=== PATIENT | female | born 1950 | race Caucasian/White ===

== ENCOUNTER 2024-12-11 17:52 | Emergency (ER) | payer MEDICARE, SELFPAY ==
[2024-12-11] VITALS (12 sets, daily range): BP systolic 97–115; BP diastolic 60–71; PULSE 67–96; RESP 18–25; TEMP 36.7–36.9; O2SAT 90–97
--- NOTE | ~2024-12-11 | CT_ITS ---
EXAMINATION: CT abdomen pelvis w con DATE: 12/11/2024 19:49 INDICATION: ABDOMINAL PAIN TECHNIQUE: Computed tomography (CT) of the abdomen and pelvis was performed with 100 mL Omnipaque-350 intravenous contrast. Automated exposure control and iterative reconstruction technique were employe d. The dose-length product was 772.03 mGy-cm. COMPARISON: None. FINDINGS: Significant limitation from metal streak artifact from bracelets or other jewelry on the upper extrem ities throughout the upper abdomen. Lower thorax: Marked cardiomegaly. Left ventricular wall thickening. Scattered air cysts. Dependent a telectasis/interstitial change. Liver: Normal. Biliary/Gallbladder: Gallbladder is normal. No bile duct dilation. Pancreas: No mass or duct dilation. Spleen: Normal. Adrenals:No mass. Kidneys: No suspicious mass, obstructing stone, or hydronephrosis subcentimeter right midpole hypoden sity, too small to characterize but most likely represents a cyst. GI tract: Moderate hiatal hernia. No small or large bowel dilation. Multiple loops of dilated small b owel, with intervening normal caliber portions, with variable degrees of wall hyperemia and wall thic kening. Marked diverticulosis. Large volume of colonic feces, particularly in the sigmoid. Rectosigmo id and rectal wall thickening. Wall breakdown with extension of fecal material into the right lateral pelvis at the level of the distal sigmoid (axial image 144/218). Mesentery/Peritoneum: Small volume ascites with small volume pneumoperitoneum. Diffuse mesenteric inf lammation/edema Retroperitoneum: No mass. Atherosclerotic calcifications of intra-abdominal arterial vessels. Pelvis: Normal urinary bladder and bilateral ovaries. Absent uterus. Soft Tissues: Soft tissues and body wall unremarkable. Bones: No acute osseous finding. IMPRESSION: Significant artifact in the upper abdomen. Multifocal segments of infectious, inflammatory, or ischemic enteritis. Findings concerning for sigmoid bowel rupture, with feculent peritonitis. Reviewed, dictated and finalized at location K.
--- NOTE | 2024-12-11 18:19 | ED.ABDPAIN ---
HPI - Abdominal Pain General Chief Complaint: Abdominal Pain Stated Complaint: abd pain Time Seen by Provider: 12/11/24 18:12 Source: patient Mode of arrival: ambulatory Limitations: no limitations History of Present Illness HPI narrative: 74 YEARS OLD WHITE FEMALE CAME FROM HOME BY AMBULANCE COMPLAINING OF LOWER ABDOMINAL PAIN STARTED AT 5:00 A.M. THIS MORNING, CURRENTLY LOCALIZED AT THE RIGHT LOWER QUADRANT WORSE WITH MOVEMENT, BETTER LAYING STILL, ASSOCIATED WITH NAUSEA. PATIENT DENIES ANY FEVER OR CHILLS OR VOMITING. HISTORY OF HYSTERECTOMY, HYPERTENSION, HYPER LIPID, CONGESTIVE HEART FAILURE, STATUS POST ICD PLACEMENT 4 DAYS AGO AT [place]. HISTORY OF OPEN HEART SURGERY, CVA WITH RIGHT HEMIPARESIS. Related Data Allergies Allergy/AdvReac Type Severity Reaction Status Date / Time latex Allergy Intermediate Unknown Verified 12/11/24 18:34 morphine Allergy Unknown Verified 12/11/24 18:34 Review of Systems Review of Systems: All systems reviewed & are unremarkable except as noted in HPI and below Exam Narrative: GENERAL APPEARANCE: WELL-DEVELOPED, WELL-NOURISHED SKIN: NORMAL COLOR HEAD: NORMOCEPHALIC, NONTRAUMATIC EYES: CLEAR CONJUNCTIVA ENT: OROPHARYNX NORMAL, EARS NORMAL, NOSE NORMAL NECK: SUPPLE, NONTENDER CHEST AND RESPIRATORY: AIRWAY PATENT, NO RESPIRATORY DISTRESS, NO ACCESSORY MUSCLE USE HEART: REGULAR RATE/RHYTHM ABDOMEN: SOFT, SEVERE TENDERNESS LOWER ABDOMEN, BILATERALLY MAINLY ON THE RIGHT LOWER QUADRANT VASCULAR: NORMAL PERIPHERAL PULSES, NORMAL CAPILLARY REFILL. MUSCULOSKELETAL: NORMAL RANGE OF MOTION, NONTENDER BACK NEUROLOGIC: ALERT AND ORIENTED ?3, CONSTRUCTION ACCOUNTANT IS NORMAL TESTED, NO GROSS MOTOR DEFICIT Course Consultations Consultation #1: DR. GLOVER TRANSFERRED TO [facility] Date: 12/11/24 Time: 20:37 Consultation #2: DR STREET, THE SURGEON ON-CALL AT [facility], REQUESTED TO TRANSFER PATIENT TO THE ED Date: 12/11/24 Consultation #3: DR. GROSS, ED PHYSICIAN AT [facility] WHO ACCEPTED PATIENT TRANSFER Date: 12/11/24 Time: 21:16 Vital Signs Vital signs: Vital Signs Temperature 36.9 C 12/11/24 17:51 Pulse Rate 74 12/11/24 17:51 Respiratory Rate 18 12/11/24 17:51 Blood Pressure 115/71 12/11/24 17:51 Pulse Oximetry 96 12/11/24 17:51 Oxygen Delivery Room Air 12/11/24 17:51 Temperature 36.9 C 12/11/24 18:07 Pulse Rate 81 12/11/24 20:20 Respiratory Rate 23 H 12/11/24 20:20 Blood Pressure 97/60 L 12/11/24 20:20 Pulse Oximetry 93 12/11/24 20:20 Oxygen Delivery Room Air 12/11/24 17:51 MDM - Abdominal Pain MDM Narrative Medical decision making narrative: PATIENT PRESENTS WITH LOWER ABDOMINAL PAIN MAINLY RIGHT LOWER QUADRANT VITAL SIGNS ARE STABLE PHYSICAL EXAMINATION CONSISTENT WITH RIGHT LOWER ABDOMEN TENDERNESS DIFFERENTIAL DIAGNOSIS INCLUDE APPENDICITIS, DIVERTICULITIS, COLITIS, URINARY TRACT INFECTION, CONSTIPATION BLOOD WORKUP TODAY INCLUDES CBC, CMP, LIPASE SHOWED INSIGNIFICANT ABNORMALITIES URINALYSIS SHOWED CT ABDOMEN AND PELVIS WITH IV CONTRAST SHOWED MULTIFOCAL SEGMENTS OF INFECTIOUS, INFLAMMATORY OR ISCHEMIC ENTERITIS, FINDING CONCERNING FOR SIGMOID BOWEL RUPTURE WITH FECULENT PERITONITIS DR. GLOVER REQUESTED TO TRANSFER PATIENT TO [facility] PATIENT ACCEPTED FOR TRANSFER FROM ED TO ED, DISCUSSED WITH DR. STREET, THE SURGEON ON-CALL AND DR. GROSS THE ED PHYSICIAN AT [facility] Differential Diagnosis Differential diagnosis: Likely other ( ABOVE) Medical Records Attestation: I reviewed the patient's medical records. Lab Data Attestation: I reviewed the patient's lab results. 12/11/24 18:49 12/11/24 18:49 Labs: Lab Results 12/11/24 Range/Units 18:49 WBC 4.5 (4.5-10.0) K/mm3 RBC 4.32 (4.2-5.4) M/mm3 Hgb 13.1 (12.0-15.0) g/dL Hct 41.4 (37.0-47.0) % MCV 95.8 (80-100) fl MCH 30.3 (26-34) pg MCHC 31.6 L (32-36) g/dl RDW 12.8 (11.5-14.5) % Plt Count 149 L (150-375) k/mm3 MPV 9.6 (7.4-10.4) fl Immature Gran % (Auto) 0.2 (0-0.5) % Neut % (Auto) 70.0 (45.5-73.1) % Lymph % (Auto) 25.2 (18.3-44.2) % Weakley % (Auto) 3.3 (2.6-8.5) % Eos % (Auto) 0.9 (0-4.4) % Baso % (Auto) 0.4 (0.2-1.2) % Lymph # (Auto) 1.14 (0.9-3.2) K/mm3 Weakley # (Auto) 0.2 (0.1-0.6) K/mm3 Eos # (Auto) 0.0 (0-0.3) K/mm3 Baso # (Auto) 0.0 (0.0-0.1) K/mm3 Abs Immat Gran (auto) 0.01 (0.00-0.031) K/mm3 Absolute Neuts (auto) 3.2 (1.3-6.7) K/mm3 Absolute Nucleated RBC 0.000 (0.0-0.012) K/mm3 Nucleated RBC % 0.0 (0.0-0.2) % Sodium 138 (137-145) mmol/L Potassium 3.9 (3.4-5.0) mmol/L Chloride 104 (98-107) mmol/L Carbon Dioxide 29 (22-30) mmol/L Anion Gap 5 (4-12) mmol/L BUN 26 H (7-17) mg/dL Creatinine 0.70 (0.7-1.0) mg/dL Estim Creat Clear Calc 63 ml/min Estimated GFR > 60 (59 - ) Glucose 143 H (65-110) mg/dL Calcium 8.9 (8.4-10.2) mg/dL Total Bilirubin 0.5 (0.2-1.3) mg/dL AST 33 (14-36) U/L ALT 22 (6-35) U/L Alkaline Phosphatase 76 (38-126) U/L Total Protein 7.0 (6.3-8.2) g/dL Albumin 3.7 (3.5-5.1) g/dL Lipase 50 (23-300) U/L Imaging Data Radiologist's impression: ITS Impressions Abdomen/Pelvis CT 12/11/24 19:55 IMPRESSION: Significant artifact in the upper abdomen. Multifocal segments of infectious, inflammatory, or ischemic enteritis. Findings concerning for sigmoid bowel rupture, with feculent peritonitis. Impressions Abdomen/Pelvis CT 12/11/24 19:55 IMPRESSION: Significant artifact in the upper abdomen. Multifocal segments of infectious, inflammatory, or ischemic enteritis. Findings concerning for sigmoid bowel rupture, with feculent peritonitis. Critical Care Time Critical Care Time Critical Care Time: Yes Total Critical Care Time: 40 Discharge Plan Discharge Clinical Impression: Abdominal pain, Acute ischemic colitis, Rupture of colon Patient Disposition: Acute Care Hospital Condition: Critical Patient Language: Luxembourgish
[2024-12-11] MEDS: SODIUM CHLORIDE 0.9% IV 1,000 ML 999 ML IV CONT (18:41)
[2024-12-11] MEDS: ONDANSETRON INJ 4 MG/2 ML VIAL IV PUSH ×2 (18:41→20:27)
[2024-12-11 18:56] LABS: Basophils Percent Auto 0.4 % (0.2-1.2); Eosinophils Percent Auto 0.9 % (0-4.4); Hematocrit 41.4 % (37.0-47.0); Hemoglobin 13.1 g/dL (12.0-15.0); Immature Granulocyte Absolute 0.01 K/mm3 (0.00-0.031); Immature Granulocyte Percent A 0.2 % (0-0.5); Lymphocytes Absolute Auto 1.14 K/mm3 (0.9-3.2); Lymphocytes Percent Auto 25.2 % (18.3-44.2); Mean Corpuscular HGB Conc 31.6 g/dl (32-36); Mean Corpuscular Hemoglobin 30.3 pg (26-34); Mean Corpuscular Volume 95.8 fl (80-100); Mean Platelet Volume 9.6 fl (7.4-10.4); Monocytes Absolute Auto 0.2 K/mm3 (0.1-0.6); Monocytes Percent Auto 3.3 % (2.6-8.5); Neutrophils Absolute Auto 3.2 K/mm3 (1.3-6.7); Platelet Count Result 149 k/mm3 (150-375); Red Blood Count 4.32 M/mm3 (4.2-5.4); Red Cell Distribution Width 12.8 % (11.5-14.5); White Blood Count 4.5 K/mm3 (4.5-10.0)
--- OUTSIDE RECORDS SUMMARY | 2024-12-11 18:59 | XMS_ITS ---
Author Organization [facility] Address [address] [facility] [address] [place] [address] Care Team Providers Care Street Light Mechanic Name Role Phone Rae Aguillon MD Primary Care Provider Tiny Barnes Unavailable [phone] REASON FOR VISIT HFWB COLON/PERS HX POLYPS PCP RAE AGUILLON PP Problems Problem Type SNOMED Code ICD Code Onset Dates Problem Status W/U Status Risk Notes Problem History of polyp of colon (situation) (234103508) Hx of colonic polyps (Z86.010) Active confirmed Encounters Encounter Location Date Provider Diagnosis [facility] [address] [place] [address] 10/22/2023 Tiny Moralez Plan Of Treatment No Information Progress Notes * Yelena LINDSEYBoomOB:1950 (74 yo F)Acc No.[id number]:10/22/2023 Patient: Mary Kay AGUIAR Provider: Rhonda Moralez M.D. :1950 A ge:73 Y S ex:Female Date:10/22/2023 Address:[address] [place], [place] [id number] Pcp:Rae Aguillon MD * Billing Information: * Visit Code: * Procedure Codes: * The named appointment provid er may or may not be the originator of this progress note, and it is not deemed complete until electronically signed by the appointment provider. Sign off status: Pending * Provider: Rhonda Moralez M.D. Date: 0 10/22/2023 Generated for Gelyi ng/Kindra/eTransmitting on: 0 12/11/2024 07:59 PM EDT
--- OUTSIDE RECORDS SUMMARY | 2024-12-11 18:59 | XMS_ITS | Clinical Summary ---
Author Organization [facility] Address [address] [place] [address] Care Team Providers Care Per Diem Registered Nurse Name Role Phone Rae Aguillon Primary Care Provider [phone] Allergies Active Allergy Reactions Criticality Noted Date Comments Latex Hives 10/09/2023 Lisinopril Other (See Comments) 10/09/2023 cough Morphine Other (See Comments) 10/09/2023 Severe back pain Medications ascorbic acid, vitamin C, (VITAMIN C) 1000 MG tablet Take 1,000 mg by mouth. Active melatonin 10 mg Cap Take 1 capsule by mouth daily as needed. Active venlafaxine (EFFEXOR-XR) 37.5 MG 24 hr capsule Take 37.5 mg by mouth. Active losartan (COZAAR) 25 MG tablet Take 25 mg by mouth daily. Active carvediloL (COREG) 6.25 MG tablet Take 6.25 mg by mouth 2 (two) times daily with meals. Active levothyroxine (SYNTHROID) 100 MCG tablet Take 100 mcg by mouth every morning on empty stomach. Active multivitamin (TAB A AMY) tablet Take 1 tablet by mouth daily. Active clopidogreL (PLAVIX) 75 mg tablet Take 75 mg by mouth daily. Active atorvaSTATin (LIPITOR) 80 MG tablet Take 80 mg by mouth daily. Active Social History Tobacco Use Types Packs/Day Years Used Date Smoking Tobacco: Never Passive Smoke Exposure: Past Smokeless Tobacco: Never Alcohol Use Standard Drinks/Week Comments Not Currently 0 (1 standard drink = 0.6 oz pur e alcohol) Safety Answer Date Recorded Are you afraid you might be hurt in your living environment? No 10/22/2023 Comments No Sex and Gender Information Value Date Recorded Sex Assigned at Not on file Legal Sex Female 1:12 PM EDT Gender Identity Not on file Sexual Orientation Not on file Last Filed Vital Signs Vital Sign Reading Time Taken Comments Blood Pressure 103/59 10/22/2023 1:54 PM EST Pulse 66 10/22/2023 1:54 PM EST Temperature 36.2 C (97.1 F) 10/22/2023 1:28 PM EST Respiratory Rate 66 10/22/2023 1:54 PM EST Oxygen Saturation 97% 10/22/2023 1:54 PM EST Inhaled Oxygen Concentration - - Weight 56.7 kg (125 lb) 10/09/2023 11:12 AM EST Height 175.3 cm (5' 9 ) 10/09/2023 11:12 AM EST Body Mass Index 18.46 10/09/2023 11:12 AM EST Plan of Treatment Health Maintenance Due Date Last Done Comments CT Colonography 1950 FIT-DNA (Cologuard) 1950 Fecal Immunochemical Test (FIT) 1950 HEPATITIS C SCREENING 1950 Sigmoidoscopy 1950 TSH LEVEL 1950 SDOH FOOD 1950 Social Determinants of Health 1951 BMI/BMI PERCENTILE ANNUAL MEASUREMENT 1953 Adult Tdap/Td Vaccine 1969 Breast Cancer Screening 1990 Pneumococcal Vaccine Age 50+ (1 of 1 - PCV) 02/07/2000 SHINGRIX VACCINE SERIES (1 of 2) 02/07/2000 DXA SCAN 2015 FALL RISK SCREENING 2015 SENIOR WELL VISIT (65+) 2015 COVID- 19 Vaccine ( season) 2024, 11/13/2020 INFLUENZA VACCINE (#1) 2024 Depression Screening 09/08/2024 Adult RSV (Respiratory Syncy tial Virus) Vaccine (1 - 1-dose 75+ series) 2025 Colonoscopy 10/22/2033 10/22/2023 Colorectal Cancer Screening 10/22/2033 Procedures Procedure Name Priority Date/Time Associated Diagnosis Comments GASTRO COLONOSCOPY 10/22/2023 12 :39 PM EST from Last 3 Months or Most Recently Relevant to Health Maintenance Results * GASTRO COLONOSCOPY (10/22/2023 12:39 PM EST) Anatomical Region Laterality Modality Other 10/22/2023 12:3 9 PM EST Narrative Procedure Note Tiny Moralez MD - 10/22/2023 12:39 PM EST [facility] Patient Name: Mary Kay Mahan Procedure Date: 10/22/2023 12:39 PM Attending MD: Tiny Moralez , , Date of : 1950 Gender: Female Age: 73 Procedure: Colonoscopy Indications: High risk colon cancer surveillance: Personalhistory of colonic polyps, Last colonoscopy: August2018 Providers: Tiny Moralez Referring MD: Rae Aguillon Medicines: Monitored Anesthesia Care Complications: No immediate complications. Procedure: Pre-Anesthesia Assessment: - Prior to the procedure, a History and Physicalwas performed, and patient medications and allergieswere reviewed. The patient is competent. The risks and benefits of the procedure and the sedation optionsand risks were discussed with the patient. Allquestions were answered and informed consent was obtained. Patient identification and proposed procedure were verified by the physician. Mental StatusExamination: alert and oriented. Airway Examination: normal oropharyngeal airway and neck mobility. Respiratory Examination: clear to auscultation. CV Examination: normal. Prophylactic Antibiotics: The patient doesnot require prophylactic antibiotics. Prior Anticoagulants: The patient has taken Plavix (clopidogrel), last dose was 7 days prior to procedure. ASA Grade Assessment: III - A patientwith severe systemic disease. After reviewing the risksand benefits, the patient was deemed in satisfactory condition to undergo the procedure. The anesthesia plan was to use monitored anesthesia care (MAC). Immediately prior to administration of medications, the patient was re-assessed for adequacy to receive sedatives. The heart rate, respiratory rate, oxygen saturations, blood pressure, adequacy of pulmonary ventilation, and response to care were monitored throughout the procedure. The physical status ofthe patient was re-assessed after the procedure. After I obtained informed consent, the scope was passed under direct vision. Throughout theprocedure, the patient's blood pressure, pulse, and oxygen saturations were monitored continuously. The was introduced through the anus and advanced to the terminal ileum, with identification of theappendiceal orifice and IC valve. The colonoscopy was performed without difficulty. The patient tolerated the procedure well. The quality of the bowelpreparation was good. The terminal ileum, ileocecal valve, appendiceal orifice, and rectum werephotographed. Estimated Blood Loss: Estimated blood loss was minimal. Findings: The perianal and digital rectal examinations were normal. Pertinent negatives include no palpable rectal lesions. The terminal ileum appeared normal. A 5 mm polyp was found in the rectum. The polyp was sessile. Thepolyp was removed with a cold snare. Resection and retrieval werecomplete. Two sessile polyps were found in the hepatic flexure. The polyps were6 to 7 mm in size. These polyps were removed with a cold snare.Resection and retrieval were complete. Two sessile polyps were found in the proximal ascending colon and mid ascending colon. The polyps were 6 to 8 mm in size. These polyps were removed with a cold snare. Resection and retrieval were complete. Internal hemorrhoids were found during retroflexion. The hemorrhoids were large. Multiple diverticula were found in the left colon. The exam was otherwise without abnormality. Impression: - The examined portion of the ileum was normal. - One 5 mm polyp in the rectum, removed with a cold snare. Resected and retrieved. - Two 6 to 7 mm polyps at the hepatic flexure,removed with a cold snare. Resected and retrieved. - Two 6 to 8 mm polyps in the proximal ascendingcolon and in the mid ascending colon, removed with a cold snare. Resected and retrieved. - Internal hemorrhoids. - Diverticulosis in the left colon. - The examination was otherwise normal. Recommendation: - Await pathology results. - Repeat colonoscopy in 3 years. - Patient has a contact number available for emergencies. The signs and symptoms of potential delayed complications were discussed with thepatient. Return to normal activities tomorrow. Written discharge instructions were provided to thepatient. - Resume previous diet. - Continue present medications. - Resume Plavix (clopidogrel) at prior dosetomorrow. - Discharge patient to home (with escort). - Return to referring physician as previously scheduled. Procedure Code(s): --- Professional --- 78609, Colonoscopy, flexible; with removal of tumor(s), polyp(s), or other lesion(s) by snare technique Diagnosis Code(s): --- Professional --- Z86.010, Personal history of colonic polyps D12.8, Benign neoplasm of rectum D12.3, Benign neoplasm of transverse colon (hepatic flexure orsplenic flexure) D12.2, Benign neoplasm of ascending colon K57.30, Diverticulosis of large intestine without perforation orabscess without bleeding K64.8, Other hemorrhoids CPT copyright 2020 [employer]. All rights reserved. The codes documented in this report are preliminary and upon motor scooter repairer reviewmay be revised to meet current compliance requirements. Tiny Moralez, 10/22/2023 1:29:04 PM Number of Addenda: 0 Note Initiated On: 10/22/2023 12:39 PM Scope In: 1:00:34 PM Scope Withdrawal Time 0 hours 4 minutes 16 seconds Total Procedure Duration Time 0 hours 10 minutes 36 seconds Scope Out: 1:11:10 PM us Tiny Moralez MD ENDOSCOPY ORDERABLES Final Re sult from Last 3 Months or Most Recently Relevant to Health Maintenance Insurance [facility] PPO MED ADV Advance Directives * Full Code (Latest Code Status on File) Date Activated Date Inactivated Comments 10/22/2023 12:12 PM 10/26/2023 2:29 AM Care Teams Per Diem Registered Nurse Relationship Specialty Start Date End Date Rae Aguillon [address] [facility] [address] [place] [address] PCP - General Internal Medicine 09/19/23
--- OUTSIDE RECORDS SUMMARY | 2024-12-11 18:59 | XMS_ITS ---
Author Organization [facility] Address [address] [address] [facility] [place] [address] Care Team Providers Care Building Maintenance Supervisor Name Role Phone Rae Aguillon Primary Care Provider Pal NEVAREZ, Rae Unavailable Unavailable Encounters Encounter Location Date Provider Diagnosis [facility] [address] [facility] [address] [place] [address] 09/22/2024 Rae Aguillon Plan Of Treatment No Information Progress Notes * SHERRY GARCIA MDOB: [birth year] (74 yo F)Acc No.[id number]:09/22/2024 Patient: Hortencia MCBRIDESHERRY :1950 A ge:74 Y S ex:Female Address:[address] [place] [address], [address] * true * Date: Generated for Christin daniel/Kindra/eTransmitting on: 0 12/11/2024 07:58 PM EDT
--- OUTSIDE RECORDS SUMMARY | 2024-12-11 18:59 | XMS_ITS | Encounter Summary ---
Author Organization [facility] Address [address] [place] [address] Care Team Providers Care Electrical Technology Instructor Name Role Phone Rae Aguillon MD Primary Care Provider [phone] Encounter Details Date Type Department Care Team (Late st Contact Info) Description 09/09/2024 Lab Requisition [facility] [address] [place] [address] Genoveva Lynch MD [address] [place] [address] Coagulation defect, unspecified (HCC) Social History Tobacco Use Types Packs/Day Years Used Date Smoking Tobacco: Former Cigarettes Q uit: 09/08/1992 Smokeless Tobacco: Never Alcohol Use Standard Drinks/Week Comments No 0 (1 standard drink = 0.6 oz pur e alcohol) [facility] Utilities Answer Date Recorded In the past 12 months has [facility] [place], gas, oil, or water [employer] threatened to shut off services in your home? No 07/27/2024 Humiliation, Afraid, Rape, and Kick questionnair e Answer Date Recorded Within the last year, have y ou been afraid of your partner or ex-partner? No 07/23/2024 Within the last year, have y ou been humiliated or emotionally abused in other ways by your partner or ex-partner? No Within the last year, have y ou been kicked, hit, slapped, or otherwise physically hurt by your partner or ex-partner? No 07/23/2024 Within the last year, have y ou been raped or forced to have any kind of sexual activity by your partner or ex-partner? No 07/23/2024 AUDIT-C Answer Date Recorded Q1: How often do you have a drink containing alcohol? Never 07/23/2024 Q2: How many drinks containi ng alcohol do you have on a typical day when you are drinking? Patient does not drink Q3: How often do you have si x or more drinks on one occasion? Never 07/23/2024 Overall Financial Resource Strain (CARDIA) Answe r Date Recorded How hard is it for you to pa y for the very basics like food, housing, medical care, and heating? Not very hard 07/27/2024 PHQ-2 Answer Date Recorded PHQ-2 Depression Score - If > 2, have the patient complete remainder of PHQ-9 4 07/26/2024 Hunger Vital Sign Answer Date Recorded Within the past 12 months, y ou worried that your food would run out before you got the money to buy more. Never true 07/27/20 24 Within the past 12 months, t he food you bought just didn't last and you didn't have money to get more. Never true 07/27/2024 PRAPARE - Transportation Answer Date Re corded In the past 12 months, has l ack of transportation kept you from medical appointments or from getting medications? No 07/09 In the past 12 months, has l ack of transportation kept you from meetings, work, or from getting things needed for daily living? No 07/27/2024 Housing Stability Vital Sign Answer Amari e Recorded In the last 12 months, was t here a time when you were not able to pay the mortgage or rent on time? No 07/27/2024 In the last 12 months, how many places have you lived? 1 07/27/2024 In the last 12 months, was t here a time when you did not have a steady place to sleep or slept in a alf (including now)? No 07/27/2024 Housing Stability Vital Sign Answer Amari e Recorded In the last 12 months, was t here a time when you were not able to pay the mortgage or rent on time? Patient unable to answer 07/29/2024 In the past 12 months, how m any times have you moved where you were living? 1 07/29/2024 At any time in the past 12 m [facility], were you homeless or living in a alf (including now)? Patient unable to answer 07/29/2024 Comments No Sex and Gender Information Value Date Recorded Sex Assigned at Not on file Legal Sex Female 6:47 PM EDT Gender Identity Not on file Sexual Orientation Not on file documented as of this encounter Plan of Treatment Upcoming Encounters Date Type Department Care Team (Latest Contact Info) Description 01/13/2025 9:00 AM EDT Hospital Encounter [facility] [address] [place] [address] Britt Vinson MD [address] [place] [address] 01/13/2025 9:00 AM EDT - 01/13/2025 10:30 AM EDT Surgery [facility] [address] [place] [address] Britt Vinson MD [address] [place] [address] CYSTOSCOPY TRANSURETHRAL RESECTION OF BLADDER TUMOR, Scheduled Procedures Name Priority Associated Diagnoses Date/Ti me TURBT (TRANSURETHRAL RESECTION OF BLADDER TUMOR) Neoplasm of uncertain behavior of bladder 01/13/2025 9:00 AM EDT CYSTOURETEROSCOPY, WITH RETROGRADE PYELOGRAM OR STENT INSERTION Neoplasm of uncertain behavior of bladder 01/13/2025 9:00 AM EDT documented as of this encounter Procedures Procedure Name Priority Date/Time Associated Diagnosis Comments IMMUNOGLOBULINS (IGG, IGA, IGM) STAT 09/09/2024 3:08 PM EST Coagulation defect, unspecified (HCC) URINALYSIS WITH MICROSCOPIC IF IND STAT 09/09/2024 3:08 PM EST Coagulation defect, unspecified (HCC) EXTRA TUBE/BLUE Routine 09/09/2024 3:08 PM EST Coagulation defect, unspecified (HCC) PROTEIN S ACTIVITY STAT 09/09/2024 3: 08 PM EST Coagulation defect, unspecified (HCC) PROTEIN C ACTIVITY STAT 09/09/2024 3: 08 PM EST Coagulation defect, unspecified (HCC) ANTITHROMBIN III STAT 09/09/2024 3:08 PM EST Coagulation defect, unspecified (HCC) documented in this encounter Results * Extra Tube/Blue (09/09/2024 3:08 PM EST) Blood VENOUS BLOOD SPECIMEN / Unknown 09/09/2024 3:08 PM EST 09/09/2024 5:42 PM EST Genoveva Lynch MD LAB BLOOD ORDERABLES Final R esult [facility] [address] [place] [address] * (ABNORMAL) Urinalysis with Microscopic if Indicated ( [facility] Only ) (09/09/2024 3:08 PMEST) Urine Color Yellow 09/09/2024 6:25 PM [facility] Urine Clarity Cloudy(A) Clear 09/09/2024 6:25 PM [facility] Urine Glucose Negative Negative mg/dL 09/09/2024 6:25 PM EST [facility] Urine Bilirubin Negative Negative 6:25 PM [facility] Urine Ketones 5(A) Negative mg/dL 09/09/2024 6:25 PM EST [facility] Urine Specific [place] 1.021 1.005 - 1.030 09/09/2024 6:25 PM [facility] Urine Blood Trace(A) Negative 09/09/2024 6:25 PM [facility] U pH 5.0 5.0 - 8.0 09/09/2024 6:25 PM [facility] Urine Protein Trace(A) Negative mg/dL 09/09/2024 6:25 PM EST [facility] Urine Urobilinogen 0.2 <2.0 mg/dL 09/09/2024 6:25 PM EST [facility] Urine Nitrite Positive(A) Negative 09/09/2024 6:25 PM EST [facility] Urine Leukocyte Esterase 3+(A) Negative 09/09/2024 6:25 PM EST [facility] Urine RBC 0-2 0-2 Negative /HPF 09/09/2024 6:25 PM EST [facility] Urine WBC 51-100(A) 0-5 Negative /HPF 09/09/2024 6:25 PM EST [facility] Urine Squamous Epithelial Cells >20(A) 0 - 5 /HPF 09/09/2024 6:25 PM EST [facility] Comment:Epithelial cell coun t may include squamous, transitional and renal tubular epithelial cells Urine Hyaline Casts 3 - 5(A) 0-2 Negative /LPF 09/09/2024 6:25 PM EST [facility] Comment: Total cast count will include hyaline casts and may include pathologic casts. See report below for pathologic casts identification, if present. Urine Bacteria 4+(A) Negative /HPF 09/09/2024 6:25 PM EST [facility] Urine Calcium Oxalate Crystal Present /HPF 09/09/2024 6:25 PM EST [facility] Urine URINE SPECIMEN OBTAINED BY CLEAN CATCH PROCEDURE / Unknown 09/09/2024 3:08 PM EST 09/09/2024 5:40 PM EST [facility] - 09/09/2024 6:25 PM EST Positive dipstick result for blood but no red blood cells detected by fluorescent flow cytometry. The result could be seen in patients with hemoglobinuria and/or myoglobinuria. In rare cases, the result can be caused by discolored urine following ingestion of certain drugs/dyes. us Genoveva Lynch MD LAB URINE ORDERABLES Final R esult [facility] [address] [place] [address] * Immunoglobulins (IgG, IgA, IgM) (09/09/2024 3:08 PM EST) Immunoglobulin A (IgA) 193 70 - 365 mg/dL 09/09/2024 6:11 PM EST [facility] Immunoglobulin G (IgG) 1,300 550 - 1,650 mg/dL 09/09/2024 6:11 PM EST [facility] Immunoglobulin M (IgM) 79 30 - 263 mg/dL 09/09/2024 6:11 PM EST [facility] Blood VENOUS BLOOD SPECIMEN / Unknown 09/09/2024 3:08 PM EST 09/09/2024 5:40 PM EST Genoveva Lynch MD LAB BLOOD ORDERABLES Final R esult Performing Organization Address [facility]/ZIP Co de Phone Number [address] [address] * Antithrombin Activity (09/09/2024 3:08 PM EST) Pathologist [facility] Antithrombin III Activity 97 85 - 150 % 09/10/2024 9:59 AM EST [facility] Comment:NOTE: Some direct or al anticoagulants (e.g. factor Xa inhibitors) may cause false negative results. Decreased Antithrombin levels may be due to either acquired or hereditary causes. Blood VENOUS BLOOD SPECIMEN / Unknown 09/09/2024 3:08 PM EST 09/09/2024 5:40 PM EST Genoveva Lynch MD LAB BLOOD ORDERABLES Final R esult Performing Organization Address City/[facility]/ZIP Co de Phone Number [address] [place] [address] * Protein S Activity (09/09/2024 3:08 PM EST) Pathologist [facility] Protein S Activity 92 50 - 150 % 09/10/2024 9:59 AM EST [facility] Comment:Note that direct ora l anticoagulants can interfere with protein S testing, causing artificially high and/or false negative results. Blood VENOUS BLOOD SPECIMEN / Unknown 09/09/2024 3:08 PM EST 09/09/2024 5:40 PM EST Genoveva Lynch MD LAB BLOOD ORDERABLES Final R esult Performing Organization Address City/[facility]/ZIP Co de Phone Number [facility] [address] [place] [address] * Protein C Activity (09/09/2024 3:08 PM EST) Protein C Activity 93 70 - 150 % 09/10/2024 9:59 AM EST [facility] Blood VENOUS BLOOD SPECIMEN / Unknown 09/09/2024 3:08 PM EST 09/09/2024 5:40 PM EST Genoveva Lynch MD LAB BLOOD ORDERABLES Final R esult Performing Organization Address City/[facility]/ZIP Co de Phone Number [address] [place] [address] documented in this encounter Visit Diagnoses Diagnosis Coagulation defect, unspecified (HHS-HCC) Neoplasm of uncertain behavior of bladder documented in this encounter Care Teams Electrical Technology Instructor Relationship Specialty Start Date End Date Rae Aguillon MD PCP - General Internal Medicine 03/05/19 documented as of this encounter
--- OUTSIDE RECORDS SUMMARY | 2024-12-11 18:59 | XMS_ITS | Referral Summary ---
Author Organization [facility] Address [address] [place] [address] Care Team Providers Care Inter Com Installer Name Role Phone Rae Aguillon MD Primary Care Provider [phone] Encounters Date Type Department Care Team Description 12/08/2024 11:08 AM EDT - 12/09/2024 1:44 PM EDT Hospital Encounter [facility] 8 Located Within [facility] [address] [place] [address] Cristina Thibodeaux MD S/P ICD (internal cardiac defibrillator) procedure (Primary Dx); NICM (nonischemic cardiomyopathy) (HCC) Discharge Disposition: Home or Self Care 12/08/2024 12:30 PM EDT - 12/08/2024 2:00 PM EDT Surgery [facility] Electrophysiology Laboratory 8 [facility] [address] [place] [phone] Cristina Thibodeaux MD CV IMPLANTABLE CARDIOVERTER DEFIBRILLATOR INSERTION 12/08/2024 1:17 PM EDT Anesthesia Event [facility] Electrophysiology Laboratory 8 [facility] [address] [place] [address] Brianda Rivas MD Rude, Mary A, RN 12/03/2024 11:44 AM EDT - 12/03/2024 11:59 PM EDT Hospital Encounter [facility] CT First Floor - [address] [place] [address] Umberto Barahona MD Gross hematuria Discharge Disposition: Home or Self Care 12/02/2024 2:25 PM EDT Clinical Support [facility] Laboratory - [address] [place] [phone] NICM (nonischemic cardiomyopathy) (HCC); Pre-procedure lab exam 11/24/2024 Telephone [facility] Cardiology - [address] [place] [phone] Cristina Thibodeaux MD Results 11/18/2024 Telephone [facility] Cardiology - [address] [place] [phone] Cristina Thibodeaux MD 11/05/2024 Telephone [facility] Cardiology - [address] [place] [phone] Cristina Thibodeaux MD Procedure 11/04/2024 Telephone [facility] Cardiology - [address] [place] [address] Cristina Thibodeaux MD OTHER 11/03/2024 Lab Requisition [facility] Laboratory [address] [place] [address] Umberto Barahona MD Gross hematuria 11/02/2024 Telephone [facility] Cardiology - [address] [place] [phone] Cristina Thibodeaux MD OTHER 10/29/2024 Telephone [facility] Cardiology - [address] [place] [phone] Cristina Thibodeaux MD OTHER 10/29/2024 Telephone [facility] Cardiology - [address] [place] [address] Cristina Thibodeaux MD OTHER 10/29/2024 1:30 PM EST Office Visit [facility] Cardiology - [address] [place] [address] Cristina Thibodeaux MD Chronic systolic congestive heart failure (HCC) (Primary Dx); Dizziness; Coronary artery disease involving miami coronary artery of miami heart without angina pectoris 10/26/2024 Telephone [facility] Cardiology - [address] [place] [address] Cristina Thibodeaux MD Abnormal Result 09/29/2024 Telephone [facility] Cardiology - [address] [place] [address] Cristina Thibodeaux MD OTHER 09/20/2024 Telephone [facility] Cardiology - [address] [place] [address] Cristina Thibodeaux MD OTHER 09/17/2024 3:15 PM EST Office Visit [facility] Cardiology - [address] [place] [address] Cristina Thibodeaux MD Cardiomyopathy, ischemic (Primary Dx); NSVT (nonsustained ventricular tachycardia) (HCC); Coronary artery disease involving miami coronary artery of miami heart without angina pectoris from Last 3 Months Allergies Active Allergy Reactions Criticality Noted Date Comments Latex Hives High 10/27/2014 Lisinopril Cough 12/08/2014 Morphine Other High 09/22/2014 Severe back pain Medications venlafaxine (EFFEXOR-XR) 150 mg extended-relea se capsule Take 150 mg by mouth every morning. 9 Active multivitamin with mineral (THERA M PLUS) tablet Take 1 tablet by mouth daily. 8 Active ascorbic acid (VITAMIN C) 1000 mg tablet Take 1,000 mg by mouth daily. 8 Active cholecalcifero l (VITAMIN D3) 50 MCG (1999 UT) TBDP Take 50 mcg by mouth daily. Active atorvastatin (LIPITOR) 80 mg tablet Take 80 mg by mouth nightly. Active levothyroxine (SYNTHROID) 100 mcg tablet Take 100 mcg by mouth every morning (before breakfast) on an empty stomach. Take on an empty stomach at least 30 minutes before food. Active losartan (COZAAR) 25 mg tablet Take 1 tablet by mouth daily. 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 30 tablet 4 Active acetaminophen (TYLENOL 8 HOUR ARTHRITIS PAIN) 650 MG extended release tablet Take 650 mg by mouth every 6 hours as needed for Pain. Active clopidogrel (PLAVIX) 75 MG tabletIndicati ons:S/P ICD (internal cardiac defibrillator) procedure Take 1 tablet by mouth daily. 5 Active carvedilol (COREG) 6.25 MG tabletIndicati ons:S/P ICD (internal cardiac defibrillator) procedure Take 0.5 tablets by mouth 2 times daily. 5 Active carvedilol (COREG) 6.25 mg tablet Take 6.25 mg by mouth 2 times daily. 12/10/19 25 Discontinued clopidogrel (PLAVIX) 75 mg tablet Take 75 mg by mouth daily. 12/10/19 25 Discontinued Active Problems Problem Noted Date Diagnosed Date S/P ICD (internal cardiac defibrillator) procedu re 12/08/2024 Cerebral infarction 07/26/2024 Dizziness 07/23/2024 Acute CVA (cerebrovascular accident) 03/08/2019 General weakness 03/05/2019 Family history of colon cancer 08/25/2018 Benign neoplasm of ascending colon 08/25/2018 Benign neoplasm of transverse colon 08/25/2018 Diverticulosis of large intestine without divert iculitis 08/25/2018 First degree hemorrhoids 08/25/2018 S/P aortic aneurysm repair 12/09/2014 Postoperative atrial fibrillation 12/03/2014 Chronic systolic CHF (congestive heart failure) 12/02/2014 Incisional pain 12/01/2014 Overview (03/17/2024): Yunier Del Rosario Tylenol PRN Cardiomyopathy, ischemic 12/01/2014 Muscle weakness (generalized) 12/01/2014 CAD (coronary artery disease) 12/01/2014 Hyperlipidemia 12/01/2014 Aneurysm of left ventricle of heart 10/28/2014 Immunizations Immunization Administration Dates Next Due PFIZER SARS-COV-2 VACCINATION 12/04/2020, 021 Social History Tobacco Use Types Packs/Day Years Used Date Smoking Tobacco: Former Cigarettes Q uit: 09/08/1992 Smokeless Tobacco: Never Tobacco Cessation:Counseling Given: Not Answered Alcohol Use Standard Drinks/Week Comments No 0 (1 standard drink = 0.6 oz pur e alcohol) [facility] [employer] Answer Date Recorded In the past 12 months has e [employer], gas, oil, or water Gracious Eloise threatened to shut off services in your home? No 12/08/2024 Humiliation, Afraid, Rape, and Kick questionnair e Answer Date Recorded Within the last year, have y ou been afraid of your partner or ex-partner? No 12/08/2024 Within the last year, have y ou been humiliated or emotionally abused in other ways by your partner or ex-partner? No Within the last year, have y ou been kicked, hit, slapped, or otherwise physically hurt by your partner or ex-partner? No 12/08/2024 Within the last year, have y ou been raped or forced to have any kind of sexual activity by your partner or ex-partner? No 12/08/2024 AUDIT-C Answer Date Recorded Q1: How often do you have a drink containing alcohol? Never 12/08/2024 Q2: How many drinks containi ng alcohol do you have on a typical day when you are drinking? Patient does not drink Q3: How often do you have si x or more drinks on one occasion? Never 12/08/2024 Overall Financial Resource Strain (CARDIA) Answe r [...] the money to buy more. Never true 12/09/19 25 Within the past 12 months, t he food you bought just didn't last and you didn't have money to get more. Never true 12/08/2024 PRAPARE - Transportation Answer Date Re corded In the past 12 months, has l ack of transportation kept you from medical appointments or from getting medications? No 10/2024 In the past 12 months, has l ack of transportation kept you from meetings, work, or from getting things needed for daily living? No 12/08/2024 Housing Stability Vital Sign Answer Amari e [...] place to sleep or slept in a retirement (including now)? No 07/27/2024 Housing Stability Vital Sign Answer Amari e Recorded In the last 12 months, was t here a time when you were not able to pay the mortgage or rent on time? No 12/08/2024 In the past 12 months, how m any times have you moved where you were living? 1 12/08/2024 At any time in the past 12 m [facility], were you homeless or living in a retirement (including now)? No 12/08/2024 Comments No Sex and Gender Information Value Date Recorded Sex Assigned at Not on file Legal Sex Female 6:47 PM EDT Gender Identity Not on file Sexual Orientation Not on file Last Filed Vital Signs Vital Sign Reading Time Taken Comments Blood Pressure 121/64 12/09/2024 8:01 AM EDT Pulse 80 12/09/2024 10:00 AM EDT Temperature 36.7 C (98.1 F) 12/09/2024 8:01 AM EDT Respiratory Rate 18 12/09/2024 8:01 AM EDT Oxygen Saturation 91% 12/09/2024 8:01 AM EDT Inhaled Oxygen Concentration - - Weight 66 kg (145 lb 8.1 oz) 12/08/2024 12:09 PM EDT Height 175.3 cm (5' 9 ) 12/06/2024 1:09 PM EDT Body Mass Index 21.49 12/06/2024 1:09 PM EDT Plan of Treatment Upcoming Encounters Date Type Department Care Team (Latest Contact Info) Description 01/13/2025 9:00 AM EDT Hospital Encounter [facility] Surgery [facility] [address] [place] [address] Umberto Barahona MD [address] [place] [address] 01/13/2025 9:00 AM EDT - 01/13/2025 10:30 AM EDT Surgery [facility] [address] [place] [phone] Umberto Barahona MD [address] [place] [address] CYSTOSCOPY TRANSURETHRAL RESECTION OF BLADDER TUMOR, Scheduled Procedures Name Priority Associated Diagnoses Date/Ti me TURBT (TRANSURETHRAL RESECTION OF BLADDER TUMOR) Neoplasm of uncertain behavior of bladder 01/13/2025 9:00 AM EDT CYSTOURETEROSCOPY, WITH RETROGRADE PYELOGRAM OR STENT INSERTION Neoplasm of uncertain behavior of bladder 01/13/2025 9:00 AM EDT Medical Devices Implanted Type Area Test Engine Mechanic Device Identifier Shelf Expiration Date Model / Serial / Lot Icd [place] Xt Mri Df4 Vr - [id number] Implanted:Qty: 1 on 12/08/2024 by Cristina Thibodeaux MD at [facility] ICD Left: Chest Wall [employer] 01/19/2026 [id number] / [id number] / [id number] Lead Sprint Secure S Df4 62cm - [id number] Implanted:Qty: 1 on 12/08/2024 by Cristina Thibodeaux MD at [facility] Lead Left: Heart [employer] 08/10/2026 [id number] / [id number] / [id number] Procedures Procedure Name Priority Date/Time Associated Diagnosis Comments OPTIMA DEVICE CHECK Routine 12/08/2024 3 :[address] PAULSON 2 VIEWS FRONTAL AND LATERAL STAT 12/08/2024 3:41 PM EDT S/P ICD (internal cardiac defibrillator) procedure ELECTROCARDIOGRAM, COMPLETE Now 12/08/2024 2:47 PM EDT S/P ICD (internal cardiac defibrillator) procedure CV ELECTROPHYSIOLOGY STUDY Routine 12/08/2024 2:23 PM EDT NICM (nonischemic cardiomyopathy) (HCC) ELECTROCARDIOGRAM, COMPLETE Routine 12/08/2024 11:52 AM EDT NICM (nonischemic cardiomyopathy) (HCC) CT UROGRAM WITH AND WITHOUT IV CONTRAST Routine 12/03/2024 1:32 PM EDT Gross hematuria BASIC METABOLIC PANEL Routine 12/02/2024 2:32 PM EDT NICM (nonischemic cardiomyopathy) (HCC) Pre-procedure lab exam COMPLETE BLOOD COUNT (CBC) W/DIFFERENTIAL Routine 12/02/2024 2:32 PM EDT NICM (nonischemic cardiomyopathy) (HCC) Pre-procedure lab exam JOSE FRANCISCO DEFIB (IMPLANTABLE CARDIOVERTER DEFIBRILLATOR) Routine 11/13/2024 10:18 AM EST JOSE FRANCISCO SURGICAL SITE INFECTION PREVENTION Routine 11/13/2024 10:18 AM EST MEDICAL CYTOLOGY REQUEST Routine 025 2:35 PM EST Gross hematuria NON-MUSE EKG [facility] Routine 10/29/2024 Chronic systolic congestive heart failure (HCC) Coronary artery disease involving miami coronary artery of miami heart without angina pectoris NON-MUSE EKG [facility] Routine 09/17/2024 Cardiomyopathy, ischemic LIPID PANEL Routine 07/24/2024 7:05 AM EST from Last 3 Months or Most Recently Relevant to Health Maintenance Results * Cardiac Device Check (12/08/2024 3:58 PM EDT) Date Time Interrogation Session [id number] [facility] Implantable Pulse Generator Test Engine Mechanic Medtronic [facility] Implantable Pulse Generator Model [id number] [place] XT VR MRI [facility] Implantable Pulse Generator Serial Number [id number] [facility] Type Interrogation Session In Clinic [facility] Clinic Name Device Clinic - [place] [facility] Implantable Pulse Generator Type Defibrillator [facility] Implantable Pulse Generator Implant Date 20241208 [facility] Implantable Lead Test Engine Mechanic Medtronic [facility] Implantable Lead Model [id number] Sprint Quattro Secure S MRI SureScan [facility] Implantable Lead Serial Number [id number] [facility] Implantable Lead Implant Date 20241208 [facility] Implantable Lead Polarity Type Tripolar Lead [facility] Implantable Lead Location Detail 1 UNKNOWN [facility] Implantable Lead Special Function [id number] [facility] Implantable Lead Location Right Ventricle [facility] Implantable Lead Connection Status Connected [facility] Guy Setting Mode (NBG Code) VVI [facility] Guy Setting Lower Rate Limit 40 {beats}/ min [facility] Lead Channel Setting Sensing Polarity Bipolar [facility] Lead Channel Setting Sensing Anode Location Right Ventricle [facility] Lead Channel Setting Sensing Anode Terminal Ring [facility] Lead Channel Setting Sensing Cathode Location Right Ventricle [facility] Lead Channel Setting Sensing Cathode Terminal Tip [facility] Lead Channel Setting Sensing Sensitivity 0.3 mV [facility] Lead Channel Setting Pacing Polarity Bipolar [facility] Lead Channel Setting Pacing Anode Location Right Ventricle [facility] Lead Channel Setting Pacing Anode Terminal Ring [facility] Lead Channel Setting Sensing Cathode Location Right Ventricle [facility] Lead Channel Setting Sensing Cathode Terminal Tip [facility] Lead Channel Setting Pacing Pulse Width 0.4 ms [facility] Lead Channel Setting Pacing Amplitude 3.5 V [facility] Lead Channel Setting Pacing Capture Mode Adaptive [facility] Zone Setting Type Category VF [facility] Zone Setting Vendor Type Category VF [facility] Zone Setting Status Active [facility] Zone Setting Detection Interval 300 ms [facility] Zone Setting Detection Beats Numerator 30 {beats} [facility] Zone Setting Detection Beats Denominator 40 {beats} [facility] Zone Setting Type Category VT [facility] Zone Setting Vendor Type Category FastVT [facility] Zone Setting Status Inactive [facility] Zone Setting Type Category VT [facility] Zone Setting Vendor Type Category VT [facility] Zone Setting Status Inactive [facility] Zone Setting Detection Interval 360 ms [facility] Zone Setting Detection Beats Numerator 16 {beats} [facility] Zone Setting Detection Beats Denominator 16 {beats} [facility] Zone Setting Type Category VT [facility] Zone Setting Vendor Type Category MonVT [facility] Zone Setting Status Monitor [facility] Zone Setting Detection Interval 400 ms [facility] Zone Setting Detection Beats Numerator 32 {beats} [facility] Zone Setting Detection Beats Denominator 32 {beats} [employer] [facility] Lead Channel Impedance Value 380 ohm [employer] [facility] Lead Channel Impedance Value 475 ohm [employer] [facility] Lead Channel Sensing Intrinsic Amplitude 12.1 mV [employer] [facility]ARD[facility] Lead Channel Pacing Threshold Amplitude 0.5 V [employer] CARDI[facility] Lead Channel Pacing Threshold Pulse Width 0.4 ms [employer] [facility] Battery Date Time of Measurements [id number] [employer] CARDIOLOG[facility] Battery DICE TABLE OPERATOR Trigger 2.8 V [employer] CARDIOLOG[facility] Battery Voltage 3.14 V [employer] CARDIOLOGY Capacitor Charge Type Shock [employer] C[facility] Capacitor Charge Time 0 s [employer] CARDI[facility] Capacitor Charge Energy 40.0 J [employer] CARDIOLOG[facility] Guy Statistic Date Time Start [id number] [employer] CARDIOLOG[facility] Guy Statistic Date Time End [id number] [employer] CARDIOLOG[facility] Guy Statistic RV Percent Paced 0 % [facility] Atrial Tachy Statistic Date Time Start [id number] [employer] C[facility] Atrial Tachy Statistic Date Time End [id number] [employer] CARDIOLOG[facility] Atrial Tachy Statistic AT/AF [place] Percent 0 % [facility] Therapy Statistic Recent Shocks Delivered 0 [facility] Therapy Statistic Recent Shocks Aborted 0 [facility] Therapy Statistic Recent ATP Delivered 0 [employer] [facility] Therapy Statistic Recent Date Time Start [id number] [facility] Therapy Statistic Recent Date Time End [id number] [facility] Therapy Statistic Total Shocks Delivered 0 [facility] Therapy Statistic Total Shocks Aborted 0 [facility] Therapy Statistic Total ATP Delivered 0 [facility] Therapy Statistic Total Date Time Start [id number] [facility] Therapy Statistic Total Date Time End [id number] [facility] Episode Statistic Recent Count 0 [facility] Episode Statistic Type Category Patient Activated S[facility] Episode Statistic Recent Count 0 [facility] Episode Statistic Type Category SVT [facility] Episode Statistic Recent Count 0 [facility] Episode Statistic Type Category VT [facility] Episode Statistic Recent Count 0 [facility] Episode Statistic Type Category VF S[facility] Episode Statistic Recent Count 0 [facility] Episode Statistic Type Category VT [facility] Episode Statistic Recent Count 0 [facility] Episode Statistic Type Category VT [facility] Episode Statistic Recent Count 0 [facility] Episode Statistic Type Category VT [facility] Episode Statistic Recent Date Time Start [id number] [facility] Episode Statistic Recent Date Time End [id number] [facility] Episode Statistic Recent Date Time Start [id number] [facility] Episode Statistic Recent Date Time End [id number] [facility] Episode Statistic Recent Date Time Start [id number] [facility] Episode Statistic Recent Date Time End [id number] [facility] Episode Statistic Recent Date Time Start [id number] [facility] Episode Statistic Recent Date Time End [id number] [facility] Episode Statistic Recent Date Time Start [id number] [facility] Episode Statistic Recent Date Time End [id number] [facility] Episode Statistic Recent Date Time Start [id number] [facility] Episode Statistic Recent Date Time End [id number] [facility] Episode Statistic Recent Date Time Start [id number] [facility] Episode Statistic Recent Date Time End [id number] [facility] Episode Statistic Total Count 0 [facility] Episode Statistic Type Category Patient Activated S[facility] Episode Statistic Total Count 0 [facility] Episode Statistic Type Category SVT [facility] Episode Statistic Total Count 0 [facility] Episode Statistic Type Category VT [facility] Episode Statistic Total Count 0 [facility] Episode Statistic Type Category VF S[facility] Episode Statistic Total Count 0 [facility] Episode Statistic Type Category VT [facility] Episode Statistic Total Count 0 [facility] Episode Statistic Type Category VT [facility] Episode Statistic Total Count 0 [facility] Episode Statistic Type Category VT [facility] Episode Statistic Total Date Time Start [id number] [facility] Episode Statistic Total Date Time End [id number] [facility] Episode Statistic Total Date Time Start [id number] [facility] Episode Statistic Total Date Time End [id number] [facility] Episode Statistic Total Date Time Start [id number] [facility] Episode Statistic Total Date Time End [id number] [facility] Episode Statistic Total Date Time Start [id number] [facility] Episode Statistic Total Date Time End [id number] [facility] Episode Statistic Total Date Time Start [id number] [facility] Episode Statistic Total Date Time End [id number] [facility] Episode Statistic Total Date Time Start [id number] [facility] Episode Statistic Total Date Time End [id number] [facility] Episode Statistic Total Date Time Start [id number] [facility] Episode Statistic Total Date Time End [id number] ON LICENSE OF [facility] Summary Statement Same day discharge check. Presenting rhythm VS. RV sense 12.1 mv, threshold .5 v @ .40 ms, impedance 475. No new events. Battery at Martha. Programmed VVI-40 ON LICENSE OF [facility] 12/08/2024 3:58 PM EDT us Cristina Thibodeaux MD CARDIAC DEVICE ORDERABLES Final Result ON LICENSE OF [facility] * DR Paulson 2 Views Frontal And Lateral (12/08/2024 3:41 PM EDT) Anatomical Region Laterality Modality Body, Chest Computed Radiogr aphy 12/08/2024 3:46 PM EDT Narrative 12/08/2024 3:48 PM EDT Chest: History is IUD device with lead placement. Correlation is made with AP upright portable projection of July 23, 2024. Upright PA and lateral views of the chest now demonstrate left-sided permanent pacemaker with battery pack partially obscuring the lateral left midlung. A ventricular lead is noted in usual position. Sternotomy wires are seen. The lungs are clear. Cardiomediastinal silhouette is stable. Pulmonary vessels have a normal caliber. No evidence of pleural effusion or pneumothorax. Procedure Note Abel Chan MD - 12/08/2024 Chest: History is IUD device with lead placement. Correlation is made with APupright portable projection of July 23, 2024. Upright PA and lateral views of the chest now demonstrate left-sidedpermanent pacemaker with battery pack partially obscuring the lateral left midlung.A ventricular lead is noted in usual position. Sternotomy wires are seen. The lungs are clear. Cardiomediastinal silhouette is stable. Pulmonaryvessels have a normal caliber. No evidence of pleural effusion or pneumothorax. us Cristina Thibodeaux MD DIAGNOSTIC IMAGING ORDERABLES F inal Result * Electrocardiogram, Complete - Now (12/08/2024 2:47 PM EDT) Only the most recent of2 resultswithin the time period is included. 12/08/2024 2:47 PM EDT 12/08/2024 3:51 PM EDT [facility] CARDIOLOGY - 12/08/2024 3:51 PM EDT Ventricular Rate 70 BPM Atrial Rate 70 BPM P-R Interval 202 ms QRS Duration 104 ms Q-T Interval 424 ms QTC Calculation(Bazett) 457 ms Calculated P [place] 66 degrees Calculated R [place] -72 degrees Calculated T [place] 118 degrees Diagnosis Normal sinus rhythm Borderline first degree AV block Left anterior fascicular block Minimal voltage criteria for LVH, may be normal variant ( Kevin product ) Cannot rule out Anterior infarct (cited on or before 08-DEC-2024) Nonspecific ST-T wave changes Abnormal ECG When compared with ECG of 08-DEC-2024 11:52, (Unconfirmed) No significant change was found Confirmed by Macrel Degroot ([id number]) on 12/08/2024 3:51:38 PM Procedure Note Marcel Degroot MD - 12/08/2024 Ventricular Rate 70 BPM Atrial Rate 70 BPM P-R Interval 202 ms QRS Duration 104 ms Q-T Interval 424 ms QTC Calculation(Bazett) 457 ms Calculated P [place] 66 degrees Calculated R [place] -72 degrees Calculated T [place] 118 degrees Diagnosis Normal sinus rhythm Borderline first degree AV block Left anterior fascicular block Minimal voltage criteria for LVH, may be normal variant ( Cornellproduct ) Cannot rule out Anterior infarct (cited on or before 08-DEC-2024) Nonspecific ST-T wave changes Abnormal ECG When compared with ECG of 08-DEC-2024 11:52, (Unconfirmed) No significant change was found Confirmed by Marcel Degroot ([id number]) on 12/08/2024 3:51:38 PM us Cristina Thibodeaux MD ECG ORDERABLES Final Result ON LICENSE OF [facility] CARDIOLOGY * CV IMPLANTABLE CARDIOVERTER DEFIBRILLATOR INSERTION (12/08/2024 2:23 PM EDT) Anatomical Region Laterality Modality Chest X-Ray Angiograph y Narrative 12/08/2024 5:51 PM EDT Normal ICD implant Procedure Details Procedure: -ICD lead placement -single chamber ICD implant -fluoroscopy The patient presented in SR. The left shoulder was prepped and draped in the usual fashion. The left infraclavicular region was anesthetized with local anesthesia. An incision was made below the left clavicle and a pocket was created anterior to the pre-pectoral fascia. The left subclavian vein was punctured over the 1st rib and a guidewire was advanced under fluoro to the IVC level. A 9Fr sheath was advanced over the guidewire and through this sheath an ICD lead was advanced into the RV and fixated into the septum where it yielded excellent pacing and sensing values with no diaphragmatic stimulation at maximum output. The lead was sutured to the pre- pectoral fascia with non-absorbable suture. A single chamber ICD was attached to the leads and appropriate pacing and sensing were verified. The device/lead were placed into the pocket. The pocket was checked for hemostasis and then copiously irrigated with antibiotic solution. The pocket was closed in 3 layers with absorbable suture. Steri-strips were placed across the incision and a sterile dressing was applied. All counts were correct. The patient tolerated the procedure well and no complications were observed. Cristina Thibodeaux MD Study Details 74 yo woman with CAD s/p PCI, CHF (NICM, EF 25%, NYHA Class 2 symptoms), now referred for ICD implant. Her EF has remained <35% after months of GDMT. ICD SHARED DECISION MAKING Following discussion about the risks and benefits of ICD implantation with the patient using an evidence-based tool, a shared decision was made to proceed with scheduling an ICD implantation procedure. RECOMMENDATIONS - Usual post-operative care and outpatient follow up as scheduled Estimated Blood Loss Estimated blood loss is 10 mL. us Cristina Thibodeaux MD ELECTROPHYSIOLOGY ORDERABLES Fi nal Result * CT Urogram With And Without IV Contrast (12/03/2024 1:32 PM EDT) Anatomical Region Laterality Modality Body, Abdomen Computed Tomogra phy 12/03/2024 2:03 PM EDT Impressions 12/04/2024 1:49 PM EDT 1. There is a 1.7 cm polypoid filling defect within the posterior right bladder lumen just below and lateral to the right ureteral orifice, suspicious for urothelial malignancy. Recommend correlation with direct visualization. 2. No nephroureterolithiasis or hydroureteronephrosis. No evidence of suspicious renal cortical lesion or upper tract urothelial lesion. 3. Mild diffuse haziness of the omentum without discrete omental nodule, a nonspecific finding. Early omental disease cannot be entirely excluded. Recommend close attention on follow-up imaging. 4. Additional incidental findings, as above. Radiation dose reduction techniques were employed per protocol. CTDIvol: 10.4 - 11.1 mGy. DLP: 1280 mGy-cm. A Yellow - Non-Emergent critical result message was conveyed to UMBERTO BARAHONA by Dr. Rudy Juan on 12/04/2024 1:49 PM. ActSocial Message ID [id number]. Narrative 12/04/2024 1:[address] UROGRAM WITH AND WITHOUT IV CONTRAST: 12/03/2024 12:51 PM. Indication: 74 years old Female. Gross hematuria.. Comparison Studies: None. Technique: Multiple axial images of the abdomen and pelvis were obtained utilizing the CT urogram protocol. Precontrast images were initially obtained, then following the intravenous administration of of Isovue-370, imaging was performed of the abdomen and pelvis using a split bolus technique. 3D reconstruction was performed with an independent workstation to better evaluate non-specific findings on CT of the genitourinary system. Findings: KIDNEYS AND URETERS: Kidneys enhance symmetrically without suspicious parenchymal lesion. There are no renal or ureteral calculi present. There is no hydronephrosis. No filling defects are identified within the renal collecting system or ureters. URINARY BLADDER: There is a 1.7 cm polypoid filling defect within the posterior right bladder lumen just below and lateral to the right ureteral orifice. LOWER THORAX: Since minimal probable dependent atelectasis in the right lung base. Left lower lobe pulmonary air cyst measures 2.8 cm. Calcified lymph nodes about the cardiac apex. ABDOMEN: LIVER: Unremarkable. GALLBLADDER AND BILE DUCTS: Normal caliber. PANCREAS: Unremarkable. SPLEEN: Unremarkable. ADRENAL GLANDS: Within normal limits. BOWEL: No bowel dilatation or inflammation. Appendix is normal in appearance. Extensive colonic diverticulosis without evidence of acute diverticulitis. PERITONEUM/MESENTERY: Nonspecific mild omental haziness without discrete omental nodule. No ascites. VASCULATURE: There are moderate atherosclerotic changes of the abdominal aorta without aneurysm. RETROPERITONEUM: Unremarkable. PELVIS: PELVIC ORGANS: No pelvic masses. LYMPH NODES: No lymphadenopathy in the abdomen or pelvis. ABDOMINAL WALL: Unremarkable. MUSCULOSKELETAL: No acute fracture. Moderate multilevel degenerative changes are observed throughout the lumbar spine, greatest at the L1-L2 and L5-S1 levels. Procedure Note Rudy Juan MD - 12/04/2024 CT UROGRAM WITH AND WITHOUT IV CONTRAST: 12/03/2024 12:51 PM. Indication: 74 years old Female. Gross hematuria.. Comparison Studies: None. Technique: Multiple axial images of the abdomen and pelvis were obtained utilizing the CT urogram protocol. Precontrast images were initiallyobtained, then following the intravenous administration of of Isovue-370, imagingwas performed of the abdomen and pelvis using a split bolus technique. 3D reconstruction was performed with an independent workstation to better evaluate non-specific findings on CT of the genitourinary system. Findings: KIDNEYS AND URETERS: Kidneys enhance symmetrically without suspicious parenchymal lesion. There are no renal or ureteral calculi present. Thereis no hydronephrosis. No filling defects are identified within the renal collecting system or ureters. URINARY BLADDER: There is a 1.7 cm polypoid filling defect within the posterior right bladder lumen just below and lateral to the rightureteral orifice. LOWER THORAX: Since minimal probable dependent atelectasis in the rightlung base. Left lower lobe pulmonary air cyst measures 2.8 cm. Calcifiedlymph nodes about the cardiac apex. ABDOMEN: LIVER: Unremarkable. GALLBLADDER AND BILE DUCTS: Normal caliber. PANCREAS: Unremarkable. SPLEEN: Unremarkable. ADRENAL GLANDS: Within normal limits. BOWEL: No bowel dilatation or inflammation. Appendix is normal inappearance. Extensive colonic diverticulosis without evidence of acutediverticulitis. PERITONEUM/MESENTERY: Nonspecific mild omental haziness without discrete omental nodule. No ascites. VASCULATURE: There are moderate atherosclerotic changes of the abdominalaorta without aneurysm. RETROPERITONEUM: Unremarkable. PELVIS: PELVIC ORGANS: No pelvic masses. LYMPH NODES: No lymphadenopathy in the abdomen or pelvis. ABDOMINAL WALL: Unremarkable. MUSCULOSKELETAL: No acute fracture. Moderate multilevel degenerativechanges are observed throughout the lumbar spine, greatest at the L1-L2 andL5-S1 levels. IMPRESSION: 1. There is a 1.7 cm polypoid filling defect within the posterior right bladder lumen just below and lateral to the right ureteral orifice,suspicious for urothelial malignancy. Recommend correlation with directvisualization. 2. No nephroureterolithiasis or hydroureteronephrosis. No evidence of suspicious renal cortical lesion or upper tract urothelial lesion. 3. Mild diffuse haziness of the omentum without discrete omental nodule,a nonspecific finding. Early omental disease cannot be entirely excluded. Recommend close attention on follow-up imaging. 4. Additional incidental findings, as above. Radiation dose reduction techniques were employed per protocol. CTDIvol:10.4 - 11.1 mGy. DLP: 1280 mGy-cm. A Yellow - Non-Emergent critical result message was conveyed to LAWRENCE BARAHONA by Dr. Rudy Juan on 12/04/2024 1:49 PM. PowerConnectActionable Findings Message ID [id number]. Umberto Barahona MD CT ORDERABLES Final Resul t * (ABNORMAL) Complete Blood Count w/Differential (12/02/2024 2:32 PM EDT) Pathologist [facility] [place] White Blood Cell 6.6 3.3 - 10.7 x10*9/L 12/03/2024 9:50 AM EDT [facility] Red Blood Cell 4.14 3.87 - 5.08 x10*12/L 12/03/2024 9:50 AM EDT [facility] Hemoglobin 12.7 12.1 - 15.0 g/dL 12/03/2024 9:50 AM EDT [facility] Hematocrit 41.5 35.4 - 44.2 % 12/03/2024 9:50 AM [facility] Mean Cell Volume 100.2 79.5 - 100.4 fL 12/03/2024 9:50 AM [facility] Mean Cell Hemoglobin 30.7 27.5 - 33.4 pg 12/03/2024 9:50 AM [facility] Mean Cell Hemoglobin Concentration 30.6(L) 31.5 - 35.4 g/dL 12/03/2024 9:50 AM [facility] Red Cell Distribution Width 13.6 11.5 - 15.4 % 12/03/2024 9:50 AM [facility] Platelet 227 150 - 400 x10*9/L 12/03/2024 9:50 AM [facility] Mean Platelet Volume 10.2 8.0 - 12.0 fL 12/03/2024 9:50 AM [facility] Neutrophil Automated Absolute 3.57 1.55 - 7.24 x10*9/L 12/03/2024 9:50 AM [facility] Lymphocyte Automated Absolute 2.28 1.05 - 4.04 x10*9/L 12/03/2024 9:50 AM [facility] Monocyte Automated Absolute 0.47 0.00 - 0.84 x10*9/L 12/03/2024 9:50 AM [facility] Eosinophil Automated Absolute 0.20 0.00 - 0.54 x10*9/L 12/03/2024 9:50 AM [facility] Basophil Automated Absolute 0.05 0.00 - 0.14 x10*9/L 12/03/2024 9:50 AM [facility] Immature Granulocyte Automated Absolute 0.01 0.00 - 0.03 x10*9/L 12/03/2024 9:50 AM [facility] Immature Granulocyte Automated 0.2 0.0 - 1.0 % 12/03/2024 9:50 AM [facility] NUCLEATED RED BLOOD CELLS AUTOMATED 0.0 <=0.0 % 12/03/2024 9:50 AM [facility] Blood VENOUS BLOOD SPECIMEN / Unknown Venipuncture / Unknown 12/02/2024 2:32 PM EDT 12/02/2024 2:33 PM EDT us Cristina Thibodeaux MD LAB BLOOD ORDERABLES Final Resu lt [facility] [address] [place] [address] * (ABNORMAL) Basic Metabolic Panel (BMP) (12/02/2024 2:32 PM EDT) Sodium 143 135 - 145 mmol/L 12/03/2024 11:00 AM EDT [facility] Potassium 3.9 3.5 - 5.2 mmol/L 12/03/2024 11:00 AM EDT [facility] Chloride 101 98 - 111 mmol/L 12/03/2024 11:00 AM EDT [facility] Bicarbonate 27 20 - 29 mmol/L 12/03/2024 11:00 AM EDT [facility] Anion Gap 15 5 - 17 mmol/L 12/03/2024 11:00 AM EDT [facility] Glucose 42(L) 70 - 99 mg/dL 12/03/2024 11:00 AM EDT [facility] Comment:Results Repeated. Blood Urea Nitrogen (BUN) 24 7 - 25 mg/dL 12/03/2024 11:00 AM EDT [facility] Creatinine 0.86 0.50 - 1.10 mg/dL 12/03/2024 11:00 AM EDT [facility] eGFR 71 >60 mL/min/1.7 3 m2 12/03/2024 11:00 AM EDT [facility] Comment: Calculation based on the Chronic Kidney Disease Epidemiology Collaboration (CKD- EPI) equation refit without adjustment for race. Glomerular Filtration Rate is estimated from serum creatinine, age and gender using the CKD-EPI equation. CKD-EPI eGFR is best used for detection of chronic kidney disease in clinically Stable patients. DO NOT USE VALUES FROM THIS EQUATION FOR DRUG DOSING. It has not yet been validated for drug dosing or for patients with rapidly changing clinical situations (inpatient care). Calcium 9.8 8.5 - 10.5 mg/dL 12/03/2024 11:00 AM EDT [facility] Blood VENOUS BLOOD SPECIMEN / Unknown Venipuncture / Unknown 12/02/2024 2:32 PM EDT 12/02/2024 2:33 PM EDT us Cristina Thibodeaux MD LAB BLOOD ORDERABLES Final Resu lt [facility] [address] [place] [address] * JOSE FRANCISCO DEFIB (IMPLANTABLE CARDIOVERTER DEFIBRILLATOR) (11/13/2024 10:18 AM EST) EMMIEDU DEFIB (IMPLANTABLE CARDIOVERTER DEFIBRILLATOR) PATIENT EDUCATION EMMIURL [email or web address] PATIENT EDUCATION EMMIACC [id number] PATIENT EDUCATION EMMIISSUEDATE Nov 13, 2024 PAT IENT EDUCATION EMMISTARTDATE PATIEN T EDUCATION EMMICOMPDATE This program was not started and flagged as on: December 09, 2024 PATIENT EDUCATION EMMIEXPDATE Dec 08, 2024 PATIE NT EDUCATION EMMIEVENT PATIENT EDUCATION 11/13/2024 10:1 8 AM EST us Not On File Physician JOSE FRANCISCO PROCEDURE CATEGORY Fi nal Result PATIENT EDUCATION * JOSE FRANCISCO SURGICAL SITE INFECTION PREVENTION (11/13/2024 10:18 AM EST) EMMIEDU SURGICAL SITE INFECTION PREVENTION PATIENT EDUCATION EMMIURL [email or web address] PATIENT EDUCATION EMMIACC [id number] PATIENT EDUCATION EMMIISSUEDATE Nov 13, 2024 PAT IENT EDUCATION EMMISTARTDATE PATIEN T EDUCATION EMMICOMPDATE This program was not started and flagged as on: December 09, 2024 PATIENT EDUCATION EMMIEXPDATE Dec 08, 2024 PATIE NT EDUCATION EMMIEVENT PATIENT EDUCATION 11/13/2024 10:1 8 AM EST us Not On File Physician JOSE FRANCISCO PROCEDURE CATEGORY Fi nal Result PATIENT EDUCATION * Medical Cytology Request (11/02/2024 2:35 PM EST) Specimen Urine, Urine, Voided 11/10/2024 3:12 PM EST [facility] Dx Category NEGATIVE FOR HIGH GRADE UROTHELIAL CARCINOMA 11/10/2024 3:12 PM EST [facility] Diagnosis NEGATIVE FOR HIGH GRADE UROTHELIAL CARCINOMA 11/10/2024 3:12 PM EST [facility] at 1512 EST Additional Diagnosis Background neutrophils present 11/10/2024 3:12 PM EST [facility] Comments The Fidelia System (TPS) for Reporting Urinary Cytology is used to evaluate urine cytology specimens. When possible, this system is applied to render the diagnosis. For more information regarding the categories, please refer to Shakeel EM, Denise CHAUDHARII, Xin DL. The Fidelia System for Reporting Urinary Cytology. 2nd Ed. Craig: 2021. 11/10/2024 3:12 PM EST [facility] Clinical Information R31.0 Gross hematuria 11/10/2024 3:12 PM EST [facility] Specimen Adequacy Satisfactory for evaluation. 11/10/2024 3:12 PM EST [facility] Materials received and processed 55ml of hazy, yellow fluid in a sterile container. 1 Thinprep slide prepared Screened by: Isaias Paz This specimen was prepared and screened at [facility], [address] [place] [address] 11/10/2024 3:12 PM EST [facility] Embedded Images 11/10/2024 3:12 PM EST [facility] Case Report Medical Cytology Case: [id number] Authorizing Provider: Umberto Barahona MD Collected: 11/02/2024 1435 Ordering Location: [facility] Received: 11/03/2024 0107 [facility] Pathologist: Anna Gonzalez MD Specimen: Urine, Voided 11/10/2024 3:12 PM EST [facility] Urine URINE SPECIMEN FROM URETHRA / Unknown 11/02/2024 2:35 PM EST 11/03/2024 1:07 AM EST us Umberto Barahona MD LAB CYTOLOGY ORDERABLES Fin al Result [facility] [address] [place] [address] * NON-MUSE EKG (10/29/2024) Only the most recent of2 resultswithin the time period is included. us Cristina Thibodeaux MD ECG ORDERABLES Final Result * (ABNORMAL) Lipid Panel (07/24/2024 7:05 AM EST) Cholesterol Total 158 <200 mg/dL 024 8:31 AM EST [facility] Comment: Optimal: 0 - 199 mg/dL Borderline: 200-239 mg/dL High CHD Risk: >239 mg/dL HDL Cholesterol 44(L) >=50 mg/dL 4 8:31 AM EST [facility] Comment: Optimal: >59 mg/dL High CHD Risk: <40 mg/dL LDL Cholesterol, Calculated 98 <129 mg/dL 07/24/2024 8:31 AM EST [facility] Comment: Optimal: <100 Near Optimal: 100 - 129 Borderline: 130 - 159 High CHD Risk: 160 - 189 Very High CHD Risk: >189 Calculation based on the National Institutes of Health (NIH) equation. The NIH equation is valid for patients with triglycerides up to 800 mg/dL and provides more accurate results for patients with LDL cholesterol <70 mg/dL. Triglyceride 85 <150 mg/dL 07/24/2024 8:31 AM EST [facility] Comment: Optimal: 0 - 149 mg/dL Borderline: 150 - 199 mg/dL High CHD Risk: 200 - 500 mg/dL Very High CHD Risk: >500 mg/dL Non-HDL Cholesterol, Calculated 114 <120 mg/dL 07/24/2024 8:31 AM EST [facility] Chol/HDL Ratio 3.6 1.8 - 4.9 07/24/2024 8:31 AM EST [facility] Fasting time as reported by patient 07/24/2024 8:31 AM EST [facility] Comment:0 Hours Blood VENOUS BLOOD SPECIMEN / Unknown Venipuncture / Unknown 07/24/2024 7:05 AM EST 07/24/2024 7:55 AM EST Joanna Harris MD LAB BLOOD ORDERABLES Fin al Result [facility] [address] [place] [address] from Last 3 Months or Most Recently Relevant to Health Maintenance Insurance [facility] Care Teams Inter Com Installer Relationship Specialty Start Date End Date Rae Aguillon MD PCP - General Internal Medicine 6/28/19
--- OUTSIDE RECORDS SUMMARY | 2024-12-11 18:59 | XMS_ITS ---
Author Organization [facility] Address [address] [place] [address] [address] [place] [address] Care Team Providers Care Curbstone Setter Name Role Phone Rae Aguillon Primary Care Provider Rae Aguillon MD Unavailable Unavailable Allergies Allergen (clinical drug ingredient) Drug/Non Drug Allergy documented on EMR Reaction Allergy Type Onset Date Status morphine Morphine Sulfate severe pains an d aches Drug Allergy Active REASON FOR VISIT follow-up from hospital Medications Medication SIG (Take, Route, Frequency, Duration) Notes Start Date End Date Status Losartan Potassium 25 MG Take 1 tablet b y mouth once daily Active Carvedilol 6.25 MG Take 1 tablet by twice daily with food Active Venlafaxine HCl ER 150 MG TAKE 1 CAPSULE BY MOUTH ONCE DAILY WITH FOOD Active Alendronate Sodium 70 MG 1 tablet 30 min utes before the first food, beverage or medicine of the day with plain water Orally Once a week for 90 days 07/06/2024 07/01/2025 Active Levothyroxine Sodium 100 MCG TAKE 1 TABLET BY MOUTH ONCE DAILY IN THE MORNING BEFORE MEAL(S) for 90 Unknown Centrum Silver as directed Orally Unknown Fish Oil 1200MG 2 CAPSULES Orally On a day for 30 day(s) Unknown Levothyroxine Sodium 100 MCG TAKE 1 TABLET BY MOUTH ONCE DAILY IN THE MORNING BEFORE MEAL(S) Active Clopidogrel Bisulfate 75 MG Take 1 tablet by mouth once daily Active Atorvastatin Calcium 80 MG Take 1 tablet by mouth once daily Active Clopidogrel Bisulfate 75 MG Take 1 tablet by mouth once daily for 90 Unknown Vital Signs Temperature 98.1 degrees Fahrenheit 08/10/20 24 Blood pressure systolic 102 mm Hg 08/10/20 24 Blood pressure diastolic 64 mm Hg 024 Heart Rate 67 /min 08/10/2024 Height 69.5 in 08/10/2024 Weight 130.2 lbs 08/10/2024 BMI 18.95 kg/m2 08/10/2024 Oximetry 97 % 08/10/2024 Encounters Encounter Location Date Provider Diagnosis [facility] [address] [facility] [address] [place] [address] 08/10/2024 [facility] discharge follow-up Z09 ; Dizziness and giddiness R42 ; Familial hypercholesterolemia E78.01 ; Essential (primary) hypertension I10 ; Chronic fatigue R53.82 ; Body mass index [BMI] 19.9 or less, adult Z68.1 ; Encounter for medication review and counseling Z71.89 and Encounter for screening involving social determinants of health (SDoH) Z13.9 Assessments Encounter Date Diagnosis (ICD Code) Assessment Notes Treatment Notes Treatment Clinical Notes Section Notes 08/10/2024 Hospital discharge follow-up (ICD-10 - Z09) 08/10/2024 Dizziness and giddin ess (ICD-10 - R42) 08/10/2024 Familial hypercholesterolemia (ICD-10 - E78.01) 08/10/2024 Essential (primary) hypertension (ICD-10 - I10) 08/10/2024 Chronic fatigue (ICD -10 - R53.82) 08/10/2024 Body mass index [BMI ] 19.9 or less, adult (ICD-10 - Z68.1) 08/10/2024 Encounter for medica tion review and counseling (ICD-10 - Z71.89) 08/10/2024 Encounter for screen ing involving social determinants of health (SDoH) (ICD-10 - Z13.9) Plan Of Treatment Medication Medication Name Sig Start Date Stop Date Notes Levothyroxine Sodium 100 MCG TAKE 1 TABL ET BY MOUTH ONCE DAILY IN THE MORNING BEFORE MEAL(S) Clopidogrel Bisulfate 75 MG Take 1 table t by mouth once daily Atorvastatin Calcium 80 MG Take 1 tablet by mouth once daily Next Appt Details Follow Up: 4 Months, Reason: Progress Notes * SHERRY GARCIA MDOB: 0 (74 yo F)Acc No.[id number]:08/10/2024 OV 15 MIN Patient: SHERRY AGUIAR Provider: Liz Aguillon MD :1950 A ge:74 Y S ex:Female Date:08/10/2024 Address:[address] [place] [address] Structured Data:[facility] Tianna e : Yes Subjective: * Chief Complaints: * F ollow-up from hospital * Medical History: * Surgical History: H ysterectomy for heavy bleeding partial 1998tonsillectomy breast biopsy 1990bilateral cataract and retinal AORTIC ANUERYEMS 2014 * Hospitalization/Major Diagno stic Procedure: d iverticulitis 2008 * Family History: F ather: 85 yrs, alzheimer/colon cancer. M other: 85 yrs, kidney failure. 2 brother(s) , 2 sister(s) . . Older brother: chronic disease, but unknown. * Social History: M igrated Social History: T obacco Use: (Tobacco Use/Smoking):Are you a: former smoker;. . . Works in [employer]. Has 4 grandchildren. * Medications: T akingLosartan Potassium 25 MG Tablet Take 1 tablet by mouth once daily Carvedilol 6.25 MG Tablet Take 1 tablet by mouth twice daily with food Levothyroxine Sodium 100 MCG Tablet TAKE 1 TABLET BY MOUTH ONCE DAILY IN THE MORNING BEFORE MEAL(S) Clopidogrel Bisulfate 75 MG Tablet Take 1 tablet by mouth once daily Venlafaxine HCl ER 150 MG Capsule Extended Release 24 Hour TAKE 1 CAPSULE BY MOUTH ONCE DAILY WITH FOOD Atorvastatin Calcium 80 MG Tablet Take 1 tablet by mouth once daily Alendronate Sodium 70 MG Tablet 1 tablet 30 minutes before the first food, beverage or medicine of the day with plain water Orally Once a week , stop date 07/01/2025Taking Losartan Potassium 25 MG Tablet Take 1 tablet by mouth once daily Taking Carvedilol 6.25 MG Tablet Take 1 tablet by mouth twice daily with food Taking Levothyroxine Sodium 100 MCG Tablet TAKE 1 TABLET BY MOUTH ONCE DAILY IN THE MORNING BEFORE MEAL(S) Taking Clopidogrel Bisulfate 75 MG Tablet Take 1 tablet by mouth once daily Taking Venlafaxine HCl ER 150 MG Capsule Extended Release 24 Hour TAKE 1 CAPSULE BY MOUTH ONCE DAILY WITH FOOD Taking Atorvastatin Calcium 80 MG Tablet Take 1 tablet by mouth once daily Taking Alendronate Sodium 70 MG Tablet 1 tablet 30 minutes before the first food, beverage or medicine of the day with plain water Orally Once a week , stop date 07/01/2025UnknownLevothyroxine Sodium 100 MCG Tablet TAKE 1 TABLET BY MOUTH ONCE DAILY IN THE MORNING BEFORE MEAL(S) Clopidogrel Bisulfate 75 MG Tablet Take 1 tablet by mouth once daily Centrum Silver Tablet as directed Orally Fish Oil 1200MG Capsule 2 CAPSULES Orally Once a day Medication List reviewed and reconciled with the patientUnknown Levothyroxine Sodium 100 MCG Tablet TAKE 1 TABLET BY MOUTH ONCE DAILY IN THE MORNING BEFORE MEAL(S) Unknown Clopidogrel Bisulfate 75 MG Tablet Take 1 tablet by mouth once daily Unknown Centrum Silver Tablet as directed Orally Unknown Fish Oil 1200MG Capsule 2 CAPSULES Orally Once a day Medication List reviewed and reconciled with the patient * Allergies: M orphine Sulfate: severe pains and aches - Side Effectsno[Allergies Verified] Objective: * Vitals: T emp:98.1F, BP:102/64mm Hg, HR:67, Oxygen sat %:97, Ht: 69.5 in, Wt:130.2, BMI:18.95. * Examination: G eneral Examination: HEART: n ormal,no murmurs, regular rate and rhythm,S1, S2 normal. LUNGS: c lear to auscultation bilaterally, good air movement. EXTREMITIES: n o clubbing, cyanosis, or edema. PERIPHERAL PULSES: 2 + throughout. Assessment: * Assessment: 1. H ospital discharge follow-up - Z09 (Primary) 2 . D izziness and giddiness - R42 3 . F amilial hypercholesterolemia - E78.01 4 . E ssential (primary) hypertension - I10 5 . C hronic fatigue - R53.82 6. B rome mass index [BMI] 19.9 or less, adult - Z68.1 7 . E ncounter for medication review and counseling - Z71.89 8 . E ncounter for screening involving social determinants of health (SDoH) - Z13.9 Plan: * Treatment: 2. O thers Continue Levothyroxine Sodium Tablet, 100 MCG, TAKE 1 TABLET BY MOUTH ONCE DAILY IN THE MORNING BEFORE MEAL(S); C ontinue Clopidogrel Bisulfate Tablet, 75 MG, Take 1 tablet by mouth once daily.? * Procedure Codes: 9 9495 TRANS CARE MGMT 14 DAY [id number] DSCHRG MED/CURRENT MED [id number] BODY MASS INDEX DOCD * Follow Up: 4 Months * Billing Information: * Visit Code: * Procedure Codes: 46282 TRANS CARE MGMT 14 DAY DISCH. 1111F DSCHRG MED/CURRENT MED MERGE. 3008F BODY MASS INDEX DOCD. * Sign off status: Completed true * Provider: Liz Aguillon MD Date: 10/11/2023 Generated for Christin daniel/Kindra/eTransmitting on: 0 12/11/2024 07:59 PM EDT History and Physical Notes * Examination Category Sub-Category Detail Notes Category Not es General Examination HEART: normal, no m urmurs, regular rate and rhythm, S1, S2 normal LUNGS: clear to auscultatio n bilaterally, good air movement EXTREMITIES: no clubbing, cyanosi s, or edema PERIPHERAL PULSES: 2+ throughout
--- OUTSIDE RECORDS SUMMARY | 2024-12-11 18:59 | XMS_ITS | Encounter Summary ---
Author Organization [facility] Address [address] [place] [address] Care Team Providers Care Kineseologist Name Role Phone Rae Aguillon MD Primary Care Provider Encounter Details Date Type Department Care Team (Late st Contact Info) Description 11/03/2024 Lab Requisition [facility] [address] [place] [address] Britt Vinson MD [address] [place] [address] [address] [place] [address] Gross hematuria Social History Tobacco Use Types Packs/Day Years Used Date Smoking Tobacco: Former Cigarettes Q uit: 09/08/1992 Smokeless Tobacco: Never Alcohol Use Standard Drinks/Week Comments No 0 (1 standard drink = 0.6 oz pur e alcohol) [facility] Utilities Answer Date Recorded In the past 12 months has [employer], gas, oil, or water [employer] threatened to shut off services in your [...] place to sleep or slept in a chcf (including now)? No 07/27/2024 Housing Stability Vital [...] any time in the past [address] [facility], were you homeless or living in a chcf (including now)? Patient unable to answer 07/29/2024 Comments No Sex and Gender Information Value Date Recorded Sex Assigned at Not on file Legal Sex Female 6:47 PM EDT Gender Identity Not on file Sexual Orientation Not on file documented as of this encounter Plan of Treatment Upcoming Encounters Date Type Department Care Team (Latest Contact Info) Description 01/13/2025 9:00 AM EDT Hospital Encounter [facility] [place] [address] [place] [address] Britt Vinson MD [address] [facility] [address] [place] [address] 01/13/2025 9:00 AM EDT - 01/13/2025 10:30 AM EDT Surgery [facility] [place] [address] [place] [address] Britt Vinson MD [address] [facility] [address] [place] [address] CYSTOSCOPY TRANSURETHRAL RESECTION OF BLADDER TUMOR, Scheduled Procedures Name Priority Associated Diagnoses Date/Ti me TURBT (TRANSURETHRAL RESECTION OF BLADDER TUMOR) Neoplasm of uncertain behavior of bladder 01/13/2025 9:00 AM EDT CYSTOURETEROSCOPY, WITH RETROGRADE PYELOGRAM OR STENT INSERTION Neoplasm of uncertain behavior of bladder 01/13/2025 9:00 AM EDT documented as of this encounter Procedures Procedure Name Priority Date/Time Associated Diagnosis Comments MEDICAL CYTOLOGY REQUEST Routine 11/02/2024 2:35 PM EST Gross hematuria documented in this encounter Results * Medical Cytology Request (11/02/2024 2:35 PM EST) Specimen Urine, Urine, Voided 11/10/2024 3:12 PM EST [facility] Dx Category NEGATIVE FOR HIGH GRADE UROTHELIAL CARCINOMA 11/10/2024 3:12 PM EST [facility] Diagnosis NEGATIVE FOR HIGH GRADE UROTHELIAL CARCINOMA 11/10/2024 3:12 PM EST [facility] at 1512 EST Additional Diagnosis Background neutrophils present 11/10/2024 3:12 PM EST [facility] Comments The Fidelia System (TPS) for Reporting Urinary Cytology is used to evaluate urine cytology specimens. When possible, this system is applied to render the diagnosis. For more information regarding the categories, please refer to Shakeel VARGHESE, Denise CHAUDHARII, Xin DL. The Fidelia System for Reporting Urinary Cytology. 2nd Ed. Tensas: 2021. 11/10/2024 3:12 PM EST [facility] Clinical Information R31.0 Gross hematuria 11/10/2024 3:12 PM EST [facility] Specimen Adequacy Satisfactory for evaluation. 11/10/2024 3:12 PM EST [facility] Materials received and processed 55ml of hazy, yellow fluid in a sterile container. 1 Thinprep slide prepared Screened by: Isaias Paz This specimen was prepared and screened at [facility], [address] [place] [address] 11/10/2024 3:12 PM EST [facility] Embedded Images 11/10/2024 3:12 PM EST [facility] Case Report Medical Cytology Case: [id number] Authorizing Provider: Britt Vinson MD Collected: 11/02/2024 1435 Ordering Location: [facility] Received: 11/03/2024 0107 [facility] Pathologist: Anna Gonzalez MD Specimen: Urine, Voided 11/10/2024 3:12 PM EST [facility] Urine URINE SPECIMEN FROM URETHRA / Unknown 11/02/2024 2:35 PM EST 11/03/2024 1:07 AM EST us Britt Vinson MD LAB CYTOLOGY ORDERABLES Fin al Result [facility] [address] [place] [address] documented in this encounter Visit Diagnoses Diagnosis Gross hematuria Neoplasm of uncertain behavior of bladder documented in this encounter Care Teams Kineseologist Relationship Specialty Start Date End Date Rae Aguillon MD PCP - General Internal Medicine 03/05/19 documented as of this encounter
--- OUTSIDE RECORDS SUMMARY | 2024-12-11 19:00 | XMS_ITS | Patient Health Record ---
Author Organization [facility] Address [address] [facility] [address] [place] [address] Care Team Providers Care Extractor Operator Helper Name Role Phone Rae Aguillon MD Primary Care Provider Tiny Barnes Unavailable [phone] Reason For Referral No Information Medications Medication SIG (Take, Route, Frequency, Duration) Notes Start Date End Date Status Nulytely with Flavor Packs 420 GM as directed Orally Split Dose per Physician Instructions for 1 Day prior to colonoscopy 08/10/2018 Active Problems Problem Type SNOMED Code ICD Code Onset Dates Problem Status W/U Status Risk Notes Problem History of polyp of colon (situation) (095811891) Hx of colonic polyps (Z86.010) Active confirmed Problem 9383578 Diverticulosis o f large intestine without perforation or abscess without bleeding (K57.30) Active confirmed Plan Of Treatment No Information Insurance Providers Payer Name Payer Address Payer Phone Subscriber Number Group Number Insured Name Patient Relationship to Insured Coverage Start Date Coverage End Date [employer] [address] [place] [address] [phone] [id number] Mary Kay Mahan Self - patient is the insured 6
--- OUTSIDE RECORDS SUMMARY | 2024-12-11 19:00 | XMS_ITS ---
Author Organization [facility] Address [address] [facility] [address] [place] [address] Care Team Providers Care Employee Wellness/Fitness Coordinator Name Role Phone Rae Aguillon MD Primary Care Provider Tiny Barnes [phone] REASON FOR VISIT Rx faxed Medications Medication SIG (Take, Route, Frequency, Duration) Notes Start Date End Date Status PEG 3350-KCl-Na Bicarb-NaCl 420 GM 2000 ML Orally Split Dose per Physician Instructions for 1 DAY 09/19/2023 09/20/2023 Active Encounters Encounter Location Date Provider Diagnosis [facility] [address] [facility] [address] [place] [address] 09/19/2023 Tiny Moralez Plan Of Treatment Medication Medication Name Sig Start Date Stop Date Notes PEG 3350-KCl-Na Bicarb-NaCl 420 GM 2000 ML Orally Split Dose per Physician Instructions for 1 DAY 09/19/2023 09/20/2023 Progress Notes * Dennis LINDSEYOB:1950 (73 yo F)Acc No.[id number]:09/19/2023 Patient: Mary Kay Hernandez :1950 A ge:73 Y S ex:Female Address:[address] [place] [address], [address] * Refills Start PEG 3350-KCl-Na Bicarb-NaCl Solution Reconstituted, 420 GM, Orally, 1 kit, 2000 ML, Split Dose per Physician Instructions, 1 DAY, Refills=0 * true * Date: Generated for Printi ng/Faxing/eTransmitting on: 0 12/11/2024 07:59 PM EDT
--- OUTSIDE RECORDS SUMMARY | 2024-12-11 19:00 | XMS_ITS | Continuity of Care Document ---
Author Organization [facility] Address [address] [place] [address] Phone Care Team Providers Care Unloading Checker Name Role Phone Kwame NEVAREZ MD, Keon Unavailable Unavailable Allergies, Adverse Reactions, Alerts Substance Reaction Status Criticality morphine Active No Information latex Rash, Swelling, Hives Active No Inf ormation Medications Medication Instructions Dosage Effective Dates (start - stop) Status Comments multivitamin tablet - Active VITAMIN C (unknown strength) Not Available - Active VITAMIN D3 (unknown strength) Not Available - Active LEVOTHYROXINE SODIUM (unknown strength) Not Available - Active VENLAFAXINE HCL (unknown strength) Not Available - Active ATORVASTATIN CALCIUM (unknown strength) Not Available - Active COREG (unknown strength) Not Available - Active COZAAR (unknown strength) Not Available - Active aspirin 81 mg tablet,delayed release take 1 tablet by oral route every day 81 MG - Active Plavix 75 mg tablet take 1 tablet by oral route every day 75 MG - Active Procedures Procedure Date INITIAL HOSPITAL CARE OFFICE/OUTPATIENT VISIT NEW Advance Directives Directive Yes / No Effective Date File Name No Information Encounters Encounter Description Practice Location Reason(s) For Visit Diagnoses Date Provider Providers Copied on Encounter [facility], [address], [place], [place], [id number], [place] tel:[phone] [facility] No Information Kwame Herbert. [address], [place], [address], [place]. tel: [phone] INITIAL HOSPITAL CARE [facility], [address] [facility] [address], [place], [place], [id number], [place] tel:[phone] [facility] No Information 4 Kwame Herbert. [address], [place], [place], [facility], [place]. tel: [phone] Referring Provider: Keon Puente MD, [address], [place], [place], [facility]. tel:[phone] [facility], [address], [place], [place], [id number], [place] tel:[phone] [facility] No Information 4 Kwame Herbert. [address], [place], [place], [facility], [place]. tel: [phone] OFFICE/OUTPAT IENT VISIT NEW [facility], [address], [place], [place], [id number], tel:[phone] [facility] Stroke or TIA (chief complaint)H eadache (chief complaint)L eg Pain (chief complaint)N dejan Pain (chief complaint)N ew Patient (chief complaint)s troke (chief complaint) Carotid stenosis, right 4 Kwame Herbert. [address], [address], [address], [place]. tel: [phone] [facility], [address], [place], [place], [id number], [place] tel:[phone] [facility] Stroke or TIA (chief complaint)N ew Patient (chief complaint) No Information 4 Kwame Herbert. [address], [place], [place], [facility], [place]. tel: [phone] Family History Family Member Type Diagnosis Age At Onset Mother Problem (finding) Kidney failure Mother Problem (finding) Hypertension Mother Problem (finding) Obesity Father Problem (finding) Alcoholism Brother Problem (finding) Alcoholism Mother Problem (finding) Diabetes mellitus Father Problem (finding) Coronary artery disease Father Problem (finding) Diabetes mellitus Father Problem (finding) Alzheimer's disease Father Problem (finding) High cholesterol Immunizations Vaccine Date Status Comments Pneumo (2 yrs or older)(PPV) administered Note: current ; Source: Other Provider influenza virus vaccine, unspecified formulation administered Note: not curren t ; Source: Source Unspecified Payers Payer name Insurance type Covered green party ID Authoriza tion(s) [employer] Medicare PPO CI [id number] Social History Type Description Quantity Date Captured Comments Alcohol Use Details Unknown Caffeine Use Details Unknown Tobacco Use Status No Information Smoking Status No Information Sex Female Chief Complaint And Reason For Visit No Information Reason For Referral Reason For Referral No Information Plan Of Treatment Date Type Action Status Patient Education Angiogram: Before Your Procedure completed Patient Education Angiogram: What to Expe ct at Home completed Future Order: Lab Order Complete Metabolic Panel ([id number]), Ordered on: Ordered Future Order: Lab Order CBC w/di ff ([id number]), Ordered on: Ordered Future Order: Lab Order PT/INR ( [id number]), Ordered on: Ordered Future Order: Lab Order PTT ([id number]), O rdered on: Ordered History Of Present Illness Encounter Date Complaint History Of Prese nt Illness New Patient Pt is [facility] after a stroke. Pt complains of a headache, 12/16. Stroke or TIA Headache Leg Pain Neck Pain stroke Severity: mild. Type of stroke is Ischemic (artery-artery embolic). Status of deficit is improving. Gait is characterized as normal. The risk factors include age > 50, history of TIA. Medication(s) used: Clopidogrel. Testing include: Diagnostics - CTA and MRI. Stroke or TIA New Patient Pt is bethi ng care after a stroke. Functional Status Date Functional Assessmen t No Information Instructions Date Instruction Additional Infor tania 74 yo woman with TIA ', noted MARIYA occlusion. Will schedule for DSA to further evaluate. Related to Carotid stenosis, right Assessments Type Assessment Date No Information Patient Care Teams Name Effective Dates (start - stop) Status Members No Information
--- OUTSIDE RECORDS SUMMARY | 2024-12-11 19:00 | XMS_ITS ---
Author Organization [facility] Address [address] [facility] [address] [place] [address] Care Team Providers Care Molded Goods Controls Operator Name Role Phone Rae Aguillon Primary Care Provider Pal NEVAREZ, Rae Unavailable Unavailable REASON FOR VISIT HOSPITAL FOLLOW UP 07/22/24-07/29/24 Encounters Encounter Location Date Provider Diagnosis [facility] [address] [facility] [address] [place] [id number] 08/09/2024 Rae Aguillon Plan Of Treatment No Information Progress Notes * SHERRY GARCIA MDOB: 0 (74 yo F)Acc No.[id number]:08/09/2024 OV 15 MIN Patient: SHERRY AGUIAR Provider: Liz Aguillon MD :1950 A ge:74 Y S ex:Female Date:08/09/2024 Address:[address] [place], [place] [id number] Structured Data:[facility] Brochur e : Yes Subjective: * Chief Complaints: * 1 . HOSPITAL FOLLOW UP 07/22/24-07/29/24. * Medical History: Objective: * Vitals: Assessment: Plan: * Treatment: * Images: Billing Information: * Visit Code: * Procedure Codes: * Electronic signature of Rae Aguillon MD on 12/11/2024 at 08:00 PM EDT Sign off status: Pending * Provider: Liz Aguillon MD Date: 1 10/10/2023 Generated for Christin daniel/Kindra/eTransmitting on: 0 12/11/2024 08:00 PM EDT
--- OUTSIDE RECORDS SUMMARY | 2024-12-11 19:00 | XMS_ITS | Encounter Summary ---
Author Organization [facility] Address [address] [place] [address] Care Team Providers Care Scarf Gluer Name Role Phone Rae Aguillon MD Primary Care Provider [phone] Encounter Details Date Type Department Care Team (Late st Contact Info) Description 11/18/2024 Telephone [facility] Cardiology - [phone] [phone] [facility] [address] [place] [phone] [place] [phone] [facility] [address] [place] [phone] Social History Tobacco Use Types Packs/Day Years Used Date Smoking Tobacco: Former Cigarettes Q uit: 09/08/1992 Smokeless Tobacco: Never Alcohol Use Standard Drinks/Week Comments No 0 (1 standard drink = 0.6 oz pur e alcohol) [facility] Utilities Answer Date Recorded In the past 12 months has [facility] [employer], gas, oil, or water [employer] threatened to shut off services in your [...] place to sleep or slept in a mcc (including now)? No 07/27/2024 Housing Stability Vital [...] any time in the past 12 m [facility], were you homeless or living in a mcc (including now)? Patient unable to answer 07/29/2024 Comments No Sex and Gender Information Value Date Recorded Sex Assigned at Not on file Legal Sex Female 6:47 PM EDT Gender Identity Not on file Sexual Orientation Not on file documented as of this encounter Miscellaneous Notes * Telephone Encounter - Cristina Thibodeaux MD - 11/18/2024 7:05 PM EDT EP: Ms. Mahan has been on carvedilol 6.25 mg PO BID and losartan 25 mg daily since 2014. Her doses arelimited by hypotension. Her BP at office visit 10/29/24 was 94/70. Despite being on maximally tolerated therapy, her EF remains 25%. Cristina Thibodeaux MD documented in this encounter Plan of Treatment Upcoming Encounters Date Type Department Care Team (Latest Contact Info) Description 01/13/2025 9:00 AM EDT Hospital Encounter [facility] Surgery [place] [address] [place] [phone] Britt Vinson MD [address] [place] [address] [address] [place] [address] 01/13/2025 9:00 AM EDT - 01/13/2025 10:30 AM EDT Surgery [facility] Surgery [place] [address] [place] [phone] Britt Vinson MD [address] [place] [address] CYSTOSCOPY TRANSURETHRAL RESECTION OF BLADDER TUMOR, Scheduled Procedures Name Priority Associated Diagnoses Date/Ti me TURBT (TRANSURETHRAL RESECTION OF BLADDER TUMOR) Neoplasm of uncertain behavior of bladder 01/13/2025 9:00 AM EDT CYSTOURETEROSCOPY, WITH RETROGRADE PYELOGRAM OR STENT INSERTION Neoplasm of uncertain behavior of bladder 01/13/2025 9:00 AM EDT documented as of this encounter Visit Diagnoses Not on filedocumented in this encounter Care Teams Scarf Gluer Relationship Specialty Start Date End Date Rae Aguillon MD PCP - General Internal Medicine 03/05/19 documented as of this encounter
--- OUTSIDE RECORDS SUMMARY | 2024-12-11 19:00 | XMS_ITS | Encounter Summary ---
Author Organization [facility] Address [address] [place] [address] Care Team Providers Care Freight Unloader Name Role Phone Rae Aguillon MD Primary Care Provider [phone] Encounter Details Date Type Department Care Team (Late st Contact Info) Description 09/10/2024 Lab Requisition [facility] [address] [place] [address] Genoveva Lynch MD [address] [place] [address] Coagulation defect, unspecified (HCC) Social History Tobacco Use Types Packs/Day Years Used Date Smoking Tobacco: Former Cigarettes Q uit: 09/08/1992 Smokeless Tobacco: Never Alcohol Use Standard Drinks/Week Comments No 0 (1 standard drink = 0.6 oz pur e alcohol) [facility] Utilities Answer Date Recorded In the past 12 months has [facility] [employer], gas, oil, or water [employer] threatened to shut off services in your [...] place to sleep or slept in a penitentiary (including now)? No 07/27/2024 Housing Stability Vital [...] any time in the past 12 m [facility], were you homeless or living in a penitentiary (including now)? Patient unable to answer 07/29/2024 Comments No Sex and Gender Information Value Date Recorded Sex Assigned at Not on file Legal Sex Female 6:47 PM EDT Gender Identity Not on file Sexual Orientation Not on file documented as of this encounter Plan of Treatment Upcoming Encounters Date Type Department Care Team (Latest Contact Info) Description 01/13/2025 9:00 AM EDT Hospital Encounter [facility] Surgery [facility] [address] [place] [address] Britt Vinson MD [address] [place] [address] 01/13/2025 9:00 AM EDT - 01/13/2025 10:30 AM EDT Surgery [facility] Surgery [facility] [address] [place] [address] Britt Vinson MD [address] [place] [address] CYSTOSCOPY TRANSURETHRAL RESECTION OF BLADDER TUMOR, Scheduled Procedures Name Priority Associated Diagnoses Date/Ti me TURBT (TRANSURETHRAL RESECTION OF BLADDER TUMOR) Neoplasm of uncertain behavior of bladder 01/13/2025 9:00 AM EDT CYSTOURETEROSCOPY, WITH RETROGRADE PYELOGRAM OR STENT INSERTION Neoplasm of uncertain behavior of bladder 01/13/2025 9:00 AM EDT documented as of this encounter Procedures Procedure Name Priority Date/Time Associated Diagnosis Comments PROTHROMBIN GENE MUTATION Routine 09/09/2024 3:55 PM EST Coagulation defect, unspecified (HCC) documented in this encounter Results * Prothrombin [id number] (09/09/2024 3:55 PM EST) Prothrombin [id number] Wild Type Wild Type, See comment [employer] [id number] 09/13/2024 1:33 PM EST [facility] Prothrombin [id number] Interpretation NEGATIVE - Only the Wild Type (Normal) form of the Prothrombin (F2) gene is present; no mutation is detected. The Prothrombin mutation analysis (F2, c.*97G>A; legacy 71070T>A) utilizes iConclude[employer] n, which automates and integrates sample purification, nucleic acid amplification, and detection of the target sequence in whole blood using real-time Polymerase Chain Reaction (PCR) assays. Clinical Significance: The [id number] (c.*97G>A) mutation in the prothrombin gene is associated with elevated plasma prothrombin levels. This mutation is present in 18% of patients with documented familial history of venous thrombosis, in 6.2% of unselected patients with a first, objectively confirmed episode of deep vein thrombosis, and in 1-2% of healthy control subjects. Carriers of the [id number] allele have higher plasma prothrombin levels than individuals with a normal genotype and have a 2.8-fold increased risk of venous thrombosis. Homozygosity for this mutation is very rare; the expected prevalence is 0.014% in the general population. Busy MoosITY 48-48 09/13/2024 1:33 PM EST [facility] Comment Busy MoosITY 48-48 09/13/2024 1:33 PM EST [facility] Blood VENOUS BLOOD SPECIMEN / Unknown 09/09/2024 3:55 PM EST 09/10/2024 11:27 AM EST us Genoveva Lynch MD [facility] Final Result [facility] [address] [place] [address] documented in this encounter Visit Diagnoses Diagnosis Coagulation defect, unspecified (HHS-HCC) Neoplasm of uncertain behavior of bladder documented in this encounter Care Teams Freight Unloader Relationship Specialty Start Date End Date Rae Aguillon MD PCP - General Internal Medicine 03/05/19 documented as of this encounter
--- OUTSIDE RECORDS SUMMARY | 2024-12-11 19:00 | XMS_ITS ---
Author Organization [facility] Address [address] [facility] [address] [place] [address] Care Team Providers Care Operations Support Representative Name Role Phone Rae Aguillon MD Primary Care Provider Tiny Barnes Unavailable [phone] REASON FOR VISIT MED CLEARANCE Encounters Encounter Location Date Provider Diagnosis [facility] [address] [facility] [address] [place] [address] 10/03/2023 Tiny Moralez Plan Of Treatment No Information Progress Notes * Dennis MAHANOB:1950 (73 yo F)Acc No.[id number]:10/03/2023 Patient: Mary Kay Hernandez :1950 A ge:73 Y S ex:Female [address]:[address] [place] [address], [address] * true * Date: Generated for Gelyi maría/Kindra/eTransmitting on: 0 12/11/2024 08:00 PM EDT
--- OUTSIDE RECORDS SUMMARY | 2024-12-11 19:00 | XMS_ITS | Clinical Summary ---
Author Organization [facility] Address [address] [place] [address] Care Team Providers Care Machine Captain Name Role Phone Rae Aguillon MD Primary Care Provider [phone] Allergies Active Allergy Reactions Criticality Noted Date [...] failure) 12/02/2014 Incisional pain 12/01/2014 Overview (03/17/2024): Dilaudid , [place] Tylenol PRN Cardiomyopathy, ischemic 12/01/2014 Muscle weakness (generalized) 12/01/2014 CAD (coronary artery disease) 12/01/2014 Hyperlipidemia 12/01/2014 Aneurysm of left ventricle of heart 10/28/2014 Encounters Date Type Department Care Team Description 12/08/2024 1:17 PM EDT Anesthesia Event [facility] Electrophysiology Laboratory [address] [place] [address] [address] [place] [address] Brianda Rivas MD Rude, Mary A, RN 12/08/2024 12:30 PM EDT - 12/08/2024 2:00 PM EDT Surgery [facility] Electrophysiology Laboratory [address] [place] [address] Cristina Thibodeaux MD CV IMPLANTABLE CARDIOVERTER DEFIBRILLATOR INSERTION 12/08/2024 11:08 AM EDT - 12/09/2024 1:44 PM EDT Hospital Encounter [facility] 8 [facility] [address] [place] [address] Cristina Thibodeaux MD S/P ICD (internal cardiac defibrillator) procedure (Primary Dx); NICM (nonischemic cardiomyopathy) (HCC) Discharge Disposition: Home or Self Care 12/03/2024 11:44 AM EDT - 12/03/2024 11:59 PM EDT Hospital Encounter [facility] CT First Floor - [address] [place] [address] Umberto Vinson MD Gross hematuria Discharge Disposition: Home or Self Care 12/02/2024 2:25 PM EDT Clinical Support [facility] Laboratory - [address] [place] [address] NICM (nonischemic cardiomyopathy) (HCC); Pre-procedure lab exam 11/24/2024 Telephone [facility] Cardiology - [address] [place] [address] Cristina Thibodeaux MD Results 11/18/2024 Telephone [facility] Cardiology - [address] [place] [address] Cristina Thibodeaux MD 11/05/2024 Telephone [facility] Cardiology - [address] [place] [address] Cristina Thibodeaux MD Procedure 11/04/2024 Telephone [facility] Cardiology - [address] [place] [address] Cristina Thibodeaux MD OTHER 11/03/2024 Lab Requisition [facility] Laboratory [address] [place] [address] Umberto Vinson MD Gross hematuria 11/02/2024 Telephone [facility] Cardiology - [address] [place] [phone] Cristina Thibodeaux MD OTHER 10/29/2024 1:30 PM EST Office Visit [facility] Cardiology - [address] [place] [phone] Cristina Thibodeaux MD Chronic systolic congestive heart failure (HCC) (Primary Dx); Dizziness; Coronary artery disease involving tangirnaq coronary artery of tangirnaq heart without angina pectoris 10/29/2024 Telephone [facility] Cardiology - [address] [place] [phone] Cristina Thibodeaux MD OTHER 10/29/2024 Telephone [facility] Cardiology - [address] [place] [phone] Cristina Thibodeaux MD OTHER 10/26/2024 Telephone [facility] Cardiology - [address] [place] [phone] Cristina Thibodeaux MD Abnormal Result 09/29/2024 Telephone [facility] Cardiology - [address] [place] [address] Cristina Thibodeaux MD OTHER 09/20/2024 Telephone [facility] Cardiology - [address] [place] [phone] Cristina Thibodeaux MD OTHER 09/17/2024 3:15 PM EST Office Visit [facility] Cardiology - [address] [place] [address] Cristina Thibodeaux MD Cardiomyopathy, ischemic (Primary Dx); NSVT (nonsustained ventricular tachycardia) (HCC); Coronary artery disease involving tangirnaq coronary artery of tangirnaq heart without angina pectoris from Last 3 Months Immunizations Immunization Administration Dates Next Due PFIZER SARS-COV-2 VACCINATION 12/04/2020, 021 Family History Medical History Relation Name Comments Colon Cancer Father Coronary Artery Disease Father Bypa ss Surgery (Age Mid 70s) Diabetes Father Diabetes Type II Father Cancer - Other Mother Uterine Cance r Diabetes Mother Diabetes Type II Mother Blood Clots Neg Hx Relation Name Status Comments Father (Age 85) Heart Fail ure Mother (Age 85) Renal Fail ure Social History Tobacco Use Types Packs/Day Years Used Date Smoking Tobacco: Former Cigarettes Q uit: 09/08/1992 Smokeless Tobacco: Never Tobacco Cessation:Counseling Given: Not Answered Alcohol Use Standard Drinks/Week Comments No 0 (1 standard drink = 0.6 oz pur e alcohol) [facility] [employer] Answer Date Recorded In the past 12 months has e [employer], gas, oil, or water [employer] threatened to shut off services in your [...] any time in the past 12 m [facility], were you homeless or living [...] Description 01/13/2025 9:00 AM EDT Hospital Encounter [facility] Surgery [address] [place] [address] Umberto Vinson MD [address] [place] [address] 01/13/2025 9:00 AM EDT - 01/13/2025 10:30 AM EDT Surgery [facility] Surgery [address] [place] [phone] Umberto Vinson MD [address] [place] [address] CYSTOSCOPY TRANSURETHRAL RESECTION OF BLADDER TUMOR, Scheduled Procedures Name Priority Associated Diagnoses Date/Ti me TURBT (TRANSURETHRAL RESECTION OF BLADDER TUMOR) Neoplasm of uncertain behavior of bladder 01/13/2025 9:00 AM EDT CYSTOURETEROSCOPY, WITH RETROGRADE PYELOGRAM OR STENT INSERTION Neoplasm of uncertain behavior of bladder 01/13/2025 9:00 AM EDT Health Maintenance Due Date Last Done Comments Breast Cancer Screening (Bilateral) 1950 CT Colonography 1950 DXA Bone Density Screening 1950 FIT-DNA 1950 FIT/iFOBT 1950 Hepatitis C Antibody Screening 1950 Sigmoidoscopy 1950 RSV Vaccine (Adult) (1 - Risk 60-74 years 1-dose series) 2010 Shingrix Vaccine (2 of 2) 04/25/2023 02/28/2023 Annual Wellness Visit 04/06/2025 04/06/2024 Chronic Disease Monitoring Lipid Panel 07/24/2025 07/24/2024, 02/15/2020, 03/06/2019 Advance Care Planning Documentation 12/08/2025 12/08/2024 DTaP/Tdap/Td Vaccine (3 - Td or Tdap) 02/14/2032 02/13/2022, 11/20/2011 Colonoscopy 10/22/2033 10/22/2023, 08/25/2018 Colorectal Cancer Screening 10/22/2033 Pneumococcal Vaccine 50 plus Completed , 02/28/2023, 02/13/2022, Additional history exists COVID-19 Vaccine Completed 07/05/2024, 11/2021, 07/04/2021, Additional history exists Flu Vaccine Completed 07/05/2024, 06/08, 06/10/2022, Additional history exists Hepatitis B Vaccine Aged Out No longe r eligible based on patient's age to complete this topic Medical Devices Implanted Type Area Line Maintenance Technician Device Identifier Shelf Expiration Date Model / Serial / Lot Icd Leola Xt Mri Df4 Vr - [id number] Implanted:Qty: 1 on 12/08/2024 by Cristina Thibodeaux MD at [facility] ICD Left: Chest Wall [employer] 01/19/2026 [id number] / [id number] / [id number] Lead Sprint Secure S Df4 62cm - [id number] Implanted:Qty: 1 on 12/08/2024 by Cristina Thibodeaux MD at [facility] Lead Left: Heart [employer] 08/10/2026 [id number] / [id number] / [id number] Procedures Procedure Name Priority Date/Time Associated Diagnosis [...] heart failure (HCC) Coronary artery disease involving tangirnaq coronary artery of tangirnaq heart without angina pectoris NON-MUSE EKG [facility] Routine 09/17/2024 Cardiomyopathy, ischemic LIPID PANEL Routine 07/24/2024 7:05 AM EST from Last 3 Months or Most Recently Relevant to Health Maintenance Results * Cardiac Device Check (12/08/2024 3:58 PM EDT) Date Time Interrogation Session [id number] [facility] Implantable Pulse Generator Line Maintenance Technician [employer] [facility] Implantable Pulse Generator Model [id number] Leola XT VR MRI [facility] Implantable Pulse Generator Serial Number [id number] [facility] Type Interrogation Session In Clinic [facility] Clinic Name Device Clinic - Critical access hospital CARDIOLOGY Implantable Pulse Generator Type Defibrillator [facility] Implantable Pulse Generator Implant Date 20241208 [facility] Implantable Lead Line Maintenance Technician [employer] [facility] Implantable Lead Model [id number] Sprint Quattro Secure S MRI SureScan [facility] Implantable Lead Serial Number [id number] [employer] [facility] Implantable Lead Implant Date 20241208 [facility] Implantable Lead Polarity Type Tripolar Lead [facility] Implantable Lead Location Detail 1 UNKNOWN [employer] [facility] Implantable Lead Special Function [id number] [employer] [facility] Implantable Lead Location Right Ventricle [employer] [facility] Implantable Lead Connection Status Connected [employer] [facility] Guy Setting Mode (NBG Code) VVI [employer] [facility] Guy Setting Lower Rate Limit 40 [...] Channel Setting Sensing Sensitivity 0.3 mV [facility] Lead Channel Setting Pacing Polarity Bipolar [facility] Lead Channel Setting Pacing Anode Location Right Ventricle [facility] Lead Channel Setting Pacing Anode Terminal Ring [facility] Lead Channel Setting Sensing Cathode Location Right Ventricle [facility] Lead Channel Setting Sensing Cathode Terminal Tip [facility] Lead Channel Setting Pacing Pulse Width 0.4 ms [employer] [facility] Lead Channel Setting Pacing Amplitude 3.5 V [facility] Lead Channel Setting Pacing Capture Mode Adaptive [facility] Zone Setting Type Category VF [facility] Zone Setting Vendor Type Category VF [facility] Zone Setting Status Active [facility] Zone Setting Detection Interval 300 ms [facility] Zone Setting Detection Beats Numerator 30 {beats} [facility] Zone Setting Detection Beats Denominator 40 {beats} [facility] Zone Setting Type Category VT [facility] Zone Setting Vendor Type Category FastVT [facility] Zone Setting Status Inactive [facility] Zone Setting Type Category VT [facility] Zone Setting Vendor Type Category VT [facility] Zone Setting Status Inactive [facility] Zone Setting Detection Interval 360 ms [facility] Zone Setting Detection Beats Numerator 16 {beats} [employer] [facility] Zone Setting Detection Beats Denominator 16 {beats} [employer] [facility] Zone Setting Type Category VT [employer] [facility] Zone Setting Vendor Type Category MonVT [facility] Zone Setting Status Monitor [facility] [facility] Zone Setting Detection Interval 400 ms [facility] Zone Setting Detection Beats Numerator 32 {beats} [facility] Zone Setting Detection Beats Denominator 32 {beats} [employer] [facility] Lead Channel Impedance Value 380 ohm [employer] [facility] Lead Channel Impedance Value 475 ohm [employer] [facility] Lead Channel Sensing Intrinsic Amplitude 12.1 mV [employer] [facility] Lead Channel Pacing Threshold Amplitude 0.5 V [employer] [facility] Lead Channel Pacing Threshold Pulse Width 0.4 ms [employer] [facility] Battery Date Time of Measurements [id number] [employer] [facility] Battery PREPRESS SPECIALIST Trigger 2.8 V [employer] [facility] Battery Voltage 3.14 V [employer] [facility] Capacitor Charge Type Shock [employer] [facility] Capacitor Charge Time 0 s [employer] [facility] Capacitor Charge Energy 40.0 J [employer] [facility] Guy Statistic Date Time Start [id number] [employer] [facility] Guy Statistic Date Time End [id number] [employer] [facility] Guy Statistic RV Percent Paced 0 % [employer] [facility] Atrial Tachy Statistic Date Time Start [id number] [employer] [facility] Atrial Tachy Statistic Date Time End [id number] [employer] [facility] Atrial Tachy Statistic AT/AF [place] Percent 0 % [employer] [facility] Therapy Statistic Recent Shocks Delivered 0 [employer] [facility] Therapy Statistic Recent Shocks Aborted 0 [employer] [facility] Therapy Statistic Recent ATP Delivered 0 [employer] [facility] Therapy Statistic Recent Date Time Start [id number] [employer] [facility] Therapy Statistic Recent Date Time End [id number] [employer] [facility] Therapy Statistic Total Shocks Delivered 0 [employer] [facility] Therapy Statistic Total Shocks Aborted 0 [employer] [facility] Therapy Statistic Total ATP Delivered 0 [employer] [facility] Therapy Statistic Total Date Time Start [id number] [employer] [facility] Therapy Statistic Total Date Time End [id number] [employer] [facility] Episode Statistic Recent Count 0 [employer] [facility] Episode Statistic Type Category Patient Activated [employer] [facility] Episode Statistic Recent Count 0 [employer] [facility] Episode Statistic Type Category SVT [employer] [facility] Episode Statistic Recent Count 0 [employer] [facility] Episode Statistic Type Category VT [employer] [facility] Episode Statistic Recent Count 0 [employer] [facility] Episode Statistic Type Category VF [employer] [facility] Episode Statistic Recent Count 0 [employer] [facility] Episode Statistic Type Category VT [employer] [facility] Episode Statistic Recent Count 0 [employer] [facility] Episode Statistic Type Category VT [employer] [facility] Episode Statistic Recent Count 0 [facility] Episode Statistic Type Category VT [facility] Episode Statistic Recent Date Time Start [id number] [facility] Episode Statistic Recent Date Time End [id number] [facility] Episode Statistic Recent Date Time Start [id number] [facility] Episode Statistic Recent Date Time End [id number] [facility] Episode Statistic Recent Date Time Start [id number] [facility] Episode Statistic Recent Date Time End [id number] [facility] Episode Statistic Recent Date Time Start [id number] [facility] Episode Statistic Recent Date Time End [id number] [facility] Episode Statistic Recent Date Time Start [id number] [facility] Episode Statistic Recent Date Time End [id number] [facility] Episode Statistic Recent Date Time Start [id number] [facility] Episode Statistic Recent Date Time End [id number] [facility] Episode Statistic Recent Date Time Start 31689106253891 [facility] Episode Statistic Recent Date Time End [id number] [facility] Episode Statistic Total Count [...] CARDIOLOGY Episode Statistic Total Date Time Start 89491675214209 [facility] Episode Statistic Total Date Time End 41844034866528 [facility] Episode Statistic Total Date Time Start 06119715593617 [facility] Episode Statistic Total Date Time End [id number] [facility] Episode Statistic Total Date Time Start 72654541637870 [facility] Episode Statistic Total Date Time End 06556331382821 [facility] Episode Statistic Total Date Time Start 35162079771923 [facility] Episode Statistic Total Date Time End [id number] [facility] Episode Statistic Total Date Time Start [id number] [facility] Episode Statistic Total Date Time End [id number] [facility] Episode Statistic Total Date Time Start [id number] [facility] Episode Statistic Total Date Time End 73827091973891 [facility] Episode Statistic Total Date Time Start [id number] [facility] Episode Statistic Total Date Time End [id number] [facility] Summary Statement Same day discharge check. Presenting rhythm VS. RV sense 12.1 mv, threshold .5 v @ .40 ms, impedance 475. No new events. Battery at Martha. Programmed VVI-40 [facility] 12/08/2024 3:58 PM EDT Cristina Thibodeaux MD CARDIAC DEVICE ORDERABLES Final Result [facility] CARD[facility] * DR Paulson 2 Views Frontal [...] No evidence of pleural effusion or pneumothorax. Cristina Thibodeaux MD DIAGNOSTIC IMAGING ORDERABLES F inal Result * Electrocardiogram, Complete - Now (12/08/2024 2:47 PM EDT) Only the most recent of2 resultswithin the time period is included. 12/08/2024 2:47 PM EDT 12/08/2024 3:51 PM EDT Narrative [facility] - 12/08/2024 3:51 PM EDT Ventricular Rate 70 BPM Atrial Rate 70 BPM P-R Interval 202 ms QRS Duration 104 ms Q-T Interval 424 ms QTC Calculation(Bazett) 457 ms Calculated P Purdin 66 degrees Calculated R Purdin -72 degrees Calculated T Purdin 118 degrees Diagnosis Normal sinus rhythm Borderline first degree AV block Left anterior fascicular block Minimal voltage criteria for LVH, may be normal variant ( Kevin product ) Cannot rule out Anterior infarct (cited on or before 08-DEC-2024) Nonspecific ST-T wave changes Abnormal ECG When compared with ECG of 08-DEC-2024 11:52, (Unconfirmed) No significant change was found Confirmed by Marcel Degroot ([id number]) on 12/08/2024 3:51:38 PM Procedure Note Marcel Degroot MD - 12/08/2024 Ventricular Rate 70 BPM Atrial Rate 70 BPM P-R Interval 202 ms QRS Duration 104 ms Q-T Interval 424 ms QTC Calculation(Bazett) 457 ms Calculated P Purdin 66 degrees Calculated R Purdin -72 degrees Calculated T Purdin 118 degrees Diagnosis Normal sinus rhythm Borderline first degree AV block Left anterior fascicular block Minimal voltage criteria for LVH, may be normal variant ( Cornellproduct ) Cannot rule out Anterior infarct (cited on or before 08-DEC-2024) Nonspecific ST-T wave changes Abnormal ECG When compared with ECG of 08-DEC-2024 11:52, (Unconfirmed) No significant change was found Confirmed by Marcel Degroot ([id number]) on 12/08/2024 3:51:38 PM us Cristina Thibodeaux MD ECG ORDERABLES Final Result [facility] * CV IMPLANTABLE CARDIOVERTER DEFIBRILLATOR INSERTION [...] critical result message was conveyed to UMBERTO VINSON by Dr. Rudy Juan on 12/04/2024 1:49 PM. Mixpanel Message ID [id number]. Narrative 12/04/2024 1:[address] UROGRAM [...] critical result message was conveyed to LAWRENCE VINSON by Dr. Rudy Juan on 12/04/2024 1:49 PM. PowerConnect[employer]able Findings Message ID [id number]. Umberto Vinson MD CT ORDERABLES Final Resul t * (ABNORMAL) Complete Blood Count w/Differential (12/02/2024 2:32 PM EDT) White Blood Cell 6.6 3.3 - 10.7 x10*9/L 12/03/2024 9:50 AM EDT [facility] Red Blood Cell 4.14 3.87 - 5.08 x10*12/L 12/03/2024 9:50 AM EDT [facility] Hemoglobin 12.7 12.1 - 15.0 g/dL 12/03/2024 9:50 AM EDT [facility] Hematocrit 41.5 35.4 - 44.2 % 12/03/2024 9:50 AM EDT [facility] Mean Cell Volume 100.2 79.5 - 100.4 fL 12/03/2024 9:50 AM EDT [facility] Mean Cell Hemoglobin 30.7 27.5 - 33.4 pg 12/03/2024 9:50 AM EDT [facility] Mean Cell Hemoglobin Concentration 30.6(L) 31.5 - 35.4 g/dL 12/03/2024 9:50 AM EDT [facility] Red Cell Distribution Width 13.6 11.5 - 15.4 % 12/03/2024 9:50 AM EDT [facility] Platelet 227 150 - 400 x10*9/L 12/03/2024 9:50 AM EDT [facility] Mean Platelet Volume 10.2 8.0 - 12.0 fL 12/03/2024 9:50 AM EDT [facility] Neutrophil Automated Absolute 3.57 1.55 - 7.24 x10*9/L 12/03/2024 9:50 AM EDT [facility] Lymphocyte Automated Absolute 2.28 1.05 - 4.04 x10*9/L 12/03/2024 9:50 AM EDT [facility] Monocyte Automated Absolute 0.47 0.00 - 0.84 x10*9/L 12/03/2024 9:50 AM EDT [facility] Eosinophil Automated Absolute 0.20 0.00 - 0.54 x10*9/L 12/03/2024 9:50 AM EDT [facility] Basophil Automated Absolute 0.05 0.00 - 0.14 x10*9/L 12/03/2024 9:50 AM EDT [facility] Immature Granulocyte Automated Absolute 0.01 0.00 - 0.03 x10*9/L 12/03/2024 9:50 AM EDT [facility] Immature Granulocyte Automated 0.2 0.0 - 1.0 % 12/03/2024 9:50 AM EDT [facility] NUCLEATED RED BLOOD CELLS AUTOMATED 0.0 <=0.0 % 12/03/2024 9:50 AM EDT [facility] Blood VENOUS BLOOD SPECIMEN / Unknown Venipuncture / Unknown 12/02/2024 2:32 PM EDT 12/02/2024 2:33 PM EDT us Cristina Thibodeaux MD LAB BLOOD ORDERABLES Final Resu lt [facility] [address] [place] [address] * (ABNORMAL) Basic Metabolic Panel (BMP) (12/02/2024 2:32 PM EDT) Pathologist [facility] Sodium 143 135 - 145 mmol/L 12/03/2024 11:00 AM EDT [facility] Potassium 3.9 3.5 - 5.2 mmol/L 12/03/2024 11:00 AM EDT [facility] Chloride 101 98 - 111 mmol/L 12/03/2024 11:00 AM EDT [facility] Bicarbonate 27 20 - 29 mmol/L 12/03/2024 11:00 AM EDT [facility] Anion Gap 15 5 - 17 mmol/L 12/03/2024 11:00 AM EDT [facility] Glucose 42(L) 70 - 99 mg/dL 12/03/2024 11:00 AM EDT [facility] Comment:Results Repeated. Blood Urea Nitrogen (BUN) 24 7 - 25 mg/dL 12/03/2024 11:00 AM EDT [facility] Creatinine 0.86 0.50 - 1.10 mg/dL 12/03/2024 11:00 AM EDT [facility] eGFR 71 >60 mL/min/1.7 3 m2 12/03/2024 11:00 AM EDT [facility] Comment: Calculation based on the Chronic [...] - 10.5 mg/dL 12/03/2024 11:00 AM EDT [facility] AND [facility] Blood VENOUS BLOOD SPECIMEN / Unknown Venipuncture / Unknown 12/02/2024 2:32 PM EDT 12/02/2024 2:33 PM EDT us Cristina Thibodeaux MD LAB BLOOD ORDERABLES Final Resu lt [facility] [address] [place] [address] * JOSE FRANCISCO DEFIB (IMPLANTABLE CARDIOVERTER DEFIBRILLATOR) (11/13/2024 10:18 AM EST) EMMIEDU DEFIB (IMPLANTABLE CARDIOVERTER DEFIBRILLATOR) PATIENT EDUCATION EMMIURL [email or web address] PATIENT EDUCATION EMMIACC [id number] PATIENT EDUCATION EMMIIUEDATE Nov 13, 2024 PAT IENT EDUCATION EMMISTARTDATE [...] SITE INFECTION PREVENTION (11/13/2024 10:18 AM EST) [facility] SURG[facility] S[facility] INFECTION PREVENTION PATIENT EDUCATION EMMIURL [email or web address] PATIENT EDUCATION EMMIACC [id number] PATIENT EDUCATION EMMIIUEDNov 13, 2024 PAT IENT EDUCATION EMMISTARTDATE PATIEN [...] Urine, Urine, Voided 11/10/2024 3:12 PM EST [facility] Dx Category NEGATIVE FOR HIGH GRADE UROTHELIAL CARCINOMA 11/10/2024 3:12 PM EST [facility] Diagnosis NEGATIVE FOR HIGH GRADE UROTHELIAL CARCINOMA 11/10/2024 3:12 PM EST [facility] at 1512 EST Additional Diagnosis Background neutrophils present 11/10/2024 3:12 PM EST [facility] Comments The Fidelia System (TPS) for Reporting Urinary Cytology is used to evaluate urine cytology specimens. When possible, this system is applied to render the diagnosis. For more information regarding the categories, please refer to Shakeel VARGHESE, Denise CHAUDHARII, Xin DL. The Fidelia System for Reporting Urinary Cytology. 2nd Ed. Warrick: Severino, 2021. 11/10/2024 3:12 PM EST [facility] Clinical Information R31.0 Gross hematuria 11/10/2024 3:12 PM EST [facility] Specimen Adequacy Satisfactory for evaluation. 11/10/2024 3:12 PM EST [facility] Materials received and processed 55ml of hazy, yellow fluid in a sterile container. 1 Thinprep slide prepared Screened by: Isaias Paz This specimen was prepared and screened at [facility], [address] [place] [address] 11/10/2024 3:12 PM EST [facility] Embedded Images 11/10/2024 3:12 PM EST [facility] Case Report Medical Cytology Case: [id number] Authorizing Provider: Umberto Vinson MD Collected: 11/02/2024 1435 Ordering Location: [facility] Received: 11/03/2024 0107 [facility] Pathologist: Anna Gonzalez MD Specimen: Urine, Voided 11/10/2024 3:12 PM EST [facility] Urine URINE SPECIMEN FROM URETHRA / Unknown 11/02/2024 2:35 PM EST 11/03/2024 1:07 AM EST us Umberto Vinson MD LAB CYTOLOGY ORDERABLES Fin al Result [facility] [address] [place] [address] * NON-MUSE EKG (10/29/2024) Only the most recent of2 resultswithin the time period is included. us Cristina Thibodeaux MD ECG ORDERABLES Final Result * (ABNORMAL) Lipid Panel (07/24/2024 7:05 AM EST) Cholesterol Total 158 <200 mg/dL 024 8:31 AM EST [facility] Comment: Optimal: 0 - 199 mg/dL Borderline: 200-239 mg/dL High CHD Risk: >239 mg/dL HDL Cholesterol 44(L) >=50 mg/dL 8:31 AM EST [facility] Comment: Optimal: >59 mg/dL High CHD Risk: <40 mg/dL LDL Cholesterol, Calculated 98 <129 mg/dL 07/24/2024 8:31 AM [facility] Comment: Optimal: <100 Near Optimal: 100 [...] Triglyceride 85 <150 mg/dL 07/24/2024 8:31 AM [facility] Comment: Optimal: 0 - 149 mg/dL Borderline: 150 - 199 mg/dL High CHD Risk: 200 - 500 mg/dL Very High CHD Risk: >500 mg/dL Non-HDL Cholesterol, Calculated 114 <120 mg/dL 07/24/2024 8:31 AM [facility] Chol/HDL Ratio 3.6 1.8 - 4.9 07/24/2024 8:31 AM EST [facility] Fasting time as reported by patient 07/24/2024 8:31 AM EST [facility] Comment:0 Hours Blood VENOUS BLOOD SPECIMEN / Unknown Venipuncture / Unknown 07/24/2024 7:05 AM EST 07/24/2024 7:55 AM EST Joanna Harris MD LAB BLOOD ORDERABLES Fin al Result [facility] [address] [place] [address] from Last 3 Months or Most Recently Relevant to Health Maintenance Insurance [facility] [employer] Care Teams Machine Captain Relationship Specialty Start Date End Date Rae Aguillon MD PCP - General Internal Medicine 03/05/19
[2024-12-11 19:05] LABS: Alanine Aminotransferase 22 U/L (6-35); Albumin Level 3.7 g/dL (3.5-5.1); Alkaline Phosphatase 76 U/L (38-126); Anion Gap 5 mmol/L (4-12); Aspartate Amino Transferase 33 U/L (14-36); Bilirubin,Total 0.5 mg/dL (0.2-1.3); Blood Urea Nitrogen 26 mg/dL (7-17); Calcium 8.9 mg/dL (8.4-10.2); Carbon Dioxide 29 mmol/L (22-30); Chloride 104 mmol/L (98-107); Estimated CRCL calculation 63 ml/min; Estimated Glomerular Filt Rate > 60; Glucose 143 mg/dL (65-110); Lipase 50 U/L (23-300); Potassium 3.9 mmol/L (3.4-5.0); Sodium 138 mmol/L (137-145)
--- NOTE | 2024-12-11 19:22 | PC.NURSE ---
Report received from DIGNA Shirley. Assumed care of patient at this time. ERP notified of patients request for pain medication.
[2024-12-11] MEDS: HYDROmorphone HCL INJ (*CRX) 1 MG/ML SYR 0.5 MG IV PUSH (20:27)
[2024-12-11] MEDS: PIPERACILLN/TAZ 3.375GM/NS50ML 3.375 GM/50 ML BAG IVPB (20:38)
[2024-12-11] MEDS: SODIUM CHLORIDE 0.9% IV 1,000 ML 500 ML IV CONT (20:38)
--- NOTE | 2024-12-11 20:43 | PC.NURSE ---
Patient NS bag, ordered at 500ml/hr is running at 999ml/hr at bolus rate.
[2024-12-11 21:39] LABS: Lactic Acid Reflex 1.4 mmol/L (0.7-2.0)
== END 2024-12-11 21:56 | disposition short-term general hospital (02) ==
PROVIDERS: Family Medicine; Emergency Provider Emergency Medicine
DX: K55.039 Acute (reversible) ischemia of large intestine, extent unspecified (principal); K63.1 Perforation of intestine (nontraumatic); I11.0 Hypertensive heart disease with heart failure; I50.9 Heart failure, unspecified; I69.951 Hemiplegia and hemiparesis following unspecified cerebrovascular disease affecting right dominant side; Z95.810 Presence of automatic (implantable) cardiac defibrillator; Z90.710 Acquired absence of both cervix and uterus
CPT/HCPCS: 36415; 74177; 80053; 83605; 83690; 85025; 96361; 96365; 96366; 96375; 99285; J1171; J2405; J2543; J7030; Q9967

== ENCOUNTER 2024-12-26 08:50 | Observation (INO) | payer MEDICARE, SELFPAY ==
[2024-12-26] VITALS (23 sets, daily range): BP systolic 88–107; BP diastolic 42–75; PULSE 63–73; RESP 13–21; TEMP 36.7–36.8; O2SAT 92–97; BMI 21.7
--- NOTE | ~2024-12-26 | MR_ITS ---
EXAMINATION: MR brain/brain stem wo/w con DATE: 12/26/2024 17:20 INDICATION: L facial droop; hallucinatoin TECHNIQUE: Magnetic resonance imaging (MRI) of the brain and brainstem was performed with intravenous contrast. Sequences included sagittal and axial T1-weighted SE, axial diffusion-weighted FS EPI ASSE T, axial T2*-weighted GRE, axial T2-weighted FLAIR Propeller, and axial T2-weighted Propeller. Postco ntrast axial and coronal T1-weighted SE was obtained. Apparent diffusion coefficient (ADC) maps were created. COMPARISON: CT brain and CTA brain carotid 12/26/2024. FINDINGS: No abnormal restricted diffusion to suggest acute ischemic infarct. No MRI evidence of hemorrhage or extra-axial collection. No acute intracranial hemorrhage. T2 and FLAIR hyperintensity with susceptibi lity artifact in the right basal ganglia corresponding to an area of encephalomalacia in the prior he ad CT, representing old infarction without evidence of acute extension. Small focus of susceptibility in the right cerebellar hemisphere, likely representing a small focus of microhemorrhage. Scattered foci of white matter hyperintensity, likely representing mild small vessel ischemic disease. No evide nce of advanced or lobar predominant parenchymal volume loss. The basilar cisterns are patent. Flow v oids are preserved. Paranasal sinuses are within normal limits. Globes and orbital contents are withi n normal limits. No abnormal enhancing lesions. IMPRESSION: No acute intracranial abnormality Reviewed, dictated and finalized at location K.
--- NOTE | ~2024-12-26 | XR_ITS ---
XR chest 1V portable 12/26/2024 09:42 Indication: CVA. Procedure: AP portable chest Comparison: No prior studies for comparison. Findings: Cardiomegaly. No focal air space disease, pulmonary edema, pleural effusion or suspected pn eumothorax. Bibasilar atelectasis. Impression: 1: Bibasilar atelectasis. Reviewed, dictated and finalized at location A. Impression: 1: Bibasilar atelectasis.
--- NOTE | ~2024-12-26 | CT_ITS ---
EXAMINATION: CTA brain carotid DATE: 12/26/2024 10:01 CDT INDICATION: Left facial droop TECHNIQUE: Computed tomographic angiography (CTA) of the head was performed without and with 100 mL O mnipaque-350 intravenous contrast. CTA of the neck was performed with intravenous contrast. The dose- length product was 1037.16 mGy-cm. Maximum intensity projection and volume rendered 3D-reconstruction s were created by the technologist on a separate workstation. COMPARISON: CT brain dated 12/26/2024. FINDINGS: HEAD CTA: The vertebral arteries are symmetric. No evidence for aneurysm, significant stenosis or occ lusion. The anterior, middle and posterior cerebral arteries are within normal limits. No vascular an omalies identified. Chronic right lacunar infarction. No abnormally enhancing masses. NECK CTA: No significant abnormality of the carotid or vertebral arteries. No significant stenosis, o cclusion or dissection. Mild atherosclerosis. There is dependent atelectasis in the lung apices. IMPRESSION: 1.: No significant vascular abnormality of the head or neck. 2: Chronic right lacunar infarction. Reviewed, dictated and finalized at location A.
--- NOTE | ~2024-12-26 | CT_ITS ---
EXAMINATION: CT brain wo con DATE: 12/26/2024 09:39 INDICATION: Left-sided facial droop. CVA. TECHNIQUE: Computed tomography (CT) of the head was performed without intravenous contrast. The dose- length product was 605.33 mGy-cm. Automated exposure control and iterative reconstruction technique w ere employed. COMPARISON: None FINDINGS: There is a chronic right lacunar infarction. No ventriculomegaly or midline shift. No acute intracranial hemorrhage, infarction, mass or mass effect. No ventriculomegaly or midline shift. Basi lar cisterns are patent. Paranasal sinuses and mastoids are pneumatized. No depressed skull fractures . There is intracranial atherosclerosis. IMPRESSION: 1. No acute intracranial abnormality. 2: Chronic right lacunar infarction. Reviewed, dictated and finalized at location A.
--- NOTE | 2024-12-26 09:07 | ECG_ITS ---
Test Date: 2024-12-26 09:16:12 Measurements Intervals [place] Rate: 63 P: -13 WV: 158 QRS: -67 QRSD: 138 T: 110 QT: 460 QTc: 474 Interpretive Statements SINUS RHYTHM LEFT BUNDLE BRANCH BLOCK BASELINE ARTIFACT- I, II, III, AVR, AVL, AVF, V2 ABNORMAL ECG No previous ECG available for comparison Electronically Signed On 12-26-2024 11:53:50 CDT by Sylvester New D.O.
[2024-12-26 09:24] LABS: Glucose Point of Care 100 mg/dl (65-105)
[2024-12-26 09:26] LABS: Basophils Absolute Auto 0.1 K/mm3 (0.0-0.1); Basophils Percent Auto 0.8 % (0.2-1.2); Eosinophils Absolute Auto 0.1 K/mm3 (0-0.3); Eosinophils Percent Auto 1.6 % (0-4.4); Hematocrit 31.6 % (37.0-47.0); Hemoglobin 9.9 g/dL (12.0-15.0); Immature Granulocyte Absolute 0.04 K/mm3 (0.00-0.031); Immature Granulocyte Percent A 0.5 % (0-0.5); Lymphocytes Absolute Auto 1.96 K/mm3 (0.9-3.2); Lymphocytes Percent Auto 22.5 % (18.3-44.2); Mean Corpuscular HGB Conc 31.3 g/dl (32-36); Mean Corpuscular Hemoglobin 29.8 pg (26-34); Mean Corpuscular Volume 95.2 fl (80-100); Mean Platelet Volume 9.3 fl (7.4-10.4); Monocytes Absolute Auto 0.6 K/mm3 (0.1-0.6); Monocytes Percent Auto 6.8 % (2.6-8.5); Neutrophils Absolute Auto 5.9 K/mm3 (1.3-6.7); Neutrophils Percent Auto 67.8 % (45.5-73.1); Platelet Count Result 417 k/mm3 (150-375); Red Blood Count 3.32 M/mm3 (4.2-5.4); Red Cell Distribution Width 13.6 % (11.5-14.5); White Blood Count 8.7 K/mm3 (4.5-10.0)
[2024-12-26 09:38] LABS: INR 1.2; Partial Thromboplastin Time 23.5 Seconds (22.3-36.8); Prothrombin Time 15.8 Seconds (11.1-14.7)
[2024-12-26 09:40] LABS: Estimated CRCL calculation 50 ml/min; Estimated Glomerular Filt Rate > 60
[2024-12-26 09:40] LABS: Alanine Aminotransferase 48 U/L (6-35); Albumin Level 3.1 g/dL (3.5-5.1); Alkaline Phosphatase 67 U/L (38-126); Anion Gap 6 mmol/L (4-12); Aspartate Amino Transferase 35 U/L (14-36); Bilirubin,Total 0.4 mg/dL (0.2-1.3); Blood Urea Nitrogen 15 mg/dL (7-17); Calcium 8.5 mg/dL (8.4-10.2); Carbon Dioxide 29 mmol/L (22-30); Chloride 103 mmol/L (98-107); Estimated CRCL calculation 57 ml/min; Estimated Glomerular Filt Rate > 60; Glucose 95 mg/dL (65-110); Potassium 3.8 mmol/L (3.4-5.0); Sodium 138 mmol/L (137-145)
--- OUTSIDE RECORDS SUMMARY | 2024-12-26 09:48 | XMS_ITS ---
Author Organization [facility] Address [address] [place] [address] Care Team Providers Care Composing Machine Operator Name Role Phone Rae Aguillon Primary Care Provider [phone] Pal NEVAREZ, Rae Unavailable Unavailable Encounters Encounter Location Date Provider Diagnosis [facility] [address] [place] [address] 09/22/2024 Rae Aguillon Plan Of Treatment No Information Progress Notes * SHERRY GARCIA MDOB: 0 (74 yo F)Acc No.[id number]:09/22/2024 Patient: Hortencia MCBRIDESHERRY :1950 A ge:74 Y S ex:Female Address:[address] [place] [address], [address] * true * Date: Generated for Christin daniel/Kindra/eTransmitting on: 0 12/26/2024 10:48 AM EDT
--- OUTSIDE RECORDS SUMMARY | 2024-12-26 09:48 | XMS_ITS | Clinical Summary ---
Author Organization [facility] Address [address] [place] [address] Care Team Providers Care Outside Sales Representative Insurance Name Role Phone Rae Aguillon Primary Care Provider [phone] Allergies Active Allergy Reactions Criticality Noted Date [...] previously scheduled. Procedure Code(s): --- Professional --- 30597, Colonoscopy, flexible; with removal of tumor(s), polyp(s), or other lesion(s) by snare technique Diagnosis Code(s): --- Professional --- Z86.010, Personal history of colonic polyps D12.8, Benign neoplasm of rectum D12.3, Benign neoplasm of transverse colon (hepatic flexure orsplenic flexure) D12.2, Benign neoplasm of ascending colon K57.30, Diverticulosis of large intestine without perforation orabscess without bleeding K64.8, Other hemorrhoids CPT copyright 2020 [employer]. All rights reserved. The codes documented in this report are preliminary and upon tile layer supervisor reviewmay be revised to meet current compliance [...] Most Recently Relevant to Health Maintenance Insurance [facility] PPO MED ADV Advance Directives * Full Code (Latest Code Status on File) Date Activated Date Inactivated Comments 10/22/2023 12:12 PM 10/26/2023 2:29 AM Care Teams Outside Sales Representative Insurance Relationship Specialty Start Date End Date Rae Aguillon [address] [place] [address] PCP - General Internal Medicine 09/19/23
--- OUTSIDE RECORDS SUMMARY | 2024-12-26 09:48 | XMS_ITS | Encounter Summary ---
Author Organization [facility] Address [address] [place] [address] Care Team Providers Care Necktie Turner Name Role Phone Rae Aguillon MD Primary Care Provider [phone] Encounter Details Date Type Department Care Team (Late st Contact Info) Description 09/09/2024 Lab Requisition [facility] [address] [place] [address] Genoveva Lynch MD [address] [place] [address] Coagulation defect, unspecified (HCC) Social History Tobacco Use Types Packs/Day Years Used Date Smoking Tobacco: Former Cigarettes Q uit: 09/08/1992 Smokeless Tobacco: Never Alcohol Use Standard Drinks/Week Comments No 0 (1 standard drink = 0.6 oz pur e alcohol) [facility] Utilities Answer Date Recorded In the past 12 months has [facility] [employer], gas, oil, or water [employer] threatened to shut off services in your [...] place to sleep or slept in a nursing home (including now)? No 07/27/2024 Housing Stability Vital [...] any time in the past 12 m [facility], were you homeless or living in a nursing home (including now)? Patient unable to answer 07/29/2024 Comments No Sex and Gender Information Value Date Recorded Sex Assigned at Not on file Legal Sex Female 6:47 PM EDT Gender Identity Not on file Sexual Orientation Not on file documented as of this encounter Plan of Treatment Upcoming Encounters Date Type Department Care Team (Latest Contact Info) Description 01/13/2025 9:00 AM EDT Hospital Encounter [facility] Surgery [facility] [address] [place] [address] Britt Vinson MD [address] [place] [address] 01/13/2025 9:00 AM EDT - 01/13/2025 10:30 AM EDT Surgery [facility] Surgery [facility] [address] [place] [address] Britt Vinson MD [address] [place] [address] CYSTOSCOPY TRANSURETHRAL RESECTION OF BLADDER [...] MD LAB BLOOD ORDERABLES Final R esult [facility] [address] [place] [address] * (ABNORMAL) Urinalysis with Microscopic if Indicated ( [facility] Only ) (09/09/2024 3:08 PMEST) Urine Color Yellow 09/09/2024 6:25 PM [facility] Urine Clarity Cloudy(A) Clear 09/09/2024 6:25 PM [facility] Urine Glucose Negative Negative mg/dL 09/09/2024 6:25 PM EST [facility] Urine Bilirubin Negative Negative 6:25 PM [facility] Urine Ketones 5(A) Negative mg/dL 09/09/2024 6:25 PM EST [facility] Urine Specific [place] 1.021 1.005 - 1.030 09/09/2024 6:25 PM [facility] Urine Blood Trace(A) Negative 09/09/2024 6:25 PM [facility] U pH 5.0 5.0 - 8.0 09/09/2024 6:25 PM [facility] Urine Protein Trace(A) Negative mg/dL 09/09/2024 6:25 PM EST [facility] Urine Urobilinogen 0.2 <2.0 mg/dL 09/09/2024 6:25 PM EST [facility] Urine Nitrite Positive(A) Negative 09/09/2024 6:25 PM EST [facility] Urine Leukocyte Esterase 3+(A) Negative 09/09/2024 6:25 PM EST [facility] Urine RBC 0-2 0-2 Negative /HPF 09/09/2024 6:25 PM EST [facility] Urine WBC 51-100(A) 0-5 Negative /HPF 09/09/2024 6:25 PM EST [facility] Urine Squamous Epithelial Cells >20(A) 0 - 5 /HPF 09/09/2024 6:25 PM EST [facility] Comment:Epithelial cell coun t may include squamous, transitional and renal tubular epithelial cells Urine Hyaline Casts 3 - 5(A) 0-2 Negative /LPF 09/09/2024 6:25 PM EST [facility] Comment: Total cast count will include hyaline casts and may include pathologic casts. See report below for pathologic casts identification, if present. Urine Bacteria 4+(A) Negative /HPF 09/09/2024 6:25 PM EST [facility] Urine Calcium Oxalate Crystal Present /HPF 09/09/2024 6:25 PM EST [facility] Urine URINE SPECIMEN OBTAINED BY CLEAN CATCH PROCEDURE / Unknown 09/09/2024 3:08 PM EST 09/09/2024 5:40 PM EST [facility] - 09/09/2024 6:25 PM EST Positive dipstick result for blood but no red blood cells detected by fluorescent flow cytometry. The result could be seen in patients with hemoglobinuria and/or myoglobinuria. In rare cases, the result can be caused by discolored urine following ingestion of certain drugs/dyes. us Genoveva Lynch MD LAB URINE ORDERABLES Final R esult [facility] [address] [place] [address] * Immunoglobulins (IgG, IgA, IgM) (09/09/2024 3:08 PM EST) Immunoglobulin A (IgA) 193 70 - 365 mg/dL 09/09/2024 6:11 PM EST [facility] Immunoglobulin G (IgG) 1,300 550 - 1,650 mg/dL 09/09/2024 6:11 PM EST [facility] Immunoglobulin M (IgM) 79 30 - 263 mg/dL 09/09/2024 6:11 PM EST [facility] Blood VENOUS BLOOD SPECIMEN / Unknown 09/09/2024 3:08 PM EST 09/09/2024 5:40 PM EST Genoveva Lynch MD LAB BLOOD ORDERABLES Final R esult Performing Organization Address [facility]/ZIP Co de Phone Number [address] [address] * Antithrombin Activity (09/09/2024 3:08 PM EST) Pathologist [facility] Antithrombin III Activity 97 85 - 150 % 09/10/2024 9:59 AM EST [facility] Comment:NOTE: Some direct or al anticoagulants (e.g. factor Xa inhibitors) may cause false negative results. Decreased Antithrombin levels may be due to either acquired or hereditary causes. Blood VENOUS BLOOD SPECIMEN / Unknown 09/09/2024 3:08 PM EST 09/09/2024 5:40 PM EST Genoveva Lynch MD LAB BLOOD ORDERABLES Final R esult Performing Organization Address City/[facility]/ZIP Co de Phone Number [address] [place] [address] * Protein S Activity (09/09/2024 3:08 PM EST) Pathologist [facility] Protein S Activity 92 50 - 150 % 09/10/2024 9:59 AM EST [facility] Comment:Note that direct ora l anticoagulants can interfere with protein S testing, causing artificially high and/or false negative results. Blood VENOUS BLOOD SPECIMEN / Unknown 09/09/2024 3:08 PM EST 09/09/2024 5:40 PM EST Genoveva Lynch MD LAB BLOOD ORDERABLES Final R esult Performing Organization Address City/[facility]/ZIP Co de Phone Number [facility] [address] [place] [address] * Protein C Activity (09/09/2024 3:08 PM EST) Protein C Activity 93 70 - 150 % 09/10/2024 9:59 AM EST [facility] Blood VENOUS BLOOD SPECIMEN / Unknown 09/09/2024 3:08 PM EST 09/09/2024 5:40 PM EST Genoveva Lynch MD LAB BLOOD ORDERABLES Final R esult Performing Organization Address City/[facility]/ZIP Co de Phone Number [address] [facility] [place] [address] documented in this encounter Visit Diagnoses Diagnosis Coagulation defect, unspecified (HHS-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
--- OUTSIDE RECORDS SUMMARY | 2024-12-26 09:48 | XMS_ITS | Encounter Summary ---
Author Organization [facility] Address [address] [place] [address] Care Team Providers Care Insurance Manager Name Role Phone Rae Aguillon MD Primary Care Provider [phone] Encounter Details Date Type Department Care Team (Late st Contact Info) Description 11/03/2024 Lab Requisition [facility] [address] [place] [address] Britt Vinson MD [address] [place] [address] [address] [place] [address] Gross hematuria Social History Tobacco Use Types Packs/Day Years Used Date Smoking Tobacco: Former Cigarettes Q uit: 09/08/1992 Smokeless Tobacco: Never Alcohol Use Standard Drinks/Week Comments No 0 (1 standard drink = 0.6 oz pur e alcohol) [facility] Utilities Answer Date Recorded In the past 12 months has [facility] [employer], gas, oil, or water [employer] threatened to shut off services in your [...] place to sleep or slept in a detention (including now)? No 07/27/2024 Housing Stability Vital [...] any time in the past 12 m [facility], were you homeless or living in a detention (including now)? Patient unable to answer 07/29/2024 Comments No Sex and Gender Information Value Date Recorded Sex Assigned at Not on file Legal Sex Female 6:47 PM EDT Gender Identity Not on file Sexual Orientation Not on file documented as of this encounter Plan of Treatment Upcoming Encounters Date Type Department Care Team (Latest Contact Info) Description 01/13/2025 9:00 AM EDT Hospital Encounter [facility] [place] [address] [place] [address] Britt Vinson MD [address] [place] [address] 01/13/2025 9:00 AM EDT - 01/13/2025 10:30 AM EDT Surgery [facility] [place] [address] [place] [address] Britt Vinson MD [address] [place] [address] CYSTOSCOPY TRANSURETHRAL RESECTION OF BLADDER [...] System for Reporting Urinary Cytology. 2nd Ed. Mcintosh: 2021. 11/10/2024 3:12 PM EST [facility] This specimen was prepared and screened at [facility], [address] [place] [address] 11/10/2024 3:12 PM EST [facility] Embedded Images 11/10/2024 3:12 PM EST [facility] Case Report Medical Cytology Case: [id number] Authorizing Provider: Britt Vinson MD Collected: 11/02/2024 1435 Ordering Location: [facility] Received: 11/03/2024 0107 [facility] Pathologist: Anna Gonzalez MD Specimen: Urine, Voided 11/10/2024 3:12 PM EST [facility] Urine URINE SPECIMEN FROM URETHRA / Unknown 11/02/2024 2:35 PM EST 11/03/2024 1:07 AM EST us Britt Vinson MD LAB CYTOLOGY ORDERABLES Fin al Result [facility] [address] [place] [address] documented in this encounter Visit Diagnoses Diagnosis Gross hematuria Neoplasm of uncertain behavior of bladder documented in this encounter Care Teams Insurance Manager Relationship Specialty Start Date End Date Rae Aguillon MD PCP - General Internal Medicine 03/05/19 documented as of this encounter
--- OUTSIDE RECORDS SUMMARY | 2024-12-26 09:49 | XMS_ITS | Clinical Summary ---
Author Organization [facility] Address [address] [place] [address] Care Team Providers Care Senior Market Intelligence Consultant Name Role Phone Rae Aguillon MD Primary Care Provider [phone] Allergies Active Allergy Reactions Criticality Noted Date [...] Incisional pain 12/01/2014 Overview (03/17/2024): Dilaudid , [place] Tylenol PRN Cardiomyopathy, ischemic 12/01/2014 Muscle weakness (generalized) 12/01/2014 CAD (coronary artery disease) 12/01/2014 Hyperlipidemia 12/01/2014 Aneurysm of left ventricle of heart 10/28/2014 Encounters Date Type Department Care Team Description 12/08/2024 1:17 PM EDT Anesthesia Event [facility] Electrophysiology Laboratory [address] [place] [address] [address] [place] [address] Brianda Rivas MD Rude, Mary A, RN 12/08/2024 12:30 PM EDT - 12/08/2024 2:00 PM EDT Surgery [facility] Electrophysiology Laboratory [address] [place] [address] Cristina Thibodeaux MD CV IMPLANTABLE CARDIOVERTER DEFIBRILLATOR INSERTION 12/08/2024 11:08 AM EDT - 12/09/2024 1:44 PM EDT Hospital Encounter [facility] [address] [place] [address] Cristina Thibodeaux MD S/P ICD (internal cardiac defibrillator) procedure (Primary Dx); NICM (nonischemic cardiomyopathy) (HCC) Discharge Disposition: Home or Self Care 12/03/2024 11:44 AM EDT - 12/03/2024 11:59 PM EDT Hospital Encounter [facility] CT First Floor - [address] [place] [address] Umberto Vinson MD Gross hematuria Discharge Disposition: Home or Self Care 12/02/2024 2:25 PM EDT Clinical Support [facility] Laboratory - [address] [place] [address] NICM (nonischemic cardiomyopathy) (HCC); Pre-procedure lab exam 11/24/2024 Telephone [facility] Cardiology - [address] [place] [address] Cristina Thibodeaux MD Results 11/18/2024 Telephone [facility] Cardiology - [address] [place] [address] Cristina Thibodeaux MD 11/05/2024 Telephone [facility] Cardiology - [address] [place] [address] Cristina Thibodeaux MD Procedure 11/04/2024 Telephone [facility] Cardiology - [address] [place] [address] Cristina Thibodeaux MD OTHER 11/03/2024 Lab Requisition [facility] Laboratory [address] [place] [address] Umberto Vinson MD Gross hematuria 11/02/2024 Telephone [facility] Cardiology - [address] [place] [address] Cristina Thibodeaux MD OTHER 10/29/2024 1:30 PM EST Office Visit [facility] Cardiology - [address] [place] [address] Cristina Thibodeaux MD Chronic systolic congestive heart failure (HCC) (Primary Dx); Dizziness; Coronary artery disease involving chilkat coronary artery of chilkat heart without angina pectoris 10/29/2024 Telephone [facility] Cardiology - [address] [place] [address] Cristina Thibodeaux MD OTHER 10/29/2024 Telephone [facility] Cardiology - [address] [place] [address] Cristina Thibodeaux MD OTHER 10/26/2024 Telephone [facility] Cardiology - [address] [place] [address] Cristina Thibodeaux MD Abnormal Result 09/29/2024 Telephone [facility] Cardiology - [address] [place] [address] Cristina Thibodeaux MD OTHER from Last 3 Months Immunizations Immunization Administration [...] drink = 0.6 oz pur e alcohol) [facility] Utilities Answer Date Recorded In the past 12 months has th e [place] [employer], gas, oil, or water [employer] threatened to shut off services in your [...] place to sleep or slept in a correction (including now)? No 07/27/2024 Housing Stability Vital Sign Answer Amari e Recorded In the last 12 months, was t here a time when you were not able to pay the mortgage or rent on time? No 12/08/2024 In the past 12 months, how m any times have you moved where you were living? 1 12/08/2024 At any time in the past 12 m [facility], were you homeless or living in a correction (including now)? No 12/08/2024 Comments No Sex [...] Description 01/13/2025 9:00 AM EDT Hospital Encounter [facility] Surgery [facility] [address] [place] [address] Umberto Vinson MD [address] [facility] [address] [place] [address] 01/13/2025 9:00 AM EDT - 01/13/2025 10:30 AM EDT Surgery [facility] Surgery [facility] [address] [place] [address] Umberto Vinson MD [address] [facility] [address] [place] [address] CYSTOSCOPY TRANSURETHRAL RESECTION OF BLADDER [...] this topic Medical Devices Implanted Type Area Pressroom Supervisor Device Identifier Shelf Expiration Date Model / Serial / Lot Icd Marana Xt Mri Df4 Vr - [id number] Implanted:Qty: 1 on 12/08/2024 by Cristina Thibodeaux MD at [facility] ICD Left: Chest Wall [employer] 01/19/2026 [id number] / [id number] / [id number] Lead Sprint Secure S Df4 62cm - [id number] Implanted:Qty: 1 on 12/08/2024 by Cristina Thibodeaux MD at [facility] Lead Left: Heart [employer] 08/10/2026 [id number] / [id number] / [id number] Procedures Procedure Name Priority Date/Time Associated Diagnosis [...] PM EST Gross hematuria NON-MUSE EKG [facility] Routine 10/29/2024 Chronic systolic congestive heart failure (HCC) Coronary artery disease involving chilkat coronary artery of chilkat heart without angina pectoris LIPID PANEL Routine 07/24/2024 7:05 AM EST from Last 3 Months or Most Recently Relevant to Health Maintenance Results * Cardiac Device Check (12/08/2024 3:58 PM EDT) Date Time Interrogation Session [id number] [facility] Implantable Pulse Generator Pressroom Supervisor Medtronic [facility] Implantable Pulse Generator Model [id number] Marana XT VR MRI [facility] Implantable Pulse Generator Serial Number [id number] [facility] Type Interrogation Session In Clinic [facility] Clinic Name Device Clinic - [facility] Implantable Pulse Generator Type Defibrillator [facility] Implantable Pulse Generator Implant Date [id number] [facility] Implantable Lead Pressroom Supervisor Medtronic [facility] Implantable Lead Model 6935M Sprint Quattro Secure S MRI SureScan [facility] Implantable Lead Serial Number [id number] [facility] Implantable Lead Implant Date 20241208 [facility] Implantable Lead Polarity Type Tripolar Lead [facility] Implantable Lead Location Detail 1 UNKNOWN [facility] Implantable Lead Special Function [id number] [facility] Implantable Lead Location Right Ventricle [facility] Implantable Lead Connection Status Connected [facility] Guy Setting Mode (NBG Code) VVI [facility] Guy Setting Lower Rate Limit 40 {beats}/ min [facility] Lead Channel Setting Sensing Polarity Bipolar [facility] Lead Channel Setting Sensing Anode Location Right Ventricle [facility] Lead Channel Setting Sensing Anode Terminal Ring [facility] Lead Channel Setting Sensing Cathode Location Right Ventricle [facility] Lead Channel Setting Sensing Cathode Terminal Tip [facility] Lead Channel Setting Sensing Sensitivity 0.3 mV [facility] Lead Channel Setting Pacing Polarity Bipolar [facility] Lead Channel Setting Pacing Anode Location Right Ventricle [facility] Lead Channel Setting Pacing Anode Terminal Ring [facility] Lead Channel Setting Sensing Cathode Location Right Ventricle [facility] Lead Channel Setting Sensing Cathode Terminal Tip [facility] Lead Channel Setting Pacing Pulse Width 0.4 ms [facility] Lead Channel Setting Pacing Amplitude 3.5 V [facility] Lead Channel Setting Pacing Capture Mode Adaptive [facility] Zone Setting Type Category VF [facility] Zone Setting Vendor Type Category VF [facility] Zone Setting Status Active [facility] Zone Setting Detection Interval 300 ms [facility] Zone Setting Detection Beats Numerator 30 {beats} [facility] Zone Setting Detection Beats Denominator 40 {beats} [facility] Zone Setting Type Category VT [facility] Zone Setting Vendor Type Category FastVT [facility] Zone Setting Status Inactive [facility] Zone Setting Type Category VT [facility] Zone Setting Vendor Type Category VT [facility] Zone Setting Status Inactive [facility] Zone Setting Detection Interval 360 ms [facility] Zone Setting Detection Beats Numerator 16 {beats} [facility] Zone Setting Detection Beats Denominator 16 {beats} [facility] Zone Setting Type Category VT [facility] Zone Setting Vendor Type Category MonVT [facility] Zone Setting Status Monitor [facility] Zone Setting Detection Interval 400 ms [facility] Zone Setting Detection Beats Numerator 32 {beats} [facility] Zone Setting Detection Beats Denominator 32 {beats} [facility] Lead Channel Impedance Value 380 ohm [facility] Lead Channel Impedance Value 475 ohm [facility] Lead Channel Sensing Intrinsic Amplitude 12.1 mV [facility] Lead Channel Pacing Threshold Amplitude 0.5 V [facility] Lead Channel Pacing Threshold Pulse Width 0.4 ms [facility] Battery Date Time of Measurements [id number] [facility] Battery AVIATION CONSULTANT Trigger 2.8 V [facility] Battery Voltage 3.14 V [facility] Capacitor Charge Type Shock [facility] Capacitor Charge Time 0 s [facility] Capacitor Charge Energy 40.0 J [facility] Guy Statistic Date Time Start [id number] [facility] Guy Statistic Date Time End [id number] [facility] Guy Statistic RV Percent Paced 0 % [facility] Atrial Tachy Statistic Date Time Start [id number] [facility] Atrial Tachy Statistic Date Time End [id number] [facility] Atrial Tachy Statistic AT/AF [place] Percent 0 % [facility] Therapy Statistic Recent Shocks Delivered 0 [facility] Therapy Statistic Recent Shocks Aborted 0 [facility] Therapy Statistic Recent ATP Delivered 0 [facility] Therapy Statistic Recent Date Time Start [id number] [facility] Therapy Statistic Recent Date Time End [id number] [facility] Therapy Statistic Total Shocks Delivered 0 [facility] Therapy Statistic Total Shocks Aborted 0 [facility] Therapy Statistic Total ATP Delivered 0 [facility] Therapy Statistic Total Date Time Start [id number] [facility] Therapy Statistic Total Date Time End [id number] [facility] Episode Statistic Recent Count 0 [facility] Episode Statistic Type Category Patient Activated S[facility] Episode Statistic Recent Count 0 [employer] [facility] Episode Statistic Type Category SVT [facility] Episode Statistic Recent Count 0 [employer] [facility] C[facility] Episode Statistic Type Category VT [facility] Episode Statistic Recent Count 0 [employer] [facility] C[facility] Episode Statistic Type Category VF [...] CARDIOLOGY Episode Statistic Recent Date Time Start [id number] [facility] Episode Statistic Recent Date Time End [id number] [facility] Episode Statistic Recent Date Time Start [id number] [facility] Episode Statistic Recent Date Time End [id number] [facility] Episode Statistic Recent Date Time Start [id number] [facility] Episode Statistic Recent Date Time End [id number] [facility] Episode Statistic Recent Date Time Start [id number] [facility] Episode Statistic Recent Date Time End [id number] [facility] Episode Statistic Recent Date Time Start [id number] [facility] Episode Statistic Recent Date Time End [id number] [facility] Episode Statistic Recent Date Time Start [id number] [facility] Episode Statistic Recent Date Time End [id number] [facility] Episode Statistic Recent Date Time Start [id number] [facility] Episode Statistic Recent Date Time End [id number] [facility] Episode Statistic Total Count [...] CARDIOLOGY Episode Statistic Total Date Time Start [id number] [facility] Episode Statistic Total Date Time End [id number] [facility] Episode Statistic Total Date Time Start 17950627333697 [facility] Episode Statistic Total Date Time End [id number] [facility] Episode Statistic Total Date Time Start [id number] [facility] Episode Statistic Total Date Time End [id number] [facility] Episode Statistic Total Date Time Start 77571131082740 [facility] Episode Statistic Total Date Time End [id number] [facility] Episode Statistic Total Date Time Start [id number] [facility] Episode Statistic Total Date Time End [id number] [facility] Episode Statistic Total Date Time Start [id number] [facility] Episode Statistic Total Date Time End [id number] [facility] Episode Statistic Total Date Time Start [id number] [facility] Episode Statistic Total Date Time End [id number] [facility] Summary Statement Same day discharge check. Presenting rhythm VS. RV sense 12.1 mv, threshold .5 v @ .40 ms, impedance 475. No new events. Battery at [place]. Programmed VVI-40 [facility] 12/08/2024 3:58 PM EDT us Cristina Thibodeaux MD CARDIAC DEVICE ORDERABLES Final Result [facility] * DR Paulson 2 Views Frontal [...] PM EDT 12/08/2024 3:51 PM EDT Narrative [facility] - 12/08/2024 3:51 PM EDT Ventricular Rate 70 BPM Atrial Rate 70 BPM P-R Interval 202 ms QRS Duration 104 ms Q-T Interval 424 ms QTC Calculation(Bazett) 457 ms Calculated P [place] 66 degrees Calculated R [place] -72 degrees Calculated T [place] 118 degrees Diagnosis Normal sinus rhythm Borderline first degree AV block Left anterior fascicular block Minimal voltage criteria for LVH, may be normal variant ( Grover product ) Cannot rule out Anterior infarct (cited on or before 08-DEC-2024) Nonspecific ST-T wave changes Abnormal ECG When compared with ECG of 08-DEC-2024 11:52, (Unconfirmed) No significant change was found Confirmed by Marcel Degroot ([id number]) on 12/08/2024 3:51:38 PM Procedure Note Marcel Degroot MD - 12/08/2024 Ventricular Rate 70 BPM Atrial Rate 70 BPM P-R Interval 202 ms QRS Duration 104 ms Q-T Interval 424 ms QTC Calculation(Bazett) 457 ms Calculated P [place] 66 degrees Calculated R [place] -72 degrees Calculated T [place] 118 degrees Diagnosis Normal sinus rhythm Borderline first degree AV block Left anterior fascicular block Minimal voltage criteria for LVH, may be normal variant ( [employer] ) Cannot rule out Anterior infarct (cited on or before 08-DEC-2024) Nonspecific ST-T wave changes Abnormal ECG When compared with ECG of 08-DEC-2024 11:52, (Unconfirmed) No significant change was found Confirmed by Marcel Degroot ([id number]) on 12/08/2024 3:51:38 PM us Cristina Thibodeaux MD ECG ORDERABLES Final Result [facility] * CV IMPLANTABLE CARDIOVERTER DEFIBRILLATOR [...] Dr. Rudy Juan on 12/04/2024 1:49 PM. Videostrip Actionable Findings Message ID [id number]. Narrative 12/04/2024 1:[address] UROGRAM [...] 12/04/2024 1:49 PM. PowerConnectActionable Findings Message ID [id number]. Umberto Vinson MD CT ORDERABLES Final Resul t * (ABNORMAL) Complete Blood Count w/Differential (12/02/2024 2:32 PM EDT) [facility] White Blood Cell 6.6 3.3 - 10.7 x10*9/L 12/03/2024 9:50 AM EDT [facility] Red Blood Cell 4.14 3.87 - 5.08 x10*12/L 12/03/2024 9:50 AM EDT [facility] Hemoglobin 12.7 12.1 - 15.0 g/dL 12/03/2024 9:50 AM EDT [facility] Hematocrit 41.5 35.4 - 44.2 % 12/03/2024 9:50 AM EDT [facility] Mean Cell Volume 100.2 79.5 - 100.4 fL 12/03/2024 9:50 AM EDT [facility] Mean Cell Hemoglobin 30.7 27.5 - 33.4 pg 12/03/2024 9:50 AM EDT [facility] Mean Cell Hemoglobin Concentration 30.6(L) 31.5 - 35.4 g/dL 12/03/2024 9:50 AM EDT [facility] Red Cell Distribution Width 13.6 11.5 - 15.4 % 12/03/2024 9:50 AM EDT [facility] Platelet 227 150 - 400 x10*9/L 12/03/2024 9:50 AM EDT [facility] Mean Platelet Volume 10.2 8.0 - 12.0 fL 12/03/2024 9:50 AM EDT [facility] Neutrophil Automated Absolute 3.57 1.55 - 7.24 x10*9/L 12/03/2024 9:50 AM EDT [facility] Lymphocyte Automated Absolute 2.28 1.05 - 4.04 x10*9/L 12/03/2024 9:50 AM EDT [facility] Monocyte Automated Absolute 0.47 0.00 - 0.84 x10*9/L 12/03/2024 9:50 AM EDT [facility] Eosinophil Automated Absolute 0.20 0.00 - 0.54 x10*9/L 12/03/2024 9:50 AM EDT [facility] Basophil Automated Absolute 0.05 0.00 - 0.14 x10*9/L 12/03/2024 9:50 AM EDT [facility] Immature Granulocyte Automated Absolute 0.01 0.00 - 0.03 x10*9/L 12/03/2024 9:50 AM EDT [facility] Immature Granulocyte Automated 0.2 0.0 - 1.0 % 12/03/2024 9:50 AM EDT [facility] NUCLEATED RED BLOOD CELLS AUTOMATED 0.0 <=0.0 % 12/03/2024 9:50 AM EDT [facility] Blood VENOUS BLOOD SPECIMEN / Unknown Venipuncture / Unknown 12/02/2024 2:32 PM EDT 12/02/2024 2:33 PM EDT us Cristina Thibodeaux MD LAB BLOOD ORDERABLES Final Resu lt [facility] [address] [place] [id number] * (ABNORMAL) Basic Metabolic Panel (BMP) (12/02/2024 2:32 PM EDT) Sodium 143 135 - 145 mmol/L 12/03/2024 11:00 AM EDT [facility] Potassium 3.9 3.5 - 5.2 mmol/L 12/03/2024 11:00 AM EDT [facility] Chloride 101 98 - 111 mmol/L 12/03/2024 11:00 AM EDT [facility] Bicarbonate 27 20 - 29 mmol/L 12/03/2024 11:00 AM EDT [facility] Anion Gap 15 5 - 17 mmol/L 12/03/2024 11:00 AM EDT [facility] Glucose 42(L) 70 - 99 mg/dL 12/03/2024 11:00 AM EDT [facility] Comment:Results Repeated. Blood Urea Nitrogen (BUN) 24 7 - 25 mg/dL 12/03/2024 11:00 AM EDT [facility] Creatinine 0.86 0.50 - 1.10 mg/dL 12/03/2024 11:00 AM EDT [facility] eGFR 71 >60 mL/min/1.7 3 m2 12/03/2024 11:00 AM EDT [facility] Comment: Calculation based on the Chronic [...] - 10.5 mg/dL 12/03/2024 11:00 AM EDT [facility] Blood VENOUS BLOOD SPECIMEN / Unknown Venipuncture / Unknown 12/02/2024 2:32 PM EDT 12/02/2024 2:33 PM EDT us Cristina Thibodeaux MD LAB BLOOD ORDERABLES Final Resu lt [facility] [address] [place] [address] * JOSE FRANCISCO DEFIB (IMPLANTABLE CARDIOVERTER DEFIBRILLATOR) (11/13/2024 10:18 AM EST) EMMIEDU DEFIB (IMPLANTABLE CARDIOVERTER DEFIBRILLATOR) PATIENT EDUCATION EMMIURL [email or web address] PATIENT EDUCATION EMMIA [id number] PATIENT EDUCATION EMMIISSUEDATE Nov 13, 2024 PAT IENT EDUCATION EMMISTARTDATE PATIEN T EDUCATION EMMICOMPDATE This program was not started and flagged as on: December 09, 2024 PATIENT EDUCATION EMMIEXPDATE Dec 08, 2024 PATIE NT EDUCATION EMMIEVENT PATIENT EDUCATION 11/13/2024 10:1 8 AM EST us Not On File Physician OJSE FRANCISCO PROCEDURE CATEGORY Fi nal Result PATIENT EDUCATION * JOSE FRANCISCO SURGICAL SITE INFECTION PREVENTION (11/13/2024 10:18 AM EST) EMMIEDU SURGICAL SITE INFECTION PREVENTION PATIENT EDUCATION EMMIURL [email or web address] PATIENT EDUCATION EMMIACC [id number] PATIENT EDUCATION EMMIISSUEDATE Nov 13, 2024 PAT IENT EDUCATION EMMISTARTDATE PATIEN T EDUCATION EMMICOMPDATE This program was not started and flagged as on: December 09, 2024 PATIENT EDUCATION EMMIEXPDATE Dec 08, 2024 PATIE NT EDUCATION EMMIEVENT PATIENT EDUCATION 11/13/2024 10:1 8 AM EST us Not On File Physician JOSE FRANCISCO PROCEDURE CATEGORY Fi nal Result Performing Organization Address [facility] Co de Phone Number PATIENT EDUCATION * Medical Cytology Request (11/02/2024 [...] System for Reporting Urinary Cytology. 2nd Ed. Norton: Severino, 2021. 11/10/2024 3:12 PM EST SELECT [...] This specimen was prepared and screened at [facility] Laboratory, [address] [place], [place] [id number] 11/10/2024 3:12 PM EST [facility] Embedded Images 11/10/2024 3:12 PM EST [facility] Case Report Medical Cytology Case: [id number] Authorizing Provider: Umberto Vinson MD Collected: 11/02/2024 1435 Ordering Location: [facility] Received: 11/03/2024 0107 [facility] Pathologist: Anna Gonzalez MD Specimen: Urine, Voided 11/10/2024 3:12 PM EST [facility] Urine URINE SPECIMEN FROM [facility]RE[facility] / Unknown 11/02/2024 2:35 PM EST 11/03/2024 1:07 AM EST us Umberto Vinson MD LAB CYTOLOGY ORDERABLES Fin al Result [facility] [address] [place], [place] [id number] * NON-MUSE EKG (10/29/2024) us Cristina Thibodeaux MD ECG ORDERABLES Final Result * (ABNORMAL) Lipid Panel (07/24/2024 7:05 AM EST) Cholesterol Total 158 <200 mg/dL 024 8:31 AM EST [facility] Comment: Optimal: 0 - 199 mg/dL Borderline: 200-239 mg/dL High CHD Risk: >239 mg/dL HDL Cholesterol 44(L) >=50 mg/dL 8:31 AM EST [facility] Comment: Optimal: >59 mg/dL High CHD Risk: <40 mg/dL LDL Cholesterol, Calculated 98 <129 mg/dL 07/24/2024 8:31 AM EST [facility] Comment: Optimal: <100 Near Optimal: 100 - [...] 85 <150 mg/dL 07/24/2024 8:31 AM EST [facility] Comment: Optimal: 0 - 149 mg/dL Borderline: 150 - 199 mg/dL High CHD Risk: 200 - 500 mg/dL Very High CHD Risk: >500 mg/dL Non-HDL Cholesterol, Calculated 114 <120 mg/dL 07/24/2024 8:31 AM EST [facility] Chol/HDL Ratio 3.6 1.8 - 4.9 07/24/2024 8:31 AM [facility] Fasting time as reported by patient 07/24/2024 8:31 AM EST [facility] Comment:0 Hours Blood VENOUS BLOOD SPECIMEN / Unknown Venipuncture / Unknown 07/24/2024 7:05 AM EST 07/24/2024 7:55 AM EST us Joanna Harris MD LAB BLOOD ORDERABLES Fin al Result [facility] [address] [place] [phone] from Last 3 Months or Most Recently Relevant to Health [place] [address] [facility] Care Teams Senior Market Intelligence Consultant Relationship Specialty Start Date End Date Rae Aguillon MD PCP - General Internal Medicine 03/05/19
--- OUTSIDE RECORDS SUMMARY | 2024-12-26 09:49 | XMS_ITS | Patient Health Record ---
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 Name Role Phone Rae Aguillon Primary Care Provider Rae Aguillon MD Unavailable Unavailable Sarai Douglas Unavailable [phone] Allergies Allergen (clinical drug ingredient) Drug/Non Drug Allergy documented on EMR Reaction Allergy Type Onset Date Status morphine Morphine Sulfate severe pains an d aches Drug Allergy Active Results Component Value Reference Range Notes Mammogram Reviewed date:04/06/2024 09:22:24 AM Interpretation:Stable Performing Lab: Notes/Report: Stable UA MICROALBUMIN RANDOM Reviewed date:04/08/2024 02:41:15 PM Interpretation: Performing Lab: Notes/Report: URINE MICROALBUMIN 9.09 <= 21 mg/L CPK Reviewed date:04/08/2024 02:41:15 PM Interpretation: Performing Lab: Notes/Report: CPK 67 45 - 235 IU/L HGB A1C Reviewed date:04/08/2024 02:41:15 PM Interpretation: Performing Lab: Notes/Report: HGB A1C 6.0 4.0 - 6.0 % 5.7% TO 6.4% IS DIAGNOSED PREDIABETES 6.5% OR HIGHER INDICATES DIABETES VITAMIN B12 Reviewed date:04/08/2024 02:41:16 PM Interpretation: Performing Lab: Notes/Report: VITAMIN B12 597 170 - 914 pg/mL CBC W/DIFF Reviewed date:04/08/2024 02:41:16 PM Interpretation: Performing Lab: Notes/Report: WBC 8.1 4.5 - 10.0 10e3/uL RBC 4.26 3.9 - 5.1 10e6/uL HGB 13.3 11.7 - 16.0 g/dL HCT 39.7 34.1 - 44.3 % MCV 93.1 83.7 - 101.6 fL MCH 31.1 26.1 - 33.5 pg MCHC 33.4 30.0 - 35.3 g/dL RDW 14.2 10.5 - 15.5 % PLT CT 229 150 - 400 10e3/uL MPV 8.1 5.0 - 13.1 fL LYMPH% 39.0 17.4 - 48.2 % MONO% 8.7 3.0 - 10.5 % NEUT% 48.7 43.4 - 76.2 % EOS% 2.7 0.0 - 6.0 % BASO% 0.9 0.0 - 3.0 % LYMPH 3.10 1.2 - 3.0 10e3/uL MONO 0.70 0.15 - 0.80 10e3/uL NEUT 3.90 1.2 - 6.8 10e3/uL EOS 0.20 0.0 - 0.50 10e3/uL BASO 0.10 0.0 - 0.2 10e3/uL URINALYSIS Reviewed date:04/08/2024 02:41:16 PM Interpretation: Performing Lab: Notes/Report: COLOR YELLOW YELLOW APPEARANCE TURBID CLEAR SPECIFIC GRAVITY 1.019 1.005 - 1.030 LEUKOCYTES NEGATIVE NEGATIVE NITRITE 2+ NEGATIVE PH 5.5 5.0 - 8.0 PH UNITS BLOOD NEGATIVE NEGATIVE PROTEIN NEGATIVE NEGATIVE GLUCOSE NEGATIVE NEGATIVE KETONES NEGATIVE NEGATIVE UROBILINOGEN NEGATIVE NEGATIVE BILIRUBIN NEGATIVE NEGATIVE RBC 0-2 0-2 WBC 3-5 0-2 SQUAMOUS EPITHELIAL NONE SEEN NONE SEEN BACTERIA FEW NONE SEEN HYALINE CASTS 0-5 0-5 CALCIUM OXALATE CRYSTAL PRESENT NONE SEEN PROTEIN ELECTROPHORESIS Reviewed date:07/06/2024 02:23:39 PM Interpretation: Performing Lab: Notes/Report: PROTEIN, TOTAL 7.1 6.1 - 8.1 g/dL ALBUMIN FRACTION 4.3 3.4 - 5.0 g/dL ALPHA-1 FRACTION 0.2 0.2 - 0.3 g/dL ALPHA-2 FRACTION 0.6 0.4 - 0.8 g/dL BETA FRACTION 0.7 0.5 - 0.9 g/dL GAMMA FRACTION 1.2 0.7 - 1.6 g/dL NORMAL SERUM PROTEIN ELECTROPHORESIS PATTERN. NO PARAPROTEIN SPIKE SEEN PTH, INTACT Reviewed date:07/06/2024 02:23:39 PM Interpretation: Performing Lab: Notes/Report: PTH, INTACT 40.4 12 - 88 pg/mL URIC ACID Reviewed date:04/08/2024 02:41:16 PM Interpretation: Performing Lab: Notes/Report: URIC ACID 4.3 2.6 - 6.0 mg/dL VITAMIN D 1,25 DIHYD Reviewed date:04/08/2024 02:41:16 PM Interpretation: Performing Lab: Notes/Report: VITAMIN D 1,25 DIHYDROXY 43.0 19.9 - 79.3 pg/m L COMPREHENSIVE METABOLIC PANE L Reviewed date:04/08/2024 02:41:16 PM Interpretation: Performing Lab: Notes/Report: SODIUM 145 135 - 147 mmol/L POTASSIUM 4.7 3.5 - 5.5 mmol/L CHLORIDE 103 97 - 110 mmol/L CO2 30.0 18 - 33 mmol/L GLUCOSE 88 65 - 140 mg/dL FASTING: < 10 0 mg/dL BUN 17 7 - 25 mg/dL CREATININE 0.77 0.5 - 1.5 mg/dL BUN/CREAT RATIO 22.10 5.00 - 25.00 Ratio GFR 81 >= 60 mL/minute CALCIUM 9.2 8.5 - 10.5 mg/dL PROTEIN, TOTAL 6.7 6.1 - 8.1 g/dL ALBUMIN 4.0 3.4 - 5.1 g/dL GLOBULIN 2.7 1.7 - 3.7 g/dL A/G RATIO 1.5 0.6 - 3.1 Ratio ALKALINE PHOSPHATASE 68 40 - 150 IU/L SGOT (AST) 25 10 - 50 IU/L SGPT (ALT) 22 2 - 50 IU/L BILIRUBIN, TOTAL 0.3 0.0 - 1.2 mg/dL LIPID PANEL Reviewed date:04/08/2024 02:41:16 PM Interpretation: Performing Lab: Notes/Report: CHOLESTEROL 156 130 - 200 mg/dL TRIGLYCERIDES 246 10 - 149 mg/dL HDL 56.0 > 40 mg/dL CHOL/HDL RATIO 2.8 < 5.0 RATIO VLDL 49 18 - 41 mg/dL LDL 51 < 130 mg/dL TSH Reviewed date:04/08/2024 02:41:16 PM Interpretation: Performing Lab: Notes/Report: TSH 3.8903 0.35 - 4.94 uIU/mL Fall Risk Assessment Reviewed date:04/06/2024 09:20:23 AM Interpretation:Abnormal Performing Lab: Notes/Report: Abnormal Reason For Referral No Information Medications Medication SIG (Take, Route, Frequency, Duration) Notes Start Date End Date Status Centrum Silver as directed Orally Unknown Fish Oil 1200MG 2 CAPSULES Orally On ce a day for 30 day(s) Unknown Losartan Potassium 25 MG Take 1 tablet b y mouth once daily Active Carvedilol 6.25 MG Take 1 tablet by flakito th twice daily with food Active Levothyroxine Sodium 100 MCG 1 Orally beasley for 90 days Active Venlafaxine HCl ER 150 MG TAKE 1 CAPSULE BY MOUTH ONCE DAILY WITH FOOD for 90 days Active Atorvastatin Calcium 80 MG Take 1 tablet by mouth once daily Active Clopidogrel Bisulfate 75 MG Take 1 tablet by mouth once daily for 90 days Active Alendronate Sodium 70 MG 1 tablet 30 min utes before the first food, beverage or medicine of the day with plain water Orally Once a week for 90 days 07/06/2024 07/01/2025 Active Immunizations Vaccine Route Administration Date Status Comme nts DT (Pediatric) IM Intramuscular 11/20/2011 Administered HIGH DOSE FLU MEDICARE 3 Unknown 06/09/2018 Administere d HIGH DOSE FLU MEDICARE 3 IM Intramuscular 06/30/2019 Admin istered Pneumococcal 13 valent vaccine IM Intramuscular 06/02/2018 Administered Pneumococcal 23-valent vaccine IM Intramuscular 11/20/2011 Administered Pneumococcal 23-valent vaccine IM Intramuscular 02/13/2022 Administered Tdap IM Intramuscular 02/13/2022 Administered zzAdvance Care Plan Unknown 04/06/2024 Administered Social History Tobacco Use: Social History Observation Description Date Details (start date - stop date) Former Smoker NA - NA Old - Tobacco Use/Smoking -DO NOT USE Question Answer Notes Status: former smoker How long has it been since you last smoked? > 10 years OPIOID Risk Tool (2018 Edition) Question Answer Notes Family Hx Alcohol? Yes Family Hx Illegal Drugs? Yes Family Hx Rx Drugs? No Personal Hx Alcohol? No Personal Hx Illegal Drugs? No Personal Hx Rx Drugs? No Age between 16-45 years? No History of Preadolescent Sexual Abuse? No ADD, OCD, Bipolar, Schizophrenia? No Depression? No TOTAL SCORE 3 Risk Level for Opioid Use low Section Notes: . . 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 . . 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 . . 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 . . 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 . . 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 . . 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 . . 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 . . 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 . . 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 . . 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 . . 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 . . 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 . . 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 . . 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 . . 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 . . 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 . . 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 . . 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 . . 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 . . 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 . . 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 . . 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 . . 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 Problems Problem Type SNOMED Code ICD Code Onset Dates Problem Status W/U Status Risk Notes Problem 586868478 Cellulitis (L03.90) 2015 Active confirmed Problem 96070519 URI (upper respiratory infection) (J06.9) Active confirmed Problem Essential hypertension (17099934) Essential (primary) hypertension (I10) Active confirmed Problem Hypothyroidism (61753929) Hypothyroidism, unspecified (E03.9) Active confirmed Problem 88879264 Cough (R05) Active confirmed Problem 96659009 Chronic fatigue (R53.82) Active confirmed Problem 93471124 Hypertensive hea rt disease with heart failure (I11.0) Active confirmed Problem 273725682 Atherosclerosis of [place] coronary artery of [place] heart without angina pectoris (I25.10) Active confirmed Problem 656063544 Gastroesophageal reflux disease without esophagitis (K21.9) Active confirmed Problem 749999178 Cerebrovascular accident (CVA), unspecified mechanism (I63.9) Active confirmed Problem 04532861 Upper respirator y tract infection, unspecified type (J06.9) Active confirmed Problem 57016735 Hyperlipidemia, unspecified hyperlipidemia type (E78.5) Active confirmed Problem Counseling (004070356) Encounter for medication review and counseling (Z71.89) Active confirmed Problem Familial hypercholesterolemia (319117893) Familial hypercholesterolemia (E78.01) Active confirmed Problem 34886921 Osteoporosis wit hout current pathological fracture, unspecified osteoporosis type (M81.0) Active confirmed Problem 95655927 Osteoporosis, unspecified osteoporosis type, unspecified pathological fracture presence (M81.0) Active confirmed Problem 025392906 Acute systolic h eart failure (I50.21) 2019 Active confirmed Problem 03026484 Earache (H92.09) Active confirmed Vital Signs Heart Rate 67 /min 08/10/2024 Temperature 98.1 degrees Fahrenheit 08/10/2024 Blood pressure diastolic 64 mm Hg 08/10/2024 Oximetry 97 % 08/10/2024 Height 69.5 in 08/10/2024 Blood pressure systolic 102 mm Hg 08/10/2024 Weight 130.2 lbs 08/10/2024 BMI 18.95 kg/m2 08/10/2024 Encounters Encounter Location Date Provider Diagnosis [facility] [id number] [facility] [address] [place] [address] 04/06/2024 Rae Aguillon Hyperlipidemia, unspecified hyperlipidemia type E78.5 ; Routine adult health maintenance Z00.00 ; Hypothyroidism, unspecified E03.9 ; Essential (primary) hypertension I10 ; Acute systolic heart failure I50.21 ; Cerebrovascular accident (CVA), unspecified mechanism I63.9 ; Atherosclerosis of [place] coronary artery of [place] heart without angina pectoris I25.10 ; Gastroesophageal reflux disease without esophagitis K21.9 ; Cellulitis L03.90 ; Osteoporosis without current pathological fracture, unspecified osteoporosis type M81.0 ; Encounter for screening for cardiovascular disorders Z13.6 ; Encounter for screening for respiratory disorder NEC Z13.83 ; Adult BMI <19 kg/sq m Z68.1 and Encounter for medication review and counseling Z71.89 [facility] [address] [facility] [address] [place] [address] 06/15/2024 [facility], [facility] discharge follow-up Z09 ; Hypothyroidism, unspecified E03.9 ; Familial hypercholesterolemia E78.01 ; Essential (primary) hypertension I10 ; Cerebrovascular accident (CVA), unspecified mechanism I63.9 ; Stroke-like symptoms R29.90 ; Chronic fatigue R53.82 ; Body mass index [BMI] 19.9 or less, adult Z68.1 ; Encounter for medication review and counseling Z71.89 and Encounter for screening involving social determinants of health (SDoH) Z13.9 [facility] [address] [place] [address] [place] [address] 06/24/2024 Sarai Douglas Osteoporosis, unspec ified osteoporosis type, unspecified pathological fracture presence M81.0 [facility] [address] [place] [address] [place] [address] 08/10/2024 [facility], [facility] discharge follow-up Z09 ; Dizziness and giddiness R42 ; Familial hypercholesterolemia E78.01 ; Essential (primary) hypertension I10 ; Chronic fatigue R53.82 ; Body mass index [BMI] 19.9 or less, adult Z68.1 ; Encounter for medication review and counseling Z71.89 and Encounter for screening involving social determinants of health (SDoH) Z13.9 [facility] [address] [place] [address] [place] [address] 02/10/2024 Rae Aguillon [facility] [address] [place] [address] [place] [address] 04/07/2024 Rae Aguillon Hypothyroidism, unspecified E03.9 and Atherosclerosis of [place] coronary artery of [place] heart without angina pectoris I25.10 [facility] [address] [place] [address] [place] [address] 05/13/2024 Rae Aguillon [facility] [address] [place] [place] [address] 06/07/2024 Rae Aguillon [facility] [address] [place] [address] [place] [address] 06/30/2024 Sarai Douglas [facility] [address] [place] [address] [place] [address] 07/06/2024 Sarai Douglas [facility] [address] [facility] [address] [place] [address] 07/06/2024 Sarai Douglas Osteoporosis without current pathological fracture, unspecified osteoporosis type M81.0 [facility] [address] [facility] [address] [place] [address] 07/23/2024 Rae Pal [facility] [address] [facility] [address] [place] [address] 09/22/2024 Rae Naifesdras Assessments Encounter Date Diagnosis (ICD Code) Assessment Notes Treatment Notes Treatment Clinical Notes Section Notes 04/07/2024 Hypothyroidism, unspecified (ICD-10 - E03.9) 08/10/2024 Hospital discharge follow-up (ICD-10 - Z09) 08/10/2024 Dizziness and giddin ess (ICD-10 - R42) 04/06/2024 Hyperlipidemia, unspecified hyperlipidemia type (ICD-10 - E78.5) 06/24/2024 Osteoporosis, unspecified osteoporosis type, unspecified pathological fracture presence (ICD-10 - M81.0) Discusssed pt's bone densiy and T-scores and FRAX 10 year risk. Discussed that pt has a high and going to very high risk for hip fracture by FRAX. Discussed that if Prolia is covered would prefer as it may improve her hip fracture risk more than bisphosphonat e. Discussed the rare risk of ONJ and atypical femur fracture. Discussed importance of fall prevention. Pt will go to the lab for some additional lab tests. I will send in the order for Prolia and pt should call me if she doesn't hear from the diagnostic center to set up her Prolia injection 06/15/2024 Hospital discharge follow-up (ICD-10 - Z09) 06/15/2024 Hypothyroidism, unspecified (ICD-10 - E03.9) 07/06/2024 Osteoporosis without current pathological fracture, unspecified osteoporosis type (ICD-10 - M81.0) 06/15/2024 Familial hypercholesterolemia (ICD-10 - E78.01) 04/06/2024 Routine adult health maintenance (ICD-10 - Z00.00) 04/06/2024 Hypothyroidism, unspecified (ICD-10 - E03.9) 04/07/2024 Atherosclerosis of [place] coronary artery of [place] heart without angina pectoris (ICD-10 - I25.10) 08/10/2024 Familial hypercholesterolemia (ICD-10 - E78.01) 08/10/2024 Essential (primary) hypertension (ICD-10 - I10) 04/06/2024 Essential (primary) hypertension (ICD-10 - I10) 06/15/2024 Essential (primary) hypertension (ICD-10 - I10) 06/15/2024 Cerebrovascular acci dent (CVA), unspecified mechanism (ICD-10 - I63.9) 08/10/2024 Chronic fatigue (ICD -10 - R53.82) 04/06/2024 Acute systolic heart failure (ICD-10 - I50.21) 04/06/2024 Cerebrovascular acci dent (CVA), unspecified mechanism (ICD-10 - I63.9) 08/10/2024 Body mass index [BMI ] 19.9 or less, adult (ICD-10 - Z68.1) 06/15/2024 Stroke-like symptoms (ICD-10 - R29.90) 06/15/2024 Chronic fatigue (ICD -10 - R53.82) 08/10/2024 Encounter for medica tion review and counseling (ICD-10 - Z71.89) 04/06/2024 Atherosclerosis of [place] coronary artery of northwestern [place] heart without angina pectoris (ICD-10 - I25.10) 04/06/2024 Gastroesophageal ref lux disease without esophagitis (ICD-10 - K21.9) 08/10/2024 Encounter for screen ing involving social determinants of health (SDoH) (ICD-10 - Z13.9) 06/15/2024 Body mass index [BMI ] 19.9 or less, adult (ICD-10 - Z68.1) 06/15/2024 Encounter for medica tion review and counseling (ICD-10 - Z71.89) 04/06/2024 Cellulitis (ICD-10 - L03.90) 04/06/2024 Osteoporosis without current pathological fracture, unspecified osteoporosis type (ICD-10 - M81.0) 06/15/2024 Encounter for screen ing involving social determinants of health (SDoH) (ICD-10 - Z13.9) 04/06/2024 Encounter for screen ing for cardiovascular disorders (ICD-10 - Z13.6) 04/06/2024 Encounter for screen ing for respiratory disorder NEC (ICD-10 - Z13.83) 04/06/2024 Adult BMI <19 kg/sq m (ICD-10 - Z68.1) 04/06/2024 Encounter for medica tion review and counseling (ICD-10 - Z71.89) Reviewed, Discussed, and Documented meds. Cont as directed. Plan Of Treatment Pending Test Test Name Order Date EKG -Electrocardiogram 02/24/2023 EKG -Electrocardiogram 04/06/2024 Chest 2 Views XR 02/24/2023 Chest 2 Views XR 04/06/2024 UA MICROALBUMIN RANDOM 02/24/2023 CPK 02/24/2023 HGB A1C 02/24/2023 OCCULT BLOOD 09/16/2022 VITAMIN B12 02/24/2023 CBC W/DIFF 02/24/2023 URINALYSIS 02/24/2023 URIC ACID 02/24/2023 VITAMIN D 1,25 DIHYD 02/24/2023 COMPREHENSIVE METABOLIC PANEL 02/24/2023 LIPID PANEL 02/24/2023 TSH 02/24/2023 Thyroid Panel With TSH 02/13/2022 Creatine Kinase,Total,Serum 11/20/2011 TSH 11/20/2011 C-Reactive Protein, Cardiac 11/20/2011 OCCULT BLOOD 02/02/2015 OCCULT BLOOD 03/16/2014 OCCULT BLOOD 03/10/2013 OCCULT BLOOD 2022 OCCULT BLOOD 02/13/2022 OCCULT BLOOD 05/03/2020 OCCULT BLOOD 06/02/2018 OCCULT BLOOD 03/01/2021 URIC ACID 04/03/2017 URIC ACID 02/13/2022 UA MICROALBUMIN RANDOM 02/13/2022 UA MICROALBUMIN RANDOM 04/03/2017 CPK 04/03/2017 CPK 02/13/2022 HEMOGLOBIN A1C 02/13/2022 VITAMIN B12 02/13/2022 CBC W/DIFF 02/13/2022 CBC W/DIFF 04/03/2017 URINALYSIS 03/01/2021 URINALYSIS 04/03/2017 URINALYSIS 02/13/2022 VITAMIN D 25 HYDROXY 02/13/2022 ELECTROLYTE PANEL 03/16/2014 COMPREHENSIVE METABOLIC PANEL 02/13/2022 COMPREHENSIVE METABOLIC PANEL 04/03/2017 LIPID PANEL 04/03/2017 LIPID PANEL 02/13/2022 TSH 04/03/2017 Lipid Profile 11/20/2011 Chem-Comprehensive 11/20/2011 X-RAY -- CHEST, 2 VIEWS 11/20/2011 X-RAY -- CHEST, 2 VIEWS 02/13/2022 X-RAY -- CHEST, 2 VIEWS 06/02/2018 X-RAY -- CHEST, 2 VIEWS 04/03/2017 X-RAY -- CHEST, 2 VIEWS 03/01/2021 EKG ELECTROCARDIOGRAM 06/02/2018 EKG ELECTROCARDIOGRAM 03/01/2021 EKG ELECTROCARDIOGRAM 04/03/2017 EKG ELECTROCARDIOGRAM 02/13/2022 EKG ELECTROCARDIOGRAM 11/20/2011 OCCULT BLOOD, FECAL 04/06/2024 Insurance Providers Payer Name Payer Address Payer Phone Subscriber Number Group Number Insured Name Patient Relationship to Insured Coverage Start Date Coverage End Date [employer]VANTAGE [address] [place] [address] [id number] SHERRY LINDSEY Self - patient is the insured 6 Medical (General) History Medical History History ICD Code High Cholesterol Coronary Artery Disease myocardial infarction age 39, with decre ased ejection fraction gerd mammogram 2-2011,2012,6-2014,2014,2016,// bone density -2011, stress test 2010,2012,2015/-05-28echo colonoscopy 2004,2012,2017, Surgical History Surgery Date(Month/Year) Hysterectomy for heavy bleeding partial 1997 tonsillectomy breast biopsy 1989 bilateral cataract and retinal [facility] 2014 Hospitalization History Reason Date(Month/Year) diverticulitis 2008
--- OUTSIDE RECORDS SUMMARY | 2024-12-26 09:49 | XMS_ITS | Referral Summary ---
Author Organization [facility] Address [address] [place] [address] Care Team Providers Care Repair Servicer Name Role Phone Rae Aguillon MD Primary Care Provider [phone] Encounters Date Type Department Care Team Description 12/08/2024 11:08 AM EDT - 12/09/2024 1:44 PM EDT Hospital Encounter [facility] 8 [facility] [address] [place] [address] Cristina Thibodeaux MD S/P ICD (internal cardiac defibrillator) procedure (Primary Dx); NICM (nonischemic cardiomyopathy) (HCC) Discharge Disposition: Home or Self Care 12/08/2024 12:30 PM EDT - 12/08/2024 2:00 PM EDT Surgery [facility] Electrophysiology Laboratory 8 [facility] [address] [place] [phone] Cristina Thibodeaux MD CV IMPLANTABLE CARDIOVERTER DEFIBRILLATOR INSERTION 12/08/2024 1:17 PM EDT Anesthesia Event [facility] Electrophysiology Laboratory 8 [facility] [address] [place] [address] Brianda Rivas MD Rude, Mary A, RN 12/03/2024 11:44 AM EDT - 12/03/2024 11:59 PM EDT Hospital Encounter [facility] CT First Floor - [address] [place] [address] Umberto Vinson MD Gross hematuria Discharge Disposition: Home or Self Care 12/02/2024 2:25 PM EDT Clinical Support [facility] Laboratory - [address] [place] [phone] NICM (nonischemic cardiomyopathy) (HCC); Pre-procedure lab exam 11/24/2024 Telephone [facility] Cardiology - [address] [place] [phone] Cristina Thibodeaux MD Results 11/18/2024 Telephone [facility] Cardiology - [address] [place] [phone] Cristina Thibodeaux MD 11/05/2024 Telephone [facility] Cardiology - [address] [place] [phone] Cristina Thibodeaux MD Procedure 11/04/2024 Telephone [facility] Cardiology - [address] [place] [address] Cristina Thibodeaux MD OTHER 11/03/2024 Lab Requisition [facility] Laboratory [address] [place] [address] Umberto Vinson MD Gross hematuria 11/02/2024 Telephone [facility] Cardiology - [address] [place] [phone] Cristina Thibodeaux MD OTHER 10/29/2024 Telephone [facility] Cardiology - [address] [place] [phone] Cristina Thibodeaux MD OTHER 10/29/2024 Telephone [facility] Cardiology - [address] [place] [phone] Cristina Thibodeaux MD OTHER 10/29/2024 1:30 PM EST Office Visit [facility] Cardiology - [address] [place] [phone] Cristina Thibodeaux MD Chronic systolic congestive heart failure (HCC) (Primary Dx); Dizziness; Coronary artery disease involving cocopah coronary artery of cocopah heart without angina pectoris 10/26/2024 Telephone [facility] Cardiology - [address] [place] [phone] Cristina Thibodeaux MD Abnormal Result 09/29/2024 Telephone [facility] Cardiology - [address] [place] [phone] Cristina Thibodeaux MD OTHER from Last 3 Months Allergies Active Allergy [...] Active cholecalcifero l (VITAMIN D3) 50 MCG (1999) TBDP Take 50 mcg by mouth daily. [...] Incisional pain 12/01/2014 Overview (03/17/2024): Yunier Del Rsoario Tylenol PRN Cardiomyopathy, ischemic 12/01/2014 Muscle weakness [...] drink = 0.6 oz pur e alcohol) [facility] Utilities Answer Date Recorded In the past 12 months has e electric, gas, oil, or water company threatened to shut off services in your [...] place to sleep or slept in a intermediate (including now)? No 07/27/2024 Housing Stability Vital Sign Answer Amari e Recorded In the last 12 months, was t here a time when you were not able to pay the mortgage or rent on time? No 12/08/2024 In the past 12 months, how m any times have you moved where you were living? 1 12/08/2024 At any time in the past 12 m [facility] were you homeless or living in a intermediate (including now)? No 12/08/2024 Comments No Sex [...] Description 01/13/2025 9:00 AM EDT Hospital Encounter [facility] Surgery [facility] [address] [place] [phone] Umberto Vinson MD [address] [place] [address] 01/13/2025 9:00 AM EDT - 01/13/2025 10:30 AM EDT Surgery [facility] Surgery [facility] [address] [place] [address] Umberto Vinson MD [address] [place] [address] CYSTOSCOPY TRANSURETHRAL RESECTION OF BLADDER TUMOR, Scheduled Procedures Name Priority Associated Diagnoses Date/Ti me TURBT (TRANSURETHRAL RESECTION OF BLADDER TUMOR) Neoplasm of uncertain behavior of bladder 01/13/2025 9:00 AM EDT CYSTOURETEROSCOPY, WITH RETROGRADE PYELOGRAM OR STENT INSERTION Neoplasm of uncertain behavior of bladder 01/13/2025 9:00 AM EDT Medical Devices Implanted Type Area Digital Strategy Manager Device Identifier Shelf Expiration Date Model / Serial / Lot Icd [place] Xt Mri Df4 Vr - [id number] Implanted:Qty: 1 on 12/08/2024 by Cristina Thibodeaux MD at [facility] ICD Left: Chest Wall [employer] 01/19/2026 [id number] / [id number] / [id number] Lead Sprint Secure S Df4 62cm - [id number] Implanted:Qty: 1 on 12/08/2024 by Cristina Thibodeaux MD at [facility] Lead Left: Heart [employer] 08/10/2026 [id number] / [id number] / [id number] Procedures Procedure Name Priority Date/Time Associated Diagnosis [...] PM EST Gross hematuria NON-MUSE EKG [facility] Routine 10/29/2024 Chronic systolic congestive heart failure (HCC) Coronary artery disease involving cocopah coronary artery of cocopah heart without angina pectoris LIPID PANEL Routine 07/24/2024 7:05 AM EST from Last 3 Months or Most Recently Relevant to Health Maintenance Results * Cardiac Device Check (12/08/2024 3:58 PM EDT) Date Time Interrogation Session [id number] [facility] Implantable Pulse Generator Digital Strategy Manager [facility] Implantable Pulse Generator Model [id number] [place] XT VR MRI [facility] Implantable Pulse Generator Serial Number [id number] [facility] Type Interrogation Session In Clinic [facility] Clinic Name Device Clinic - [place] [facility] Implantable Pulse Generator Type Defibrillator [facility] Implantable Pulse Generator Implant Date 20241208 [facility] Implantable Lead Digital Strategy Manager [employer] [facility] Implantable Lead Model 6935M Sprint Quattro Secure S MRI SureScan [facility] Implantable Lead Serial Number [id number] [facility] Implantable Lead Implant Date 20241208 [facility] Implantable Lead Polarity Type Tripolar Lead [facility] Implantable Lead Location Detail 1 UNKNOWN [facility] Implantable Lead Special Function [id number] [facility] Implantable Lead Location Right Ventricle [facility] Implantable Lead Connection Status Connected [facility] Guy Setting Mode (NBG Code) VVI [facility] Guy Setting Lower Rate Limit 40 {beats}/ min [facility] Lead Channel Setting Sensing Polarity Bipolar [facility] Lead Channel Setting Sensing Anode Location Right Ventricle [facility] Lead Channel Setting Sensing Anode Terminal Ring [facility] Lead Channel Setting Sensing Cathode Location Right Ventricle [facility] Lead Channel Setting Sensing [place] Terminal Tip [facility] Lead Channel Setting Sensing Sensitivity 0.3 mV [facility] Lead Channel Setting Pacing Polarity Bipolar [facility] Lead Channel Setting Pacing Anode Location Right Ventricle [facility] Lead Channel Setting Pacing Anode Terminal Ring [facility] Lead Channel Setting Sensing Cathode Location Right Ventricle [facility] Lead Channel Setting Sensing [place] Terminal Tip [facility] Lead Channel Setting Pacing Pulse Width 0.4 ms [facility] Lead Channel Setting Pacing Amplitude 3.5 V [facility] Lead Channel Setting Pacing Capture Mode Adaptive [facility] Zone Setting Type Category VF [facility] Zone Setting Vendor Type Category VF [facility] Zone Setting Status Active [facility] Zone Setting Detection Interval 300 ms [facility] Zone Setting Detection Beats Numerator 30 {beats} [facility] Zone Setting Detection Beats Denominator 40 {beats} [facility] Zone Setting Type Category [place] [facility] Zone Setting Vendor Type Category FastVT [facility] Zone Setting Status Inactive [facility] Zone Setting Type Category [place] [facility] Zone Setting Vendor Type Category VT [facility] Zone Setting Status Inactive [facility] Zone Setting Detection Interval 360 ms [facility] Zone Setting Detection Beats Numerator 16 {beats} [facility] Zone Setting Detection Beats Denominator 16 {beats} [facility] Zone Setting Type Category VT [facility] Zone Setting Vendor Type Category MonVT [facility] Zone Setting Status Monitor [facility] Zone Setting Detection Interval 400 ms [facility] Zone Setting Detection Beats Numerator 32 {beats} [facility] Zone Setting Detection Beats Denominator 32 {beats} [facility] Lead Channel Impedance Value 380 ohm [facility] Lead Channel Impedance Value 475 ohm [facility] Lead Channel Sensing Intrinsic Amplitude 12.1 mV [facility] Lead Channel Pacing Threshold Amplitude 0.5 V [facility] Lead Channel Pacing Threshold Pulse Width 0.4 ms [facility] Battery Date Time of Measurements [id number] [facility] Battery GENERAL MANAGER ORACLE DATA CLOUD Trigger 2.8 V [facility] Battery Voltage 3.14 V SPEC [facility] Capacitor Charge Type Shock [facility] Capacitor Charge Time 0 s [facility] Capacitor Charge Energy 40.0 J [facility] Guy Statistic Date Time Start [id number] [facility] Guy Statistic Date Time End [id number] [facility] Guy Statistic RV Percent Paced 0 % [facility] Atrial Tachy Statistic Date Time Start [id number] [facility] Atrial Tachy Statistic Date Time End [id number] [facility] Atrial Tachy Statistic AT/AF [place] Percent 0 % [facility] Therapy Statistic Recent Shocks Delivered 0 [facility] Therapy Statistic Recent Shocks Aborted 0 [facility] Therapy Statistic Recent ATP Delivered 0 [facility] Therapy Statistic Recent Date Time Start [id number] [facility] Therapy Statistic Recent Date Time End [id number] [facility] Therapy Statistic Total Shocks Delivered 0 [facility] Therapy Statistic Total Shocks Aborted 0 [facility] Therapy Statistic Total ATP Delivered 0 [facility] Therapy Statistic Total Date Time Start [id number] [facility] Therapy Statistic Total Date Time End [id number] [facility] Episode Statistic Recent Count 0 [facility] Episode Statistic Type Category Patient Activated S[facility] Episode Statistic Recent Count 0 [facility] Episode Statistic Type Category SVT [facility] C[facility] Episode Statistic Recent Count 0 [facility] Episode Statistic Type Category VT [facility] Episode Statistic Recent Count 0 [facility] Episode Statistic Type Category VF S[facility] Episode Statistic Recent Count 0 [facility] Episode Statistic Type Category VT [facility] Episode Statistic Recent Count 0 [facility] Episode Statistic Type Category VT [facility] Episode Statistic Recent Count 0 [facility] Episode Statistic Type Category VT [facility] Episode Statistic Recent Date Time Start [id number] [facility] Episode Statistic Recent Date Time End [id number] [facility] Episode Statistic Recent Date Time Start [id number] [facility] Episode Statistic Recent Date Time End [id number] [facility] Episode Statistic Recent Date Time Start [id number] [facility] Episode Statistic Recent Date Time End [id number] [facility] Episode Statistic Recent Date Time Start [id number] [facility] Episode Statistic Recent Date Time End [id number] [facility] Episode Statistic Recent Date Time Start [id number] [facility] Episode Statistic Recent Date Time End [id number] [facility] Episode Statistic Recent Date Time Start [id number] [facility] Episode Statistic Recent Date Time End [id number] [facility] Episode Statistic Recent Date Time Start [id number] [facility] Episode Statistic Recent Date Time End [id number] [facility] Episode Statistic Total Count [...] CARDIOLOGY Episode Statistic Total Date Time Start [id number] [facility] Episode Statistic Total Date Time End [id number] [facility] Episode Statistic Total Date Time Start [id number] [facility] Episode Statistic Total Date Time End [id number] [facility] Episode Statistic Total Date Time Start [id number] [facility] Episode Statistic Total Date Time End [id number] [facility] Episode Statistic Total Date Time Start [id number] [facility] Episode Statistic Total Date Time End [id number] [facility] Episode Statistic Total Date Time Start [id number] [facility] Episode Statistic Total Date Time End [id number] [facility] Episode Statistic Total Date Time Start [id number] [facility] Episode Statistic Total Date Time End [id number] [facility] Episode Statistic Total Date Time Start [id number] [facility] Episode Statistic Total Date Time End [id number] [facility] Summary Statement Same day discharge check. Presenting rhythm VS. RV sense 12.1 mv, threshold .5 v @ .40 ms, impedance 475. No new events. Battery at Martha. Programmed VVI-40 [facility] 12/08/2024 3:58 PM EDT Cristina Thibodeaux MD CARDIAC DEVICE ORDERABLES Final Result [facility] * DR Paulson 2 Views [...] PM EDT 12/08/2024 3:51 PM EDT Narrative [facility] - 12/08/2024 3:51 PM EDT Ventricular Rate 70 BPM Atrial Rate 70 BPM P-R Interval 202 ms QRS Duration 104 ms Q-T Interval 424 ms QTC Calculation(Bazett) 457 ms Calculated P [place] 66 degrees Calculated R [place] -72 degrees Calculated T [place] 118 degrees Diagnosis Normal sinus rhythm Borderline first degree AV block Left anterior fascicular block Minimal voltage criteria for LVH, may be normal variant ( Kevin product ) Cannot rule out Anterior infarct (cited on or before 08-DEC-2024) Nonspecific ST-T wave changes Abnormal ECG When compared with ECG of 08-DEC-2024 11:52, (Unconfirmed) No significant change was found Confirmed by Marcel Degroot ([id number]) on 12/08/2024 3:51:38 PM Procedure Note Marcel Degroot MD - 12/08/2024 Ventricular Rate 70 BPM Atrial Rate 70 BPM P-R Interval 202 ms QRS Duration 104 ms Q-T Interval 424 ms QTC Calculation(Bazett) 457 ms Calculated P [place] 66 degrees Calculated R [place] -72 degrees Calculated T [place] 118 degrees Diagnosis Normal sinus rhythm Borderline first degree AV block Left anterior fascicular block Minimal voltage criteria for LVH, may be normal variant ( Cornellproduct ) Cannot rule out Anterior infarct (cited on or before 08-DEC-2024) Nonspecific ST-T wave changes Abnormal ECG When compared with ECG of 08-DEC-2024 11:52, (Unconfirmed) No significant change was found Confirmed by Marcel Degroot ([id number]) on 12/08/2024 3:51:38 PM Cristina Thibodeaux MD ECG ORDERABLES Final Result [facility] * CV IMPLANTABLE CARDIOVERTER DEFIBRILLATOR [...] Dr. Rudy Juan on 12/04/2024 1:49 PM. i.TV Actionable Findings Message ID [id number]. Narrative 12/04/2024 1:[address] UROGRAM [...] 12/04/2024 1:49 PM. PowerConnectActionable Findings Message ID [id number]. Umberto Vinson MD CT ORDERABLES Final Resul t * (ABNORMAL) Complete Blood Count w/Differential (12/02/2024 2:32 PM EDT) White Blood Cell 6.6 3.3 - 10.7 x10*9/L 12/03/2024 9:50 AM EDT [facility] Red Blood Cell 4.14 3.87 - 5.08 x10*12/L 12/03/2024 9:50 AM EDT [facility] Hemoglobin 12.7 12.1 - 15.0 g/dL 12/03/2024 9:50 AM EDT [facility] Hematocrit 41.5 35.4 - 44.2 % 12/03/2024 9:50 AM EDT [facility] Mean Cell Volume 100.2 79.5 - 100.4 fL 12/03/2024 9:50 AM EDT [facility] Mean Cell Hemoglobin 30.7 27.5 - 33.4 pg 12/03/2024 9:50 AM EDT [facility] Mean Cell Hemoglobin Concentration 30.6(L) 31.5 - 35.4 g/dL 12/03/2024 9:50 AM EDT [facility] Red Cell Distribution Width 13.6 11.5 - 15.4 % 12/03/2024 9:50 AM EDT [facility] Platelet 227 150 - 400 x10*9/L 12/03/2024 9:50 AM EDT [facility] Mean Platelet Volume 10.2 8.0 - 12.0 fL 12/03/2024 9:50 AM EDT [facility] Neutrophil Automated Absolute 3.57 1.55 - 7.24 x10*9/L 12/03/2024 9:50 AM EDT [facility] Lymphocyte Automated Absolute 2.28 1.05 - 4.04 x10*9/L 12/03/2024 9:50 AM EDT [facility] Monocyte Automated Absolute 0.47 0.00 - 0.84 x10*9/L 12/03/2024 9:50 AM EDT [facility] Eosinophil Automated Absolute 0.20 0.00 - 0.54 x10*9/L 12/03/2024 9:50 AM EDT [facility] Basophil Automated Absolute 0.05 0.00 - 0.14 x10*9/L 12/03/2024 9:50 AM EDT [facility] Immature Granulocyte Automated Absolute 0.01 0.00 - 0.03 x10*9/L 12/03/2024 9:50 AM EDT [facility] Immature Granulocyte Automated 0.2 0.0 - 1.0 % 12/03/2024 9:50 AM EDT [facility] NUCLEATED RED BLOOD CELLS AUTOMATED 0.0 <=0.0 % 12/03/2024 9:50 AM EDT [facility] Blood VENOUS BLOOD SPECIMEN / Unknown Venipuncture / Unknown 12/02/2024 2:32 PM EDT 12/02/2024 2:33 PM EDT us Cristina Thibodeaux MD LAB BLOOD ORDERABLES Final Resu lt [facility] [address] [place] [address] * (ABNORMAL) Basic Metabolic Panel (BMP) (12/02/2024 2:32 PM EDT) Sodium 143 135 - 145 mmol/L 12/03/2024 11:00 AM EDT [facility] Potassium 3.9 3.5 - 5.2 mmol/L 12/03/2024 11:00 AM EDT [facility] Chloride 101 98 - 111 mmol/L 12/03/2024 11:00 AM EDT [facility] Bicarbonate 27 20 - 29 mmol/L 12/03/2024 11:00 AM EDT [facility] Anion Gap 15 5 - 17 mmol/L 12/03/2024 11:00 AM EDT [facility] Glucose 42(L) 70 - 99 mg/dL 12/03/2024 11:00 AM EDT [facility] Comment:Results Repeated. Blood Urea Nitrogen (BUN) 24 7 - 25 mg/dL 12/03/2024 11:00 AM EDT [facility] Creatinine 0.86 0.50 - 1.10 mg/dL 12/03/2024 11:00 AM EDT [facility] eGFR 71 >60 mL/min/1.7 3 m2 12/03/2024 11:00 AM EDT [facility] Comment: Calculation based on the Chronic [...] - 10.5 mg/dL 12/03/2024 11:00 AM EDT [facility] Blood VENOUS BLOOD SPECIMEN / Unknown Venipuncture / Unknown 12/02/2024 2:32 PM EDT 12/02/2024 2:33 PM EDT us Cristina Thibodeaux MD LAB BLOOD ORDERABLES Final Resu lt [facility] [address] [place] [address] * JOSE FRANCISCO DEFIB (IMPLANTABLE CARDIOVERTER DEFIBRILLATOR) (11/13/2024 10:18 AM EST) EMMTELMAU DEFIB (IMPLANTABLE CARDIOVERTER DEFIBRILLATOR) PATIENT EDUCATION EMMIURL [email or web address] PATIENT EDUCATION EMMIACC [id number] PATIENT EDUCATION EMMIISSUEDATE Nov 13, 2024 PAT IENT EDUCATION EMMISTARTDATE PATIEN T EDUCATION EMMICOMPDATE This program was not started and flagged as on: December 09, 2024 PATIENT EDUCATION EMMIEXPDATE Dec 08, 2024 PATIE NT EDUCATION EMMIEVENT PATIENT EDUCATION 11/13/2024 10:1 8 AM EST us Not On File Physician JOSE FRANCISCO PROCEDURE CATEGORY Fi nal Result Performing Organization Address [facility] Co de Phone Number PATIENT EDUCATION * JOSE FRANCISCO SURGICAL SITE INFECTION PREVENTION (11/13/2024 10:18 AM EST) EMMTELMAU SURGICAL SITE INFECTION PREVENTION PATIENT EDUCATION EMMIURL [email or web address] PATIENT EDUCATION EMMIACC [id number] PATIENT EDUCATION EMMIIUEDNov 13, 2024 PAT IENT [...] Urine, Urine, Voided 11/10/2024 3:12 PM EST [facility] Dx Category NEGATIVE FOR HIGH GRADE UROTHELIAL CARCINOMA 11/10/2024 3:12 PM EST [facility] Diagnosis NEGATIVE FOR HIGH GRADE UROTHELIAL CARCINOMA 11/10/2024 3:12 PM EST [facility] at 1512 EST Additional Diagnosis Background neutrophils present 11/10/2024 3:12 PM EST [facility] Comments The Fidelia System (TPS) for Reporting Urinary Cytology is used to evaluate urine cytology specimens. When possible, this system is applied to render the diagnosis. For more information regarding the categories, please refer to Shakeel VARGHESE, Denise CHAUDHARII, Xin DL. The Fidelia System for Reporting Urinary Cytology. 2nd Ed. Scott: Severino, 2021. 11/10/2024 3:12 PM EST [facility] Clinical Information R31.0 Gross hematuria 11/10/2024 3:12 PM EST [facility] Specimen Adequacy Satisfactory for evaluation. 11/10/2024 3:12 PM EST [facility] Materials received and processed 55ml of hazy, yellow fluid in a sterile container. 1 Thinprep slide prepared Screened by: Isaias Paz This specimen was prepared and screened at [facility], [address] [place] [address] 11/10/2024 3:12 PM EST [facility] Embedded Images 11/10/2024 3:12 PM EST [facility] Case Report Medical Cytology Case: [id number] Authorizing Provider: Umberto Vinson MD Collected: 11/02/2024 1435 Ordering Location: [facility] Received: 11/03/[address] [facility] Pathologist: Anna Gonzalez MD Specimen: Urine, Voided 11/10/2024 3:12 PM EST [facility] Urine URINE SPECIMEN FROM URETHRA / Unknown 11/02/2024 2:35 PM EST 11/03/2024 1:07 AM EST us Umberto Vinson MD LAB CYTOLOGY ORDERABLES Fin al Result [facility] [address] [place] [address] * NON-MUSE EKG (10/29/2024) Cristina Thibodeaux MD ECG ORDERABLES Final Result * (ABNORMAL) Lipid Panel (07/24/2024 7:05 AM EST) Cholesterol Total 158 <200 mg/dL 024 8:31 AM EST [facility] Comment: Optimal: 0 - 199 mg/dL Borderline: 200-239 mg/dL High CHD Risk: >239 mg/dL HDL Cholesterol 44(L) >=50 mg/dL 8:31 AM EST [facility] Comment: Optimal: >59 mg/dL High CHD Risk: <40 mg/dL LDL Cholesterol, Calculated 98 <129 mg/dL 07/24/2024 8:31 AM EST [facility] Comment: Optimal: <100 Near Optimal: 100 [...] 85 <150 mg/dL 07/24/2024 8:31 AM EST [facility] Comment: Optimal: 0 - 149 mg/dL Borderline: 150 - 199 mg/dL High CHD Risk: 200 - 500 mg/dL Very High CHD Risk: >500 mg/dL Non-HDL Cholesterol, Calculated 114 <120 mg/dL 07/24/2024 8:31 AM EST [facility] Chol/HDL Ratio 3.6 1.8 - 4.9 07/24/2024 8:31 AM EST [facility] Fasting time as reported by patient 07/24/2024 8:31 AM EST [facility] Comment:0 Hours Blood VENOUS BLOOD SPECIMEN / Unknown Venipuncture / Unknown 07/24/2024 7:05 AM EST 07/24/2024 7:55 AM EST us Joanna Harris MD LAB BLOOD ORDERABLES Fin al Result [facility] [address] [place] [address] from Last 3 Months or Most Recently Relevant to Health Maintenance Insurance [facility] [employer] Care Teams Repair Servicer Relationship Specialty Start Date End Date Rae Aguillon MD PCP - General Internal Medicine 03/05/19
--- OUTSIDE RECORDS SUMMARY | 2024-12-26 09:49 | XMS_ITS | Encounter Summary ---
Author Organization [facility] Address [address] [place] [address] Care Team Providers Care Music Professionals Name Role Phone Rae Aguillon MD Primary Care Provider [phone] Encounter Details Date Type Department Care Team (Late st Contact Info) Description 09/10/2024 Lab Requisition [facility] [address] [place] [address] Genoveva Lynch MD [address] [place] [address] Coagulation defect, unspecified (HCC) Social History Tobacco Use Types Packs/Day Years Used Date Smoking Tobacco: Former Cigarettes Q uit: 09/08/1992 Smokeless Tobacco: Never Alcohol Use Standard Drinks/Week Comments No 0 (1 standard drink = 0.6 oz pur e alcohol) [facility] Utilities Answer Date Recorded In the past 12 months has [facility] [employer], gas, oil, or water [employer] threatened to shut off services in your [...] place to sleep or slept in a residential (including now)? No 07/27/2024 Housing Stability Vital [...] any time in the past 12 m [facility], were you homeless or living in a residential (including now)? Patient unable to answer 07/29/2024 Comments No Sex and Gender Information Value Date Recorded Sex Assigned at Not on file Legal Sex Female 6:47 PM EDT Gender Identity Not on file Sexual Orientation Not on file documented as of this encounter Plan of Treatment Upcoming Encounters Date Type Department Care Team (Latest Contact Info) Description 01/13/2025 9:00 AM EDT Hospital Encounter [facility] [address] [place] [address] Britt Vinson MD [address] [place] [address] 01/13/2025 9:00 AM EDT - 01/13/2025 10:30 AM EDT Surgery [facility] [address] [place] [address] Britt Vinson MD [address] [place] [address] CYSTOSCOPY TRANSURETHRAL RESECTION OF BLADDER [...] documented in this encounter Results * Prothrombin [id number] (09/09/2024 3:55 PM EST) Prothrombin R44605P Wild Type Wild Type, See comment [employer] 48-48 09/13/2024 1:33 PM EST [facility] Prothrombin [id number] Interpretation NEGATIVE - Only the Wild Type (Normal) form of the Prothrombin (F2) gene is present; no mutation is detected. The Prothrombin mutation analysis (F2, c.*97G>A; legacy 71369N>A) utilizes [employer], which automates and integrates sample purification, nucleic acid amplification, and detection of the target sequence in whole blood using real-time Polymerase Chain Reaction (PCR) assays. Clinical Significance: The [id number] (c.*97G>A) mutation in the prothrombin gene is associated with elevated plasma prothrombin levels. This mutation is present in 18% of patients with documented familial history of venous thrombosis, in 6.2% of unselected patients with a first, objectively confirmed episode of deep vein thrombosis, and in 1-2% of healthy control subjects. Carriers of the 96260T allele have higher plasma prothrombin levels than individuals with a normal genotype and have a 2.8-fold increased risk of venous thrombosis. Homozygosity for this mutation is very rare; the expected prevalence is 0.014% in the general population. [employer] 48-48 09/13/2024 1:33 PM EST [facility] Comment [employer] 48-48 09/13/2024 1:33 PM EST [facility] Blood VENOUS BLOOD SPECIMEN / Unknown 09/09/2024 3:55 PM EST 09/10/2024 11:27 AM EST us Genoveva Lynch MD LAB [facility] DIAG NOSTICS Final Result [facility] [address] [place] [address] documented in this encounter Visit Diagnoses Diagnosis Coagulation defect, unspecified (HHS-HCC) Neoplasm of uncertain behavior of bladder documented in this encounter Care Teams Music Professionals Relationship Specialty Start Date End Date Rae Aguillon MD PCP - General Internal Medicine 03/05/19 documented as of this encounter
--- OUTSIDE RECORDS SUMMARY | 2024-12-26 09:49 | XMS_ITS ---
Author Organization [facility] [employer] [facility] Address [address] [facility] [address] [place] [address] Care Team Providers Care Peripheral Edp Equipment Operator Name Role Phone Rae Aguillon MD Primary Care Provider Tiny Barnes [phone] REASON FOR VISIT Rx faxed Medications Medication SIG (Take, Route, Frequency, Duration) Notes Start Date End Date Status PEG 3350-KCl-Na Bicarb-NaCl 420 GM 2000 ML Orally Split Dose per Physician Instructions for 1 DAY 09/19/2023 09/20/2023 Active Encounters Encounter Location Date Provider Diagnosis [facility] [address] [facility] [address] [place] [address] 09/19/2023 Tiny Moralez Plan Of Treatment Medication Medication Name Sig Start Date Stop Date Notes PEG 3350-KCl-Na Bicarb-NaCl 420 GM 2000 ML Orally Split Dose per Physician Instructions for 1 DAY 09/19/2023 09/20/2023 Progress Notes * Dennis LINDSEYOB:1950 (73 yo F)Acc No.[id number]:09/19/2023 Patient: Mary Kay Hernandez :1950 A ge:73 Y S ex:Female Address:[address] [place] [address], [address] * Refills Start PEG 3350-KCl-Na Bicarb-NaCl Solution Reconstituted, 420 GM, Orally, 1 kit, 2000 ML, Split Dose per Physician Instructions, 1 DAY, Refills=0 * true * Date: Generated for Printi ng/Faxing/eTransmitting on: 0 12/26/2024 10:49 AM EDT
--- OUTSIDE RECORDS SUMMARY | 2024-12-26 09:49 | XMS_ITS ---
Author Organization [facility] Address [address] [place] [address] [address] [place] [address] Care Team Providers Care Cotton Buyer Name Role Phone Rae Aguillon Primary Care [...] 08/10/2024 Encounters Encounter Location Date Provider Diagnosis [facility] [address] [address] [place] [address] 08/10/2024 [facility] discharge follow-up Z09 ; Dizziness and giddiness [...] SHERRY GARCIA MDOB: 0 (74 yo F)Acc No.[id number]:08/10/2024 OV 15 MIN Patient: SHERRY AGUIAR Provider: Liz Aguillon MD :1950 A ge:74 Y S ex:Female Date:08/10/2024 Address:[address] [place] [address] Structured Data:[facility] Tianna e : Yes Subjective: * [...] a: former smoker;. . . Works in [employer]. Has 4 grandchildren. * Medications: T akingLosartan [...] 9 9495 TRANS CARE MGMT 14 DAY [id number] [facility] MED/CURRENT MED [id number] BODY MASS INDEX DOCD * Follow Up: 4 Months * Billing Information: * Visit Code: * Procedure Codes: 00341 TRANS CARE MGMT 14 DAY DISCH. 1111F [facility] MED/CURRENT MED MERGE. 3008F BODY MASS INDEX DOCD. * Sign off status: Completed true * Provider: Liz Aguillon MD Date: 10/11/2023 Generated for Christin daniel/Kindra/eTransmitting on: 0 12/26/2024 10:49 AM EDT History and Physical Notes * Examination Category Sub-Category Detail Notes Category Not es General Examination HEART: normal, no m urmurs, regular rate and rhythm, S1, S2 normal LUNGS: clear to auscultatio n bilaterally, good air movement EXTREMITIES: no clubbing, cyanosi s, or edema PERIPHERAL PULSES: 2+ throughout
--- OUTSIDE RECORDS SUMMARY | 2024-12-26 09:49 | XMS_ITS | Encounter Summary ---
Author Organization [facility] Address [address] [place] [address] Care Team Providers Care Veneer Sample Maker Name Role Phone Rae Aguillon MD Primary Care Provider Encounter Details Date Type Department Care Team (Late st Contact Info) Description 11/18/2024 Telephone [facility] Cardiology - [address] [address] [facility] [address] [place] [address] [place] [address] [facility] [address] [address] [place] [address] Social History Tobacco Use Types Packs/Day Years Used Date Smoking Tobacco: Former Cigarettes Q uit: 09/08/1992 Smokeless Tobacco: Never Alcohol Use Standard Drinks/Week Comments No 0 (1 standard drink = 0.6 oz pur e alcohol) [facility] Utilities Answer Date Recorded In the past [address] [facility] [employer], gas, oil, or water [employer] threatened to shut off services in your [...] any time in the past 12 m [facility], were you homeless or living in a intermediate (including now)? Patient unable to answer 07/29/2024 [...] Description 01/13/2025 9:00 AM EDT Hospital Encounter [facility] [place] [address] [place] [address] Britt Vinson MD [address] [facility] [address] [place] [address] 01/13/2025 9:00 AM EDT - 01/13/2025 10:30 AM EDT Surgery [facility] [place] [address] [place] [address] Britt Vinson MD [address] [facility] [address] [place] [address] CYSTOSCOPY TRANSURETHRAL RESECTION OF BLADDER [...] on filedocumented in this encounter Care Teams Veneer Sample Maker Relationship Specialty Start Date End Date Rae Aguillon MD PCP - General Internal Medicine 03/05/19 documented as of this encounter
--- OUTSIDE RECORDS SUMMARY | 2024-12-26 09:49 | XMS_ITS ---
Author Organization [facility] Address [address] [facility] [address] [place] [address] Care Team Providers Care Sawmill Moulder Operator Name Role Phone Rae Aguillon MD Primary Care Provider Tiny Barnes Unavailable [phone] REASON FOR VISIT HFWB COLON/PERS HX POLYPS PCP RAE AGUILLON PP Problems Problem Type SNOMED Code ICD Code Onset Dates Problem Status W/U Status Risk Notes Problem History of polyp of colon (situation) (385307746) Hx of colonic polyps (Z86.010) Active confirmed Encounters Encounter Location Date Provider Diagnosis [facility] [address] [place] [address] 10/22/2023 Tiny Moralez Plan Of Treatment No Information Progress Notes * Yelena LINDSEYBoomOB:1950 (74 yo F)Acc No.[id number]:10/22/2023 Patient: Mary Kay AGUIAR Provider: Rhonda Moralez M.D. :1950 A ge:73 Y S ex:Female Date:10/22/2023 Address:[address] [place], [place] [id number] Pcp:Rae Aguillon MD * Billing Information: * Visit Code: * Procedure Codes: * The named appointment provid er may or may not be the originator of this progress note, and it is not deemed complete until electronically signed by the appointment provider. Sign off status: Pending * Provider: Rhonda Moralez M.D. Date: 0 10/22/2023 Generated for Gelyi ng/Kindra/eTransmitting on: 0 12/26/2024 10:48 AM EDT
--- OUTSIDE RECORDS SUMMARY | 2024-12-26 09:49 | XMS_ITS | Patient Health Record ---
Author Organization [facility] Address [address] [facility] [address] [place] [address] Care Team Providers Care Aircraft Powerplant Repairer Name Role Phone Rae Aguillon MD Primary Care Provider Tiny Barnes Unavailable [phone] Reason For Referral No Information Medications Medication SIG (Take, Route, Frequency, Duration) Notes Start Date End Date Status Nulytely with Flavor Packs 420 GM as directed Orally Split Dose per Physician Instructions for 1 Day prior to colonoscopy 08/10/2018 Active Problems Problem Type SNOMED Code ICD Code Onset Dates Problem Status W/U Status Risk Notes Problem History of polyp of colon (situation) (305402486) Hx of colonic polyps (Z86.010) Active confirmed Problem 3195829 Diverticulosis o f large intestine without perforation or abscess without bleeding (K57.30) Active confirmed Plan Of Treatment No Information Insurance Providers Payer Name Payer Address Payer Phone Subscriber Number Group Number Insured Name Patient Relationship to Insured Coverage Start Date Coverage End Date [employer] [address] [place] [address] [id number] Mary Kay Mahan Self - patient is the insured 6
--- OUTSIDE RECORDS SUMMARY | 2024-12-26 09:50 | XMS_ITS ---
Author Organization [facility] Address [address] [facility] [address] [place] [address] Care Team Providers Care Portfolio Manager Name Role Phone Rae Aguillon MD Primary Care Provider Tiny Barnes Unavailable [phone] REASON FOR VISIT MED CLEARANCE Encounters Encounter Location Date Provider Diagnosis [facility] [address] [facility] [address] [place] [address] 10/03/2023 Tiny Moralez Plan Of Treatment No Information Progress Notes * Dennis LINDSEYOB:1950 (73 yo F)Acc No.[id number]:10/03/2023 Patient: Mary Kay Hernandez :1950 A ge:73 Y S ex:Female Address:[address] [place] [address], [address] * true * Date: Generated for Gelyi maría/Karlag/eTransmitting on: 0 12/26/2024 10:49 AM EDT
--- OUTSIDE RECORDS SUMMARY | 2024-12-26 09:50 | XMS_ITS ---
Author Organization [facility] Address [address] [facility] [address] [place] [address] Care Team Providers Care Technologies Division Chair Name Role Phone Rae Aguillon Primary Care Provider [phone] Pal NEVAREZ, Rae Unavailable Unavailable REASON FOR VISIT HOSPITAL FOLLOW UP 07/22/24-07/29/24 Encounters Encounter Location Date Provider Diagnosis [facility] [address] [facility] [address] [place] [id number] 08/09/2024 Rae Aguillon Plan Of Treatment No Information Progress Notes * SHERRY GARCIA MDOB: 0 (74 yo F)Acc No.[id number]:08/09/2024 OV 15 MIN Patient: SHERRY AGUIAR Provider: Liz Aguillon MD :1950 A ge:74 Y S ex:Female Date:08/09/2024 Address:[address] [place], [place] [phone] Structured Data:[facility] Brochur e : Yes Subjective: * Chief Complaints: * 1 . HOSPITAL FOLLOW UP 07/22/24-07/29/24. * Medical History: Objective: * Vitals: Assessment: Plan: * Treatment: * Images: Billing Information: * Visit Code: * Procedure Codes: * Electronic signature of Rae Aguillon MD on 12/26/2024 at 10:49 AM EDT Sign off status: Pending * Provider: Liz Aguillon MD Date: 1 10/10/2023 Generated for Christin daniel/Kindra/eTransmitting on: 0 12/26/2024 10:49 AM EDT
[2024-12-26 09:53] LABS: Troponin I < 0.012 ng/mL (0.000-0.034)
[2024-12-26 11:35] LABS: Add Urine Microscopic? NO; Appearance Urine Clear (Clear); Bilirubin Urine Negative (Negative); Blood Urine Negative (Negative); Color Urine Yellow (Yellow); Glucose Urine UA Negative (Negative); Ketones Urine Negative (Negative); Leukocyte Esterase Ur Negative LEU/UL (Negative); Nitrate Urine Negative (Negative); Protein Urine Negative (Negative); Specific Grav Ur 1.036 (1.001-1.035); Urobilinogen Urine 0.2 mg/dL (<2.0); pH Urine 6.5 (5.0-9.0)
--- NOTE | 2024-12-26 12:12 | ED_ITS ---
HPI - Neuro Symptoms/Deficit General Chief Complaint: Neuro Symptoms/Deficit Stated Complaint: new facial droop Time Seen by Provider: 12/26/24 09:33 History of Present Illness HPI Narrative: Patient w/ h/o CVA (last in 2023), now at rehab from recent admission for peritonitis, presents here after daughter noticed a left-sided facial droop this morning. Last known well last night when she went to sleep. Patient states that she does not feel like herself. She does have residual paresthesias on her right side from prior strokes. Related Data Home Medications ?Medication ?Instructions ?Recorded ?Confirmed ?Last Taken ?Type amiodarone 200 mg tablet 200 mg PO BID 12/24/24 12/24/24 Unknown History apixaban 5 mg tablet 5 mg PO BID 12/24/24 12/24/24 Unknown History ascorbic acid (vitamin C) 250 mg 1 g PO DAILY 12/24/24 12/24/24 Unknown History tablet atorvastatin 80 mg tablet 80 mg PO HS 12/24/24 12/24/24 Unknown History calcium carbonate (Calcium 600) 1,200 mg PO DAILY 12/24/24 12/24/24 Unknown History carvedilol 3.125 mg tablet 3.125 mg PO BIDWM 12/24/24 12/24/24 Unknown History cholecalciferol (vitamin D3) 25 2,000 unit PO DAILY 12/24/24 12/24/24 Unknown History mcg (1,000 unit) tablet furosemide 20 mg tablet 20 mg PO DAILY 12/24/24 12/24/24 Unknown History levothyroxine 100 mcg tablet 100 mcg PO QACBREAK 12/24/24 12/24/24 Unknown History melatonin 10 mg tablet 10 mg PO HS PRN sleep 12/24/24 12/24/24 Unknown History multivitamin 1 tablet PO DAILY 12/24/24 12/24/24 Unknown History venlafaxine 150 mg 150 mg PO QACBREAK 12/24/24 12/24/24 Unknown History capsule,extended release 24 hr Allergies Allergy/AdvReac Type Severity Reaction Status Date / Time latex Allergy Intermediate Unknown Verified 12/26/24 09:07 morphine Allergy Unknown Verified 12/26/24 09:07 Review of Systems 2 Review of Systems: All systems reviewed & are unremarkable except as noted in HPI and below PMFSH Past Medical History Medical History (Updated 12/26/24 @ 13:05 by Randi Burger MD) Colostomy in place Cardiomyopathy Atrial fibrillation History of stroke Social History Social History Smoking status: Former smoker Tobacco type: cigarettes Second hand tobacco smoke exposure: No Alcohol intake: current Substance use: never Do You Feel Safe in your Home?: Yes Lack of Transportation: No Lack of Food: Never True Current Housing: I Have Housing Concerned About Future Housing: No Difficulty Paying Gas/Electric Bills: No Difficulty Paying for Meds: No Currently Unemployed: No Education: High School Diploma/GED Difficulty w/ Childcare or Family Care: No Spiritual care concerns: No Exam 2 Narrative: EXAMINATION OF ORGAN SYSTEMS/BODY AREAS: Constitutional: Vital signs per nursing GENERAL:[No acute distress, non-toxic appearing.] HEAD: Normal with no signs of head trauma. EYES: EOMI, conjunctiva normal, PERRL ENT: Left-sided facial droop LUNGS: Nonlabored breathing. HEART: [Regular rate and rhythm] ABD: [Soft], [nontender to palpation] EXT: Normal range of motion SKIN: [No rashes or lesions.] NEURO: [Alert and oriented x 3. Some diminished sensation to the right side, some asymmetry of face, otherwise normal strength upper and lower extremity.] PSYCH: Normal affect Course Vital Signs Vital signs: Vital Signs Pulse Rate 66 12/26/24 08:48 Respiratory Rate 19 12/26/24 08:48 Blood Pressure 107/59 L 12/26/24 08:48 Pulse Oximetry 95 12/26/24 08:48 Temperature 98.1 F 12/26/24 09:07 Pulse Rate 67 12/26/24 10:09 Respiratory Rate 17 12/26/24 10:09 Blood Pressure 93/53 L 12/26/24 10:09 Pulse Oximetry 95 12/26/24 10:09 Oxygen Delivery Room Air 12/26/24 08:56 MDM - Neuro Symptoms/Deficit MDM Narrative Medical decision making narrative: Patient presenting with left-sided facial droop, states she does not feel like herself, otherwise her exam some weakness to the left side of her face and slightly asymmetric smile. Stroke workup initiated; CTA does not show any new abnormalities. Patient at this time is now occasionally having hallucinations and talking to people who were not there in the room. For these new hallucinations I did obtain further workup for infection to see if there is causes of delirium. At this point I have talked to the neurologist, did advise admission for MRI and EEG. Discussed with hospitalist who is agreeable to plan. Discussed with patient and family at bedside agreeable to the plan. Lab Data 12/26/24 09:18 12/26/24 09:35 Labs: Lab Results 12/26/24 12/26/24 12/26/24 Range/Units 09:12 09:18 09:35 WBC 8.7 (4.5-10.0) K/mm3 RBC 3.32 L (4.2-5.4) M/mm3 Hgb 9.9 L (12.0-15.0) g/dL Hct 31.6 L (37.0-47.0) % MCV 95.2 (80-100) fl MCH 29.8 (26-34) pg MCHC 31.3 L (32-36) g/dl RDW 13.6 (11.5-14.5) % Plt Count 417 H (150-375) k/mm3 MPV 9.3 (7.4-10.4) fl Immature Gran % (Auto) 0.5 (0-0.5) % Neut % (Auto) 67.8 (45.5-73.1) % Lymph % (Auto) 22.5 (18.3-44.2) % [place]more % (Auto) 6.8 (2.6-8.5) % Eos % (Auto) 1.6 (0-4.4) % Baso % (Auto) 0.8 (0.2-1.2) % Lymph # (Auto) 1.96 (0.9-3.2) K/mm3 [place]more # (Auto) 0.6 (0.1-0.6) K/mm3 Eos # (Auto) 0.1 (0-0.3) K/mm3 Baso # (Auto) 0.1 (0.0-0.1) K/mm3 Abs Immat Gran (auto) 0.04 H (0.00-0.031) K/mm3 Absolute Neuts (auto) 5.9 (1.3-6.7) K/mm3 Absolute Nucleated RBC 0.000 (0.0-0.012) K/mm3 Nucleated RBC % 0.0 (0.0-0.2) % PT 15.8 H (11.1-14.7) Seconds INR 1.2 APTT 23.5 (22.3-36.8) Seconds Sodium 138 (137-145) mmol/L Potassium 3.8 (3.4-5.0) mmol/L Chloride 103 (98-107) mmol/L Carbon Dioxide 29 (22-30) mmol/L Anion Gap 6 (4-12) mmol/L BUN 15 (7-17) mg/dL Creatinine 0.78 0.90 (0.7-1.0) mg/dL Estim Creat Clear Calc 57 50 ml/min Estimated GFR > 60 > 60 (59 - ) Glucose 95 (65-110) mg/dL POC Capillary Glucose 100 (65-105) mg/dl Calcium 8.5 (8.4-10.2) mg/dL Total Bilirubin 0.4 (0.2-1.3) mg/dL AST 35 (14-36) U/L ALT 48 H (6-35) U/L Alkaline Phosphatase 67 (38-126) U/L Troponin I < 0.012 (0.000-0.034) ng/mL Total Protein 6.0 L (6.3-8.2) g/dL Albumin 3.1 L (3.5-5.1) g/dL Urine Color (Yellow) Urine Appearance (Clear) Urine pH (5.0-9.0) Ur Specific [place] (1.001-1.035) Urine Protein (Negative) mg/dL Urine Glucose (UA) (Negative) mg/dL Urine Ketones (Negative) mg/dL Ur Blood (Man) (Negative) Urine Nitrate (Negative) Urine Bilirubin (Negative) Urine Urobilinogen (<2.0) mg/dL Leukocyte Esterase Rfl (Negative) ELZBIETA/UL 12/26/25 Range/Units 11:25 WBC (4.5-10.0) K/mm3 RBC (4.2-5.4) M/mm3 Hgb (12.0-15.0) g/dL Hct (37.0-47.0) % MCV (80-100) fl MCH (26-34) pg MCHC (32-36) g/dl RDW (11.5-14.5) % Plt Count (150-375) k/mm3 MPV (7.4-10.4) fl Immature Gran % (Auto) (0-0.5) % Neut % (Auto) (45.5-73.1) % Lymph % (Auto) (18.3-44.2) % Elmore % (Auto) (2.6-8.5) % Eos % (Auto) (0-4.4) % Baso % (Auto) (0.2-1.2) % Lymph # (Auto) (0.9-3.2) K/mm3 Elmore # (Auto) (0.1-0.6) K/mm3 Eos # (Auto) (0-0.3) K/mm3 Baso # (Auto) (0.0-0.1) K/mm3 Abs Immat Gran (auto) (0.00-0.031) K/mm3 Absolute Neuts (auto) (1.3-6.7) K/mm3 Absolute Nucleated RBC (0.0-0.012) K/mm3 Nucleated RBC % (0.0-0.2) % PT (11.1-14.7) Seconds INR APTT (22.3-36.8) Seconds Sodium (137-145) mmol/L Potassium (3.4-5.0) mmol/L Chloride (98-107) mmol/L Carbon Dioxide (22-30) mmol/L Anion Gap (4-12) mmol/L BUN (7-17) mg/dL Creatinine (0.7-1.0) mg/dL Estim Creat Clear Calc ml/min Estimated GFR (59 - ) Glucose (65-110) mg/dL POC Capillary Glucose (65-105) mg/dl Calcium (8.4-10.2) mg/dL Total Bilirubin (0.2-1.3) mg/dL AST (14-36) U/L ALT (6-35) U/L Alkaline Phosphatase (38-126) U/L Troponin I (0.000-0.034) ng/mL Total Protein (6.3-8.2) g/dL Albumin (3.5-5.1) g/dL Urine Color Yellow (Yellow) Urine Appearance Clear (Clear) Urine pH 6.5 (5.0-9.0) Ur Specific [place] 1.036 H (1.001-1.035) Urine Protein Negative (Negative) mg/dL Urine Glucose (UA) Negative (Negative) mg/dL Urine Ketones Negative (Negative) mg/dL Ur Blood (Man) Negative (Negative) Urine Nitrate Negative (Negative) Urine Bilirubin Negative (Negative) Urine Urobilinogen 0.2 (<2.0) mg/dL Leukocyte Esterase Rfl Negative (Negative) ELZBIETA/UL Discharge Plan Discharge Clinical Impression: Facial droop, Hallucination Patient Disposition: Still a Patient Condition: Stable Patient Language: Turkmen Prescriptions: No Action amiodarone 200 mg tablet 200 mg PO BID apixaban 5 mg tablet 5 mg PO BID furosemide 20 mg tablet 20 mg PO DAILY atorvastatin 80 mg tablet 80 mg PO HS carvedilol 3.125 mg tablet 3.125 mg PO BIDWM levothyroxine 100 mcg tablet 100 mcg PO QACBREAK melatonin 10 mg tablet 10 mg PO HS PRN (Reason: sleep) venlafaxine 150 mg capsule,extended release 24hr 150 mg PO QACBREAK ascorbic acid (vitamin C) 250 mg tablet 1 g PO DAILY calcium carbonate [Calcium 600] 600 mg calcium (1,500 mg) tablet 1,200 mg PO DAILY multivitamin Tablet 1 tablet PO DAILY cholecalciferol (vitamin D3) 25 mcg (1,000 unit) tablet 2,000 unit PO DAILY Follow-up/Referrals: PHYSICIAN NOT ON STAFF,NONSTAFF [Primary Care Provider] -
[2024-12-26] MEDS: LACTATED RINGERS 1,000 ML 999 ML IV CONT (12:19)
--- NOTE | 2024-12-26 13:00 | P.HP_ITS ---
H&P: HPI History of Present Illness Date/Time: 12/26/24 13:00 Chief Complaint: Stroke-like symptoms Narrative: 74-year-old female past medical history of Takosubo Cardiomyopathy heart failure with reduced ejection fraction unable to receive ICD at this time she currently wearing a LifeVest, colostomy, atrial fibrillation and history of stroke presents the hospital with stroke-like symptoms per the daughter of facial droop. Patient states that she has been at rehab since her perforated bowel surgery and colostomy was placed. She states that the nurses were commenting on her facial droop today because they did know if it was new or not so she told them to ask her daughter when she arrived. Per the daughter it was increased to they brought her to the hospital. Patient has had a previous stroke with facial droop. Patient is extremely knowledgeable about her medical history Patient complains of hallucinations. She states that she has never had hallucinations before today. She does not believe that it is related to pain medications she was still hallucinating on in the hospital. Per patient her EF is 15-20%. Lab work in the ED shows anemia at 9.9 with baseline being about 13.1, CTA head and neck shows no acute findings. Review of Systems Review of Systems: 12 systems were reviewed and are negativ e except for as per HPI. [facility] Past Medical History Medical History Takotsubo cardiomyopathy Diverticulosis Perforated sigmoid colon Cardiomyopathy Atrial fibrillation History of stroke Surgical History Surgical History 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 Colostomy in place Social History Social History Smoking status: Never smoker Tobacco type: cigarettes Second hand tobacco smoke exposure: No Alcohol intake: never Substance use: never Substance use type: does not use Do You Feel Safe in your Home?: Yes Lack of Transportation: No Lack of Food: Never True Current Housing: I Have Housing Concerned About Future Housing: No Difficulty Paying Gas/Electric Bills: No Difficulty Paying for Meds: No Currently Unemployed: No Education: Decline to Answer Difficulty w/ Childcare or Family Care: No Spiritual care concerns: No Meds Home Medications and Allergies Home Medications ?Medication ?Instructions ?Recorded ?Confirmed ?Type amiodarone 200 mg tablet 200 mg PO BID 12/24/24 12/26/24 History apixaban 5 mg tablet 5 mg PO BID 12/24/24 12/26/24 History ascorbic acid (vitamin C) 250 mg 1 g PO DAILY 12/24/24 12/26/24 History tablet atorvastatin 80 mg tablet 80 mg PO HS 12/24/24 12/26/24 History calcium carbonate (Calcium 600) 1,200 mg PO DAILY 12/24/24 12/26/24 History carvedilol 3.125 mg tablet 3.125 mg PO BIDWM 12/24/24 12/26/24 History cholecalciferol (vitamin D3) 25 2,000 unit PO DAILY 12/24/24 12/26/24 History mcg (1,000 unit) tablet furosemide 20 mg tablet 20 mg PO DAILY 12/24/24 12/26/24 History levothyroxine 100 mcg tablet 100 mcg PO DAILY@0630 12/24/24 12/26/24 History multivitamin 1 tablet PO DAILY 12/24/24 12/26/24 History venlafaxine 150 mg 150 mg PO QACBREAK 12/24/24 12/26/24 History capsule,extended release 24 hr losartan 25 mg tablet 25 mg PO DAILY 12/26/24 12/26/24 History Allergies Allergy/AdvReac Type Severity Reaction Status Date / Time latex Allergy Intermediate Unknown Verified 12/26/24 09:07 morphine Allergy Unknown Verified 12/26/24 09:07 Vital Signs Vital Signs - 24 hr 12/26/24 08:48 12/26/24 08:56 12/26/24 09:07 Temperature 98.1 F 98.1 F Pulse Rate 66 65 65 Respiratory Rate 19 17 19 Blood Pressure 107/59 L 107/59 L 107/59 L Pulse Oximetry 95 97 97 Oxygen Delivery Room Air 12/26/24 10:09 Temperature Pulse Rate 67 Respiratory Rate 17 Blood Pressure 93/53 L Pulse Oximetry 95 Oxygen Delivery Exam Narrative: General: well appearing, appears stated age. HEENT: normocephalic, atraumatic. Mucous membranes moist. EOMI, PERRLA, bilateral sclera anicteric, no conjunctival injection. Neck supple without JVD, lymphadenopathy, or bruit. Respiratory: clear to ascultation bilaterally. No rales/rhonic/wheezes. Cardiovascular: Regular rate and rhythm, normal S1-S2 upon ascultation. No murmurs, rubs, or clicks. PMI is nondisplaced, capillary refill less than 3 second. Life vest Abdomen: Midline incision with dressing clean dry intact, Colostomy productive, no tenderness on light palpation, tenderness at surgical site Extremities: No cyanosis, clubbing, or edema present. Pulses are palpable 2/2. Active ROM to all four extremities. Neuro: Alert and orientated x 4. PERRLA. Cranial nerves 2-12 intact without focal deficit. Skin: Warm, dry, and intact, without rash, erythema, or lesion. Psych: pleasant, cooperative, normal speech, normal affect, no hallucinations, no dysarthia H&P: Results Labs Labs: Short CBC 12/26/24 Range/Units 09:18 WBC 8.7 (4.5-10.0) K/mm3 Hgb 9.9 L (12.0-15.0) g/dL Hct 31.6 L (37.0-47.0) % Plt Count 417 H (150-375) k/mm3 BMP 12/26/24 12/26/24 09:18 09:35 Sodium 138 Potassium 3.8 Chloride 103 Carbon Dioxide 29 BUN 15 Creatinine 0.78 0.90 Glucose 95 Calcium 8.5 Cardiac Enzymes 12/26/24 Range/Units 09:18 Troponin I < 0.012 (0.000-0.034) ng/mL Liver Function 12/26/24 Range/Units 09:18 Total Bilirubin 0.4 (0.2-1.3) mg/dL AST 35 (14-36) U/L ALT 48 H (6-35) U/L Alkaline Phosphatase 67 (38-126) U/L Albumin 3.1 L (3.5-5.1) g/dL Urine 12/26/24 Range/Units 11:25 Urine Color Yellow (Yellow) Urine Appearance Clear (Clear) Urine pH 6.5 (5.0-9.0) Ur Specific [place] 1.036 H (1.001-1.035) Urine Protein Negative (Negative) mg/dL Urine Glucose (UA) Negative (Negative) mg/dL Assessment and Plan Assessment and plan (1) Facial droop: Code(s): R29.810 - Facial weakness Status: Acute Assessment and Plan: Neurology consulted Eeg pending MRI pending (2) Hallucination: Code(s): R44.3 - Hallucinations, unspecified Status: Acute Assessment and Plan: UA negative for infection Meds reviewed does not appear to be on anything that could cause hallucinations EEG pending Possibly from blood pressure being lower than normal, no clear cause (3) Takotsubo cardiomyopathy: Code(s): I51.81 - Takotsubo syndrome Status: Acute Assessment and Plan: EF per patient is 15-20%, per the patient her educational paraprofessional is happy with a systolic blood pressure in the 90s Okay to have LifeVest off on cardiac rehabilitation specialist. Appears to be euvolemic Avoid fluid boluses due to severe heart failure Continue home Lasix ICD in place with Steri-Strips no induration or erythema (4) Colostomy in place: Code(s): Z93.3 - Colostomy status Status: Acute Assessment and Plan: Wound care consulted Hospitalist MIPS Advance Care Plan I have confirmed that the patient's Advanced Care Plan is present, code status is documented, or surrogate decision maker is listed in patient medical record.: Yes Medication Reconciliation I have utilized all available resources to obtain, update and review the patients current medications (includes all prescriptions, OTC, herbals, cannabis, and nutritional supplements).: Yes
--- NOTE | 2024-12-26 14:10 | ADMGEN ---
This patient, Mary Kay Mahan, was admitted to IMU Room 205-01 @ 1410. Patient/family oriented to hospital policies and general routines including ID bracelet, bed and alarms, visiting hours, pain management, procedures, bathroom and other care routines, personal items, smoking policy, room service/diet, and visiting hours. Information on how to activate the Rapid Response Team has been discussed. Patient/Family are encouraged to report perceived risks to care and to ask questions if they do not understand what they are told or what they should do.
[2024-12-26 17:52] LABS: Lactic Acid Reflex 0.6 mmol/L (0.7-2.0)
[2024-12-27] VITALS (10 sets, daily range): BP systolic 104–115; BP diastolic 56–63; PULSE 64–77; RESP 16; TEMP 36.7–36.8; O2SAT 91–98
[2024-12-27] MEDS: APIXABAN 5 MG TABLET PO (10:00)
[2024-12-27] MEDS: CHOLECALCIFEROL 1,000 UNITS TABLET 2000 UNITS PO (10:00)
[2024-12-27] MEDS: FUROSEMIDE 20 MG TABLET PO (10:01)
[2024-12-27] MEDS: MULTIVITAMINS THERAPEUTIC TAB (*BKC) 1 TABLET PO (10:01)
[2024-12-27] MEDS: carvediloL 3.125 MG TABLET PO (10:02)
[2024-12-27] MEDS: VENLAFAXINE HCL XR 75 MG CAP.ER.24H 150 MG PO (10:02)
[2024-12-27] MEDS: AMIODARONE HCL 200 MG TABLET PO (10:03)
[2024-12-27] MEDS: CALCIUM CARBONATE (OSCAL) 500 MG TABLET 1000 MG PO (10:06)
[2024-12-27] MEDS: ASCORBIC ACID 500 MG TABLET 1000 MG PO (10:07)
[2024-12-27] MEDS: LOSARTAN POTASSIUM 25 MG TABLET PO (10:08)
[2024-12-27 11:11] LABS: MRSA (PCR) NOT DETECTED (NOT DETECTE)
--- NOTE | 2024-12-27 11:13 | P.NEURO_ITS ---
Neurology EEG Report General Information Date of Study: 12/27/24 TEST Electroencephalogram DIAGNOSIS hallucinations and facial droop CONDITION OF RECORDING bedside recording EEG NUMBER [id number] CLINICAL HISTORY hallucinations EEG DESCRIPTION During wakefulness the background activity consists of posterior dominant alpha rhythm at 9 hertz with an amplitude of 20-40 microvolts which appears well- formed and reactive to eye opening. Anteriorly low amplitude mixed frequency activity was seen. There is a moderate anteroposterior gradient. Hyperventilation or photic stimulation were not performed. Patient did not progress to stage 2 sleep however was briefly drowsy during which attenuation of background activity was seen. IMPRESSION This is a normal EEG obtained during awake state.
--- NOTE | 2024-12-27 11:32 | P.CONNEU_ITS ---
Assessment and Plan Assessment and plan (1) Metabolic encephalopathy: Code(s): G93.41 - Metabolic encephalopathy Status: Acute Assessment and Plan: although seen use on antibiotics and has been treated for sepsis she has been through a lot in the last 2 3 weeks. She has occasional visual hallucinations and may require symptomatic treatment. I do not find any focal neurologic deficit. Her EEG was within normal range. The results MRI, CT scan of the brain, CT angiogram of the head and neck were reviewed which did not show any acute abnormalities. I will order sheet serum B12 and folic acid level and vitamin-D and methylmalonic acid level and homocystine level. Of course if she goes to [facility] these will be visible to them where the physicians can treat her if they find these levels to be low. (2) History of stroke: Code(s): Z86.73 - Personal history of transient ischemic attack (TIA), and cerebral infarction without residual deficits Status: Acute Assessment and Plan: She is on Eliquis and atorvastatin 80 mg a day and these may be continued (3) Cardiomyopathy: Code(s): I42.9 - Cardiomyopathy, unspecified Status: Acute (4) Atrial fibrillation: Code(s): I48.91 - Unspecified atrial fibrillation Status: Acute (5) Perforated sigmoid colon: Code(s): K63.1 - Perforation of intestine (nontraumatic) Status: Acute (6) Colostomy in place: Code(s): Z93.3 - Colostomy status Status: Acute (7) 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: Code(s): T82.7XXA - Infection and inflammatory reaction due to other cardiac and vascular devices, implants and grafts, initial encounter Status: Acute Plan As discussed above she may be per given symptomatic treatment with the psychotropic medication however in view of the cardiac history caution is advised particularly since he has had cardiac arrhythmias and she has a life vest in place. You may use benzodiazepine however use of major tranquilizer under the direction of a medical research associate. Consult date: 12/27/24 HPI: Mary Kay Mahan is a 74 year old female Was referred from [facility] or complaints of left side facial droop. Patient herself does not know what exactly was going on but she states that she was having hallucinations and nightmares. She has undergone a have major abdominal surgery and now has a colostomy. She presented to this hospital on 12/11/2024 and was transferred to [facility] and was subsequently brought back to [facility] facility on 12/24/2024. The patient states that she was having hallucinations even when she was in [facility]. According to the admitting notes from rehab facility she was found to have peritonitis and staff epidermidis in blood culture and she was in ICU. She was in cardiogenic and septic shock. She had right atrial mass. The admitting notes also indicate that the principal reason for transfer was critical care myopathy in the setting of cardiomyopathy, peritonitis, bacteremia and perforated colon. She also has had stroke in the past. It was noted that on this admission here she had a CT scan of the brain and CT angiogram of the head and neck and MRI of the brain. She was noted to have and lacunar infarct in the right basal ganglia region however this was found to be old and there was no evidence for a new stroke. According to the records she had weakness on the right side with paresthesias and mild tremor of the right upper limb. She had extensive workup including hypercoagulable workup in [place] on 07/29/2024. The workup was negative. She also developed postoperative atrial fibrillation and was treated with amiodarone and Eliquis. She developed hypoxic respiratory failure and right pleural effusion. She had colostomy and she was also thought to have calorie mild nutrition. Review of Systems 2 Review of Systems: The patient states that she has occasional visual hallucinations and at night she has nightmares. She denies any other specific symptoms. [facility] Past Medical History Medical History (Updated 12/27/24 @ 11:45 by Shireen Garcia MD) Metabolic encephalopathy Takotsubo cardiomyopathy Diverticulosis Perforated sigmoid colon Cardiomyopathy Atrial fibrillation History of stroke Surgical History Surgical History 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 Colostomy in place Social History Social History Smoking status: Never smoker Tobacco type: cigarettes Second hand tobacco smoke exposure: No Alcohol intake: never Substance use: never Substance use type: does not use Do You Feel Safe in your Home?: Yes Lack of Transportation: No Lack of Food: Never True Current Housing: I Have Housing Concerned About Future Housing: No Difficulty Paying Gas/Electric Bills: No Difficulty Paying for Meds: No Currently Unemployed: No Education: Decline to Answer Difficulty w/ Childcare or Family Care: No Spiritual care concerns: No Meds Home Medications and Allergies Home Medications ?Medication ?Instructions ?Recorded ?Confirmed ?Type amiodarone 200 mg tablet 200 mg PO BID 12/24/24 12/26/24 History apixaban 5 mg tablet 5 mg PO BID 12/24/24 12/26/24 History ascorbic acid (vitamin C) 250 mg 1 g PO DAILY 12/24/24 12/26/24 History tablet atorvastatin 80 mg tablet 80 mg PO HS 12/24/24 12/26/24 History calcium carbonate (Calcium 600) 1,200 mg PO DAILY 12/24/24 12/26/24 History carvedilol 3.125 mg tablet 3.125 mg PO BIDWM 12/24/24 12/26/24 History cholecalciferol (vitamin D3) 25 2,000 unit PO DAILY 12/24/24 12/26/24 History mcg (1,000 unit) tablet furosemide 20 mg tablet 20 mg PO DAILY 12/24/24 12/26/24 History levothyroxine 100 mcg tablet 100 mcg PO DAILY@0630 12/24/24 12/26/24 History multivitamin 1 tablet PO DAILY 12/24/24 12/26/24 History venlafaxine 150 mg 150 mg PO QACBREAK 12/24/24 12/26/24 History capsule,extended release 24 hr losartan 25 mg tablet 25 mg PO DAILY 12/26/24 12/26/24 History ertapenem 1 gram intravenous 1 g IV Q24H 12/27/24 12/27/24 History solution Allergies Allergy/AdvReac Type Severity Reaction Status Date / Time latex Allergy Intermediate Unknown Verified 12/26/24 09:07 morphine Allergy Unknown Verified 12/26/24 09:07 Vital Signs Vital Signs - 24 hr 12/26/24 11:45 12/26/24 12:15 12/26/24 12:45 Temperature Pulse Rate 66 66 63 Respiratory Rate 13 15 16 Blood Pressure 101/61 96/65 L 100/61 Pulse Oximetry 94 96 96 Oxygen Delivery 12/26/24 12:50 12/26/24 13:00 12/26/24 13:20 Temperature Pulse Rate 65 63 Respiratory Rate 17 16 Blood Pressure 104/59 L Pulse Oximetry 94 94 94 Oxygen Delivery 12/26/24 13:46 12/26/24 13:55 12/26/24 14:10 Temperature Pulse Rate 65 63 Respiratory Rate 14 Blood Pressure 92/66 L Pulse Oximetry 94 92 Oxygen Delivery Room Air 12/26/24 16:00 12/26/24 16:00 12/26/24 16:00 Temperature 98.2 F Pulse Rate 73 71 Respiratory Rate 20 Blood Pressure 88/51 L Pulse Oximetry 92 92 Oxygen Delivery Room Air 12/26/24 16:09 12/26/24 17:46 12/26/24 18:00 Temperature Pulse Rate 73 Respiratory Rate Blood Pressure 89/42 L 98/60 L Pulse Oximetry Oxygen Delivery 12/26/24 19:43 12/26/24 20:00 12/26/24 20:00 Temperature 98.3 F Pulse Rate 71 70 Respiratory Rate 18 Blood Pressure 96/44 L Pulse Oximetry 93 92 Oxygen Delivery Room Air 12/26/24 22:12 12/26/24 23:53 12/27/24 00:00 Temperature 98.3 F Pulse Rate 69 64 Respiratory Rate 16 Blood Pressure 109/63 Pulse Oximetry 92 95 Oxygen Delivery Room Air 12/27/24 00:00 12/27/24 02:00 12/27/24 04:00 Temperature Pulse Rate 69 69 Respiratory Rate Blood Pressure Pulse Oximetry 94 Oxygen Delivery Room Air 12/27/24 04:00 12/27/24 04:00 12/27/24 05:59 Temperature 98.3 F Pulse Rate 76 68 66 Respiratory Rate 16 Blood Pressure 104/56 L Pulse Oximetry 92 Oxygen Delivery 12/27/24 08:00 12/27/24 08:00 12/27/24 08:42 Temperature 98.3 F Pulse Rate 64 77 Respiratory Rate 16 Blood Pressure 115/61 Pulse Oximetry 91 98 Oxygen Delivery Room Air 12/27/24 10:00 12/27/24 10:02 12/27/24 10:03 Temperature Pulse Rate 76 77 77 Respiratory Rate Blood Pressure Pulse Oximetry Oxygen Delivery Exam 2 Const: General: cooperative, well developed and alert O rientation/consciousness: patient oriented x3 HENMT: Head: atraumatic Eyes: Alignment and Position: position normal Pupils: Equal, round and reactive pupils present EOM: EOMs intact bilaterally Neck: Neck: supple Resp: Effort & Inspection: normal respiratory effort Skin: General skin exam: normal color Neuro: General: patient oriented x3 Cranial nerves: Yes CN's II-XII intact bilaterally, Yes facial sensation intact/muscles of mastication intact, Yes Equal, round and reactive pupils present, Yes facial symmetry and Yes Midline tongue present Cognition (Neuro): normal cognition Speech: normal speech Motor exam (neuro): 5/5 motor strength present throughout Coordination: f [id number] test normal and Normal rapid alternating movements of the distal upper extremity present (Neuro) Psych: Mental Status: mental status grossly normal Affect: Anxious affect present Results Labs 12/26/24 09:18 12/26/24 09:35 Labs: Urine 12/26/24 Range/Units 11:25 Urine Color Yellow (Yellow) Urine Appearance Clear (Clear) Urine pH 6.5 (5.0-9.0) Ur Specific [place] 1.036 H (1.001-1.035) Urine Protein Negative (Negative) mg/dL Urine Glucose (UA) Negative (Negative) mg/dL Imaging Attestation: I personally reviewed and interpreted this imaging study as follows: ( MRI of the brain and CT angiogram head and neck) My impression: old infarct in the right basal ganglia Radiologist's impression: same
--- NOTE | 2024-12-27 12:38 | P.DS_ITS ---
DS: Admitting Diagnosis Discharge Date 12/27/24 Admitting Diagnosis Stroke-like symptoms DS: Discharge Diagnosis Discharge Diagnosis (1) Facial droop: Code(s): R29.810 - Facial weakness Status: Acute Assessment and Plan: Neurology consulted Eeg pending MRI pending (2) Hallucination: Code(s): R44.3 - Hallucinations, unspecified Status: Acute Assessment and Plan: UA negative for infection Meds reviewed does not appear to be on anything that could cause hallucinations EEG pending Possibly from blood pressure being lower than normal, no clear cause (3) Takotsubo cardiomyopathy: Code(s): I51.81 - Takotsubo syndrome Status: Acute Assessment and Plan: EF per patient is 15-20%, per the patient her primary care physician is happy with a systolic blood pressure in the 90s Okay to have LifeVest off on telemetry monitor. Appears to be euvolemic Avoid fluid boluses due to severe heart failure Continue home Lasix ICD in place with Steri-Strips no induration or erythema (4) Colostomy in place: Code(s): Z93.3 - Colostomy status Status: Acute Assessment and Plan: Wound care consulted DS: Summary Hospital Course Hospital Course: patient is currently in acute rehab and was found to have facial droop, sent to the ER, had CTA of head, MRI of brain, and MRI of the brain which were negative, patient symptoms have resolved, patient was seen by neurologist and did not find any deficit, patient is clinically stable, will discharge patient back to the rehab. Time Spent with Patient Time attestation: Total time spent providing and/or coordinating discharge services: Exam Narrative: General: well appearing, appears stated age. HEENT: normocephalic, atraumatic. Mucous membranes moist. EOMI, PERRLA, bilateral sclera anicteric, no conjunctival injection. Neck supple without JVD, lymphadenopathy, or bruit. Respiratory: clear to ascultation bilaterally. No rales/rhonic/wheezes. Cardiovascular: Regular rate and rhythm, normal S1-S2 upon ascultation. No murmurs, rubs, or clicks. PMI is nondisplaced, capillary refill less than 3 second. Life vest Abdomen: Midline incision with dressing clean dry intact, Colostomy productive, no tenderness on light palpation, tenderness at surgical site Extremities: No cyanosis, clubbing, or edema present. Pulses are palpable 2/2. Active ROM to all four extremities. Neuro: Alert and orientated x 4. PERRLA. Cranial nerves 2-12 intact without focal deficit. Skin: Warm, dry, and intact, without rash, erythema, or lesion. Psych: pleasant, cooperative, normal speech, normal affect, no hallucinations, no dysarthia DS: Data Data Completed and Pending Labs on day of discharge: Labs from last 24 hours 12/27/24 12/27/24 12/26/24 12:31 09:50 17:38 Lactic Acid 0.6 L Vitamin B12 Pending Methylmalonic Acid Pending Vitamin D 25-Hydroxy Pending Folate Pending Homocysteine Pending Nasal MRSA (PCR) Not detected Discharge Plan Discharge Attending physician on discharge: Osmel Peace Consulting providers: Shireen Garcia; Neris Booth; Jorge Meyer; Fish Hagan Discharging Clinician: Genoveva Villagomez Patient Disposition: [facility] Activity: as tolerated Diet: heart healthy Discharge Instructions: patient is discharge back to the rehab Patient Instructions: Apixaban (By mouth) Patient Language: Serbian Follow-up/Referrals: Shireen Garcia MD [Physician] - Discharge Medications: Continued losartan 25 mg tablet 25 mg PO DAILY ertapenem 1 gram recon soln 1 g IV Q24H Patient Comments: started 12/24/24 @ 2100; stop 01/26/25 @ 2100 amiodarone 200 mg tablet 200 mg PO BID apixaban 5 mg tablet 5 mg PO BID furosemide 20 mg tablet 20 mg PO DAILY atorvastatin 80 mg tablet 80 mg PO HS carvedilol 3.125 mg tablet 3.125 mg PO BIDWM levothyroxine 100 mcg tablet 100 mcg PO DAILY@0630 venlafaxine 150 mg capsule,extended release 24hr 150 mg PO QACBREAK ascorbic acid (vitamin C) 250 mg tablet 1 g PO DAILY calcium carbonate [Calcium 600] 600 mg calcium (1,500 mg) tablet 1,200 mg PO DAILY multivitamin Tablet 1 tablet PO DAILY cholecalciferol (vitamin D3) 25 mcg (1,000 unit) tablet 2,000 unit PO DAILY Date of admission: 12/26/24 12:27 Primary Care Provider: Rae Aguillon Admitting Provider: Prosper Marshall Attending physician on admission: Genoveva Villagomez Condition: Stable
[2024-12-27] MEDS: CENTRAL LINE FLUSH 10 ML IV PUSH (12:40)
[2024-12-27 13:11] LABS: Vitamin D 25 Hydroxy 52.6 ng/mL
[2024-12-27 13:55] LABS: Folic Acid > 20.0 ng/mL (2.76->20)
--- OUTSIDE RECORDS SUMMARY | 2024-12-28 07:23 | XMS_ITS | Encounter Summary ---
Author Organization [facility] Address [address] [place] [address] Care Team Providers Care Electrical Intern Name Role Phone Rae Aguillon MD Primary Care Provider [phone] Encounter Details Date Type Department Care Team (Late st Contact Info) Description 12/27/2024 Telephone [facility] Cardiology - [address] [address] [facility] [address] [place] [phone] [place] [address] [facility] [address] [place] [id number] Social History Tobacco Use Types Packs/Day Years Used Date Smoking Tobacco: Former Cigarettes Q uit: 09/08/1992 Smokeless Tobacco: Never Alcohol Use Standard Drinks/Week Comments No 0 (1 standard drink = 0.6 oz pur e alcohol) [facility] Utilities Answer Date Recorded In the past 12 months has [facility] [employer], gas, oil, or water [employer] threatened to shut off services in your [...] place to sleep or slept in a fpc (including now)? No 07/27/2024 Housing Stability Vital Sign Answer Amari e Recorded In the last 12 months, was t here a time when you were not able to pay the mortgage or rent on time? No 12/08/2024 In the past 12 months, how m any times have you moved where you were living? 1 12/08/2024 At any time in the past 12 m [facility], were you homeless or living in a fpc (including now)? No 12/08/2024 Comments No Sex and Gender Information Value Date Recorded Sex Assigned at Not on file Legal Sex Female 6:47 PM EDT Gender Identity Not on file Sexual Orientation Not on file documented as of this encounter Miscellaneous Notes * Telephone Encounter - Britt Beebe RN - 12/27/2024 8:18 AM EDT 12/27/2024 Mary Kay Mahan [id number] Received forms to discontinue Life Vest, now that patient has received ICD implant (12/08/24). Attempted to reach patient to confirm she returned her Life Vest - no answer, left VM requesting a call back. She also needs to be scheduled for a [facility] appointment. Cristina Thibodeaux MD/Britt Beebe RN documented in this encounter Plan of Treatment Upcoming Encounters Date Type Department Care Team (Latest Contact Info) Description 01/13/2025 9:00 AM EDT Hospital Encounter [facility] Surgery [address] [place] [phone] Britt Vinson MD [address] [facility] [address] [place] [address] 01/13/2025 9:00 AM EDT - 01/13/2025 10:30 AM EDT Surgery [facility] Surgery [place] [place] [phone] Britt Vinson MD [address] [facility] [address] [place] [address] CYSTOSCOPY TRANSURETHRAL RESECTION OF BLADDER [...] on filedocumented in this encounter Care Teams Electrical Intern Relationship Specialty Start Date End Date Rae Aguillon MD PCP - General Internal Medicine 03/05/19 documented as of this encounter
--- OUTSIDE RECORDS SUMMARY | 2024-12-28 07:23 | XMS_ITS | Clinical Summary ---
Author Organization [facility] Address [address] [place] [address] Care Team Providers Care Egg Pasteurizer Name Role Phone Rae Aguillon Primary Care Provider [phone] Allergies Active Allergy Reactions Criticality Noted Date [...] previously scheduled. Procedure Code(s): --- Professional --- 96850, Colonoscopy, flexible; with removal of tumor(s), polyp(s), or other lesion(s) by snare technique Diagnosis Code(s): --- Professional --- Z86.010, Personal history of colonic polyps D12.8, Benign neoplasm of rectum D12.3, Benign neoplasm of transverse colon (hepatic flexure orsplenic flexure) D12.2, Benign neoplasm of ascending colon K57.30, Diverticulosis of large intestine without perforation orabscess without bleeding K64.8, Other hemorrhoids CPT copyright 2020 [employer]. All rights reserved. The codes documented in this report are preliminary and upon leasing associate reviewmay be revised to meet current compliance [...] Most Recently Relevant to Health Maintenance Insurance [facility] PPO MED ADV Advance Directives * Full Code (Latest Code Status on File) Date Activated Date Inactivated Comments 10/22/2023 12:12 PM 10/26/2023 2:29 AM Care Teams Egg Pasteurizer Relationship Specialty Start Date End Date Rae Aguillon [address] [facility] [address] [place] [address] PCP - General Internal Medicine 09/19/23
--- OUTSIDE RECORDS SUMMARY | 2024-12-28 07:23 | XMS_ITS | Encounter Summary ---
Author Organization [facility] Address [address] [place] [address] Care Team Providers Care Signal Mechanic Name Role Phone Rae Aguillon MD Primary Care Provider [phone] Encounter Details Date Type Department Care Team (Late st Contact Info) Description 11/03/2024 Lab Requisition [facility] [address] [place] [address] Britt Vinson MD [address] [place] [address] [address] [place] [address] Gross hematuria Social History Tobacco Use Types Packs/Day Years Used Date Smoking Tobacco: Former Cigarettes Q uit: 09/08/1992 Smokeless Tobacco: Never Alcohol Use Standard Drinks/Week Comments No 0 (1 standard drink = 0.6 oz pur e alcohol) [facility] Utilities Answer Date Recorded In the past 12 months has [facility] [employer], gas, oil, or water [employer] threatened to shut off services in your [...] place to sleep or slept in a mcfp (including now)? No 07/27/2024 Housing Stability Vital [...] any time in the past [address] [facility], were you homeless or living in a mcfp (including now)? Patient unable to answer 07/29/2024 Comments No Sex and Gender Information Value Date Recorded Sex Assigned at Not on file Legal Sex Female 6:47 PM EDT Gender Identity Not on file Sexual Orientation Not on file documented as of this encounter Plan of Treatment Upcoming Encounters Date Type Department Care Team (Latest Contact Info) Description 01/13/2025 9:00 AM EDT Hospital Encounter [facility] Surgery [place] [address] [place] [address] Britt Vinson MD [address] [facility] [address] [place] [address] 01/13/2025 9:00 AM EDT - 01/13/2025 10:30 AM EDT Surgery [facility] Surgery [place] [address] [place] [phone] Britt Vinson MD [address] [facility] [address] [place] [address] CYSTOSCOPY TRANSURETHRAL RESECTION OF BLADDER [...] Urine, Urine, Voided 11/10/2024 3:12 PM EST [facility] Dx Category NEGATIVE FOR HIGH GRADE UROTHELIAL CARCINOMA 11/10/2024 3:12 PM EST [facility] Diagnosis NEGATIVE FOR HIGH GRADE UROTHELIAL CARCINOMA 11/10/2024 3:12 PM EST [facility] at 1512 EST Additional Diagnosis Background neutrophils present 11/10/2024 3:12 PM EST [facility] Comments The Fidelia System (TPS) for Reporting Urinary Cytology is used to evaluate urine cytology specimens. When possible, this system is applied to render the diagnosis. For more information regarding the categories, please refer to Shakeel VARGHESE, Denise CHAUDHARII, Xin DL. The Fidelia System for Reporting Urinary Cytology. 2nd Ed. [place]: 2021. 11/10/2024 3:12 PM EST [facility] Clinical Information R31.0 Gross hematuria 11/10/2024 3:12 PM EST [facility] Specimen Adequacy Satisfactory for evaluation. 11/10/2024 3:12 PM EST [facility] Materials received and processed 55ml of hazy, yellow fluid in a sterile container. 1 Thinprep slide prepared Screened by: Isaias Paz This specimen was prepared and screened at [facility], [address] [place] [address] 11/10/2024 3:12 PM EST [facility] Embedded Images 11/10/2024 3:12 PM EST [facility] Case Report Medical Cytology Case: [id number] Authorizing Provider: Britt Vinson MD Collected: 11/02/2024 1435 Ordering Location: [facility] Received: 11/03/2024 0107 [facility] Pathologist: Anna Gonzalez MD Specimen: Urine, Voided 11/10/2024 3:12 PM EST [facility] Urine URINE SPECIMEN FROM URETHRA / Unknown 11/02/2024 2:35 PM EST 11/03/2024 1:07 AM EST us Britt Vinson MD LAB CYTOLOGY ORDERABLES Fin al Result [facility] [address] [place] [address] documented in this encounter Visit Diagnoses Diagnosis Gross hematuria Neoplasm of uncertain behavior of bladder documented in this encounter Care Teams Signal Mechanic Relationship Specialty Start Date End Date Rae Aguillon MD PCP - General Internal Medicine 03/05/19 documented as of this encounter
--- OUTSIDE RECORDS SUMMARY | 2024-12-28 07:23 | XMS_ITS | Patient Health Record ---
Author Organization [facility] Address [address] [place] [address] [address] [place] [address] Care Team Providers Care Planning Supervisor Name Role Phone Rae Aguillon Primary Care Provider [phone] Rae Aguillon MD Unavailable Unavailable Sarai Douglas Unavailable [phone] Allergies Allergen (clinical drug ingredient) Drug/Non Drug [...] Immunizations Vaccine Route Administration Date Status Comme [facility] zzAdvance Care Plan Unknown 04/06/2024 Administered Tdap IM Intramuscular 02/13/2022 Administered Pneumococcal 23-valent vaccine IM Intramuscular 11/20/2011 Administered Pneumococcal 23-valent vaccine IM Intramuscular 02/13/2022 Administered Pneumococcal 13 valent vaccine IM Intramuscular 06/02/2018 Administered HIGH DOSE FLU MEDICARE 3 Unknown 06/09/2018 Administere d HIGH DOSE FLU MEDICARE 3 IM Intramuscular 06/30/2019 Admin istered DT (Pediatric) IM Intramuscular 11/20/2011 Administered Social History Tobacco Use: Social History [...] Problem Status W/U Status Risk Notes Problem 691163740 Cellulitis (L03.90) 2015 Active confirmed Problem 08780833 URI (upper respiratory infection) (J06.9) Active confirmed Problem Essential hypertension (84390037) Essential (primary) hypertension (I10) Active confirmed Problem Hypothyroidism (43685855) Hypothyroidism, unspecified (E03.9) Active confirmed Problem 00932169 Cough (R05) Active confirmed Problem 24973625 Chronic fatigue (R53.82) Active confirmed Problem 81253763 Hypertensive hea rt disease with heart failure (I11.0) Active confirmed Problem 420711870 Atherosclerosis of [place] coronary artery of [place] heart without angina pectoris (I25.10) Active confirmed Problem 738153413 Gastroesophageal reflux disease without esophagitis (K21.9) Active confirmed Problem 604610029 Cerebrovascular accident (CVA), unspecified mechanism (I63.9) Active confirmed Problem 46572030 Upper respirator y tract infection, unspecified type (J06.9) Active confirmed Problem 04649795 Hyperlipidemia, unspecified hyperlipidemia type (E78.5) Active confirmed Problem Counseling (088179034) Encounter for medication review and counseling (Z71.89) Active confirmed Problem Familial hypercholesterolemia (628838167) Familial hypercholesterolemia (E78.01) Active confirmed Problem 26544415 Osteoporosis wit hout current pathological fracture, unspecified osteoporosis type (M81.0) Active confirmed Problem 24357250 Osteoporosis, unspecified osteoporosis type, unspecified pathological fracture presence (M81.0) Active confirmed Problem 280307399 Acute systolic h eart failure (I50.21) 2019 Active confirmed Problem 83355656 Earache (H92.09) Active confirmed Vital Signs Heart Rate 67 /min 08/10/2024 Temperature 98.1 degrees Fahrenheit 08/10/2024 Blood pressure diastolic 64 mm Hg 08/10/2024 Oximetry 97 % 08/10/2024 Height 69.5 in 08/10/2024 Blood pressure systolic 102 mm Hg 08/10/2024 Weight 130.2 lbs 08/10/2024 BMI 18.95 kg/m2 08/10/2024 Encounters Encounter Location Date Provider Diagnosis [facility] [address] [facility] [address] [place] [address] 04/06/2024 Rae Aguillon Hyperlipidemia, unspecified hyperlipidemia type E78.5 ; Routine adult health maintenance Z00.00 ; Hypothyroidism, unspecified E03.9 ; Essential (primary) hypertension I10 ; Acute systolic heart failure I50.21 ; Cerebrovascular accident (CVA), unspecified mechanism I63.9 ; Atherosclerosis of [place] coronary artery of [place] heart without angina pectoris I25.10 ; Gastroesophageal reflux disease without esophagitis K21.9 ; Cellulitis L03.90 ; Osteoporosis without current pathological fracture, unspecified osteoporosis type M81.0 ; Encounter for screening for cardiovascular disorders Z13.6 ; Encounter for screening for respiratory disorder NEC Z13.83 ; Adult BMI <19 kg/sq m Z68.1 and Encounter for medication review and counseling Z71.89 [facility] [address] [facility] [address] [place] [address] 06/15/2024 [facility] discharge follow-up Z09 ; Hypothyroidism, unspecified E03.9 ; Familial hypercholesterolemia E78.01 ; Essential (primary) hypertension I10 ; Cerebrovascular accident (CVA), unspecified mechanism I63.9 ; Stroke-like symptoms R29.90 ; Chronic fatigue R53.82 ; Body mass index [BMI] 19.9 or less, adult Z68.1 ; Encounter for medication review and counseling Z71.89 and Encounter for screening involving social determinants of health (SDoH) Z13.9 [facility] [address] [place] [address] 06/24/2024 Sarai Douglas Osteoporosis, unspec ified osteoporosis type, unspecified pathological fracture presence M81.0 [facility] [address] [place] [address] 08/10/2024 [facility] discharge follow-up Z09 ; Dizziness and giddiness R42 ; Familial hypercholesterolemia E78.01 ; Essential (primary) hypertension I10 ; Chronic fatigue R53.82 ; Body mass index [BMI] 19.9 or less, adult Z68.1 ; Encounter for medication review and counseling Z71.89 and Encounter for screening involving social determinants of health (SDoH) Z13.9 [facility] [address] [place] [address] 02/10/2024 Rae Aguillon [facility] [address] [place] [address] 04/07/2024 Rae Aguillon Hypothyroidism, unspecified E03.9 and Atherosclerosis of [place] coronary artery of [place] heart without angina pectoris I25.10 [facility] [address] [place] [address] 05/13/2024 Rae Aguillon [facility] [address] [place] [address] 06/07/2024 Rae Aguillon [facility] [address] [place] [address] 06/30/2024 Sarai Douglas [facility] [address] [place] [address] 07/06/2024 Sarai Douglas [facility] [address] [facility] [address] [place] [address] 07/06/2024 Sarai Douglas Osteoporosis without current pathological fracture, unspecified osteoporosis type M81.0 [facility] [address] [facility] [address] [place] [address] 07/23/2024 Rae Aguillon [facility] [address] [facility] [address] [place] [address] 09/22/2024 Rae Pal Assessments Encounter Date Diagnosis (ICD Code) Assessment Notes Treatment Notes Treatment Clinical Notes Section Notes 06/24/2024 Osteoporosis, unspecified osteoporosis type, unspecified pathological [...] center to set up her Prolia injection 07/06/2024 Osteoporosis without current pathological fracture, unspecified osteoporosis type (ICD-10 - M81.0) 08/10/2024 Hospital discharge follow-up (ICD-10 - Z09) 08/10/2024 Dizziness and giddin ess (ICD-10 - R42) 04/07/2024 Hypothyroidism, unspecified (ICD-10 - E03.9) 06/15/2024 Hospital discharge follow-up (ICD-10 - Z09) 06/15/2024 Hypothyroidism, unspecified (ICD-10 - E03.9) 04/06/2024 Hyperlipidemia, unspecified hyperlipidemia type (ICD-10 - E78.5) 04/06/2024 Routine adult health maintenance (ICD-10 - Z00.00) 06/15/2024 Familial hypercholesterolemia (ICD-10 - E78.01) 04/06/2024 Hypothyroidism, unspecified (ICD-10 - E03.9) 04/07/2024 Atherosclerosis [place] coronary artery of [place] heart without angina pectoris (ICD-10 - I25.10) 08/10/2024 Familial hypercholesterolemia (ICD-10 - E78.01) 08/10/2024 Essential (primary) hypertension (ICD-10 - I10) 04/06/2024 Essential (primary) hypertension (ICD-10 - I10) 06/15/2024 Essential (primary) hypertension (ICD-10 - I10) 06/15/2024 Cerebrovascular acci dent (CVA), unspecified mechanism (ICD-10 - I63.9) 04/06/2024 Acute systolic heart failure (ICD-10 - I50.21) 08/10/2024 Chronic fatigue (ICD -10 - R53.82) 08/10/2024 Body mass index [BMI ] 19.9 or less, adult (ICD-10 - Z68.1) 04/06/2024 Cerebrovascular acci dent (CVA), unspecified mechanism (ICD-10 - I63.9) 06/15/2024 Stroke-like symptoms (ICD-10 - R29.90) 04/06/2024 Atherosclerosis of [place] coronary artery of [place] heart without angina pectoris (ICD-10 - I25.10) 06/15/2024 Chronic fatigue (ICD -10 - R53.82) 08/10/2024 Encounter for medica tion review and counseling (ICD-10 - Z71.89) 08/10/2024 Encounter for screen ing involving social determinants of health (SDoH) (ICD-10 - Z13.9) 06/15/2024 Body mass index [BMI ] 19.9 or less, adult (ICD-10 - Z68.1) 04/06/2024 Gastroesophageal ref lux disease without esophagitis (ICD-10 - K21.9) 04/06/2024 Cellulitis (ICD-10 - L03.90) 06/15/2024 Encounter for medica tion review and counseling (ICD-10 - Z71.89) 06/15/2024 Encounter for screen ing involving social determinants of health (SDoH) (ICD-10 - Z13.9) 04/06/2024 Osteoporosis without current pathological fracture, unspecified osteoporosis type (ICD-10 - M81.0) 04/06/2024 Encounter for screen ing for cardiovascular disorders (ICD-10 - Z13.6) 04/06/2024 Encounter for screen ing for respiratory disorder NEC (ICD-10 - Z13.83) 04/06/2024 Adult BMI <19 kg/sq m (ICD-10 - Z68.1) 04/06/2024 Encounter for medica tion review and counseling (ICD-10 - Z71.89) Reviewed, Discussed, and Documented meds. Cont as directed. Plan Of Treatment Pending Test Test Name Order Date EKG -Electrocardiogram 04/06/2024 EKG -Electrocardiogram 02/24/2023 Chest 2 Views XR 04/06/2024 Chest 2 Views XR 02/24/2023 UA MICROALBUMIN RANDOM 02/24/2023 CPK 02/24/2023 HGB A1C 02/24/2023 OCCULT BLOOD 09/16/2022 VITAMIN B12 02/24/2023 CBC W/DIFF 02/24/2023 URINALYSIS 02/24/2023 URIC ACID 02/24/2023 VITAMIN D 1,25 DIHYD 02/24/2023 COMPREHENSIVE METABOLIC PANEL 02/24/2023 LIPID PANEL 02/24/2023 TSH 02/24/2023 Thyroid Panel With TSH 02/13/2022 Creatine Kinase,Total,Serum 11/20/2011 TSH 11/20/2011 C-Reactive Protein, Cardiac 11/20/2011 OCCULT BLOOD 2022 OCCULT BLOOD 05/03/2020 OCCULT BLOOD 03/16/2014 OCCULT BLOOD 02/13/2022 OCCULT BLOOD 03/10/2013 OCCULT BLOOD 02/02/2015 OCCULT BLOOD 06/02/2018 OCCULT BLOOD 03/01/2021 URIC [...] VIEWS 11/20/2011 X-RAY -- CHEST, 2 VIEWS 06/02/2018 X-RAY -- CHEST, 2 VIEWS 04/03/2017 X-RAY -- CHEST, 2 VIEWS 03/01/2021 X-RAY -- CHEST, 2 VIEWS 02/13/2022 EKG ELECTROCARDIOGRAM 02/13/2022 EKG ELECTROCARDIOGRAM 06/02/2018 EKG ELECTROCARDIOGRAM 03/01/2021 EKG ELECTROCARDIOGRAM 04/03/2017 EKG ELECTROCARDIOGRAM 11/20/2011 OCCULT BLOOD, FECAL 04/06/2024 Insurance Providers Payer Name Payer Address Payer Phone Subscriber Number Group Number Insured Name Patient Relationship to Insured Coverage Start Date Coverage End Date [employer]AGE [address] [place] [address] [id number] SHERRY LINDSEY Self - patient is the [...]
--- OUTSIDE RECORDS SUMMARY | 2024-12-28 07:23 | XMS_ITS | Encounter Summary ---
Author Organization [facility] Address [address] [place] [address] Care Team Providers Care Animal Cop Name Role Phone Rae Aguillon MD Primary Care Provider [phone] Encounter Details Date Type Department Care Team (Late st Contact Info) Description 09/09/[address] [facility] [address] [place] [address] Genoveva Lynch MD [address] [place] [address] Coagulation defect, unspecified (HCC) Social History Tobacco Use Types Packs/Day Years Used Date Smoking Tobacco: Former Cigarettes Q uit: 09/08/1992 Smokeless Tobacco: Never Alcohol Use Standard Drinks/Week Comments No 0 (1 standard drink = 0.6 oz pur e alcohol) [facility] Utilities Answer Date Recorded In the past 12 months has [facility] [employer], gas, oil, or water [employer] threatened to shut off services in your [...] time in the past [address] [facility], were you homeless or living in [...] Description 01/13/2025 9:00 AM EDT Hospital Encounter [facility] Surgery [facility] [address] [place] [address] Britt Vinson MD [address] [place] [address] 01/13/2025 9:00 AM EDT - 01/13/2025 10:30 AM EDT Surgery [facility] Surgery [facility] [address] [place] [address] Britt Vinson MD [address] [place] [address] CYSTOSCOPY TRANSURETHRAL RESECTION OF BLADDER [...] MD LAB BLOOD ORDERABLES Final R esult [facility] [address] [place] [address] * (ABNORMAL) Urinalysis with Microscopic if Indicated ( [facility] Only ) (09/09/2024 3:08 PMEST) Urine Color Yellow 09/09/2024 6:25 PM [facility] Urine Clarity Cloudy(A) Clear 09/09/2024 6:25 PM [facility] Urine Glucose Negative Negative mg/dL 09/09/2024 6:25 PM EST [facility] Urine Bilirubin Negative Negative 6:25 PM [facility] Urine Ketones 5(A) Negative mg/dL 09/09/2024 6:25 PM EST [facility] Urine Specific [place] 1.021 1.005 - 1.030 09/09/2024 6:25 PM [facility] Urine Blood Trace(A) Negative 09/09/2024 6:25 PM [facility] U pH 5.0 5.0 - 8.0 09/09/2024 6:25 PM [facility] Urine Protein Trace(A) Negative mg/dL 09/09/2024 6:25 PM EST [facility] Urine Urobilinogen 0.2 <2.0 mg/dL 09/09/2024 6:25 PM EST [facility] Urine Nitrite Positive(A) Negative 09/09/2024 6:25 PM EST [facility] Urine Leukocyte Esterase 3+(A) Negative 09/09/2024 6:25 PM EST [facility] Urine RBC 0-2 0-2 Negative /HPF 09/09/2024 6:25 PM EST [facility] Urine WBC 51-100(A) 0-5 Negative /HPF 09/09/2024 6:25 PM EST [facility] Urine Squamous Epithelial Cells >20(A) 0 - 5 /HPF 09/09/2024 6:25 PM EST [facility] Comment:Epithelial cell coun t may include squamous, transitional and renal tubular epithelial cells Urine Hyaline Casts 3 - 5(A) 0-2 Negative /LPF 09/09/2024 6:25 PM EST [facility] Comment: Total cast count will include hyaline casts and may include pathologic casts. See report below for pathologic casts identification, if present. Urine Bacteria 4+(A) Negative /HPF 09/09/2024 6:25 PM EST [facility] Urine Calcium Oxalate Crystal Present /HPF 09/09/2024 6:25 PM EST [facility] Urine URINE SPECIMEN OBTAINED BY CLEAN CATCH PROCEDURE / Unknown 09/09/2024 3:08 PM EST 09/09/2024 5:40 PM EST [facility] - 09/09/2024 6:25 PM EST Positive dipstick result for blood but no red blood cells detected by fluorescent flow cytometry. The result could be seen in patients with hemoglobinuria and/or myoglobinuria. In rare cases, the result can be caused by discolored urine following ingestion of certain drugs/dyes. us Genoveva Lynch MD LAB URINE ORDERABLES Final R esult [facility] [address] [place] [address] * Immunoglobulins (IgG, IgA, IgM) (09/09/2024 3:08 PM EST) Immunoglobulin A (IgA) 193 70 - 365 mg/dL 09/09/2024 6:11 PM EST [facility] Immunoglobulin G (IgG) 1,300 550 - 1,650 mg/dL 09/09/2024 6:11 PM EST [facility] Immunoglobulin M (IgM) 79 30 - 263 mg/dL 09/09/2024 6:11 PM EST [facility] Blood VENOUS BLOOD SPECIMEN / Unknown 09/09/2024 3:08 PM EST 09/09/2024 5:40 PM EST Genoveva Lynch MD LAB BLOOD ORDERABLES Final R esult Performing Organization Address [facility]/ZIP Co de Phone Number [address] [address] * Antithrombin Activity (09/09/2024 3:08 PM EST) Pathologist [facility] Antithrombin III Activity 97 85 - 150 % 09/10/2024 9:59 AM EST [facility] Comment:NOTE: Some direct or al anticoagulants (e.g. factor Xa inhibitors) may cause false negative results. Decreased Antithrombin levels may be due to either acquired or hereditary causes. Blood VENOUS BLOOD SPECIMEN / Unknown 09/09/2024 3:08 PM EST 09/09/2024 5:40 PM EST Genoveva Lynch MD LAB BLOOD ORDERABLES Final R esult Performing Organization Address City/[facility]/ZIP Co de Phone Number [address] [place] [address] * Protein S Activity (09/09/2024 3:08 PM EST) Pathologist [facility] Protein S Activity 92 50 - 150 % 09/10/2024 9:59 AM EST [facility] Comment:Note that direct ora l anticoagulants can interfere with protein S testing, causing artificially high and/or false negative results. Blood VENOUS BLOOD SPECIMEN / Unknown 09/09/2024 3:08 PM EST 09/09/2024 5:40 PM EST Genoveva Lynch MD LAB BLOOD ORDERABLES Final R esult Performing Organization Address City/[facility]/ZIP Co de Phone Number [facility] [address] [place] [address] * Protein C Activity (09/09/2024 3:08 PM EST) Protein C Activity 93 70 - 150 % 09/10/2024 9:59 AM EST [facility] Blood VENOUS BLOOD SPECIMEN / Unknown 09/09/2024 3:08 PM EST 09/09/2024 5:40 PM EST Genoveva Lynch MD LAB BLOOD ORDERABLES Final R esult Performing Organization Address City/[facility]/ZIP Co de Phone Number [address] [facility] [address] documented in this encounter Visit Diagnoses Diagnosis Coagulation defect, 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
--- OUTSIDE RECORDS SUMMARY | 2024-12-28 07:24 | XMS_ITS | Encounter Summary ---
Author Organization [facility] Address [address] [place] [address] Care Team Providers Care Careers Counsellor Name Role Phone Rae Aguillon MD Primary Care Provider [phone] Encounter Details Date Type Department Care Team (Late st Contact Info) Description 11/18/2024 Telephone [facility] Cardiology - [address] [place] [address] [facility] [address] [place] [address] [place] [address] [facility] [address] [place] [address] Social History Tobacco Use Types Packs/Day Years Used Date Smoking Tobacco: Former Cigarettes Q uit: 09/08/1992 Smokeless Tobacco: Never Alcohol Use Standard Drinks/Week Comments No 0 (1 standard drink = 0.6 oz pur e alcohol) [facility] Utilities Answer Date Recorded In the past 12 months has [facility] [employer], gas, oil, or water [employer] threatened to shut off services in your [...] any time in the past 12 m [facility], were you homeless or [...] 01/13/2025 9:00 AM EDT Hospital Encounter [facility] Surgery [address] [place] [address] Britt Vinson MD [address] [facility] [address] [place] [address] 01/13/2025 9:00 AM EDT - 01/13/2025 10:30 AM EDT Surgery [facility] Surgery [address] [place] [address] Britt Vinson MD [address] [facility] [address] [place] [address] CYSTOSCOPY TRANSURETHRAL RESECTION OF BLADDER [...] on filedocumented in this encounter Care Teams Careers Counsellor Relationship Specialty Start Date End Date Rae Aguillon MD PCP - General Internal Medicine 03/05/19 documented as of this encounter
--- OUTSIDE RECORDS SUMMARY | 2024-12-28 07:24 | XMS_ITS | Clinical Summary ---
Author Organization [facility] Address [address] [place] [address] Care Team Providers Care Overnight Cashier Name Role Phone Rae Aguillon MD Primary Care Provider [phone] Allergies Active Allergy Reactions Criticality Noted Date [...] Incisional pain 12/01/2014 Overview (03/17/2024): Dilaudid , [place] Tylenol PRN Cardiomyopathy, ischemic 12/01/2014 Muscle weakness (generalized) 12/01/2014 CAD (coronary artery disease) 12/01/2014 Hyperlipidemia 12/01/2014 Aneurysm of left ventricle of heart 10/28/2014 Encounters Date Type Department Care Team Description 12/27/2024 Telephone [facility] Cardiology - [address] [address] [facility] [address] [place] [address] Cristina Thibodeaux MD 12/08/2024 1:17 PM EDT Anesthesia Event [facility] Electrophysiology Laboratory [address] [place] [phone] Brianda Rivas MD Rude, Mary A, RN 12/08/2024 12:30 PM EDT - 12/08/2024 2:00 PM EDT Surgery [facility] Electrophysiology Laboratory 8 [facility] [address] [place] [address] Cristina Thibodeaux MD CV IMPLANTABLE CARDIOVERTER DEFIBRILLATOR INSERTION 12/08/2024 11:08 AM EDT - 12/09/2024 1:44 PM EDT Hospital Encounter [facility] 8 [facility] [address] [place] [address] Cristina Thibodeaux MD S/P ICD (internal cardiac defibrillator) procedure (Primary Dx); NICM (nonischemic cardiomyopathy) (HCC) Discharge Disposition: Home or Self Care 12/03/2024 11:44 AM EDT - 12/03/2024 11:59 PM EDT Hospital Encounter [facility] CT First Floor - [address] [facility] [address] [place] [address] Umberto Vinson MD Gross hematuria Discharge Disposition: Home or Self Care 12/02/2024 2:25 PM EDT Clinical Support [facility] Laboratory - [address] [facility] [address] [place] [address] NICM (nonischemic cardiomyopathy) (HCC); Pre-procedure lab exam 11/24/2024 Telephone [facility] Cardiology - [address] [place] [address] Cristina Thibodeaux MD Results 11/18/2024 Telephone [facility] Cardiology - [address] [place] [address] Cristina Thibodeaux MD 11/05/2024 Telephone [facility] Cardiology - [address] [place] [address] Cristina Thibodeaux MD Procedure 11/04/2024 Telephone [facility] Cardiology - [address] [place] [address] Cristina Thibodeaux MD OTHER 11/03/2024 Lab Requisition [facility] Laboratory [address] [place] [address] Umberto Vinson MD Gross hematuria 11/02/2024 Telephone [facility] Cardiology - [address] [place] [address] Cristina Thibodeaux MD OTHER 10/29/2024 1:30 PM EST Office Visit [facility] Cardiology - [address] [place] [address] Cristina Thibodeaux MD Chronic systolic congestive heart failure (HCC) (Primary Dx); Dizziness; Coronary artery disease involving kootenai coronary artery of kootenai heart without angina pectoris 10/29/2024 Telephone [facility] Cardiology - [address] [place] [address] Cristina Thibodeaux MD OTHER 10/29/2024 Telephone [facility] Cardiology - [address] [place] [address] Cristina Thibodeaux MD OTHER 10/26/2024 Telephone [facility] Cardiology - [address] [place] [address] Cristina Thibodeaux MD Abnormal Result 09/29/2024 Telephone [facility] Cardiology - [address] [place] [address] Cristina Thibodeaux MD OTHER from [...] drink = 0.6 oz pur e alcohol) [facility] Utilities Answer Date Recorded In the past 12 months has e [employer], gas, oil, or water [employer] threatened to shut off services in your [...] place to sleep or slept in a prison (including now)? No 07/27/2024 Housing Stability Vital [...] in the past 12 m [facility], were you homeless or living in a prison (including now)? No 12/08/2024 Comments No Sex [...] Description 01/13/2025 9:00 AM EDT Hospital Encounter [facility] Surgery [address] [place] [address] Umberto Vinson MD [address] [place] [address] 01/13/2025 9:00 AM EDT - 01/13/2025 10:30 AM EDT Surgery [facility] Surgery [facility] [address] [place] [address] Umberto Vinson MD [address] [place] [address] CYSTOSCOPY TRANSURETHRAL RESECTION OF BLADDER [...] this topic Medical Devices Implanted Type Area Supervisor Vendor Quality Device Identifier Shelf Expiration Date Model / Serial / Lot Icd [place] Xt Mri Df4 Vr - [id number] Implanted:Qty: 1 on 12/08/2024 by Cristina Thibodeaux MD at [facility] ICD Left: Chest Wall [employer] 01/19/2026 [id number] / [id number] / [id number] Lead Sprint Secure S Df4 62cm - [id number] Implanted:Qty: 1 on 12/08/2024 by Cristina Thibodeaux MD at [facility] Lead Left: Heart [employer] 08/10/2026 [id number] / [id number] / [id number] Procedures Procedure Name Priority Date/Time Associated Diagnosis [...] PM EST Gross hematuria NON-MUSE EKG [facility] Routine 10/29/2024 Chronic systolic congestive heart failure (HCC) Coronary artery disease involving kootenai coronary artery of kootenai heart without angina pectoris LIPID PANEL Routine 07/24/2024 7:05 AM EST from Last 3 Months or Most Recently Relevant to Health Maintenance Results * Cardiac Device Check (12/08/2024 3:58 PM EDT) Date Time Interrogation Session [id number] [facility] Implantable Pulse Generator Supervisor Vendor Quality [employer] [facility] [facility] Implantable Pulse Generator Model [id number] [place] XT VR MRI [facility] Implantable Pulse Generator Serial Number [id number] [facility] Type Interrogation Session In Clinic [facility] Clinic Name Device Clinic - [place] [facility] Implantable Pulse Generator Type Defibrillator [facility] Implantable Pulse Generator Implant Date 20241208 [facility] Implantable Lead Supervisor Vendor Quality [employer] [facility] Implantable Lead Model 6935M Sprint Quattro Secure S MRI SureScan [facility] Implantable Lead Serial Number [id number] [facility] Implantable Lead Implant Date 20241208 [facility] Implantable Lead Polarity Type Tripolar Lead [facility] Implantable Lead Location Detail 1 [...] Channel Setting Pacing Pulse Width 0.4 ms [facility] Lead Channel Setting Pacing Amplitude 3.5 V [facility] Lead Channel Setting Pacing Capture Mode Adaptive [facility] Zone Setting Type Category VF [facility] Zone Setting Vendor Type Category VF [facility] Zone Setting Status Active [facility] Zone Setting Detection Interval 300 ms [facility] Zone Setting Detection Beats Numerator 30 {beats} [facility] Zone Setting Detection Beats Denominator 40 {beats} [facility] Zone Setting Type Category VT [facility] Zone Setting Vendor Type Category FastVT [facility] Zone Setting Status Inactive [facility] Zone Setting Type Category VT [facility] Zone Setting Vendor Type Category VT [facility] Zone Setting Status Inactive [facility] Zone Setting Detection Interval 360 [...] Zone Setting Detection Beats Denominator 32 {beats} [facility] Lead Channel Impedance Value 380 ohm [facility] Lead Channel Impedance Value 475 ohm [facility] Lead Channel Sensing Intrinsic Amplitude 12.1 mV [facility] Lead Channel Pacing Threshold Amplitude 0.5 V [facility] Lead Channel Pacing Threshold Pulse Width 0.4 ms [facility] Battery Date Time of Measurements [id number] [facility] Battery 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 2.8 V [facility] Battery Voltage 3.14 V SPEC [facility] Capacitor Charge Type Shock [facility] Capacitor Charge Time 0 s [facility] Capacitor Charge Energy 40.0 J [facility] Guy Statistic Date Time Start [id number] [facility] Guy Statistic Date Time End [id number] [facility] Guy Statistic RV Percent Paced 0 % [facility] Atrial Tachy Statistic Date Time Start [id number] [facility] Atrial Tachy Statistic Date Time End [id number] [facility] Atrial Tachy Statistic AT/AF [place] Percent 0 % [facility] Therapy Statistic Recent Shocks Delivered 0 [facility] Therapy Statistic Recent Shocks Aborted 0 [facility] Therapy Statistic Recent ATP Delivered 0 [facility] Therapy Statistic Recent Date Time Start [id number] [facility] Therapy Statistic Recent Date Time End [id number] [facility] Therapy Statistic Total Shocks Delivered 0 [facility] Therapy Statistic Total Shocks Aborted 0 [facility] Therapy Statistic Total ATP Delivered 0 [facility] Therapy Statistic Total Date Time Start [id number] [facility] Therapy Statistic Total Date Time End [id number] [facility] Episode Statistic Recent Count 0 [facility] Episode Statistic Type Category Patient Activated [facility] Episode Statistic Recent Count 0 [facility] C[facility] Episode Statistic Type Category SVT [facility] C[facility] Episode Statistic Recent Count 0 [facility] C[facility] Episode Statistic Type Category VT [facility] Episode Statistic Recent Count 0 [facility] Episode Statistic Type Category VF S[facility] Episode Statistic Recent Count 0 [facility] Episode Statistic Type Category VT [facility] Episode Statistic Recent Count 0 [facility] C[facility] Episode Statistic Type Category VT [facility] Episode Statistic Recent Count 0 [facility] C[facility] Episode Statistic Type Category VT [facility] Episode Statistic Recent Date Time Start [id number] [facility] Episode Statistic Recent Date Time End [id number] [facility] Episode Statistic Recent Date Time Start [id number] [facility] Episode Statistic Recent Date Time End [id number] [facility] Episode Statistic Recent Date Time Start [id number] [facility] Episode Statistic Recent Date Time End 95238828255549 [facility] Episode Statistic Recent Date Time Start [id number] [facility] Episode Statistic Recent Date Time End [id number] [facility] Episode Statistic Recent Date Time Start [id number] [facility] Episode Statistic Recent Date Time End [id number] [facility] Episode Statistic Recent Date Time Start [id number] [facility] Episode Statistic Recent Date Time End [id number] [facility] Episode Statistic Recent Date Time Start [id number] [facility] Episode Statistic Recent Date Time End [id number] [facility] Episode Statistic Total Count [...] CARDIOLOGY Episode Statistic Total Date Time Start [id number] [facility] Episode Statistic Total Date Time End 38636332071207 [facility] Episode Statistic Total Date Time Start 47846029338915 [facility] Episode Statistic Total Date Time End [id number] [facility] Episode Statistic Total Date Time Start 34390507018724 [facility] Episode Statistic Total Date Time End 96876421175189 [facility] Episode Statistic Total Date Time Start 36284241229782 [facility] Episode Statistic Total Date Time End 36896289799930 [facility] Episode Statistic Total Date Time Start 33467661569264 [facility] Episode Statistic Total Date Time End 66090012771134 [facility] Episode Statistic Total Date Time Start [id number] [facility] Episode Statistic Total Date Time End [id number] [facility] Episode Statistic Total Date Time Start [id number] [facility] Episode Statistic Total Date Time End 59690064359562 [facility] Summary Statement Same day discharge check. Presenting rhythm VS. RV sense 12.1 mv, threshold .5 v @ .40 ms, impedance 475. No new events. Battery at Martha. Programmed VVI-40 [facility] 12/08/2024 3:58 PM EDT us Salim H Ahmed MD CARDIAC DEVICE ORDERABLES Final Result [facility] * DR Paulson 2 Views [...] PM EDT 12/08/2024 3:51 PM EDT Narrative [facility] - 12/08/2024 3:51 PM EDT Ventricular Rate 70 BPM Atrial Rate 70 BPM P-R Interval 202 ms QRS Duration 104 ms Q-T Interval 424 ms QTC Calculation(Bazett) 457 ms Calculated P Entiat 66 degrees Calculated R Entiat -72 degrees Calculated T Entiat 118 degrees Diagnosis Normal sinus rhythm Borderline first degree AV block Left anterior fascicular block Minimal voltage criteria for LVH, may be normal variant ( [place] product ) Cannot rule out Anterior infarct (cited on or before 08-DEC-2024) Nonspecific ST-T wave changes Abnormal ECG When compared with ECG of 08-DEC-2024 11:52, (Unconfirmed) No significant change was found Confirmed by Marcel Degroot ([id number]) on 12/08/2024 3:51:38 PM Procedure Note Marcel Degroot MD - 12/08/2024 Ventricular Rate 70 BPM Atrial Rate 70 BPM P-R Interval 202 ms QRS Duration 104 ms Q-T Interval 424 ms QTC Calculation(Bazett) 457 ms Calculated P Entiat 66 degrees Calculated R Entiat -72 degrees Calculated T Entiat 118 degrees Diagnosis Normal sinus rhythm Borderline first degree AV block Left anterior fascicular block Minimal voltage criteria for LVH, may be normal variant ( [employer] ) Cannot rule out Anterior infarct (cited on or before 08-DEC-2024) Nonspecific ST-T wave changes Abnormal ECG When compared with ECG of 08-DEC-2024 11:52, (Unconfirmed) No significant change was found Confirmed by Marcel Degroot ([id number]) on 12/08/2024 3:51:38 PM us Cristina Thibodeaux MD ECG ORDERABLES Final Result [facility] * CV IMPLANTABLE CARDIOVERTER DEFIBRILLATOR [...] critical result message was conveyed to UMBERTO Slater VINSON by Dr. Rudy Juan on 12/04/2024 1:49 PM. [employer] Actionable Findings Message ID [id number]. Narrative 12/04/2024 1:[address] UROGRAM [...] 12/04/2024 1:49 PM. [employer]Connect[employer]able Findings Message ID [id number]. Umberto Vinson MD CT ORDERABLES Final Resul t * (ABNORMAL) Complete Blood Count w/Differential (12/02/2024 2:32 PM EDT) White Blood Cell 6.6 3.3 - 10.7 x10*9/L 12/03/2024 9:50 AM EDT [facility] Red Blood Cell 4.14 3.87 - 5.08 x10*12/L 12/03/2024 9:50 AM EDT [facility] Hemoglobin 12.7 12.1 - 15.0 g/dL 12/03/2024 9:50 AM EDT [facility] Hematocrit 41.5 35.4 - 44.2 % 12/03/2024 9:50 AM EDT [facility] Mean Cell Volume 100.2 79.5 - 100.4 fL 12/03/2024 9:50 AM EDT [facility] Mean Cell Hemoglobin 30.7 27.5 - 33.4 pg 12/03/2024 9:50 AM EDT [facility] Mean Cell Hemoglobin Concentration 30.6(L) 31.5 - 35.4 g/dL 12/03/2024 9:50 AM EDT [facility] Red Cell Distribution Width 13.6 11.5 - 15.4 % 12/03/2024 9:50 AM EDT [facility] Platelet 227 150 - 400 x10*9/L 12/03/2024 9:50 AM EDT [facility] Mean Platelet Volume 10.2 8.0 - 12.0 fL 12/03/2024 9:50 AM EDT [facility] Neutrophil Automated Absolute 3.57 1.55 - 7.24 x10*9/L 12/03/2024 9:50 AM EDT [facility] Lymphocyte Automated Absolute 2.28 1.05 - 4.04 x10*9/L 12/03/2024 9:50 AM EDT [facility] Monocyte Automated Absolute 0.47 0.00 - 0.84 x10*9/L 12/03/2024 9:50 AM EDT [facility] Eosinophil Automated Absolute 0.20 0.00 - 0.54 x10*9/L 12/03/2024 9:50 AM EDT [facility] Basophil Automated Absolute 0.05 0.00 - 0.14 x10*9/L 12/03/2024 9:50 AM EDT [facility] Immature Granulocyte Automated Absolute 0.01 0.00 - 0.03 x10*9/L 12/03/2024 9:50 AM EDT [facility] Immature Granulocyte Automated 0.2 0.0 - 1.0 % 12/03/2024 9:50 AM EDT [facility] NUCLEATED RED BLOOD CELLS AUTOMATED 0.0 <=0.0 % 12/03/2024 9:50 AM EDT [facility] Blood VENOUS BLOOD SPECIMEN / Unknown Venipuncture / Unknown 12/02/2024 2:32 PM EDT 12/02/2024 2:33 PM EDT us Cristina Thibodeaux MD LAB BLOOD ORDERABLES Final Resu lt [facility] [address] [place] [address] * (ABNORMAL) Basic Metabolic Panel (BMP) (12/02/2024 2:32 PM EDT) Sodium 143 135 - 145 mmol/L 12/03/2024 11:00 AM EDT [facility] Potassium 3.9 3.5 - 5.2 mmol/L 12/03/2024 11:00 AM EDT [facility] Chloride 101 98 - 111 mmol/L 12/03/2024 11:00 AM EDT [facility] Bicarbonate 27 20 - 29 mmol/L 12/03/2024 11:00 AM EDT [facility] Anion Gap 15 5 - 17 mmol/L 12/03/2024 11:00 AM EDT [facility] Glucose 42(L) 70 - 99 mg/dL 12/03/2024 11:00 AM EDT [facility] Comment:Results Repeated. Blood Urea Nitrogen (BUN) 24 7 - 25 mg/dL 12/03/2024 11:00 AM EDT [facility] Creatinine 0.86 0.50 - 1.10 mg/dL 12/03/2024 11:00 AM EDT [facility] eGFR 71 >60 mL/min/1.7 3 m2 12/03/2024 11:00 AM EDT [facility] Comment: Calculation based on the Chronic [...] - 10.5 mg/dL 12/03/2024 11:00 AM EDT [facility] Blood VENOUS BLOOD SPECIMEN / Unknown Venipuncture / Unknown 12/02/2024 2:32 PM EDT 12/02/2024 2:33 PM EDT us Cristina Thibodeaux MD LAB BLOOD ORDERABLES Final Resu lt [facility] [address] [place] [address] * JOSE FRANCISCO DEFIB (IMPLANTABLE CARDIOVERTER DEFIBRILLATOR) (11/13/2024 10:18 AM EST) DAMARIIEDU DEFIB (IMPLANTABLE CARDIOVERTER DEFIBRILLATOR) PATIENT EDUCATION EMMIURL [email or web address] PATIENT EDUCATION EMMIACC [id number] PATIENT EDUCATION EMMIISSUEDATE Nov 13, 2024 PAT [...] SURGICAL SITE INFECTION PREVENTION PATIENT EDUCATION EMMIURL [email or web address] PATIENT EDUCATION EMMIA [id number] PATIENT EDUCATION EMMIISSUEDATE Nov 13, 2024 PAT [...] Urine, Urine, Voided 11/10/2024 3:12 PM EST [facility] Dx Category NEGATIVE FOR HIGH GRADE UROTHELIAL CARCINOMA 11/10/2024 3:12 PM EST [facility] Diagnosis NEGATIVE FOR HIGH GRADE UROTHELIAL CARCINOMA 11/10/2024 3:12 PM EST [facility] at 1512 EST Additional Diagnosis Background neutrophils present 11/10/2024 3:12 PM EST [facility] Comments The Fidelia System (TPS) for Reporting Urinary Cytology is used to evaluate urine cytology specimens. When possible, this system is applied to render the diagnosis. For more information regarding the categories, please refer to Shakeel VARGHESE, Denise CHAUDHARII, Xin DL. The Fidelia System for Reporting Urinary Cytology. 2nd Ed. [place]: Severino, 2021. 11/10/2024 3:12 PM EST [facility] Clinical Information R31.0 Gross hematuria 11/10/2024 3:12 PM EST [facility] Specimen Adequacy Satisfactory for evaluation. 11/10/2024 3:12 PM EST [facility] Materials received and processed 55ml of hazy, yellow fluid in a sterile container. 1 Thinprep slide prepared Screened by: Isaias Paz This specimen was prepared and screened at [facility] Cytology Laboratory, [address] [place], [place] [id number] 11/10/2024 3:12 PM EST [facility] Embedded Images 11/10/2024 3:12 PM EST [facility] Case Report Medical Cytology Case: [id number] Authorizing Provider: Umberto Vinson MD Collected: 11/02/2024 1435 Ordering Location: [facility] Received: 11/03/2024 0107 [facility] Pathologist: Anna Gonzalez MD Specimen: Urine, Voided 11/10/2024 3:12 PM EST [facility] Urine URINE SPECIMEN FROM URETHRA / Unknown 11/02/2024 2:35 PM EST 11/03/2024 1:07 AM EST us Umberto Vinson MD LAB CYTOLOGY ORDERABLES Fin al Result [facility] [address] [place] [address] * NON-MUSE EKG (10/29/2024) us Cristina Thibodeaux MD ECG ORDERABLES Final Result * (ABNORMAL) Lipid Panel (07/24/2024 7:05 AM EST) Cholesterol Total 158 <200 mg/dL 024 8:31 AM EST [facility] Comment: Optimal: 0 - 199 mg/dL Borderline: 200-239 mg/dL High CHD Risk: >239 mg/dL HDL Cholesterol 44(L) >=50 mg/dL 8:31 AM EST [facility] Comment: Optimal: >59 mg/dL High CHD Risk: <40 mg/dL LDL Cholesterol, Calculated 98 <129 mg/dL 07/24/2024 8:31 AM EST [facility] Comment: Optimal: <100 Near Optimal: 100 [...] 85 <150 mg/dL 07/24/2024 8:31 AM EST [facility] Comment: Optimal: 0 - 149 mg/dL Borderline: 150 - 199 mg/dL High CHD Risk: 200 - 500 mg/dL Very High CHD Risk: >500 mg/dL Non-HDL Cholesterol, Calculated 114 <120 mg/dL 07/24/2024 8:31 AM EST [facility] Chol/HDL Ratio 3.6 1.8 - 4.9 07/24/2024 8:31 AM EST [facility] Fasting time as reported by patient 07/24/2024 8:31 AM EST [facility] Comment:0 Hours Blood VENOUS BLOOD SPECIMEN / Unknown Venipuncture / Unknown 07/24/2024 7:05 AM EST 07/24/2024 7:55 AM EST us Joanna Harris MD LAB BLOOD ORDERABLES Fin al Result [facility] [address] [place] [address] from Last 3 Months or Most Recently Relevant to Health Maintenance Insurance [facility] Care Teams Overnight Cashier Relationship Specialty Start Date End Date Rae Aguillon MD PCP - General Internal Medicine 03/05/19
--- OUTSIDE RECORDS SUMMARY | 2024-12-28 07:24 | XMS_ITS | Referral Summary ---
Author Organization [facility] Address [address] [place] [address] Care Team Providers Care Traveling Auditor Name Role Phone Rae Aguillon MD Primary Care Provider [phone] Encounters Date Type Department Care Team Description 12/27/2024 Telephone [facility] Cardiology - [address] [address] [facility] [address] [place] [phone] Cristina Thibodeaux MD 12/08/2024 11:08 AM EDT - 12/09/2024 1:44 PM EDT Hospital Encounter [address] [place] [address] Cristina Thibodeaux MD S/P ICD (internal cardiac defibrillator) procedure (Primary Dx); NICM (nonischemic cardiomyopathy) (HCC) Discharge Disposition: Home or Self Care 12/08/2024 12:30 PM EDT - 12/08/2024 2:00 PM EDT Surgery [facility] Electrophysiology Laboratory [address] [place] [address] Cristina Thibodeaux MD CV IMPLANTABLE CARDIOVERTER DEFIBRILLATOR INSERTION 12/08/2024 1:17 PM EDT Anesthesia Event [facility] Electrophysiology Laboratory [address] [place] [address] Brianda Rivas MD Rude, Mary A, RN 12/03/2024 11:44 AM EDT - 12/03/2024 11:59 PM EDT Hospital Encounter [facility] CT First Floor - [address] [place] [phone] Umberto Vinson MD Gross hematuria Discharge Disposition: Home or Self Care 12/02/2024 2:25 PM EDT Clinical Support [facility] Laboratory - [address] [place] [address] NICM (nonischemic cardiomyopathy) (HCC); Pre-procedure lab exam 11/24/2024 Telephone [facility] Cardiology - [address] [place] [phone] Cristina Thibodeaux MD Results 11/18/2024 Telephone [facility] Cardiology - [address] [place] [phone] Cristina Thibodeaux MD 11/05/2024 Telephone [facility] Cardiology - [address] [place] [phone] Cristina Thibodeaux MD Procedure 11/04/2024 Telephone [facility] Cardiology - [address] [place] [phone] Cristina Thibodeaux MD OTHER 11/03/2024 Lab Requisition [facility] Laboratory [address] [place] [address] Umberto Vinson MD Gross hematuria 11/02/2024 Telephone [facility] Cardiology - [address] [place] [phone] Cristina Thibodeaux MD OTHER 10/29/2024 Telephone [facility] Cardiology - [address] [place] [phone] Cristina Thibodeaux MD OTHER 10/29/2024 Telephone [facility] Cardiology - [address] [place] [phone] Cristina Thibodeaux MD OTHER 10/29/2024 1:30 PM EST Office Visit [facility] Cardiology - [address] [place] [phone] Cristina Thibodeaux MD Chronic systolic congestive heart failure (HCC) (Primary Dx); Dizziness; Coronary artery disease involving [place] coronary artery of [place] heart without angina pectoris 10/26/2024 Telephone [facility] Cardiology - [address] [place] [phone] Cristina Thibodeaux MD Abnormal Result 09/29/2024 Telephone [facility] Cardiology - [address] [place] [phone] Cristina Thibodeaux MD OTHER from Last 3 [...] failure) 12/02/2014 Incisional pain 12/01/2014 Overview (03/17/2024): Dilradhika Dundas Tylenol PRN Cardiomyopathy, ischemic 12/01/2014 Muscle weakness [...] drink = 0.6 oz pur e alcohol) [facility] Utilities Answer Date Recorded In the [...] any time in the past 12 m [facility], were you homeless or living [...] Description 01/13/2025 9:00 AM EDT Hospital Encounter [facility] Surgery [facility] [address] [place] [phone] Umberto Vinson MD [address] [facility] [address] [place] [address] 01/13/2025 9:00 AM EDT - 01/13/2025 10:30 AM EDT Surgery [facility] [address] [place] [address] Umberto Vinson MD [address] [facility] [address] [place] [address] CYSTOSCOPY TRANSURETHRAL RESECTION OF BLADDER TUMOR, Scheduled Procedures Name Priority Associated Diagnoses Date/Ti me TURBT (TRANSURETHRAL RESECTION OF BLADDER TUMOR) Neoplasm of uncertain behavior of bladder 01/13/2025 9:00 AM EDT CYSTOURETEROSCOPY, WITH RETROGRADE PYELOGRAM OR STENT INSERTION Neoplasm of uncertain behavior of bladder 01/13/2025 9:00 AM EDT Medical Devices Implanted Type Area Flight Line Service Attendant Device Identifier Shelf Expiration Date Model / Serial / Lot Icd [place] Xt Mri Df4 Vr - [id number] Implanted:Qty: 1 on 12/08/2024 by Cristina Thibodeaux MD at [facility] ICD Left: Chest Wall [employer] 01/19/2026 [id number] / [id number] / [id number] Lead Sprint Secure S Df4 62cm - [id number] Implanted:Qty: 1 on 12/08/2024 by Cristina Thibodeaux MD at [facility] Lead Left: Heart [employer] 08/10/2026 [id number] / [id number] / [id number] Procedures Procedure Name Priority Date/Time Associated Diagnosis [...] heart failure (HCC) Coronary artery disease involving [place] coronary artery of [place] heart without angina pectoris LIPID PANEL Routine 07/24/2024 7:05 AM EST from Last 3 Months or Most Recently Relevant to Health Maintenance Results * Cardiac Device Check (12/08/2024 3:58 PM EDT) Date Time Interrogation Session [id number] [employer] CARDIOLOGY Implantable Pulse Generator Flight Line Service Attendant [employer] [facility] Implantable Pulse Generator Model [id number] [place] XT VR MRI [facility] CARDIOLOG[facility] Implantable Pulse Generator Serial Number [id number] [facility] CARDIOLOGY Type Interrogation Session In Clinic [facility] CARDIOLOGY Clinic Name Device Clinic - [facility]ly [facility] CARDIOLOGY Implantable Pulse Generator Type Defibrillator [facility] Implantable Pulse Generator Implant Date 20241208 [facility] [employer] CARDIOLOGY Implantable Lead Flight Line Service Attendant [employer] [facility] [facility] Implantable Lead Model 6935M Sprint Quattro Secure S MRI SureScan [employer] CARDIOLOGY Implantable Lead Serial Number [id number] [facility] CARDIOLOGY Implantable Lead Implant Date 20241208 [facility] [employer] CARDIOLOGY Implantable Lead Polarity Type Tripolar Lead [facility] [employer] CARDIOLOGY Implantable Lead Location Detail 1 UNKNOWN [employer] CARDIOLOGY Implantable Lead Special Function 6935m-62 [employer] CARDIOLOG[facility] Implantable Lead Location Right Ventricle [employer] [facility] Implantable Lead Connection Status Connected [employer] CARDIOLOG[facility] Guy Setting Mode (NBG Code) VVI [employer] CARDIOLOG[facility] Guy Setting Lower Rate Limit 40 {beats}/ min [employer] [facility]ARDI[facility] Lead Channel Setting Sensing Polarity Bipolar [facility] Lead Channel Setting Sensing Anode Location Right Ventricle [facility] Lead Channel Setting Sensing Anode Terminal Ring [facility] Lead Channel Setting Sensing Cathode Location Right Ventricle [facility] Lead Channel Setting Sensing [place] Terminal Tip [employer] [facility] Lead Channel Setting Sensing Sensitivity 0.3 mV [employer] [facility] Lead Channel Setting Pacing Polarity Bipolar [employer] [facility] Lead Channel Setting Pacing Anode Location Right Ventricle [facility] Lead Channel Setting Pacing Anode Terminal Ring [facility] Lead Channel Setting Sensing Cathode Location Right Ventricle [facility] Lead Channel Setting Sensing [place] Terminal Tip [employer] [facility] Lead Channel Setting Pacing Pulse Width 0.4 ms [employer] CARDIOLOG[facility] Lead Channel Setting Pacing Amplitude 3.5 V [employer] CARDI[facility] Lead Channel Setting Pacing Capture Mode Adaptive [facility] Zone Setting Type Category VF [facility] Zone Setting Vendor Type Category VF [facility] Zone Setting Status Active [facility] Zone Setting Detection Interval 300 ms [facility] Zone Setting Detection Beats Numerator 30 {beats} [employer] [facility] Zone Setting Detection Beats Denominator 40 {beats} [employer] [facility] Zone Setting Type Category VT [employer] [facility] Zone Setting Vendor Type Category FastVT [facility] Zone Setting Status Inactive [facility] Zone Setting Type Category VT [facility] Zone Setting Vendor Type Category VT [facility] Zone Setting Status Inactive [facility] Zone Setting Detection Interval 360 ms [facility] Zone Setting Detection Beats Numerator 16 {beats} [employer] [facility] Zone Setting Detection Beats Denominator 16 {beats} [facility] Zone Setting Type Category VT [facility] Zone Setting Vendor Type Category MonVT [employer] [facility] Zone Setting Status Monitor [employer] CARDIOLOG[facility] Zone Setting Detection Interval 400 ms [facility] Zone Setting Detection Beats Numerator 32 {beats} [facility] [employer] [facility] Zone Setting Detection Beats Denominator 32 {beats} [employer] CARDIOLOG[facility] Lead Channel Impedance Value 380 ohm [facility] [employer] [facility] Lead Channel Impedance Value 475 ohm [facility] [employer] [facility] Lead Channel Sensing Intrinsic Amplitude 12.1 mV [facility] [employer] [facility] Lead Channel Pacing Threshold Amplitude 0.5 V [employer] CARDIOLOG[facility] Lead Channel Pacing Threshold Pulse Width 0.4 ms [employer] C[facility] Battery Date Time of Measurements [id number] [employer] [facility] Battery POLITICAL DIRECTOR Trigger 2.8 V [employer] [facility] Battery Voltage 3.14 [employer] CARDIOLOGY Capacitor Charge Type Shock [employer] [facility] Capacitor Charge Time 0 s [employer] [facility] Capacitor Charge Energy 40.0 J [employer] [facility] Guy Statistic Date Time Start [id number] [employer] [facility] Guy Statistic Date Time End [id number] [employer] [facility] Guy Statistic RV Percent Paced 0 % [employer] [facility] Atrial Tachy Statistic Date Time Start [id number] [employer] [facility] Atrial Tachy Statistic Date Time End [id number] [employer] [facility] Atrial Tachy Statistic AT/AF [place] Percent 0 % [employer] [facility] Therapy Statistic Recent Shocks Delivered 0 [employer] [facility] Therapy Statistic Recent Shocks Aborted 0 [employer] [facility] Therapy Statistic Recent ATP Delivered 0 [employer] [facility] Therapy Statistic Recent Date Time Start [id number] [employer] [facility] Therapy Statistic Recent Date Time End [id number] [employer] [facility] Therapy Statistic Total Shocks Delivered 0 [employer] [facility] Therapy Statistic Total Shocks Aborted 0 [employer] [facility] Therapy Statistic Total ATP Delivered 0 [employer] [facility] Therapy Statistic Total Date Time Start [id number] [employer] [facility] Therapy Statistic Total Date Time End [id number] [employer] [facility] Episode Statistic Recent Count 0 [employer] [facility] Episode Statistic Type Category Patient Activated [employer] [facility]IOLOG[facility] Episode Statistic Recent Count 0 [employer] [facility] Episode Statistic Type Category SVT [employer] CARDIOLOG[facility] Episode Statistic Recent Count 0 [employer] CARDI[facility] Episode Statistic Type Category VT [employer] CARDIOLOGY Episode Statistic Recent Count 0 [employer] [facility]ARDIOLOG[facility] Episode Statistic Type Category VF [employer] CARDIOLOG[facility] Episode Statistic Recent Count 0 [employer] CARDI[facility] Episode Statistic Type Category VT [employer] CARDIOLOGY Episode Statistic Recent Count 0 [employer] CARDIOLOG[facility] Episode Statistic Type Category VT [employer] CARDIOLOGY Episode Statistic Recent Count 0 [employer] [facility] Episode Statistic Type Category VT [employer] CARDIOLOGY Episode Statistic Recent Date Time Start [id number] [employer] [facility] Episode Statistic Recent Date Time End [id number] [facility] Episode Statistic Recent Date Time Start [id number] [facility] Episode Statistic Recent Date Time End [id number] [facility] Episode Statistic Recent Date Time Start [id number] [facility] Episode Statistic Recent Date Time End [id number] [facility] Episode Statistic Recent Date Time Start [id number] [facility] Episode Statistic Recent Date Time End [id number] [facility] Episode Statistic Recent Date Time Start [id number] [facility] Episode Statistic Recent Date Time End [id number] [facility] Episode Statistic Recent Date Time Start [id number] [facility] Episode Statistic Recent Date Time End [id number] [facility] Episode Statistic Recent Date Time Start [id number] [facility] Episode Statistic Recent Date Time End [id number] [facility] Episode Statistic Total Count [...] CARDIOLOGY Episode Statistic Total Date Time Start 28816896134034 [facility] Episode Statistic Total Date Time End [id number] [facility] Episode Statistic Total Date Time Start [id number] [facility] Episode Statistic Total Date Time End [id number] [facility] Episode Statistic Total Date Time Start [id number] [facility] Episode Statistic Total Date Time End [id number] [facility] Episode Statistic Total Date Time Start [id number] [facility] Episode Statistic Total Date Time End [id number] [facility] Episode Statistic Total Date Time Start [id number] [facility] Episode Statistic Total Date Time End [id number] [facility] Episode Statistic Total Date Time Start [id number] [facility] Episode Statistic Total Date Time End [id number] [facility] Episode Statistic Total Date Time Start [id number] [facility] Episode Statistic Total Date Time End [id number] [facility] Summary Statement Same day discharge check. Presenting rhythm VS. RV sense 12.1 mv, threshold .5 v @ .40 ms, impedance 475. No new events. Battery at [place]. Programmed VVI-40 [facility] 12/08/2024 3:58 PM EDT Cristina Thibodeaux MD CARDIAC DEVICE ORDERABLES Final Result [facility] * DR [place] 2 Views Frontal [...] PM EDT 12/08/2024 3:51 PM EDT Narrative [facility] - 12/08/2024 3:51 PM EDT Ventricular Rate 70 BPM Atrial Rate 70 BPM P-R Interval 202 ms QRS Duration 104 ms Q-T Interval 424 ms QTC Calculation(Bazett) 457 ms Calculated P [place] 66 degrees Calculated R [place] -72 degrees Calculated T [place] 118 degrees Diagnosis Normal sinus rhythm Borderline first degree AV block Left anterior fascicular block Minimal voltage criteria for LVH, may be normal variant ( [place] product ) Cannot rule out Anterior infarct (cited on or before 08-DEC-2024) Nonspecific ST-T wave changes Abnormal ECG When compared with ECG of 08-DEC-2024 11:52, (Unconfirmed) No significant change was found Confirmed by Marcel Degroot ([id number]) on 12/08/2024 3:51:38 PM Procedure Note Marcel Degroot MD - 12/08/2024 Ventricular Rate 70 BPM Atrial Rate 70 BPM P-R Interval 202 ms QRS Duration 104 ms Q-T Interval 424 ms QTC Calculation(Bazett) 457 ms Calculated P [place] 66 degrees Calculated R [place] -72 degrees Calculated T [place] 118 degrees Diagnosis Normal sinus rhythm Borderline first degree AV block Left anterior fascicular block Minimal voltage criteria for LVH, may be normal variant ( [employer] ) Cannot rule out Anterior infarct (cited on or before 08-DEC-2024) Nonspecific ST-T wave changes Abnormal ECG When compared with ECG of 08-DEC-2024 11:52, (Unconfirmed) No significant change was found Confirmed by Marcel Degroot ([id number]) on 12/08/2024 3:51:38 PM us Cristina Thibodeaux MD ECG ORDERABLES Final Result [facility] * CV IMPLANTABLE CARDIOVERTER DEFIBRILLATOR INSERTION [...] Dr. Rudy Juan on 12/04/2024 1:49 PM. Lab4U Message ID [id number]. Narrative 12/04/2024 1:[address] UROGRAM [...] 12/04/2024 1:49 PM. Power[employer] Findings Message ID [id number]. us Umberto Vinson MD CT ORDERABLES Final Resul t * (ABNORMAL) Complete Blood Count w/Differential (12/02/2024 2:32 PM EDT) White Blood Cell 6.6 3.3 - 10.7 x10*9/L 12/03/2024 9:50 AM EDT [facility] Red Blood Cell 4.14 3.87 - 5.08 x10*12/L 12/03/2024 9:50 AM EDT [facility] Hemoglobin 12.7 12.1 - 15.0 g/dL 12/03/2024 9:50 AM EDT [facility] Hematocrit 41.5 35.4 - 44.2 % 12/03/2024 9:50 AM EDT [facility] Mean Cell Volume 100.2 79.5 - 100.4 fL 12/03/2024 9:50 AM EDT [facility] Mean Cell Hemoglobin 30.7 27.5 - 33.4 pg 12/03/2024 9:50 AM EDT [facility] Mean Cell Hemoglobin Concentration 30.6(L) 31.5 - 35.4 g/dL 12/03/2024 9:50 AM EDT [facility] Red Cell Distribution Width 13.6 11.5 - 15.4 % 12/03/2024 9:50 AM EDT [facility] Platelet 227 150 - 400 x10*9/L 12/03/2024 9:50 AM EDT [facility] Mean Platelet Volume 10.2 8.0 - 12.0 fL 12/03/2024 9:50 AM EDT [facility] Neutrophil Automated Absolute 3.57 1.55 - 7.24 x10*9/L 12/03/2024 9:50 AM EDT [facility] Lymphocyte Automated Absolute 2.28 1.05 - 4.04 x10*9/L 12/03/2024 9:50 AM EDT [facility] Monocyte Automated Absolute 0.47 0.00 - 0.84 x10*9/L 12/03/2024 9:50 AM EDT [facility] Eosinophil Automated Absolute 0.20 0.00 - 0.54 x10*9/L 12/03/2024 9:50 AM EDT [facility] Basophil Automated Absolute 0.05 0.00 - 0.14 x10*9/L 12/03/2024 9:50 AM EDT [facility] Immature Granulocyte Automated Absolute 0.01 0.00 - 0.03 x10*9/L 12/03/2024 9:50 AM EDT [facility] Immature Granulocyte Automated 0.2 0.0 - 1.0 % 12/03/2024 9:50 AM EDT [facility] NUCLEATED RED BLOOD CELLS AUTOMATED 0.0 <=0.0 % 12/03/2024 9:50 AM EDT [facility] Blood VENOUS BLOOD SPECIMEN / Unknown Venipuncture / Unknown 12/02/2024 2:32 PM EDT 12/02/2024 2:33 PM EDT us Cristina Thibodeaux MD LAB BLOOD ORDERABLES Final Resu lt [facility] [address] [place] [id number] * (ABNORMAL) Basic Metabolic Panel (BMP) (12/02/2024 2:32 PM EDT) Sodium 143 135 - 145 mmol/L 12/03/2024 11:00 AM EDT [facility] Potassium 3.9 3.5 - 5.2 mmol/L 12/03/2024 11:00 AM EDT [facility] Chloride 101 98 - 111 mmol/L 12/03/2024 11:00 AM EDT [facility] Bicarbonate 27 20 - 29 mmol/L 12/03/2024 11:00 AM EDT [facility] Anion Gap 15 5 - 17 mmol/L 12/03/2024 11:00 AM EDT [facility] Glucose 42(L) 70 - 99 mg/dL 12/03/2024 11:00 AM EDT [facility] Comment:Results Repeated. Blood Urea Nitrogen (BUN) 24 7 - 25 mg/dL 12/03/2024 11:00 AM EDT [facility] Creatinine 0.86 0.50 - 1.10 mg/dL 12/03/2024 11:00 AM EDT [facility] eGFR 71 >60 mL/min/1.7 3 m2 12/03/2024 11:00 AM EDT [facility] Comment: Calculation based on the Chronic [...] - 10.5 mg/dL 12/03/2024 11:00 AM EDT [facility] Blood VENOUS BLOOD SPECIMEN / Unknown Venipuncture / Unknown 12/02/2024 2:32 PM EDT 12/02/2024 2:33 PM EDT us Cristina Thibodeaux MD LAB BLOOD ORDERABLES Final Resu lt [facility] [address] [place] [address] * JOSE FRANCISCO DEFIB (IMPLANTABLE CARDIOVERTER DEFIBRILLATOR) (11/13/2024 10:18 AM EST) EMMIEDU DEFIB (IMPLANTABLE CARDIOVERTER DEFIBRILLATOR) PATIENT EDUCATION EMMIURL [email or web address] PATIENT EDUCATION EMMIACC [id number] PATIENT EDUCATION EMMIISSUEDATE Nov 13, 2024 PAT [...] SURGICAL SITE INFECTION PREVENTION PATIENT EDUCATION EMMIURL [email or web address] PATIENT EDUCATION EMMIACC [id number] PATIENT EDUCATION EMMIIUEDNov 13, 2024 PAT IENT [...] Urine, Urine, Voided 11/10/2024 3:12 PM EST [facility] Dx Category NEGATIVE FOR HIGH GRADE UROTHELIAL CARCINOMA 11/10/2024 3:12 PM EST [facility] Diagnosis NEGATIVE FOR HIGH GRADE UROTHELIAL CARCINOMA 11/10/2024 3:12 PM EST [facility] at 1512 EST Additional Diagnosis Background neutrophils present 11/10/2024 3:12 PM EST [facility] Comments The Fidelia System (TPS) for Reporting Urinary Cytology is used to evaluate urine cytology specimens. When possible, this system is applied to render the diagnosis. For more information regarding the categories, please refer to Shakeel VARGHESE, Denise CHAUDHARII, Xin DL. The Fidelia System for Reporting Urinary Cytology. 2nd Ed. Jerome: Severino, 2021. 11/10/2024 3:12 PM EST [facility] Clinical Information R31.0 Gross hematuria 11/10/2024 3:12 PM EST [facility] Specimen Adequacy Satisfactory for evaluation. 11/10/2024 3:12 PM EST [facility] Materials received and processed 55ml of hazy, yellow fluid in a sterile container. 1 Thinprep slide prepared Screened by: Isaias Paz This specimen was prepared and screened at [facility], [address] [place] [address] 11/10/2024 3:12 PM EST [facility] Embedded Images 11/10/2024 3:12 PM EST [facility] Case Report Medical Cytology Case: [id number] Authorizing Provider: Umberto Vinson MD Collected: 11/02/2024 1435 Ordering Location: [facility] Received: 11/03/2024 0107 [facility] Pathologist: Anna Gonzalez MD Specimen: Urine, Voided 11/10/2024 3:12 PM EST [facility] Urine URINE SPECIMEN FROM URETHRA / Unknown 11/02/2024 2:35 PM EST 11/03/2024 1:07 AM EST us Umberto Vinson MD LAB CYTOLOGY ORDERABLES Fin al Result [facility] [address] [place] [address] * NON-MUSE EKG (10/29/2024) us Cristina Thibodeaux MD ECG ORDERABLES Final Result * (ABNORMAL) Lipid Panel (07/24/2024 7:05 AM EST) Cholesterol Total 158 <200 mg/dL 024 8:31 AM EST [facility] Comment: Optimal: 0 - 199 mg/dL Borderline: 200-239 mg/dL High CHD Risk: >239 mg/dL HDL Cholesterol 44(L) >=50 mg/dL 8:31 AM EST [facility] Comment: Optimal: >59 mg/dL High CHD Risk: <40 mg/dL LDL Cholesterol, Calculated 98 <129 mg/dL 07/24/2024 8:31 AM EST [facility] Comment: Optimal: <100 Near Optimal: 100 [...] 85 <150 mg/dL 07/24/2024 8:31 AM EST [facility] Comment: Optimal: 0 - 149 mg/dL Borderline: 150 - 199 mg/dL High CHD Risk: 200 - 500 mg/dL Very High CHD Risk: >500 mg/dL Non-HDL Cholesterol, Calculated 114 <120 mg/dL 07/24/2024 8:31 AM EST [facility] Chol/HDL Ratio 3.6 1.8 - 4.9 07/24/2024 8:31 AM EST [facility] Fasting time as reported by patient 07/24/2024 8:31 AM EST [facility] Comment:0 Hours Blood VENOUS BLOOD SPECIMEN / Unknown Venipuncture / Unknown 07/24/2024 7:05 AM EST 07/24/2024 7:55 AM EST us Joanna Harirs MD LAB BLOOD ORDERABLES Fin al Result [facility] [address] [place] [address] from Last 3 Months or Most Recently Relevant to Health Maintenance Insurance [facility] Care Teams Traveling Auditor Relationship Specialty Start Date End Date Rae Aguillon MD PCP - General Internal Medicine 03/05/19
--- OUTSIDE RECORDS SUMMARY | 2024-12-28 07:24 | XMS_ITS ---
Author Organization [facility] Address [address] [facility] [address] [place] [address] Care Team Providers Care Furnace Door Tender Name Role Phone Rae Aguillon MD Primary Care Provider Tiny Barnes [phone] REASON FOR VISIT Rx faxed Medications Medication SIG (Take, Route, Frequency, Duration) Notes Start Date End Date Status PEG 3350-KCl-Na Bicarb-NaCl 420 GM 2000 ML Orally Split Dose per Physician Instructions for 1 DAY 09/19/2023 09/20/2023 Active Encounters Encounter Location Date Provider Diagnosis [facility] [address] [facility] [address] [place] [address] 09/19/2023 Tiny Moralez Plan Of Treatment Medication Medication Name Sig Start Date Stop Date Notes PEG 3350-KCl-Na Bicarb-NaCl 420 GM 2000 ML Orally Split Dose per Physician Instructions for 1 DAY 09/19/2023 09/20/2023 Progress Notes * Dennis LINDSEYOB:1950 (73 yo F)Acc No.[id number]:09/19/2023 Patient: Mary Kay Hernandez :1950 A ge:73 Y S ex:Female Address:[address] [place] [address], [address] * Refills Start PEG 3350-KCl-Na Bicarb-NaCl Solution Reconstituted, 420 GM, Orally, 1 kit, 2000 ML, Split Dose per Physician Instructions, 1 DAY, Refills=0 * true * Date: Generated for Printi ng/Faxing/eTransmitting on: 0 12/28/2024 08:24 AM EDT
--- OUTSIDE RECORDS SUMMARY | 2024-12-28 07:24 | XMS_ITS ---
Author Organization [facility] Address [address] [facility] [address] [place] [address] Care Team Providers Care Cash Analyst Name Role Phone Rae Aguillon MD Primary Care Provider Tiny Barnes Unavailable [phone] REASON FOR VISIT HFWB COLON/PERS HX POLYPS PCP RAE AGUILLON PP Problems Problem Type SNOMED Code ICD Code Onset Dates Problem Status W/U Status Risk Notes Problem History of polyp of colon (situation) (090290312) Hx of colonic polyps (Z86.010) Active confirmed Encounters Encounter Location Date Provider Diagnosis [facility] [address] [place] [address] 10/22/2023 Tiny Moralez Plan Of Treatment No Information Progress Notes * Yelena LINDSEYBoomOB:1950 (74 yo F)Acc No.[id number]:10/22/2023 Patient: Mary Kay AGUIAR Provider: Rhonda Moralez M.D. :1950 A ge:73 Y S ex:Female Date:10/22/2023 Address:[address] [place], [place] [address] Pcp:Rae Aguillon MD * Billing Information: * Visit Code: * Procedure Codes: * The named appointment provid er may or may not be the originator of this progress note, and it is not deemed complete until electronically signed by the appointment provider. Sign off status: Pending * Provider: Rhonda Moralez M.D. Date: 0 10/22/2023 Generated for Gelyi ng/Kindra/eTransmitting on: 0 12/28/2024 08:23 AM EDT
--- OUTSIDE RECORDS SUMMARY | 2024-12-28 07:24 | XMS_ITS ---
Author Organization [facility] Address [address] [address] [facility] [address] [place] [address] Care Team Providers Care Station Jailer Name Role Phone Rae Aguillon Primary Care Provider [phone] [address] NEVAREZ, Rae Unavailable Unavailable REASON FOR VISIT HOSPITAL FOLLOW UP 07/22/24-07/29/24 Encounters Encounter Location Date Provider Diagnosis [facility] [address] [facility] [address] [place] [id number] 08/09/2024 Rae Aguillon Plan Of Treatment No Information Progress Notes * SHERRY GARCIA MDOB: 0 (74 yo F)Acc No.[id number]:08/09/2024 OV 15 MIN Patient: SHERRY AGUIAR Provider: Liz Aguillon MD :1950 A ge:74 Y S ex:Female Date:08/09/2024 Address:[address] [place], [place] [id number] Structured Data:[facility] Brochur e : Yes Subjective: * Chief Complaints: * 1 . HOSPITAL FOLLOW UP 07/22/24-07/29/24. * Medical History: Objective: * Vitals: Assessment: Plan: * Treatment: * Images: Billing Information: * Visit Code: * Procedure Codes: * Electronic signature of Rae Aguillon MD on 12/28/2024 at 08:24 AM EDT Sign off status: Pending * Provider: Liz Aguillon MD Date: 1 10/10/2023 Generated for Christin daniel/Kindra/eTransmitting on: 0 12/28/2024 08:24 AM EDT
--- OUTSIDE RECORDS SUMMARY | 2024-12-28 07:25 | XMS_ITS | Referral Summary ---
Author Organization [employer] ([facility] 03/28/2024) ([employer]) Address [address] [place] [address] Care Team Providers Care Grain Drier Operator Name Role Phone Rae Aguillon Primary Care Provider [phone] Allergies Active Allergy Reactions Criticality Noted Date Comments Latex Hives High 10/27/2014 Lisinopril Cough 12/08/2014 Morphine Other High 09/22/2014 Severe back pain Medications Medication Sig Dispensed Refills Start Date End Date Status losartan (COZAAR) 25 MG PO Tab take 1 Tab by mouth once daily. 30 Tab 1 12/09/2014 Active carVEDilol (COREG) 6.25 MG PO Tab take 1 Tab by mouth every 12 hours. 60 Tab 1 12/09/2014 Active LEVOthyroxine (SYNTHROID, LEVOTHROID) 100 MCG PO Tab take 1 Tab by mouth once daily before breakfast. 30 Tab 1 12/09/2014 Active multi-vitamins with minerals and iron (CENTRUM ADULTS) PO Tab take 1 Tab by mouth once daily. Active Ascorbic Acid (VITAMIN C) 1000 MG PO tablet take 1,000 mg by mouth once daily. Active Melatonin 10 MG PO Cap take 1 Cap by mouth once every night at bedtime as needed. Active venlafaxine (EFFEXOR XR) 37.5 MG PO CAPSULE SR 24 HR take 37.5 mg by mouth once daily. Active clopidogrel (PLAVIX) 75 MG PO Tab take 1 Tab by mouth once daily. 30 Tab 03/08/2019 Active atorvastatin (LIPITOR) 80 MG PO Tab take 1 Tab by mouth once every night at bedtime. 30 Tab 03/08/2019 Active Active Problems Problem Noted Date Diagnosed Date Acute CVA (cerebrovascular accident) 03/08/2019 General weakness 03/05/2019 Family history of colon cancer 08/25/2018 Benign neoplasm of ascending colon 08/25/2018 Benign neoplasm of transverse colon 08/25/2018 Diverticulosis of large intestine without divert iculitis 08/25/2018 First degree hemorrhoids 08/25/2018 S/P aortic aneurysm repair 12/09/2014 Postoperative atrial fibrillation 12/03/2014 Assessment & Plan (12/08/2014 1:04 PM EDT): -recurrent AF this morning, . -continue PO amiodarone taper. -Coumadin started 12/05/14, patient has had long history of warfarin therapy prior to OR. Assessment & Plan (12/07/2014 11:35 AM EDT): -recurrent AF this morning, . -continue PO amiodarone taper. -Coumadin started 12/05/14, patient has had long history of warfarin therapy prior to OR. Assessment & Plan (12/06/2014 12:50 PM EDT): -recurrent AF this morning, now NSR. -continue PO amiodarone taper. -Coumadin alone started today, patient has had long history of warfarin therapy prior to OR. Assessment & Plan (12/05/2014 2:09 PM EDT): -recurrent AF this morning, now NSR. -continue PO amiodarone taper. IV amiodarone bolus given once for increased heart rate up to 130s today -Coumadin alone started today, patient has had long history of warfarin therapy prior to OR. Chronic systolic CHF (congestive heart failure) 12/02/2014 Assessment & Plan (12/08/2014 1:03 PM EDT): cardiomyopathy EF 35% Echo 12/06/14 Arpita continues Assessment & Plan (12/07/2014 11:35 AM EDT): cardiomyopathy EF 35% Echo 12/06/14 Assessment & Plan (12/06/2014 12:49 PM EDT): cardiomyopathy EF 38 % repeat Echo before discharge to home. Assessment & Plan (12/04/2014 3:55 PM EDT): See cardiomyopathy problem CAD (coronary artery disease) 12/01/2014 Assessment & Plan (12/08/2014 1:01 PM EDT): h/o PCI of the LAD. CAD stable on recent cath- continue BB, aspirin and statin. Continue TMS Assessment & Plan (12/07/2014 11:32 AM EDT): h/o PCI of the LAD. CAD stable on recent cath- continue BB, aspirin and statin. Continue TMS Assessment & Plan (12/06/2014 12:48 PM EDT): h/o PCI of the LAD. CAD stable on recent cath- continue BB, aspirin and statin. Continue TMS Assessment & Plan (12/05/2014 12:47 PM EDT): h/o PCI of the LAD. CAD stable on recent cath -On BB, aspirin and statin. -Continue TMS Assessment & Plan (12/01/2014 10:39 AM EDT): PCI of the LAD Hyperlipidemia 12/01/2014 Assessment & Plan (12/08/2014 1:01 PM EDT): Continue statin Assessment & Plan (12/07/2014 11:32 AM EDT): Continue statin Assessment & Plan (12/06/2014 12:48 PM EDT): Continue statin Assessment & Plan (12/04/2014 3:51 PM EDT): Continue statin Assessment & Plan (12/01/2014 10:44 AM EDT): Statin when appropriate Cardiomyopathy, ischemic 12/01/2014 Assessment & Plan (12/08/2014 1:02 PM EDT): EF=38%. BB & Aldactone at home. ARB cozaar added / does not want Lisinopril or any dea Assessment & Plan (12/07/2014 11:33 AM EDT): EF=38%. BB & Aldactone at home. DEA-I added with BP parameters. Assessment & Plan (12/06/2014 12:49 PM EDT): EF=38%. On Aldactone at home. DEA-I added with BP parameters. Assessment & Plan (12/05/2014 12:51 PM EDT): EF=38%. On Aldactone at home. -DEA-I added with BP parameters. Assessment & Plan (12/01/2014 10:44 AM EDT): EF 38% monitor dea when able Incisional pain 12/01/2014 Overview (12/01/2014): Miguel Ángel , [place] Tylenol PRN Assessment & Plan (12/08/2014 1:04 PM EDT): [place] Tylenol PRN Assessment & Plan (12/07/2014 11:35 AM EDT): [place] Tylenol PRN Assessment & Plan (12/06/2014 12:51 PM EDT): [place] Tylenol PRN Assessment & Plan (12/01/2014 10:46 AM EDT): PT Chair increase activity as tolerated Muscle weakness (generalized) 12/01/2014 Assessment & Plan (12/08/2014 1:03 PM EDT): PT chair, shower ambulating with PT home activity's explained for discharge Increase ambulation as tolerataed Assessment & Plan (12/07/2014 11:34 AM EDT): PT chair, shower ambulating with PT home activity's explained for discharge Assessment & Plan (12/06/2014 12:52 PM EDT): PT chair, shower ambulating with assist increase activity as tolerated Aneurysm of left ventricle of heart 10/28/2014 Assessment & Plan (12/08/2014 1:01 PM EDT): s/p Excision and closure of left ventricular aneurysm -Continue GI/DVT prophylaxis, cardiac diet, pain control and pulmonary toilet. -Continue TMS. -Replete lytes prn. echocardiogram completed prior to DC. 12/06/14 EF 35% Assessment & Plan (12/07/2014 11:32 AM EDT): s/p Excision and closure of left ventricular aneurysm -Continue GI/DVT prophylaxis, cardiac diet, pain control and pulmonary toilet. -Continue TMS. -Replete lytes prn. echocardiogram completed prior to DC. 12/06/14 EF 35% Assessment & Plan (12/06/2014 12:47 PM EDT): s/p Excision and closure of left ventricular aneurysm -Continue GI/DVT prophylaxis, cardiac diet, pain control and pulmonary toilet. -Continue TMS. -Replete lytes prn. -f/u echocardiogram ordered today to be completed prior to DC. Assessment & Plan (12/05/2014 2:07 PM EDT): s/p Excision and closure of left ventricular aneurysm -Continue GI/DVT prophylaxis, cardiac diet, pain control and pulmonary toilet. -Continue TMS. -Replete lytes prn. -f/u echocardiogram ordered today to be completed prior to DC. Assessment & Plan (12/01/2014 10:37 AM EDT): Post Excision Lt ventricular Aneurysm Primary repair of the aneurysm site. Resolved Problems Problem Noted Date Diagnosed Date Resolved Date Deep breathing 12/01/2014 12/07/2014 Assessment & Plan (12/07/2014 11:36 AM EDT): Continue C & DB Triflow pulmonary hygiene Assessment & Plan (12/01/2014 10:49 AM EDT): Continue C & DB [place] pulmonary hygiene Adequate nutrition 12/01/2014 5 Overview (12/01/2014): Cardiac diet increase as tolerated Assessment & Plan (12/08/2014 1:03 PM EDT): Encourage cardiac diet Assessment & Plan (12/07/2014 11:36 AM EDT): Encourage cardiac diet Pseudoaneurysm of left ventricle of heart 10/28/2014 12/01/2014 Immunizations Name Administration Dates Next Due Covid-19 Vaccine (Promimic) 12/04/2020,11/13/2020 Social History Tobacco Use Types Packs/Day Years Used Date Smoking Tobacco: Former Cigarettes 2 25 0 09/08/1967 - 09/08/1992 Smokeless Tobacco: Never Comments:Smoked 1 pack/day w vidae trying to quit Alcohol Use Standard Drinks/Week Comments No 0 (1 standard drink = 0.6 oz pur e alcohol) Sex and Gender Information Value Date Recorded Sex Assigned at Not on file Gender Identity Not on file Sexual Orientation Not on file Last Filed Vital Signs Vital Sign Reading Time Taken Comments Blood Pressure 116/51 11/29/2020 4:47 PM EDT Pulse 65 11/29/2020 4:47 PM EDT Temperature 36.6 C (97.9 F) 11/29/2020 4:47 PM EDT Respiratory Rate 19 11/29/2020 4:47 PM EDT Oxygen Saturation 97% 11/29/2020 4:47 PM EDT Inhaled Oxygen Concentration - - Weight 62.6 kg (138 lb) 05/01/2020 7:44 PM EDT Height 177.8 cm (5' 10 ) 05/01/2020 7:44 PM EDT Body Mass Index 19.8 05/01/2020 7:44 PM EDT Plan of Treatment Not on file Advance Directives For more information, please contact: [phone] Documents on File Type Date Recorded Patient Financing Analyst Expl anation Advance Directives and Living Will 12/12/2014 12:34 PM DPOA for Healthcare Created [id number] * Full CPR (Latest Code Status on File) Date Activated Date Inactivated Comments 11/30/2014 10:10 AM 12/09/2014 12:38 PM Care Teams Grain Drier Operator Relationship Specialty Start Date End Date Rae Aguillon [address] [facility] [address] [place] [address] PCP - General Internal Medicine 03/05/19
--- OUTSIDE RECORDS SUMMARY | 2024-12-28 07:25 | XMS_ITS ---
Author Organization [facility] Address [address] [facility] [address] [place] [address] Care Team Providers Care Dominatrix Name Role Phone Rae Aguillon MD Primary Care Provider Tiny Barnes Unavailable [phone] REASON FOR VISIT MED CLEARANCE Encounters Encounter Location Date Provider Diagnosis [facility] [address] [facility] [address] [place] [address] 10/03/2023 Tiny Moralez Plan Of Treatment No Information Progress Notes * Dennis MAHANOB:1950 (73 yo F)Acc No.[id number]:10/03/2023 Patient: Mary Kay Hernandez :1950 A ge:73 Y S ex:Female Address:[address] [place] [address], [address] * true * Date: Generated for Gelyi maría/Kindra/eTransmitting on: 0 12/28/2024 08:25 AM EDT
--- OUTSIDE RECORDS SUMMARY | 2024-12-28 07:25 | XMS_ITS | Patient Health Record ---
Author Organization [facility] Address [address] [facility] [address] [place] [address] Care Team Providers Care Sr Solutions Consultant Name Role Phone Rae Aguillon MD Primary Care Provider Tiny Barnes Unavailable [phone] Reason For Referral No Information Medications Medication SIG (Take, Route, Frequency, Duration) Notes Start Date End Date Status Nulytely with Flavor Packs 420 GM as directed Orally Split Dose per Physician Instructions for 1 Day prior to colonoscopy 08/10/2018 Active Problems Problem Type SNOMED Code ICD Code Onset Dates Problem Status W/U Status Risk Notes Problem History of polyp of colon (situation) (570316838) Hx of colonic polyps (Z86.010) Active confirmed Problem 1589280 Diverticulosis o f large intestine without perforation or abscess without bleeding (K57.30) Active confirmed Plan Of Treatment No Information Insurance Providers Payer Name Payer Address Payer Phone Subscriber Number Group Number Insured Name Patient Relationship to Insured Coverage Start Date Coverage End Date [employer] [address] [place] [address] [phone] [id number] Mary Kay Mahan Self - patient is the insured 6
--- OUTSIDE RECORDS SUMMARY | 2024-12-28 07:25 | XMS_ITS ---
Author Organization [facility] Address [address] [place] [address] [address] [place] [address] Care Team Providers Care Medical Cash Poster Name Role Phone Rae Aguillon Primary Care [...] 08/10/2024 Encounters Encounter Location Date Provider Diagnosis [facility] [address] [facility] [address] [place] [address] 08/10/2024 [facility] discharge follow-up Z09 ; Dizziness and giddiness [...] SHERRY GARCIA MDOB: 0 (74 yo F)Acc No.[id number]:08/10/2024 OV 15 MIN Patient: SHERRY AGUIAR Provider: Liz Aguillon MD :1950 A ge:74 Y S ex:Female Date:08/10/2024 Address:[address] [place] [address] Structured Data:[facility] Tianna e : Yes Subjective: * Chief [...] a: former smoker;. . . Works in [employer] for [employer] Has 4 grandchildren. * Medications: T akingLosartan [...] 9 9495 TRANS CARE MGMT 14 DAY [id number] [facility] MED/CURRENT MED [id number] BODY MASS INDEX DOCD * Follow Up: 4 Months * Billing Information: * Visit Code: * Procedure Codes: 46495 TRANS CARE MGMT 14 DAY DISCH. 1111F [facility] MED/CURRENT MED MERGE. 3008F BODY MASS INDEX DOCD. * Sign off status: Completed true * Provider: Liz Aguillon MD Date: 10/11/2023 Generated for Christin daniel/Kindra/eTransmitting on: 0 12/28/2024 08:24 AM EDT History and Physical Notes * Examination Category Sub-Category Detail Notes Category Not es General Examination HEART: normal, no m urmurs, regular rate and rhythm, S1, S2 normal LUNGS: clear to auscultatio n bilaterally, good air movement EXTREMITIES: no clubbing, cyanosi s, or edema PERIPHERAL PULSES: 2+ throughout
--- OUTSIDE RECORDS SUMMARY | 2024-12-28 07:25 | XMS_ITS | Clinical Summary ---
Author Organization [facility] ([facility] 03/28/2024) ([email or web address]) Address [address] [place] [address] Care Team Providers Care Assistant Professor Of Theater Name Role Phone Rae Aguillon Primary Care Provider [phone] Allergies Active Allergy Reactions Criticality Noted Date [...] pain 12/01/2014 Overview (12/01/2014): Miguel Ángel , [place] Tylenol PRN Assessment & Plan (12/08/2014 1:04 PM EDT): [place] Tylenol PRN Assessment & Plan (12/07/2014 11:35 AM EDT): [place] Tylenol PRN Assessment & Plan (12/06/2014 12:51 PM EDT): [place] Tylenol PRN Assessment & Plan (12/01/2014 10:46 [...] Name Administration Dates Next Due Covid-19 Vaccine ([facility] DualCom) 12/04/2020,11/13/2020 Family History Medical History Relation Name Comments Cancer - Colon Father Coronary Artery Disease Father Bypa ss Surgery (Age Mid 70s) Diabetes Father Diabetes Type 2 Father Cancer - Other Mother Uterine Cance r Diabetes Mother Diabetes Type 2 Mother Blood Clotting Disorder Neg Hx Relation Name Status Comments Father (Age 85) Heart Fail ure Mother (Age 85) Renal Fail ure Social History Tobacco Use Types Packs/Day Years Used Date Smoking Tobacco: Former Cigarettes 2 25 0 09/08/1967 - 09/08/1992 Smokeless Tobacco: Never Comments:Smoked 1 pack/day w jonas trying to quit Alcohol Use Standard Drinks/Week [...] 05/01/2020 7:44 PM EDT Plan of Treatment Health Maintenance Due Date Last Done Comments CT Colonography 1950 FIT-DNA 1950 FIT/FOBT 1950 SCREENING: HEPATITIS C 1950 Sigmoidoscopy 1950 FALL RISK SCREENING, DETAILS 1951 SCREENING: DEPRESSION 1962 HEALTH MAINTENANCE EXAM (ADULT) 1969 VACCINE: TETANUS,DIPHTHERIA BOOSTER (TD BOOSTER) EVERY 10 YEARS 1969 Mammogram 1990 VACCINE: ZOSTER (SHINGRIX) (#1) 02/07/2000 Advance Care Planning Documentation 2015 Pneumococcal Vaccine: 65+ Years (1 of 1 - PCV) 2015 SCREENING: OSTEOPOROSIS 2015 SCREENING: FALL RISK 03/23/2020 03/23/2019 VACCINE: INFLUENZA (#1) 2024 08/16/20 14, 08/02/2013, 07/03/2011 VACCINE: COVID-19 ( season) 2024 12/04/2020, 11/13/2020 Colonoscopy 08/25/2028 08/25/2018 Colorectal Cancer Screening 08/25/2028 VACCINE: HEPATITIS A Aged Out No long er eligible based on patient's age to complete this topic Vaccines: HIB Aged Out No longer elig ible based on patient's age to complete this topic Vaccines: IPV Aged Out No longer elig ible based on patient's age to complete this topic Vaccines: Meningococcal Aged Out No l onger eligible based on patient's age to complete this topic Vaccines: Rotavirus Aged Out No longe r eligible based on patient's age to complete this topic Advance Directives For more information, please contact: [phone] Documents on File Type Date Recorded Patient Or Manager Expl anation Advance Directives and Living Will 12/12/2014 12:34 PM DPOA for Healthcare Created [id number] * Full CPR (Latest Code Status on File) Date Activated Date Inactivated Comments 11/30/2014 10:10 AM 12/09/2014 12:38 PM Care Teams Assistant Professor Of Theater Relationship Specialty Start Date End Date Rae Aguillon [address] [facility] [address] [place] [address] PCP - General Internal Medicine 03/05/19
--- OUTSIDE RECORDS SUMMARY | 2024-12-28 07:25 | XMS_ITS | Encounter Summary ---
Author Organization [facility] Address [address] [place] [address] Care Team Providers Care Quality Worker Name Role Phone Rae Aguillon MD Primary Care Provider Encounter Details Date Type Department Care Team (Late st Contact Info) Description 09/10/2024 Lab Requisition [facility] [address] [place] [address] Genoveva Lynch MD [address] [place] [address] Coagulation defect, unspecified (HCC) Social History Tobacco Use Types Packs/Day Years Used Date Smoking Tobacco: Former Cigarettes Q uit: 09/08/1992 Smokeless Tobacco: Never Alcohol Use Standard Drinks/Week Comments No 0 (1 standard drink = 0.6 oz pur e alcohol) [facility] Utilities Answer Date Recorded In the past 12 months has [facility] [employer], gas, oil, or water [employer] threatened to shut off services in [...] any time in the past 12 m [facility], were you homeless or living in a [...] 9:00 AM EDT Hospital Encounter [facility] Surgery [facility] [address] [place] [address] Britt Vinson MD [address] [place] [address] 01/13/2025 9:00 AM EDT - 01/13/2025 10:30 AM EDT Surgery [facility] Surgery [facility] [address] [place] [address] Britt Vinson MD [address] [place] [address] CYSTOSCOPY TRANSURETHRAL RESECTION OF BLADDER [...] documented in this encounter Results * Prothrombin [id number] (09/09/2024 3:55 PM EST) Prothrombin [id number] Wild Type Wild Type, See comment [employer]OL[employer] 48-48 09/13/2024 1:33 PM EST [facility] Prothrombin [id number] Interpretation NEGATIVE - Only the Wild Type (Normal) form of the Prothrombin (F2) gene is present; no mutation is detected. The Prothrombin mutation analysis (F2, c.*97G>A; legacy 87394G>A) utilizes [employer], which automates and integrates sample purification, nucleic acid amplification, and detection of the target sequence in whole blood using real-time Polymerase Chain Reaction (PCR) assays. Clinical Significance: The [id number] (c.*97G>A) mutation in the prothrombin gene is associated with elevated plasma prothrombin levels. This mutation is present in 18% of patients with documented familial history of venous thrombosis, in 6.2% of unselected patients with a first, objectively confirmed episode of deep vein thrombosis, and in 1-2% of healthy control subjects. Carriers of the [id number] allele have higher plasma prothrombin levels than individuals with a normal genotype and have a 2.8-fold increased risk of venous thrombosis. Homozygosity for this mutation is very rare; the expected prevalence is 0.014% in the general population. 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
--- OUTSIDE RECORDS SUMMARY | 2024-12-28 07:25 | XMS_ITS ---
Author Organization [facility] Address [address] [facility] [place] [address] Care Team Providers Care Soliciting Freight Agent Name Role Phone Rae Aguillon Primary Care Provider [phone] Pal NEVAREZ, Rae Unavailable Unavailable Encounters Encounter Location Date Provider Diagnosis [facility] [address] [facility] [address] [place] [address] 09/22/2024 Rae Aguillon Plan Of Treatment No Information Progress Notes * SHERRY GARCIA MDOB: 0 (74 yo F)Acc No.[id number]:09/22/2024 Patient: Hortencia MCBRIDESHERRY :1950 A ge:74 Y S ex:Female Address:[address] [place] [address], [address] * true * Date: Generated for Christin daniel/Kindra/eTransmitting on: 0 12/28/2024 08:24 AM EDT
[2024-12-29 11:48] LABS: Homocysteine 7.7 umol/L (<10.4)
== END 2024-12-27 13:37 ==
LOC: ANHED 13:05 → ANHIMU 14:44
PROVIDERS: Nurse Practitioner Gerontology; Psychiatry & Neurology Neurology; Admitting Provider Internal Medicine; Emergency Provider Emergency Medicine; Visit Provider Family Medicine
DX: R29.810 Facial weakness (principal); R44.1 Visual hallucinations; G93.41 Metabolic encephalopathy; I51.81 Takotsubo syndrome; I48.91 Unspecified atrial fibrillation; D64.9 Anemia, unspecified; Z93.3 Colostomy status; Z79.01 Long term (current) use of anticoagulants; Z79.899 Other long term (current) drug therapy; Z86.73 Personal history of transient ischemic attack (TIA), and cerebral infarction without residual deficits; Z87.891 Personal history of nicotine dependence
CPT/HCPCS: 36415; 70450; 70496; 70498; 70553; 71045; 80053; 81003; 82306; 82607; 82746; 82948; 83090; 83605; 83921; 84484; 85025; 85610; 85730; 87040; 87641; 93005; 95816; 96360; 99212; 99285; A9270; A9579; G0378; G0463; J7120; Q9967

== ENCOUNTER 2024-12-30 19:48 | Emergency (ER) | payer MEDICARE, SELFPAY ==
[2024-12-30] VITALS (14 sets, daily range): BP systolic 77–108; BP diastolic 41–66; PULSE 63–88; RESP 14–19; TEMP 36.8; O2SAT 90–95
--- NOTE | ~2024-12-30 | CT_ITS ---
CLINICAL INDICATION: Decreased ostomy output COMPARISON: 12/11/2024. TECHNIQUE: Multiple contiguous axial images of the abdomen and pelvis were performed following the ad ministration of with 100 mL Omnipaque-350 intravenous contrast The dose-length product (DLP) was 389.05 mGy-cm. Automated exposure control and iterative reconstruction technique were employed. FINDINGS/OBSERVATIONS: Visualized lower thorax: Limited evaluation of the bilateral lung bases secondary to streak artifact from patient's LIFE VEST. The heart is enlarged, without pericardial effusion. Small hiatal hernia is present. Liver: The liver demonstrates homogeneous enhancement and is not enlarged. Gallbladder and biliary system: The gallbladder is only minimally distended, and otherwise unremarkable. Pancreas: The pancreas enhances homogeneously without ductal dilatation. Spleen: The spleen enhances homogeneously and is not enlarged. Kidneys: The bilateral kidneys enhance symmetrically without hydronephrosis or renal calculi. Adrenal glands: Unremarkable. Gastrointestinal tract: Fecal stasis within the proximal colon. End ostomy of the descending colon. Caudal to the staple line of (?) Almeida's pouch within the deep pelvis is a rim-enhancing collection of fluid and air measuring 4 x 2.2 x 4.5 cm, best identified on axial series 142, coronal series 60. Smaller similar appearing areas are identified both anterior and cranial to this focus, possibly con nected. Alternatively, these may represent sequelae of intraoperative technique (possibly Gelfoam/Bernadine gifoam) for which clinical correlation is needed regarding signs or symptoms of infection. Appendix: The air-filled appendix is of normal caliber (axial series, images 108 through 126) Vasculature: Trace calcified atherosclerotic disease. Lymph nodes: No pathologically enlarged or morphologically suspicious lymph nodes within the retroperitoneum or at the root of the mesentery. Pelvic structures: The bladder is distended, and otherwise unremarkable. The uterus is either surgically absent or markedly atrophic Body wall and musculoskeletal: Skin juve along the anterior abdominal wall. Age-appropriate degenerative disease within the lumbosacral spine. IMPRESSION: Findings within the deep pelvis which may represent postoperative abscess formation versus sequelae o f intraoperative technique (Gelfoam, Surgifoam, etc.) for which clinical correlation is needed, as [facility] surgery was performed at an outside institution. Reviewed, dictated and finalized at location A. IMPRESSION: Findings within the deep pelvis which may represent postoperative abscess forma tion versus sequelae of intraoperative technique (Gelfoam, Surgifoam, etc.) for which clinical correlation is needed, as patient's surgery was performed at an outside institution.
[2024-12-30 20:01] LABS: Basophils Absolute Auto 0.1 K/mm3 (0.0-0.1); Basophils Percent Auto 0.7 % (0.2-1.2); Eosinophils Absolute Auto 0.2 K/mm3 (0-0.3); Eosinophils Percent Auto 2.5 % (0-4.4); Hematocrit 29.5 % (37.0-47.0); Hemoglobin 9.3 g/dL (12.0-15.0); Immature Granulocyte Absolute 0.02 K/mm3 (0.00-0.031); Immature Granulocyte Percent A 0.3 % (0-0.5); Lymphocytes Absolute Auto 1.85 K/mm3 (0.9-3.2); Lymphocytes Percent Auto 24.7 % (18.3-44.2); Mean Corpuscular HGB Conc 31.5 g/dl (32-36); Mean Corpuscular Hemoglobin 29.9 pg (26-34); Mean Corpuscular Volume 94.9 fl (80-100); Mean Platelet Volume 9.4 fl (7.4-10.4); Monocytes Absolute Auto 0.8 K/mm3 (0.1-0.6); Neutrophils Absolute Auto 4.6 K/mm3 (1.3-6.7); Neutrophils Percent Auto 61.8 % (45.5-73.1); Platelet Count Result 325 k/mm3 (150-375); Red Blood Count 3.11 M/mm3 (4.2-5.4); Red Cell Distribution Width 13.9 % (11.5-14.5); White Blood Count 7.5 K/mm3 (4.5-10.0)
[2024-12-30 20:10] LABS: Alanine Aminotransferase 30 U/L (6-35); Albumin Level 3.2 g/dL (3.5-5.1); Alkaline Phosphatase 69 U/L (38-126); Anion Gap 7 mmol/L (4-12); Aspartate Amino Transferase 23 U/L (14-36); Bilirubin,Total 0.2 mg/dL (0.2-1.3); Blood Urea Nitrogen 22 mg/dL (7-17); Calcium 8.5 mg/dL (8.4-10.2); Carbon Dioxide 29 mmol/L (22-30); Chloride 103 mmol/L (98-107); Estimated CRCL calculation 50 ml/min; Estimated Glomerular Filt Rate 60; Glucose 112 mg/dL (65-110); Potassium 3.5 mmol/L (3.4-5.0); Sodium 139 mmol/L (137-145)
--- OUTSIDE RECORDS SUMMARY | 2024-12-30 20:45 | XMS_ITS ---
Author Organization [facility] Address [address] [facility] [address] [place] [address] Care Team Providers Care Wood Boatbuilder Name Role Phone Rae Aguillon Primary Care Provider Pal NEVAREZ, Rae Unavailable Unavailable Encounters Encounter Location Date Provider Diagnosis [facility] [address] [place] [address] 09/22/2024 Rae Aguillon Plan Of Treatment No Information Progress Notes * SHERRY GARCIA MDOB: 0 (74 yo F)Acc No.[id number]:09/22/2024 Patient: Hortencia MCBRIDESHERRY :1950 A ge:74 Y S ex:Female Address:[address] [place] [address], [address] * true * Date: Generated for Christin daniel/Kindra/eTransmitting on: 0 12/30/2024 09:45 PM EDT
--- OUTSIDE RECORDS SUMMARY | 2024-12-30 20:45 | XMS_ITS | Encounter Summary ---
Author Organization [facility] Address [address] [place] [address] Care Team Providers Care Reflector Driller And Deburrer Name Role Phone Rae Aguillon MD Primary Care Provider [phone] Encounter Details Date Type Department Care Team (Late st Contact Info) Description 11/03/2024 Lab Requisition [facility] [address] [place] [address] Britt Vinson MD [address] [place] [address] [address] [place] [address] Gross hematuria Social History Tobacco Use Types Packs/Day Years Used Date Smoking Tobacco: Former Cigarettes Q uit: 09/08/1992 Smokeless Tobacco: Never Alcohol Use Standard Drinks/Week Comments No 0 (1 standard drink = 0.6 oz pur e alcohol) [facility] Utilities Answer Date Recorded In the past 12 months has [facility] [email or web address], gas, oil, or water [employer] threatened to shut off services in your [...] any time in the past 12 m [facility], were you homeless or living in a [...] Care Team (Latest Contact Info) Description 01/13/2025 10:00 AM EDT Hospital Encounter [facility] Surgery [place] [address] [place] [address] Britt Vinson MD [address] [place] [address] 01/13/2025 10:00 AM EDT - 01/13/2025 11:30 AM EDT Surgery [facility] Surgery [place] [address] [place] [address] Britt Vinson MD [address] [place] [address] CYSTOSCOPY TRANSURETHRAL RESECTION OF BLADDER TUMOR, Scheduled Procedures Name Priority Associated Diagnoses Date/Ti me TURBT (TRANSURETHRAL RESECTION OF BLADDER TUMOR) Neoplasm of uncertain behavior of bladder 01/13/2025 10:00 AM EDT CYSTOURETEROSCOPY, WITH RETROGRADE PYELOGRAM OR STENT INSERTION Neoplasm of uncertain behavior of bladder 01/13/2025 10:00 AM EDT documented as of this encounter Procedures Procedure Name Priority Date/Time Associated Diagnosis Comments MEDICAL CYTOLOGY REQUEST Routine 11/02/2024 2:35 PM EST Gross hematuria documented in this encounter Results * Medical Cytology Request (11/02/2024 2:35 PM EST) Specimen Urine, Urine, Voided 11/10/2024 3:12 PM EST [facility] Dx Category NEGATIVE FOR HIGH GRADE UROTHELIAL CARCINOMA 11/10/2024 3:12 PM EST [facility] Diagnosis NEGATIVE FOR HIGH GRADE UROTHELIAL CARCINOMA 11/10/2024 3:12 PM EST [facility] at 1512 EST Additional Diagnosis Background neutrophils present 11/10/2024 3:12 PM EST [facility] Comments The Fidelia System (TPS) for Reporting Urinary Cytology is used to evaluate urine cytology specimens. When possible, this system is applied to render the diagnosis. For more information regarding the categories, please refer to Shakeel VARGHESE, Denise CHAUDHARII, Xin DL. The Fidelia System for Reporting Urinary Cytology. 2nd Ed. [place]: 2021. 11/10/2024 3:12 PM EST [facility] Clinical Information R31.0 Gross hematuria 11/10/2024 3:12 PM EST [facility] Specimen Adequacy Satisfactory for evaluation. 11/10/2024 3:12 PM EST [facility] Materials received and processed 55ml of hazy, yellow fluid in a sterile container. 1 Thinprep slide prepared Screened by: Isaias Paz This specimen was prepared and screened at [facility] Cytology Laboratory, [address] [place] [address] 11/10/2024 3:12 PM EST [facility] Embedded Images 11/10/2024 3:12 PM EST [facility] Case Report Medical Cytology Case: [id number] Authorizing Provider: Britt Vinson MD Collected: 11/02/2024 1435 Ordering Location: [facility] Received: 11/03/2024 [address] [facility] Pathologist: Anna Gonzalez MD Specimen: Urine, Voided 11/10/2024 3:12 PM EST [facility] Urine URINE SPECIMEN FROM URETHRA / Unknown 11/02/2024 2:35 PM EST 11/03/2024 1:07 AM EST us Britt Vinson MD LAB CYTOLOGY ORDERABLES Fin al Result [facility] [address] [place] [address] documented in this encounter Visit Diagnoses Diagnosis Gross hematuria Neoplasm of uncertain behavior of bladder documented in this encounter Care Teams Reflector Driller And Deburrer Relationship Specialty Start Date End Date Rae Aguillon MD PCP - General Internal Medicine 03/05/19 documented as of this encounter
--- OUTSIDE RECORDS SUMMARY | 2024-12-30 20:45 | XMS_ITS ---
Author Organization [facility] Address [address] [place] [address] Care Team Providers Care Attending Radiologist Name Role Phone Rae Aguillon MD Primary Care Provider Tiny Barnes Unavailable [phone] REASON FOR VISIT HFWB COLON/PERS HX POLYPS PCP RAE AGUILLON PP Problems Problem Type SNOMED Code ICD Code Onset Dates Problem Status W/U Status Risk Notes Problem History of polyp of colon (situation) (071915782) Hx of colonic polyps (Z86.010) Active confirmed Encounters Encounter Location Date Provider Diagnosis [facility] [address] [place] [address] 10/22/2023 Tiny Moralez Plan Of Treatment No Information Progress Notes * Yelena LINDSEYBoomOB:1950 (74 yo F)Acc No.[id number]:10/22/2023 Patient: Mary Kay AGUIAR Provider: Rhonda Moralez M.D. :1950 A ge:73 Y S ex:Female Date:10/22/2023 Address:[address] [place], [place] [id number] Pcp:Rae Aguillon MD * Billing Information: * Visit Code: * Procedure Codes: * The named appointment provid er may or may not be the originator of this progress note, and it is not deemed complete until electronically signed by the appointment provider. Sign off status: Pending * Provider: Rhonda Moralez M.D. Date: 0 10/22/2023 Generated for Gelyi ng/Kindra/eTransmitting on: 0 12/30/2024 09:45 PM EDT
--- OUTSIDE RECORDS SUMMARY | 2024-12-30 20:45 | XMS_ITS | Encounter Summary ---
Author Organization [facility] Address [address] [place] [address] Care Team Providers Care Framing Inspector Name Role Phone Rae Aguillon MD Primary Care Provider [phone] Encounter Details Date Type Department Care Team (Late st Contact Info) Description 09/09/2024 Lab Requisition [facility] [address] [place] [address] Genoveva Lynch MD [address] [place] [address] Coagulation defect, unspecified (HCC) Social History Tobacco Use Types Packs/Day Years Used Date Smoking Tobacco: Former Cigarettes Q uit: 09/08/1992 Smokeless Tobacco: Never Alcohol Use Standard Drinks/Week Comments No 0 (1 standard drink = 0.6 oz pur e alcohol) [facility] Utilities Answer Date Recorded In the past 12 months has [facility] [employer], gas, oil, or water [employer] threatened to shut off services in your [...] place to sleep or slept in a custodial (including now)? No 07/27/2024 Housing Stability Vital [...] any time in the past 12 m [facility], were you homeless or living in a custodial (including now)? Patient unable to answer 07/29/2024 Comments No Sex and Gender Information Value Date Recorded Sex Assigned at Not on file Legal Sex Female 6:47 PM EDT Gender Identity Not on file Sexual Orientation Not on file documented as of this encounter Plan of Treatment Upcoming Encounters Date Type Department Care Team (Latest Contact Info) Description 01/13/2025 10:00 AM EDT Hospital Encounter [facility] [address] [place] [address] Britt Vinson MD [address] [place] [address] 01/13/2025 10:00 AM EDT - 01/13/2025 11:30 AM EDT Surgery [facility] [address] [place] [address] Britt Vinson MD [address] [place] [address] CYSTOSCOPY TRANSURETHRAL RESECTION OF BLADDER [...] MD LAB BLOOD ORDERABLES Final R esult [facility] [address] [place] [address] * (ABNORMAL) Urinalysis with Microscopic if Indicated ( [facility] Only ) (09/09/2024 3:08 PMEST) Urine Color Yellow 09/09/2024 6:25 PM [facility] Urine Clarity Cloudy(A) Clear 09/09/2024 6:25 PM [facility] Urine Glucose Negative Negative mg/dL 09/09/2024 6:25 PM EST [facility] Urine Bilirubin Negative Negative 6:25 PM [facility] Urine Ketones 5(A) Negative mg/dL 09/09/2024 6:25 PM EST [facility] Urine Specific [place] 1.021 1.005 - 1.030 09/09/2024 6:25 PM [facility] Urine Blood Trace(A) Negative 09/09/2024 6:25 PM [facility] U pH 5.0 5.0 - 8.0 09/09/2024 6:25 PM [facility] Urine Protein Trace(A) Negative mg/dL 09/09/2024 6:25 PM EST [facility] Urine Urobilinogen 0.2 <2.0 mg/dL 09/09/2024 6:25 PM EST [facility] Urine Nitrite Positive(A) Negative 09/09/2024 6:25 PM EST [facility] Urine Leukocyte Esterase 3+(A) Negative 09/09/2024 6:25 PM EST [facility] Urine RBC 0-2 0-2 Negative /HPF 09/09/2024 6:25 PM EST [facility] Urine WBC 51-100(A) 0-5 Negative /HPF 09/09/2024 6:25 PM EST [facility] Urine Squamous Epithelial Cells >20(A) 0 - 5 /HPF 09/09/2024 6:25 PM EST [facility] Comment:Epithelial cell coun t may include squamous, transitional and renal tubular epithelial cells Urine Hyaline Casts 3 - 5(A) 0-2 Negative /LPF 09/09/2024 6:25 PM EST [facility] Comment: Total cast count will include hyaline casts and may include pathologic casts. See report below for pathologic casts identification, if present. Urine Bacteria 4+(A) Negative /HPF 09/09/2024 6:25 PM EST [facility] Urine Calcium Oxalate Crystal Present /HPF 09/09/2024 6:25 PM EST [facility] Urine URINE SPECIMEN OBTAINED BY CLEAN CATCH PROCEDURE / Unknown 09/09/2024 3:08 PM EST 09/09/2024 5:40 PM EST [facility] - 09/09/2024 6:25 PM EST Positive dipstick result for blood but no red blood cells detected by fluorescent flow cytometry. The result could be seen in patients with hemoglobinuria and/or myoglobinuria. In rare cases, the result can be caused by discolored urine following ingestion of certain drugs/dyes. us Genoveva Lynch MD LAB URINE ORDERABLES Final R esult [facility] [address] [place] [address] * Immunoglobulins (IgG, IgA, IgM) (09/09/2024 3:08 PM EST) Immunoglobulin A (IgA) 193 70 - 365 mg/dL 09/09/2024 6:11 PM EST [facility] Immunoglobulin G (IgG) 1,300 550 - 1,650 mg/dL 09/09/2024 6:11 PM EST [facility] Immunoglobulin M (IgM) 79 30 - 263 mg/dL 09/09/2024 6:11 PM EST [facility] Blood VENOUS BLOOD SPECIMEN / Unknown 09/09/2024 3:08 PM EST 09/09/2024 5:40 PM EST Genoveva Lynch MD LAB BLOOD ORDERABLES Final R esult Performing Organization Address [facility]/ZIP Co de Phone Number [address] [address] * Antithrombin Activity (09/09/2024 3:08 PM EST) Pathologist [facility] Antithrombin III Activity 97 85 - 150 % 09/10/2024 9:59 AM EST [facility] Comment:NOTE: Some direct or al anticoagulants (e.g. factor Xa inhibitors) may cause false negative results. Decreased Antithrombin levels may be due to either acquired or hereditary causes. Blood VENOUS BLOOD SPECIMEN / Unknown 09/09/2024 3:08 PM EST 09/09/2024 5:40 PM EST Genoveva Lynch MD LAB BLOOD ORDERABLES Final R esult Performing Organization Address City/[facility]/ZIP Co de Phone Number [address] [place] [address] * Protein S Activity (09/09/2024 3:08 PM EST) Pathologist [facility] Protein S Activity 92 50 - 150 % 09/10/2024 9:59 AM EST [facility] Comment:Note that direct ora l anticoagulants can interfere with protein S testing, causing artificially high and/or false negative results. Blood VENOUS BLOOD SPECIMEN / Unknown 09/09/2024 3:08 PM EST 09/09/2024 5:40 PM EST Genoveva Lynch MD LAB BLOOD ORDERABLES Final R esult Performing Organization Address City/[facility]/ZIP Co de Phone Number [facility] [address] [place] [address] * Protein C Activity (09/09/2024 3:08 PM EST) Protein C Activity 93 70 - 150 % 09/10/2024 9:59 AM EST [facility] Blood VENOUS BLOOD SPECIMEN / Unknown 09/09/2024 3:08 PM EST 09/09/2024 5:40 PM EST Genoveva Lynch MD LAB BLOOD ORDERABLES Final R esult Performing Organization Address City/[facility]/ZIP Co de Phone Number [address] [facility] [place] [address] documented in this encounter Visit Diagnoses Diagnosis Coagulation defect, unspecified (HHS-HCC) Neoplasm of uncertain behavior of bladder documented in this encounter Care Teams Framing Inspector Relationship Specialty Start Date End Date Rae Aguillon MD PCP - General Internal Medicine 03/05/19 documented as of this encounter
--- OUTSIDE RECORDS SUMMARY | 2024-12-30 20:46 | XMS_ITS | Encounter Summary ---
Author Organization [facility] Address [address] [place] [address] Care Team Providers Care Retort Fireman Name Role Phone Rae Aguillon MD Primary Care Provider [phone] Encounter Details Date Type Department Care Team (Late st Contact Info) Description 11/18/2024 Telephone [facility] Cardiology - [address] [address] [facility] [address] [place] [address] [place] [address] [facility] [address] [place] [address] Social History Tobacco Use Types Packs/Day Years Used Date Smoking Tobacco: Former Cigarettes Q uit: 09/08/1992 Smokeless Tobacco: Never Alcohol Use Standard Drinks/Week Comments No 0 (1 standard drink = 0.6 oz pur e alcohol) [facility] Utilities Answer Date Recorded In the past 12 months has [facility] [employer], gas, oil, or water [employer] threatened to shut off services in your [...] place to sleep or slept in a group home (including now)? No 07/27/2024 Housing Stability [...] any time in the past 12 m [facility], were you homeless or living in a group home (including now)? Patient unable to answer [...] Description 01/13/2025 10:00 AM EDT Hospital Encounter [facility] Surgery [place] [address] [place] [address] Britt Vinson MD [address] [facility] [address] [place] [address] 01/13/2025 10:00 AM EDT - 01/13/2025 11:30 AM EDT Surgery [facility] Surgery [place] [address] [place] [address] Britt Vinson MD [address] [facility] [address] [place] [address] CYSTOSCOPY TRANSURETHRAL RESECTION OF BLADDER [...] on filedocumented in this encounter Care Teams Retort Fireman Relationship Specialty Start Date End Date Rae Aguillon MD PCP - General Internal Medicine 03/05/19 documented as of this encounter
--- OUTSIDE RECORDS SUMMARY | 2024-12-30 20:46 | XMS_ITS | Patient Health Record ---
Author Organization [facility] Address [address] [facility] [address] [place] [address] Care Team Providers Care Validation Software Facilitator Name Role Phone Rae Aguillon MD Primary Care Provider Tiny Barnes Unavailable [phone] Reason For Referral No Information Medications Medication SIG (Take, Route, Frequency, Duration) Notes Start Date End Date Status Nulytely with Flavor Packs 420 GM as directed Orally Split Dose per Physician Instructions for 1 Day prior to colonoscopy 08/10/2018 Active Problems Problem Type SNOMED Code ICD Code Onset Dates Problem Status W/U Status Risk Notes Problem History of polyp of colon (situation) (341493673) Hx of colonic polyps (Z86.010) Active confirmed Problem 4186624 Diverticulosis o f large intestine without perforation or abscess without bleeding (K57.30) Active confirmed Plan Of Treatment No Information Insurance Providers Payer Name Payer Address Payer Phone Subscriber Number Group Number Insured Name Patient Relationship to Insured Coverage Start Date Coverage End Date [employer] [address] [place] [address] [id number] Mary Kay Mahan Self - patient is the insured 6
--- OUTSIDE RECORDS SUMMARY | 2024-12-30 20:46 | XMS_ITS ---
Author Organization [facility] Address [address] [place] [address] [address] [place] [address] Care Team Providers Care Terminal Carman Name Role Phone Rae Aguillon Primary Care [...] 08/10/2024 Encounters Encounter Location Date Provider Diagnosis [facility] [address] [facility] [address] [place] [address] 08/10/2024 [facility]ly [facility] discharge follow-up Z09 ; Dizziness and giddiness [...] SHERRY GARCIA MDOB: 0 (74 yo F)Acc No.[id number]:08/10/2024 OV 15 MIN Patient: SHERRY AGUIAR Provider: Liz Aguillon MD :1950 A ge:74 Y S ex:Female Date:08/10/2024 Address:[address] [place] [address] Structured Data:[facility] Tianna e : Yes Subjective: * Chief [...] a: former smoker;. . . Works in [employer]. Has 4 grandchildren. * Medications: T akingLosartan [...] 9 9495 TRANS CARE MGMT 14 DAY [id number] [facility] MED/CURRENT MED [id number] BODY MASS INDEX DOCD * Follow Up: 4 Months * Billing Information: * Visit Code: * Procedure Codes: 12087 TRANS CARE MGMT 14 DAY DISCH. 1111F [facility] MED/CURRENT MED MERGE. 3008F BODY MASS INDEX DOCD. * Sign off status: Completed true * Provider: Liz Aguillon MD Date: 10/11/2023 Generated for Christin daniel/Kindra/eTransmitting on: 0 12/30/2024 09:46 PM EDT History and Physical Notes * Examination Category Sub-Category Detail Notes Category Not es General Examination HEART: normal, no m urmurs, regular rate and rhythm, S1, S2 normal LUNGS: clear to auscultatio n bilaterally, good air movement EXTREMITIES: no clubbing, cyanosi s, or edema PERIPHERAL PULSES: 2+ throughout
--- OUTSIDE RECORDS SUMMARY | 2024-12-30 20:46 | XMS_ITS | Patient Health Record ---
Author Organization [facility] Address [address] [place] [address] [address] [place] [address] Care Team Providers Care Wheel Assembler Name Role Phone Rae Aguillon Primary Care Provider Rae Aguillon MD Unavailable Unavailable Sarai Douglas Unavailable [phone] Allergies Allergen (clinical drug ingredient) Drug/Non Drug [...] Immunizations Vaccine Route Administration Date Status Comme [facility] zzAdvance Care Plan Unknown 04/06/2024 Administered [...] Problem Status W/U Status Risk Notes Problem 377825123 Cellulitis (L03.90) 2015 Active confirmed Problem 22056541 URI (upper respiratory infection) (J06.9) Active confirmed Problem Essential hypertension (70820900) Essential (primary) hypertension (I10) Active confirmed Problem Hypothyroidism (96689502) Hypothyroidism, unspecified (E03.9) Active confirmed Problem 06865681 Cough (R05) Active confirmed Problem 13287109 Chronic fatigue (R53.82) Active confirmed Problem 54296087 Hypertensive hea rt disease with heart failure (I11.0) Active confirmed Problem 849441093 Atherosclerosis of elim ira coronary artery of elim ira heart without angina pectoris (I25.10) Active confirmed Problem 643006811 Gastroesophageal reflux disease without esophagitis (K21.9) Active confirmed Problem 339805883 Cerebrovascular accident (CVA), unspecified mechanism (I63.9) Active confirmed Problem 76844576 Upper respirator y tract infection, unspecified type (J06.9) Active confirmed Problem 18673429 Hyperlipidemia, unspecified hyperlipidemia type (E78.5) Active confirmed Problem Counseling (491968585) Encounter for medication review and counseling (Z71.89) Active confirmed Problem Familial hypercholesterolemia (141404420) Familial hypercholesterolemia (E78.01) Active confirmed Problem 74800150 Osteoporosis wit hout current pathological fracture, unspecified osteoporosis type (M81.0) Active confirmed Problem 05723416 Osteoporosis, unspecified osteoporosis type, unspecified pathological fracture presence (M81.0) Active confirmed Problem 380350428 Acute systolic h eart failure (I50.21) 2019 Active confirmed Problem 76579559 Earache (H92.09) Active confirmed Vital Signs Heart Rate 67 /min 08/10/2024 Temperature 98.1 degrees Fahrenheit 08/10/2024 Blood pressure diastolic 64 mm Hg 08/10/2024 Oximetry 97 % 08/10/2024 Height 69.5 in 08/10/2024 Blood pressure systolic 102 mm Hg 08/10/2024 Weight 130.2 lbs 08/10/2024 BMI 18.95 kg/m2 08/10/2024 Encounters Encounter Location Date Provider Diagnosis [facility] [address] [facility] [address] [place] [address] 04/06/2024 Rae Aguillon Hyperlipidemia, unspecified hyperlipidemia type E78.5 ; Routine adult health maintenance Z00.00 ; Hypothyroidism, unspecified E03.9 ; Essential (primary) hypertension I10 ; Acute systolic heart failure I50.21 ; Cerebrovascular accident (CVA), unspecified mechanism I63.9 ; Atherosclerosis of elim ira coronary artery of elim ira heart without angina pectoris I25.10 ; Gastroesophageal reflux disease without esophagitis K21.9 ; Cellulitis L03.90 ; Osteoporosis without current pathological fracture, unspecified osteoporosis type M81.0 ; Encounter for screening for cardiovascular disorders Z13.6 ; Encounter for screening for respiratory disorder NEC Z13.83 ; Adult BMI <19 kg/sq m Z68.1 and Encounter for medication review and counseling Z71.89 [facility] [address] [facility] [address] [place] [address] 06/15/2024 [facility] discharge follow-up Z09 ; Hypothyroidism, unspecified E03.9 ; Familial hypercholesterolemia E78.01 ; Essential (primary) hypertension I10 ; Cerebrovascular accident (CVA), unspecified mechanism I63.9 ; Stroke-like symptoms R29.90 ; Chronic fatigue R53.82 ; Body mass index [BMI] 19.9 or less, adult Z68.1 ; Encounter for medication review and counseling Z71.89 and Encounter for screening involving social determinants of health (SDoH) Z13.9 [facility] [address] [place] [address] 06/24/2024 Sarai Douglas Osteoporosis, unspec ified osteoporosis type, unspecified pathological fracture presence M81.0 [facility] [address] [place] [address] 08/10/2024 [facility] discharge follow-up Z09 ; Dizziness and giddiness R42 ; Familial hypercholesterolemia E78.01 ; Essential (primary) hypertension I10 ; Chronic fatigue R53.82 ; Body mass index [BMI] 19.9 or less, adult Z68.1 ; Encounter for medication review and counseling Z71.89 and Encounter for screening involving social determinants of health (SDoH) Z13.9 [facility] [address] [place] [address] 02/10/2024 Rae Aguillon [facility] [address] [place] [address] 04/07/2024 Rae Aguillon Hypothyroidism, unspecified E03.9 and Atherosclerosis of elim ira coronary artery of elim ira heart without angina pectoris I25.10 [facility] [address] [place] [address] 05/13/2024 Rae Aguillon [facility] [address] [place] [address] 06/07/2024 Rae Aguillon [facility] [address] [place] [address] 06/30/2024 Sarai Douglas [facility] [address] [place] [address] 07/06/2024 Sarai Douglas [facility] [address] [facility] [address] [place] [address] 07/06/2024 Sarai Douglas Osteoporosis without current pathological fracture, unspecified osteoporosis type M81.0 [facility] [address] [facility] [address] [place] [address] 07/23/2024 Rae Dislaesdras [facility] [address] [facility] [address] [place] [address] 09/22/2024 Rae Aguillon Assessments Encounter Date Diagnosis (ICD Code) Assessment Notes Treatment Notes Treatment Clinical Notes Section Notes 04/06/2024 Hyperlipidemia, unspecified hyperlipidemia type (ICD-10 - E78.5) 04/07/2024 Hypothyroidism, unspecified (ICD-10 - E03.9) 06/15/2024 Hospital discharge follow-up (ICD-10 - Z09) 06/15/2024 Hypothyroidism, unspecified (ICD-10 - E03.9) 06/24/2024 Osteoporosis, unspecified osteoporosis type, unspecified pathological [...] R42) 08/10/2024 Familial hypercholesterolemia (ICD-10 - E78.01) 06/15/2024 Familial hypercholesterolemia (ICD-10 - E78.01) 04/07/2024 Atherosclerosis of elim ira coronary artery of elim ira heart without angina pectoris (ICD-10 - I25.10) 04/06/2024 Routine adult health maintenance (ICD-10 - Z00.00) 04/06/2024 Hypothyroidism, unspecified (ICD-10 - E03.9) 04/06/2024 Essential (primary) hypertension (ICD-10 - I10) 06/15/2024 Essential (primary) hypertension (ICD-10 - I10) 08/10/2024 Essential (primary) hypertension (ICD-10 - I10) 08/10/2024 Chronic fatigue (ICD -10 - R53.82) 06/15/2024 Cerebrovascular acci dent (CVA), unspecified mechanism (ICD-10 - I63.9) 04/06/2024 Acute systolic heart failure (ICD-10 - I50.21) 04/06/2024 Cerebrovascular acci dent (CVA), unspecified mechanism (ICD-10 - I63.9) 06/15/2024 Stroke-like symptoms (ICD-10 - R29.90) 08/10/2024 Body mass index [BMI ] 19.9 or less, adult (ICD-10 - Z68.1) 08/10/2024 Encounter for medica tion review and counseling (ICD-10 - Z71.89) 06/15/2024 Chronic fatigue (ICD -10 - R53.82) 04/06/2024 Atherosclerosis of elim ira coronary artery of elim ira heart without angina pectoris (ICD-10 - I25.10) 04/06/2024 Gastroesophageal ref lux disease without esophagitis (ICD-10 - K21.9) 06/15/2024 Body mass index [BMI ] 19.9 or less, adult (ICD-10 - Z68.1) 08/10/2024 Encounter for screen ing involving social determinants of health (SDoH) (ICD-10 - Z13.9) 06/15/2024 Encounter for medica tion review and counseling (ICD-10 - Z71.89) 04/06/2024 Cellulitis (ICD-10 - L03.90) 06/15/2024 Encounter for screen ing involving social [...] 11/20/2011 C-Reactive Protein, Cardiac 11/20/2011 OCCULT BLOOD 03/10/2013 OCCULT BLOOD 05/03/2020 OCCULT BLOOD 2022 OCCULT BLOOD 02/13/2022 OCCULT BLOOD 06/02/2018 OCCULT BLOOD 02/02/2015 OCCULT BLOOD 03/01/2021 OCCULT BLOOD 03/16/2014 URIC ACID 04/03/2017 URIC ACID 02/13/2022 UA MICROALBUMIN RANDOM 02/13/2022 UA MICROALBUMIN RANDOM 04/03/2017 CPK 04/03/2017 CPK 02/13/2022 HEMOGLOBIN A1C 02/13/2022 VITAMIN B12 02/13/2022 CBC W/DIFF 02/13/2022 CBC W/DIFF 04/03/2017 URINALYSIS 04/03/2017 URINALYSIS 03/01/2021 URINALYSIS 02/13/2022 VITAMIN D 25 HYDROXY 02/13/2022 ELECTROLYTE PANEL 03/16/2014 COMPREHENSIVE METABOLIC PANEL 04/03/2017 COMPREHENSIVE METABOLIC PANEL 02/13/2022 LIPID PANEL 02/13/2022 LIPID PANEL 04/03/2017 TSH 04/03/2017 Lipid Profile 11/20/2011 Chem-Comprehensive 11/20/2011 X-RAY -- CHEST, 2 VIEWS 11/20/2011 X-RAY -- CHEST, 2 VIEWS 02/13/2022 X-RAY -- CHEST, 2 VIEWS 06/02/2018 X-RAY -- CHEST, 2 VIEWS 04/03/2017 X-RAY -- CHEST, 2 VIEWS 03/01/2021 EKG ELECTROCARDIOGRAM 03/01/2021 EKG ELECTROCARDIOGRAM 04/03/2017 EKG ELECTROCARDIOGRAM 06/02/2018 EKG ELECTROCARDIOGRAM 02/13/2022 EKG ELECTROCARDIOGRAM 11/20/2011 OCCULT BLOOD, FECAL 04/06/2024 Insurance Providers Payer Name Payer Address Payer Phone Subscriber Number Group Number Insured Name Patient Relationship to Insured Coverage Start Date Coverage End Date [employer] [address] [place] [address] [id number] SHERRY LINDSEY Self - patient is the [...]
--- OUTSIDE RECORDS SUMMARY | 2024-12-30 20:46 | XMS_ITS | Encounter Summary ---
Author Organization [facility] Address [address] [place] [address] Care Team Providers Care Tube Mill Operator Name Role Phone Rae Aguillon MD Primary Care Provider Encounter Details Date Type Department Care Team (Late st Contact Info) Description 09/10/2024 Lab Requisition [facility] [address] [place] [address] Genoveva Lynch MD [address] [place] [address] Coagulation defect, unspecified (HCC) Social History Tobacco Use Types Packs/Day Years Used Date Smoking Tobacco: Former Cigarettes Q uit: 09/08/1992 Smokeless Tobacco: Never Alcohol Use Standard Drinks/Week Comments No 0 (1 standard drink = 0.6 oz pur e alcohol) [facility] Utilities Answer Date Recorded In the past 12 months has [facility] [employer], gas, oil, or water [employer] threatened to shut off services in your [...] place to sleep or slept in a assisted (including now)? No 07/27/2024 Housing Stability Vital [...] any time in the past 12 m [facility], were you homeless or living in a assisted (including now)? Patient unable to answer 07/29/2024 Comments No Sex and Gender Information Value Date Recorded Sex Assigned at Not on file Legal Sex Female 6:47 PM EDT Gender Identity Not on file Sexual Orientation Not on file documented as of this encounter Plan of Treatment Upcoming Encounters Date Type Department Care Team (Latest Contact Info) Description 01/13/2025 10:00 AM EDT Hospital Encounter [facility] Surgery [facility] [address] [place] [address] Britt Vinson MD [address] [place] [address] 01/13/2025 10:00 AM EDT - 01/13/2025 11:30 AM EDT Surgery [facility] Surgery [facility] [address] [place] [address] Britt Vinson MD [address] [place] [address] CYSTOSCOPY TRANSURETHRAL RESECTION OF BLADDER [...] documented in this encounter Results * Prothrombin [id number] (09/09/2024 3:55 PM EST) Prothrombin [id number] Wild Type Wild Type, See comment [employer] 48-48 09/13/2024 1:33 PM EST [facility] Prothrombin [id number] Interpretation NEGATIVE - Only the Wild Type (Normal) form of the Prothrombin (F2) gene is present; no mutation is detected. The Prothrombin mutation analysis (F2, c.*97G>A; legacy 63670S>A) utilizes [employer], which automates and integrates sample purification, nucleic acid amplification, and detection of the target sequence in whole blood using real-time Polymerase Chain Reaction (PCR) assays. Clinical Significance: The [id number] (c.*97G>A) mutation in the prothrombin gene is associated with elevated plasma prothrombin levels. This mutation is present in 18% of patients with documented familial history of venous thrombosis, in 6.2% of unselected patients with a first, objectively confirmed episode of deep vein thrombosis, and in 1-2% of healthy control subjects. Carriers of the [id number] allele have higher plasma prothrombin levels than individuals with a normal genotype and have a 2.8-fold increased risk of venous thrombosis. Homozygosity for this mutation is very rare; the expected prevalence is 0.014% in the general population. [employer] 48-48 09/13/2024 1:33 PM EST [facility] Comment [employer] 48-48 09/13/2024 1:33 PM EST [facility] Blood VENOUS BLOOD SPECIMEN / Unknown 09/09/2024 3:55 PM EST 09/10/2024 11:27 AM EST us Genoveva Lnych MD [facility]ST[facility] Final Result [facility] [address] [place] [address] documented in this encounter Visit Diagnoses Diagnosis Coagulation defect, unspecified (HHS-HCC) Neoplasm of uncertain behavior of bladder documented in this encounter Care Teams Tube Mill Operator Relationship Specialty Start Date End Date Rae Aguillon MD PCP - General Internal Medicine 03/05/19 documented as of this encounter
--- OUTSIDE RECORDS SUMMARY | 2024-12-30 20:46 | XMS_ITS | Clinical Summary ---
Author Organization [facility] Address [address] [place] [address] Care Team Providers Care Maintenance Technician 2Nd Shift Name Role Phone Rae Aguillon MD Primary Care Provider Allergies Active Allergy Reactions Criticality Noted Date [...] Incisional pain 12/01/2014 Overview (03/17/2024): Dilaudid , [place] Tylenol PRN Cardiomyopathy, ischemic 12/01/2014 Muscle weakness (generalized) 12/01/2014 CAD (coronary artery disease) 12/01/2014 Hyperlipidemia 12/01/2014 Aneurysm of left ventricle of heart 10/28/2014 Encounters Date Type Department Care Team Description 12/28/2024 Telephone [facility] Cardiology - [address] [place] [address] Cristina Thibodeaux MD Error 12/27/2024 Telephone [facility] Cardiology - [address] [place] [address] Cristina Thibodeaux MD Procedure 12/08/2024 1:17 PM EDT Anesthesia Event [facility] Electrophysiology Laboratory [address] [place] [address] Brianda Rivas MD Rude, Mary A, RN 12/08/2024 12:30 PM EDT - 12/08/2024 2:00 PM EDT Surgery [facility] Electrophysiology Laboratory 8 [facility] [address] [place] [address] Cristina Thibodeaux MD CV IMPLANTABLE CARDIOVERTER DEFIBRILLATOR INSERTION 12/08/2024 11:08 AM EDT - 12/09/2024 1:44 PM EDT Hospital Encounter [address] [place] [address] Cristina Thibodeaux MD S/P ICD (internal cardiac defibrillator) procedure (Primary Dx); NICM (nonischemic cardiomyopathy) (HCC) Discharge Disposition: Home or Self Care 12/03/2024 11:44 AM EDT - 12/03/2024 11:59 PM EDT Hospital Encounter [facility] CT First Floor - [address] [facility] [address] [place] [address] Umberto Vinson MD Gross hematuria Discharge Disposition: Home or Self Care 12/02/2024 2:25 PM EDT Clinical Support [facility] Laboratory - [address] [facility] [address] [facility] [address] NICM (nonischemic cardiomyopathy) (HCC); Pre-procedure lab exam 11/24/2024 Telephone [facility] Cardiology - [address] [place] [address] Cristina Thibodeaux MD Results 11/18/2024 Telephone [facility] Cardiology - [address] [place] [phone] Cristina Thibodeaux MD 11/05/2024 Telephone [facility] Cardiology - [address] [place] [address] Cristina Thibodeaux MD Procedure 11/04/2024 Telephone [facility] Cardiology - [address] [place] [address] Cristina Thibodeaux MD OTHER 11/03/2024 Lab Requisition [facility] Laboratory [address] [place] [facility] [place] [address] Umberto Vinson MD Gross hematuria 11/02/2024 Telephone [facility] Cardiology - [address] [place] [address] Cristina Thibodeaux MD OTHER 10/29/2024 1:30 PM EST Office Visit [facility] Cardiology - [address] [place] [address] Cristina Thibodeaux MD Chronic systolic congestive heart failure (HCC) (Primary Dx); Dizziness; Coronary artery disease involving [place] coronary artery of [place] heart without angina pectoris 10/29/2024 Telephone [facility] Cardiology - [address] [place] [address] Cristina Thibodeaux MD OTHER 10/29/2024 Telephone [facility] Cardiology - [address] [place] [address] Cristina Thibodeaux MD OTHER 10/26/2024 Telephone [facility] Cardiology - [address] [place] [address] Cristina Thibodeaux MD Abnormal Result from Last 3 Months Immunizations Immunization Administration [...] drink = 0.6 oz pur e alcohol) [facility] Utilities Answer Date Recorded In the past 12 months has e [place], gas, oil, or water [employer] threatened to shut off services in your [...] place to sleep or slept in a care home (including now)? No 07/27/2024 Housing Stability [...] any time in the past 12 m [facility], were you homeless or living in a care home (including now)? No 12/08/2024 Comments No Sex [...] Description 01/13/2025 10:00 AM EDT Hospital Encounter [facility] Surgery [address] [place] [address] Umberto Vinson MD [address] [place] [address] 01/13/2025 10:00 AM EDT - 01/13/2025 11:30 AM EDT Surgery [facility] Surgery [facility] [place] [address] [place] [phone] Umberto Vinson MD [address] [place] [address] CYSTOSCOPY TRANSURETHRAL RESECTION OF BLADDER TUMOR, Scheduled Procedures Name Priority Associated Diagnoses Date/Ti me TURBT (TRANSURETHRAL RESECTION OF BLADDER TUMOR) Neoplasm of uncertain behavior of bladder 01/13/2025 10:00 AM EDT CYSTOURETEROSCOPY, WITH RETROGRADE PYELOGRAM OR STENT INSERTION Neoplasm of uncertain behavior of bladder 01/13/2025 10:00 AM EDT Health Maintenance Due Date Last [...] this topic Medical Devices Implanted Type Area Candlemaking Laborer Device Identifier Shelf Expiration Date Model / Serial / Lot Icd Traver Xt Mri Df4 Vr - [id number] Implanted:Qty: 1 on 12/08/2024 by Cristina Thibodeaux MD at [facility] ICD Left: Chest Wall [employer] 01/19/2026 [id number] / [id number] / [id number] Lead Sprint Secure S Df4 62cm - [id number] Implanted:Qty: 1 on 12/08/2024 by Cristina Thibodeaux MD at [facility] Lead Left: Heart [employer] 08/10/2026 [id number] / [id number] / [id number] Procedures Procedure Name Priority Date/Time Associated Diagnosis [...] PM EST Gross hematuria NON-MUSE EKG [facility] Routine 10/29/2024 Chronic systolic congestive heart failure (HCC) Coronary artery disease involving [place] coronary artery of [place] heart without angina pectoris LIPID PANEL Routine 07/24/2024 7:05 AM EST from Last 3 Months or Most Recently Relevant to Health Maintenance Results * Cardiac Device Check (12/08/2024 3:58 PM EDT) Date Time Interrogation Session [id number] [facility] Implantable Pulse Generator Candlemaking Laborer [employer] [facility] Implantable Pulse Generator Model [id number] Traver XT VR MRI [facility] Implantable Pulse Generator Serial Number [id number] [facility] Type Interrogation Session In Clinic [facility] Clinic Name Device Clinic - [place] [facility] Implantable Pulse Generator Type Defibrillator [facility] Implantable Pulse Generator Implant Date 20241208 [facility] Implantable Lead Candlemaking Laborer [employer] [facility] Implantable Lead Model [id number] Sprint Quattro Secure S MRI SureScan [employer] [facility] Implantable Lead Serial Number [id number] [employer] [facility] Implantable Lead Implant Date 20241208 [facility] [employer] [facility] Implantable Lead Polarity Type Tripolar Lead [facility] [employer] C[facility] Implantable Lead Location Detail 1 UNKNOWN [facility] Implantable Lead Special Function [id number] [facility] Implantable Lead Location Right Ventricle [facility] Implantable Lead Connection Status Connected [facility] [employer] [facility] Guy Setting Mode (NBG Code) VVI [...] Lead Channel Setting Sensing Sensitivity 0.3 mV [employer] [facility] Lead Channel Setting Pacing Polarity Bipolar [facility] Lead Channel Setting Pacing Anode Location Right Ventricle [facility] Lead Channel Setting Pacing Anode Terminal Ring [facility] Lead Channel Setting Sensing Cathode Location Right Ventricle [facility] Lead Channel Setting Sensing [place] Terminal Tip [employer] [facility] Lead Channel Setting Pacing Pulse Width 0.4 ms [employer] [facility] Lead Channel Setting Pacing Amplitude 3.5 V [employer] [facility] Lead Channel Setting Pacing Capture Mode Adaptive [facility] Zone Setting Type Category VF [employer] HEALTH CARDIOLOGY Zone Setting Vendor Type Category VF [employer] HEALTH CARDIOLOG[facility] Zone Setting Status Active [employer] HEALTH CARDIOLOG[facility] Zone Setting Detection Interval 300 ms [facility] Zone Setting Detection Beats Numerator 30 {beats} [facility] Zone Setting Detection Beats Denominator 40 {beats} [facility] Zone Setting Type Category VT [facility] Zone Setting Vendor Type Category FastVT [facility] Zone Setting Status Inactive [facility] Zone Setting Type Category VT [employer] HEALTH CARDIOLOGY Zone Setting Vendor Type Category VT [facility] Zone Setting Status Inactive [facility] Zone Setting Detection Interval 360 ms [facility] Zone Setting Detection Beats Numerator 16 {beats} [facility] Zone Setting Detection Beats Denominator 16 {beats} [facility] Zone Setting Type Category VT [employer] HEALTH CARDIOLOG[facility] Zone Setting Vendor Type Category MonVT [employer] HEALTH CARDIOLOGY Zone Setting Status Monitor [employer] HE[facility] CARDI[facility] Zone Setting Detection Interval 400 ms [facility] Zone Setting Detection Beats Numerator 32 {beats} [facility] Zone Setting Detection Beats Denominator 32 {beats} [employer] [facility] Lead Channel Impedance Value 380 ohm [employer] [facility] Lead Channel Impedance Value 475 ohm [employer] [facility] Lead Channel Sensing Intrinsic Amplitude 12.1 mV [employer] [facility] Lead Channel Pacing Threshold Amplitude 0.5 V [facility] Lead Channel Pacing Threshold Pulse Width 0.4 ms [facility] Battery Date Time of Measurements [id number] [facility] [employer] [facility] Battery MAINTENANCE TECHNICIAN 2ND SHIFT Trigger 2.8 V [facility] [employer] [facility] Battery Voltage 3.14 V SPEC [facility] [employer] [facility] Capacitor Charge Type Shock [facility] Capacitor Charge Time 0 s [facility] [employer] [facility] Capacitor Charge Energy 40.0 J [facility] Guy Statistic Date Time Start [id number] [facility] Guy Statistic Date Time End [id number] [facility] Guy Statistic RV Percent Paced 0 % [facility] [employer] [facility] Atrial Tachy Statistic Date Time Start [id number] [facility] Atrial Tachy Statistic Date Time End [id number] [employer] [facility] Atrial Tachy Statistic AT/AF [place] Percent 0 % [facility] [employer] [facility] Therapy Statistic Recent Shocks Delivered 0 [facility] Therapy Statistic Recent Shocks Aborted 0 [facility] Therapy Statistic Recent ATP Delivered 0 [facility] Therapy Statistic Recent Date Time Start [id number] [facility] Therapy Statistic Recent Date Time End [id number] [facility] Therapy Statistic Total Shocks Delivered 0 [facility] Therapy Statistic Total Shocks Aborted 0 [facility] Therapy Statistic Total ATP Delivered 0 [facility] Therapy Statistic Total Date Time Start [id number] [facility] Therapy Statistic Total Date Time End [id number] [facility] Episode Statistic Recent Count 0 [employer] [facility] Episode Statistic Type Category Patient Activated S[facility] Episode Statistic Recent Count 0 [employer] [facility] Episode Statistic Type Category SVT [employer] [facility] C[facility] Episode Statistic Recent Count 0 [employer] [facility] Episode Statistic Type Category VT [facility] Episode Statistic Recent Count 0 [facility] Episode Statistic Type Category VF S[facility] Episode Statistic Recent Count 0 [facility] Episode Statistic Type Category VT [facility] Episode Statistic Recent Count 0 [facility] Episode Statistic Type Category VT [facility] Episode Statistic Recent Count 0 [employer] [facility] Episode Statistic Type Category VT [facility] Episode Statistic Recent Date Time Start [id number] [facility] Episode Statistic Recent Date Time End [id number] [facility] Episode Statistic Recent Date Time Start [id number] [facility] Episode Statistic Recent Date Time End [id number] [facility] Episode Statistic Recent Date Time Start [id number] [facility] Episode Statistic Recent Date Time End [id number] [facility] Episode Statistic Recent Date Time Start [id number] [facility] Episode Statistic Recent Date Time End [id number] [facility] Episode Statistic Recent Date Time Start [id number] [facility] Episode Statistic Recent Date Time End [id number] [facility] Episode Statistic Recent Date Time Start [id number] [facility] Episode Statistic Recent Date Time End [id number] [facility] Episode Statistic Recent Date Time Start [id number] [facility] Episode Statistic Recent Date Time End [id number] [facility] Episode Statistic Total Count [...] CARDIOLOGY Episode Statistic Total Date Time Start [id number] [facility] Episode Statistic Total Date Time End [id number] [facility] Episode Statistic Total Date Time Start [id number] [facility] Episode Statistic Total Date Time End [id number] [facility] Episode Statistic Total Date Time Start [id number] [facility] Episode Statistic Total Date Time End [id number] [facility] Episode Statistic Total Date Time Start [id number] [facility] Episode Statistic Total Date Time End [id number] [facility] Episode Statistic Total Date Time Start 92727155158084 [facility] Episode Statistic Total Date Time End 70501337781526 [facility] Episode Statistic Total Date Time Start 29791056135001 [facility] Episode Statistic Total Date Time End [id number] [facility] Episode Statistic Total Date Time Start [id number] [facility] Episode Statistic Total Date Time End [id number] [facility] Summary Statement Same day discharge check. Presenting rhythm VS. RV sense 12.1 mv, threshold .5 v @ .40 ms, impedance 475. No new events. Battery at Martha. Programmed VVI-40 [facility] 12/08/2024 3:58 PM EDT us Cristina Thibodeaux MD CARDIAC DEVICE ORDERABLES Final Result [facility] * DR Paulson 2 Views Frontal [...] PM EDT 12/08/2024 3:51 PM EDT Narrative [facility] - 12/08/2024 3:51 PM EDT Ventricular Rate 70 BPM Atrial Rate 70 BPM P-R Interval 202 ms QRS Duration 104 ms Q-T Interval 424 ms QTC Calculation(Bazett) 457 ms Calculated P Cooper 66 degrees Calculated R Cooper -72 degrees Calculated T Cooper 118 degrees Diagnosis Normal sinus rhythm Borderline first degree AV block Left anterior fascicular block Minimal voltage criteria for LVH, may be normal variant ( Kevin product ) Cannot rule out Anterior infarct (cited on or before 08-DEC-2024) Nonspecific ST-T wave changes Abnormal ECG When compared with ECG of 08-DEC-2024 11:52, (Unconfirmed) No significant change was found Confirmed by Marcel Degroot ([id number]) on 12/08/2024 3:51:38 PM Procedure Note Marcel Degroot MD - 12/08/2024 Ventricular Rate 70 BPM Atrial Rate 70 BPM P-R Interval 202 ms QRS Duration 104 ms Q-T Interval 424 ms QTC Calculation(Bazett) 457 ms Calculated P Cooper 66 degrees Calculated R Cooper -72 degrees Calculated T Cooper 118 degrees Diagnosis Normal sinus rhythm Borderline first degree AV block Left anterior fascicular block Minimal voltage criteria for LVH, may be normal variant ( Cornellproduct ) Cannot rule out Anterior infarct (cited on or before 08-DEC-2024) Nonspecific ST-T wave changes Abnormal ECG When compared with ECG of 08-DEC-2024 11:52, (Unconfirmed) No significant change was found Confirmed by Marcel Degroot ([id number]) on 12/08/2024 3:51:38 PM us Cristina Thibodeaux MD ECG ORDERABLES Final Result [facility] * CV IMPLANTABLE CARDIOVERTER DEFIBRILLATOR INSERTION [...] Dr. Rudy Juan on 12/04/2024 1:49 PM. [employer] Actionable Findings Message ID [id number]. Narrative 12/04/2024 1:[address] UROGRAM [...] 12/04/2024 1:49 PM. PowerConnectActionable Findings Message ID [id number]. Umberto Vinson MD CT ORDERABLES Final Resul t * (ABNORMAL) Complete Blood Count w/Differential (12/02/2024 2:32 PM EDT) White Blood Cell 6.6 3.3 - 10.7 x10*9/L 12/03/2024 9:50 AM EDT [facility] Red Blood Cell 4.14 3.87 - 5.08 x10*12/L 12/03/2024 9:50 AM EDT [facility] Hemoglobin 12.7 12.1 - 15.0 g/dL 12/03/2024 9:50 AM EDT [facility] Hematocrit 41.5 35.4 - 44.2 % 12/03/2024 9:50 AM EDT [facility] Mean Cell Volume 100.2 79.5 - 100.4 fL 12/03/2024 9:50 AM EDT [facility] Mean Cell Hemoglobin 30.7 27.5 - 33.4 pg 12/03/2024 9:50 AM EDT [facility] Mean Cell Hemoglobin Concentration 30.6(L) 31.5 - 35.4 g/dL 12/03/2024 9:50 AM EDT [facility] Red Cell Distribution Width 13.6 11.5 - 15.4 % 12/03/2024 9:50 AM EDT [facility] Platelet 227 150 - 400 x10*9/L 12/03/2024 9:50 AM EDT [facility] Mean Platelet Volume 10.2 8.0 - 12.0 fL 12/03/2024 9:50 AM EDT [facility] Neutrophil Automated Absolute 3.57 1.55 - 7.24 x10*9/L 12/03/2024 9:50 AM EDT [facility] Lymphocyte Automated Absolute 2.28 1.05 - 4.04 x10*9/L 12/03/2024 9:50 AM EDT [facility] Monocyte Automated Absolute 0.47 0.00 - 0.84 x10*9/L 12/03/2024 9:50 AM EDT [facility] Eosinophil Automated Absolute 0.20 0.00 - 0.54 x10*9/L 12/03/2024 9:50 AM EDT [facility] Basophil Automated Absolute 0.05 0.00 - 0.14 x10*9/L 12/03/2024 9:50 AM EDT [facility] Immature Granulocyte Automated Absolute 0.01 0.00 - 0.03 x10*9/L 12/03/2024 9:50 AM EDT [facility] Immature Granulocyte Automated 0.2 0.0 - 1.0 % 12/03/2024 9:50 AM EDT [facility] NUCLEATED RED BLOOD CELLS AUTOMATED 0.0 <=0.0 % 12/03/2024 9:50 AM EDT [facility] Blood VENOUS BLOOD SPECIMEN / Unknown Venipuncture / Unknown 12/02/2024 2:32 PM EDT 12/02/2024 2:33 PM EDT us Cristina Thibodeaux MD LAB BLOOD ORDERABLES Final Resu lt [facility] [address] [place] [id number] * (ABNORMAL) Basic Metabolic Panel (BMP) (12/02/2024 2:32 PM EDT) Sodium 143 135 - 145 mmol/L 12/03/2024 11:00 AM EDT [facility] Potassium 3.9 3.5 - 5.2 mmol/L 12/03/2024 11:00 AM EDT [facility] Chloride 101 98 - 111 mmol/L 12/03/2024 11:00 AM EDT [facility] Bicarbonate 27 20 - 29 mmol/L 12/03/2024 11:00 AM EDT [facility] Anion Gap 15 5 - 17 mmol/L 12/03/2024 11:00 AM EDT [facility] Glucose 42(L) 70 - 99 mg/dL 12/03/2024 11:00 AM EDT [facility] Comment:Results Repeated. Blood Urea Nitrogen (BUN) 24 7 - 25 mg/dL 12/03/2024 11:00 AM EDT [facility] Creatinine 0.86 0.50 - 1.10 mg/dL 12/03/2024 11:00 AM EDT [facility] eGFR 71 >60 mL/min/1.7 3 m2 12/03/2024 11:00 AM EDT [facility] Comment: Calculation based on the Chronic [...] - 10.5 mg/dL 12/03/2024 11:00 AM EDT [facility] Blood VENOUS BLOOD SPECIMEN / Unknown Venipuncture / Unknown 12/02/2024 2:32 PM EDT 12/02/2024 2:33 PM EDT us Cristina Thibodeaux MD LAB BLOOD ORDERABLES Final Resu lt [facility] [address] [place], [place] [phone] * JOSE FRANCISCO DEFIB (IMPLANTABLE CARDIOVERTER DEFIBRILLATOR) (11/13/2024 10:18 AM EST) DAMARIIEDU DEFIB (IMPLANTABLE CARDIOVERTER DEFIBRILLATOR) PATIENT EDUCATION EMMIURL [email or web address] PATIENT EDUCATION EMMIACC [id number] PATIENT EDUCATION EMMIISSUEDATE Nov 13, 2024 PAT [...] SURGICAL SITE INFECTION PREVENTION PATIENT EDUCATION EMMIURL [email or web address] PATIENT EDUCATION EMMIACC [id number] PATIENT EDUCATION EMMIIUEDATE Nov 13, 2024 PAT [...] System for Reporting Urinary Cytology. 2nd Ed. Cherry: Severino, 2021. 11/10/2024 3:12 PM EST [facility] [...] was prepared and screened at [facility] Cytology Laboratory, [address] [place] [address] 11/10/2024 3:12 PM EST [facility] Embedded Images 11/10/2024 3:12 PM EST [facility] Case Report Medical Cytology Case: [id number] Authorizing Provider: Umberto Vinson MD Collected: 11/02/2024 1435 Ordering Location: [facility] Received: 11/03/2024 0107 [facility] Pathologist: Anna Gonzalez MD Specimen: Urine, Voided 11/10/2024 3:12 PM EST [facility] Urine URINE SPECIMEN FROM URETHRA / Unknown 11/02/2024 2:35 PM EST 11/03/2024 1:07 AM EST us Umberto Vinson MD LAB CYTOLOGY ORDERABLES Fin al Result [facility] [address] [place] [address] * NON-MUSE EKG (10/29/2024) us Cristina Thibodeaux MD ECG ORDERABLES Final Result * (ABNORMAL) Lipid Panel (07/24/2024 7:05 AM EST) Cholesterol Total 158 <200 mg/dL 024 8:31 AM EST [facility] Comment: Optimal: 0 - 199 mg/dL Borderline: 200-239 mg/dL High CHD Risk: >239 mg/dL HDL Cholesterol 44(L) >=50 mg/dL 8:31 AM EST [facility] Comment: Optimal: >59 mg/dL High CHD Risk: <40 mg/dL LDL Cholesterol, Calculated 98 <129 mg/dL 07/24/2024 8:31 AM EST [facility] Comment: Optimal: <100 Near Optimal: 100 [...] 85 <150 mg/dL 07/24/2024 8:31 AM EST [facility] Comment: Optimal: 0 - 149 mg/dL Borderline: 150 - 199 mg/dL High CHD Risk: 200 - 500 mg/dL Very High CHD Risk: >500 mg/dL Non-HDL Cholesterol, Calculated 114 <120 mg/dL 07/24/2024 8:31 AM EST [facility] Chol/HDL Ratio 3.6 1.8 - 4.9 07/24/2024 8:31 AM EST [facility] Fasting time as reported by patient 07/24/2024 8:31 AM EST [facility] Comment:0 Hours Blood VENOUS BLOOD SPECIMEN / Unknown Venipuncture / Unknown 07/24/2024 7:05 AM EST 07/24/2024 7:55 AM EST us Joanna Harris MD LAB BLOOD ORDERABLES Fin al Result [facility] [address] [place] [address] from Last 3 Months or Most Recently Relevant to Health Maintenance [facility] Care Teams Maintenance Technician 2Nd Shift Relationship Specialty Start Date End Date Rae Aguillon MD PCP - General Internal Medicine 03/05/19
--- OUTSIDE RECORDS SUMMARY | 2024-12-30 20:46 | XMS_ITS ---
Author Organization [facility] estive Health [employer] [facility] Address [address] [facility] [address] [place] [address] Care Team Providers Care Senior Storage Engineer Name Role Phone Rae Aguillon MD Primary Care Provider Tiny Barnes [phone] REASON FOR VISIT Rx faxed Medications Medication SIG (Take, Route, Frequency, Duration) Notes Start Date End Date Status PEG 3350-KCl-Na Bicarb-NaCl 420 GM 2000 ML Orally Split Dose per Physician Instructions for 1 DAY 09/19/2023 09/20/2023 Active Encounters Encounter Location Date Provider Diagnosis [facility] [address] [facility] [address] [place] [address] 09/19/2023 Tiny Moralez Plan Of Treatment Medication Medication Name Sig Start Date Stop Date Notes PEG 3350-KCl-Na Bicarb-NaCl 420 GM 2000 ML Orally Split Dose per Physician Instructions for 1 DAY 09/19/2023 09/20/2023 Progress Notes * Dennis LINDSEYOB:1950 (73 yo F)Acc No.[id number]:09/19/2023 Patient: Mary Kay Hernandez :1950 A ge:73 Y S ex:Female Address:[address] [place] [address], [address] * Refills Start PEG 3350-KCl-Na Bicarb-NaCl Solution Reconstituted, 420 GM, Orally, 1 kit, 2000 ML, Split Dose per Physician Instructions, 1 DAY, Refills=0 * true * Date: Generated for Printi ng/Faxing/eTransmitting on: 0 12/30/2024 09:46 PM EDT
--- OUTSIDE RECORDS SUMMARY | 2024-12-30 20:47 | XMS_ITS ---
Author Organization [facility] Address [address] [facility] [address] [place] [address] Care Team Providers Care Rehabilitation Therapy Aide Name Role Phone Rae Aguillon Primary Care Provider Pal NEVAREZ, Rae Unavailable Unavailable REASON FOR VISIT HOSPITAL FOLLOW UP 07/22/24-07/29/24 Encounters Encounter Location Date Provider Diagnosis [facility] [address] [facility] [address] [place] [id number] 08/09/2024 Rae Aguillon Plan Of Treatment No Information Progress Notes * SHERRY GARCIA MDOB: 0 (74 yo F)Acc No.[id number]:08/09/2024 OV 15 MIN Patient: SHERRY AGUIAR Provider: Liz Aguillon MD :1950 A ge:74 Y S ex:Female Date:08/09/2024 Address:[address] [place], [place] [id number] Structured Data:[facility] Brochur e : Yes Subjective: * Chief Complaints: * 1 . HOSPITAL FOLLOW UP 07/22/24-07/29/24. * Medical History: Objective: * Vitals: Assessment: Plan: * Treatment: * Images: Billing Information: * Visit Code: * Procedure Codes: * Electronic signature of Rae Aguillon MD on 12/30/2024 at 09:46 PM EDT Sign off status: Pending * Provider: Liz Aguillon MD Date: 1 10/10/2023 Generated for Christin daniel/Kindra/eTransmitting on: 0 12/30/2024 09:46 PM EDT
--- OUTSIDE RECORDS SUMMARY | 2024-12-30 20:47 | XMS_ITS ---
Author Organization [facility] Address [address] [facility] [address] [place] [address] Care Team Providers Care Fleet Salesperson Name Role Phone Rae Aguillon MD Primary Care Provider Tiny Barnes Unavailable [phone] REASON FOR VISIT MED CLEARANCE Encounters Encounter Location Date Provider Diagnosis [facility] [address] [facility] [address] [place] [address] 10/03/2023 Tiny Moralez Plan Of Treatment No Information Progress Notes * Dennis MAHANOB:1950 (73 yo F)Acc No.[id number]:10/03/2023 Patient: Mary Kay Hernandez :1950 A ge:73 Y S ex:Female Address:[address] [place] [address], [address] * true * Date: Generated for Gelyi maría/Karlag/eTransmitting on: 0 12/30/2024 09:46 PM EDT
--- NOTE | 2024-12-30 21:35 | PC.NURSE ---
Per MD Granados he verbally states to hold off giving IV antibiotics until he consults with another physcian.
[2024-12-30] MEDS: SODIUM CHLORIDE 0.9% IV 1,000 ML 999 ML IV CONT ×2 (21:39)
--- NOTE | 2024-12-30 22:45 | ED_ITS ---
HPI - General Adult General Chief complaint: Recheck/Abnormal Lab/Rx Stated complaint: COLOSTOMY ISSUES Time Seen by Provider: 12/30/24 20:08 History of Present Illness HPI narrative: This 74-year-old female presenting for decreased output from her colostomy. On December 11 she had a colonic rupture treated with colectomy and colostomy bag performed at [facility]. Over last 2 days patient has decreased help colostomy. She has also have abdominal bloating. She has not had any nausea or vomiting. She has had normal p.o. intake. She does have some increased pain in the right side of her abdomen. She denies fevers or flu-like symptoms. Patient had been on stool softeners which was stopped 2 days ago. They were resumed today. Related Data Home Medications ?Medication ?Instructions ?Recorded ?Confirmed ?Last Taken ?Type amiodarone 200 mg tablet 200 mg PO BID 12/24/24 12/26/24 Unknown History apixaban 5 mg tablet 5 mg PO BID 12/24/24 12/26/24 Unknown History ascorbic acid (vitamin C) 250 mg 1 g PO DAILY 12/24/24 12/26/24 12/26/24 History tablet atorvastatin 80 mg tablet 80 mg PO HS 12/24/24 12/26/24 12/25/24 21:00 History 80 mg calcium carbonate (Calcium 600) 1,200 mg PO DAILY 12/24/24 12/26/24 12/26/24 09:00 History 1,200 mg carvedilol 3.125 mg tablet 3.125 mg PO BIDWM 12/24/24 12/26/24 12/26/24 09:00 History 3.125 mg cholecalciferol (vitamin D3) 25 2,000 unit PO DAILY 12/24/24 12/26/24 12/26/24 09:00 History mcg (1,000 unit) tablet 2,000 unit furosemide 20 mg tablet 20 mg PO DAILY 12/24/24 12/26/24 12/26/24 09:00 History 20 mg levothyroxine 100 mcg tablet 100 mcg PO DAILY@0630 12/24/24 12/26/24 12/26/24 06:00 History 100 mcg multivitamin 1 tablet PO DAILY 12/24/24 12/26/24 12/26/24 09:00 History 1 tablet venlafaxine 150 mg 150 mg PO CHANTELL 12/24/24 12/26/24 12/26/24 09:00 History capsule,extended release 24 hr 150 mg losartan 25 mg tablet 25 mg PO DAILY 12/26/24 12/26/24 12/26/24 09:00 History 25 mg ertapenem 1 gram intravenous 1 g IV Q24H 12/27/24 12/27/24 12/25/24 21:00 History solution 1 g Allergies Allergy/AdvReac Type Severity Reaction Status Date / Time latex Allergy Intermediate Unknown Verified 12/30/24 19:52 morphine Allergy Unknown Verified 12/30/24 19:52 [facility] Past Medical History Medical History (Updated 12/30/24 @ 22:52 by Rubén Granados MD) Metabolic encephalopathy Takotsubo cardiomyopathy Diverticulosis Perforated sigmoid colon Cardiomyopathy Atrial fibrillation History of stroke Surgical History Surgical History 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 Colostomy in place Social History Social History Smoking status: Never smoker Tobacco type: cigarettes Second hand tobacco smoke exposure: No Alcohol intake: never Substance use: never Substance use type: does not use Do You Feel Safe in your Home?: Yes Lack of Transportation: No Lack of Food: Never True Current Housing: I Have Housing Concerned About Future Housing: No Difficulty Paying Gas/Electric Bills: No Difficulty Paying for Meds: No Currently Unemployed: No Education: Decline to Answer Difficulty w/ Childcare or Family Care: No Spiritual care concerns: No Exam 2 Narrative: APPEARANCE: No apparent distress. Head: atraumatic. EYES: EOMI, NOSE: Atraumatic NECK: Trachea midline RESPIRATORY: No increased rate of breathing CTAB CARDIOVASCULAR: RRR, ABDOMINAL: Tenderness palpation over the right side of the abdomen without guarding rebound, colostomy in place with brown stool stool MUSCULOSKELETAl: No obvious deformities NEURO: Alert. Moving 4/4 extremities SKIN:: Warm, dry. Normal color PSYCHIATRIC: Normal affect Course Vital Signs Vital signs: Vital Signs Temperature 98.3 F 12/30/24 19:46 Temperature 98.3 F 12/30/24 19:46 Pulse Rate 65 12/30/24 21:43 Respiratory Rate 18 12/30/24 21:43 Blood Pressure 99/55 L 12/30/24 21:43 Pulse Oximetry 93 12/30/24 21:[address] [facility] Narrative Medical decision making narrative: -Course: 74-year-old female presenting with decreased output from her ostomy. CT abdomen pelvis showed fecal stasis in the small intestine, but also showed a rim enhancing lesion in the pelvis which is likely abscess. Case was discussed with [facility] surgery team and she will be transferred to ED to ED for surgical evaluation. Patient's white count is normal and she is not acidotic. Her blood pressures were soft however this is chronic and we have 2 weeks worth of records from the rehab shows she is always around 90/50. Patient is not septic. She was given 2 L of normal saline and started on Zosyn. Transferred to ED under Dr. Blanco. Vital Signs Vital Signs: Vital Signs Temperature 98.3 F 12/30/24 19:46 Temperature 98.3 F 12/30/24 19:46 Pulse Rate 65 12/30/24 21:43 Respiratory Rate 18 12/30/24 21:43 Blood Pressure 99/55 L 12/30/24 21:43 Pulse Oximetry 93 12/30/24 21:43 Lab Data 12/30/24 19:55 12/30/24 19:55 Labs: Lab Results 12/30/24 Range/Units 19:55 WBC 7.5 (4.5-10.0) K/mm3 RBC 3.11 L (4.2-5.4) M/mm3 Hgb 9.3 L (12.0-15.0) g/dL Hct 29.5 L (37.0-47.0) % MCV 94.9 (80-100) fl MCH 29.9 (26-34) pg MCHC 31.5 L (32-36) g/dl RDW 13.9 (11.5-14.5) % Plt Count 325 (150-375) k/mm3 MPV 9.4 (7.4-10.4) fl Immature Gran % (Auto) 0.3 (0-0.5) % Neut % (Auto) 61.8 (45.5-73.1) % Lymph % (Auto) 24.7 (18.3-44.2) % Nye % (Auto) 10.0 H (2.6-8.5) % Eos % (Auto) 2.5 (0-4.4) % Baso % (Auto) 0.7 (0.2-1.2) % Lymph # (Auto) 1.85 (0.9-3.2) K/mm3 Nye # (Auto) 0.8 H (0.1-0.6) K/mm3 Eos # (Auto) 0.2 (0-0.3) K/mm3 Baso # (Auto) 0.1 (0.0-0.1) K/mm3 Abs Immat Gran (auto) 0.02 (0.00-0.031) K/mm3 Absolute Neuts (auto) 4.6 (1.3-6.7) K/mm3 Absolute Nucleated RBC 0.000 (0.0-0.012) K/mm3 Nucleated RBC % 0.0 (0.0-0.2) % Sodium 139 (137-145) mmol/L Potassium 3.5 (3.4-5.0) mmol/L Chloride 103 (98-107) mmol/L Carbon Dioxide 29 (22-30) mmol/L Anion Gap 7 (4-12) mmol/L BUN 22 H (7-17) mg/dL Creatinine 0.91 (0.7-1.0) mg/dL Estim Creat Clear Calc 50 ml/min Estimated GFR 60 (59 - ) Glucose 112 H (65-110) mg/dL Calcium 8.5 (8.4-10.2) mg/dL Total Bilirubin 0.2 (0.2-1.3) mg/dL AST 23 (14-36) U/L ALT 30 (6-35) U/L Alkaline Phosphatase 69 (38-126) U/L Total Protein 6.0 L (6.3-8.2) g/dL Albumin 3.2 L (3.5-5.1) g/dL Critical Care Time Critical Care Time Critical Care Time: Yes Total Critical Care Time: 35 Discharge Plan Discharge Clinical Impression: Abdominal abscess Patient Disposition: Acute Care Hospital Condition: Stable Patient Language: Romanian Prescriptions: No Action losartan 25 mg tablet 25 mg PO DAILY ertapenem 1 gram recon soln 1 g IV Q24H Patient Comments: started 12/24/24 @ 2100; stop 01/26/25 @ 2100 amiodarone 200 mg tablet 200 mg PO BID apixaban 5 mg tablet 5 mg PO BID furosemide 20 mg tablet 20 mg PO DAILY atorvastatin 80 mg tablet 80 mg PO HS carvedilol 3.125 mg tablet 3.125 mg PO BIDWM levothyroxine 100 mcg tablet 100 mcg PO DAILY@0630 venlafaxine 150 mg capsule,extended release 24hr 150 mg PO QACBREAK ascorbic acid (vitamin C) 250 mg tablet 1 g PO DAILY calcium carbonate [Calcium 600] 600 mg calcium (1,500 mg) tablet 1,200 mg PO DAILY multivitamin Tablet 1 tablet PO DAILY cholecalciferol (vitamin D3) 25 mcg (1,000 unit) tablet 2,000 unit PO DAILY Follow-up/Referrals: Rae Aguillon [Other]
[2024-12-30 23:17] LABS: Lactic Acid Reflex 0.6 mmol/L (0.7-2.0)
--- NOTE | 2024-12-30 23:23 | PC.NURSE ---
RN did not start pt antibiotics due to mobi tech only getting one set of cultures drawn. EMS just arrived to take pt to [facility] ER prior to mobi tech getting second set. Pt IV antibiotics not started prior to leaving ED.
== END 2024-12-30 23:26 | disposition short-term general hospital (02) ==
PROVIDERS: Emergency Provider Emergency Medicine
DX: L02.211 Cutaneous abscess of abdominal wall (principal); Z93.3 Colostomy status; I48.91 Unspecified atrial fibrillation; Z86.73 Personal history of transient ischemic attack (TIA), and cerebral infarction without residual deficits
CPT/HCPCS: 36415; 74177; 80053; 83605; 85025; 87040; 96365; 96366; 99285; J7030; Q9967